=== PATIENT | female | born 1970 | race Caucasian/White ===

== ENCOUNTER → 2017-03-14 | Outpatient (CLI) | payer BC ==
--- NOTE | 2017-03-14 16:00 | REPMRS ---
Patient History The patient states she had a clinical breast exam in February 2017.Family history of breast cancer in maternal aunt at age 50 or over. Digital Mammo Screening Bilat: March 14, 2017 - Exam #: [id number] Bilateral CC and MLO view(s) were taken. Technologist: Vivian Andre, Technologist Prior study comparison: April 30, 2014, bilateral digital mammo screening bilat performed at [facility]. April 26, 2013, digital mammo diagnostic bilateral performed at [facility]. FINDINGS: There are scattered fibroglandular densities. There is a fairly symmetric fibroglandular pattern in both breasts. There has been no interval development of masses, areas of architectural distortion or clusters of microcalcifications typical of malignancy. ASSESSMENT: BI-RADS/ACR category 2 mammogram. Benign finding(s). Recommendation Routine screening mammogram of both breasts in 1 year (for women over age 40). This mammogram was interpreted with the aid of an FDA-approved computer-aided dectection system. Electronically Signed By: Chan Honeycutt MD 03/14/17 1600
== END ==
LOC: M RAD 14:47
PROVIDERS: ATTEND Advanced Practice Midwife
DX: Z12.31 Encounter for screening mammogram for malignant neoplasm of breast (principal); Z80.3 Family history of malignant neoplasm of breast; R92.8 Other abnormal and inconclusive findings on diagnostic imaging of breast

== ENCOUNTER → 2017-03-28 | Outpatient (REF) | payer BC | LOC: M LAB REF 17:16 | PROVIDERS: ATTEND Advanced Practice Midwife | DX: Z12.4 Encounter for screening for malignant neoplasm of cervix (principal); N92.4 Excessive bleeding in the premenopausal period | CPT/HCPCS: 88304; G0123 ==

== ENCOUNTER → 2017-04-13 | Outpatient (CLI) | payer BC ==
[~2017-04-13] MED LIST: LORT5TAB PO; MIRA3350 PO; OMEP40CA2 PO; OXYB5TAB10 PO
--- NOTE | 2017-04-13 13:52 | REP ---
Clinical: Abnormal uterine bleeding . Technique: Transabdominal pelvic ultrasound followed by transvaginal examination for better evaluation of the endometrium and adnexa with color Doppler evaluation of the ovaries. Findings: Bladder is unremarkable and measures 10.1 x 6.1 x 5.9 cm . Normal retroverted uterus measures 7.4 x 4.3 x 5.0 cm . The endometrial complex measures 5.6 mm thickness. No discrete uterine or endometrial abnormalities are appreciated. Bilateral ovaries are normal in appearance and vascularity without evidence for torsion. Right ovary measures 3.7 x 2.3 x 2.5 cm ; R I = 0.52 . Left ovary measures 3.0 x 2.0 x 2.0 cm ; R I = 0.50 . No pelvic fluid or adnexal mass lesion . Impression: 1. normal pelvic ultrasound Signed by Misael De Los Santos MD 04/13/2017 01:43 P
== END ==
LOC: M RAD 12:41
PROVIDERS: ATTEND Obstetrics & Gynecology
DX: N92.4 Excessive bleeding in the premenopausal period (principal)

== ENCOUNTER 2017-05-06 08:25 | Emergency (ER) | payer BC, OTHER ==
[~2017-05-06] VITALS: Ht 162.6 cm; Wt 72.7 kg
[2017-05-06 08:30] VITALS: BP 120/70
[2017-05-06] MEDS ORDERED: MIRA3350 PO (08:34)
[2017-05-06] MEDS ORDERED: OMEP40CA2 PO (08:34)
[2017-05-06] MEDS ORDERED: OXYB5TAB10 PO (08:34)
--- NOTE | 2017-05-06 09:32 | REP ---
LEFT FOOT: Four views of the left foot performed. There appears to be a nondisplaced fracture of the distal aspect of the second proximal phalanx. No other acute fracture or dislocation is seen. Metallic clip is seen in the soft tissues near the medial malleolus at the ankle. IMPRESSION: Nondisplaced fracture distal aspect of the second proximal phalanx. Signed by Chan Honeycutt MD 05/06/2017 03:18 P
== END 2017-05-06 09:42 | disposition home or self-care (01) ==
LOC: M ED 08:25
DX: S92.515A Nondisplaced fracture of proximal phalanx of left lesser toe(s), initial encounter for closed fracture (principal); W23.1XXA Caught, crushed, jammed, or pinched between stationary objects, initial encounter; Y92.019 Unspecified place in single-family (private) house as the place of occurrence of the external cause; Y93.89 Activity, other specified; Y99.8 Other external cause status; F17.200 Nicotine dependence, unspecified, uncomplicated; Z79.899 Other long term (current) drug therapy

== ENCOUNTER 2017-06-02 11:41 | Day surgery (SDC) | payer OTHER ==
[~2017-06-02] VITALS: Ht 165.1 cm; Wt 73.0 kg
[2017-06-02] VITALS (7 sets, daily range): BP systolic 102–121; BP diastolic 57–71
[~2017-06-02 11:41] MED LIST changes: +LIDOCAINE 2% INJ 100 MG/5 ML SDV (FOR ANES.) As Ordered ONE; -LORT5TAB PO; +MIDAZOLAM INJ 2 MG/2 ML VIAL (J2250) As Ordered ONE; +PROPOFOL 200 MG/20 ML VIAL As Ordered ONE; +ROCURONIUM BROMIDE 50 MG/5 ML VIAL/SYRINGE As Ordered ONE; +fentaNYL 250 MCG/5 ML INJECTION (J3010) As Ordered ONE
[2017-06-02] MEDS ORDERED: LR 1,000 ML IV ONE (12:00)
[2017-06-02] MEDS ORDERED: METHYLENE BLUE 0.5% (5MG/ML) 10 ML AMP (PROVAYBLUE)(Q9968 PER 1MG) As Ordered ONE (12:37)
[2017-06-02] MEDS ORDERED: LIDOCAINE W/EPINEPHRINE 1% 20ML VIAL As Ordered ONE (12:37)
[2017-06-02] MEDS ORDERED: BUPIVACAINE HCL 0.25% 30 ML VIAL As Ordered ONE (12:37)
[2017-06-02] MEDS ORDERED: HYDROmorphone HCL 2 MG/ML 1ML VIAL (J1170) As Ordered ONE (13:10)
[2017-06-02] MEDS ORDERED: ROCURONIUM BROMIDE 50 MG/5 ML VIAL/SYRINGE As Ordered ONE (13:13)
[2017-06-02] MEDS ORDERED: NEOSTIGMINE 1MG/ML 5 ML SYRINGE (J2710) As Ordered ONE (13:14)
[2017-06-02] MEDS ORDERED: KETOROLAC 60 MG/2 ML VIAL (J1885) As Ordered ONE (13:14)
[2017-06-02] MEDS ORDERED: GLYCOPYRROLATE INJ 0.2 MG/ML 2 ML VIAL As Ordered ONE (13:14)
[2017-06-02] MEDS ORDERED: ONDANSETRON 4MG/2ML VIAL (J2405) As Ordered ONE (13:14)
[2017-06-02] MEDS ORDERED: PROMETHAZINE INJ 25 MG/ML VIAL (J2550) IV PRN (15:30)
[2017-06-02] MEDS ORDERED: fentaNYL 100 MCG/2 ML INJECTION (J3010) IV PRN (15:30)
[2017-06-02] MEDS ORDERED: ONDANSETRON 4MG/2ML VIAL (J2405) IV PRN (15:30)
[2017-06-02] MEDS ORDERED: LR 1,000 ML IV SCH ×2 (15:30)
[2017-06-02] MEDS ORDERED: NORCO, ANEXSIA 5/325MG TABLET (HYDROcodone/ACETAMINOPHEN) PO PRN ×3 (15:30)
[2017-06-02] MEDS ORDERED: HYDROmorphone HCL 1 MG/ML SYRINGE (J1170) IV PRN (15:30)
[2017-06-02] MEDS ORDERED: MAALOX 30 ML SUSP *UDC PO PRN (20:45)
[2017-06-02] MEDS ORDERED: zolPIDEM TARTRATE 10MG TAB PO PRN (21:00)
[2017-06-02] MEDS: KETOROLAC 30 MG/ML VIAL (J1885) IV SCH (21:14)
[2017-06-03] VITALS: BP 107/53
[2017-06-03] MEDS: KETOROLAC 30 MG/ML VIAL (J1885) IV SCH ×2 (03:42→09:07)
[2017-06-03 04:06] VITALS: BP 111/68
--- NOTE | 2017-06-03 06:57 | RO ---
DATE OF PROCEDURE: 06/02/2017 PREOPERATIVE DIAGNOSES: 1. Abnormal uterine bleeding. 2. Genuine stress urinary incontinence. POSTOPERATIVE DIAGNOSES: 1. Abnormal uterine bleeding. 2. Genuine stress urinary incontinence. PROCEDURES PERFORMED: 1. Robotic assisted laparoscopic hysterectomy. 2. Bilateral salpingectomy. 3. Tension free vaginal tape, obturator approach. 4. Cystoscopy. SURGEON: Rae Ramos MD ASSISTANTS: 1. Terrell Castle MD 2. GENNY Mcnair ANESTHESIA: General endotracheal anesthesia. INTRAVENOUS FLUIDS: 1400 mL of Lactated Ringer's solution. SPECIMENS: Cervix, uterus and bilateral fallopian tubes. URINE OUTPUT: 350 mL. ESTIMATED BLOOD LOSS: 50 mL. PREOPERATIVE ANTIBIOTICS: 2 grams of Ancef. OPERATIVE FINDINGS: Patient with normal appearing uterus, bilateral adnexa. Cystoscopy findings showed good urethral efflux bilaterally. No evidence of trauma of foreign bodies. DESCRIPTION OF OPERATION: After informed consent was obtained and written consent was reviewed, the patient was brought to the operating room where general endotracheal anesthesia was obtained. She was then placed in lithotomy position , was prepped and draped in a normal sterile fashion. A time out in the operating room was then performed identifying the patient, procedure to be performed, as well as drug allergies. A speculum was then placed revealing the cervix. The anterior and posterior aspect of the cervix was stitched with #0 Vicryl. The uterus was then sequentially dilated using Hanks dilators. A large VCare uterine manipulator was then advanced through the cervical os to the level of the fundus for a means to manipulate the uterus. The intrauterine balloon was then insufflated with 10 mL of air. The cervical cap was then placed down into the vagina. The instruments were removed from the patient's vagina. A Cuevas catheter was then placed and set to gravity. Gloves were changed and attention was turned to the patient's abdomen where a Veress needle was placed through the umbilicus. A pneumoperitoneum was then obtained with CO2 gas. The infraumbilical area was then infused with 0.25% Marcaine. An incision was made in this area. A 12 mm trocar and sleeve was advanced through this incision. The laparoscope was replaced revealing intra-abdominal placement. Two lateral port, left and to the right of the umbilicus, were placed. Each of these were infused with 0.25% Marcaine. 8 mm trocars and sleeves were advanced through these incisions under direct visualization. A fourth trocar was then placed on the left side of the patient' s abdomen. This area was infused with 0.25% Marcaine and incision was made in this area. An 8 mm trocar and sleeve was advanced through this incision under direct visualization. Next, the da Héctor was then advanced to the patient's table and was docked utilizing camera arm. Utilizing the da Héctor with bipolar cautery, bilateral salpingectomy was then performed. Mesosalpinx was then cauterized and ligated with good hemostasis bilaterally. Both fallopian tubes transected from the uterus and removed through the ports. Next, the utero-ovarian ligaments were then cauterized and ligated with good hemostasis noted bilaterally. The round ligaments on both sides were then cauterized and ligated with good hemostasis noted. The anterior lip of the broad ligaments were then dissected along the bladder creating a bladder flap. The remainder of the broad ligaments and cardinal ligaments were then cauterized and ligated with good hemostasis noted. The uterine arteries were then skeletonized bilaterally and were cauterized and ligated with good hemostasis noted. Inferior and posterior colpotomies were made and the uterus was removed vaginally. Surgical sites were inspected and noted to be hemostatic. The vaginal cuff was then closed laparoscopically using a #2-0 V-Loc system in a running fashion. Surgical sites were inspected and noted to be hemostatic. The abdomen was then irrigated and suctioned. Yefri was then applied over the surgical north. Next, the da Héctor was then undocked and attention was turned to the patient's abdomen where all four port site were closed with #4-0 Monocryl and dressed with DERMABOND. We then proceeded to the TVTO. The Cuevas catheter was removed. The area below the urethral meatus was the injected with 1% lidocaine with epinephrine. An incision was then made approximately 2 cm below the urethral meatus to the vaginal mucosa. This area was further dissected bilaterally. A wing guide was then placed and the TVTO device was inserted through the open end of the vaginal mucosa and was rotated externally and then exited through the skin in the groin area, which was previously marked in the line of the clitoris. This was repeated on the patient's left side. A Sydni clamp was then placed between the urethra and the vaginal tape. The tape was then adjusted to appropriate tension. The protective sleeve was removed. Excessive mesh was then cut and the vaginal mucosa was closed with #2-0 Vicryl. A cystoscopy was then performed with the above noted findings. Bilateral jets were visualized. No foreign bodies were seen in urethra or the bladder. Instruments were then removed. The patient was then taken out of lithotomy position and was awakened from general anesthesia and taken to recovery in stable condition. Counts were correct. MTDD
[2017-06-03 07:11] LABS: MEAN CORPUSCULAR HEMOGLOBIN 27.4 pg (27.0-33.0); MEAN CORPUSCULAR VOLUME 85.7 fl (80.0-96.0); RED CELL DISTRIBUTION WIDTH 15.3 % (11.5-14.5); WHITE BLOOD COUNT 18.1 K/mm3 (4.0-10.0)
[2017-06-03 08:00] VITALS: BP 105/62
[2017-06-03] MEDS ORDERED: LORT5TAB PO (11:07)
== END 2017-06-03 11:30 | disposition home or self-care (01) ==
LOC: M SDC 11:41 → M PED 15:56 → M SDC 06-03 11:30
PROVIDERS: ATTEND Obstetrics & Gynecology
DX: N93.9 Abnormal uterine and vaginal bleeding, unspecified (principal); N39.3 Stress incontinence (female) (male); R39.15 Urgency of urination; E16.2 Hypoglycemia, unspecified; K58.9 Irritable bowel syndrome, unspecified; K21.9 Gastro-esophageal reflux disease without esophagitis; M12.9 Arthropathy, unspecified; M54.2 Cervicalgia; K90.0 Celiac disease; Z88.2 Allergy status to sulfonamides; Z88.5 Allergy status to narcotic agent; Z88.8 Allergy status to other drugs, medicaments and biological substances; Z91.048 Other nonmedicinal substance allergy status; Z79.899 Other long term (current) drug therapy; Z72.0 Tobacco use; Z98.51 Tubal ligation status
CPT/HCPCS: 36415; 57288; 58571; 85027; 86850; 86900; 86901; 88307; 96374; A6024; C1771; J0690; J1170; J1885; J2250; J2405; J2710; J3010

== ENCOUNTER 2017-09-28 13:28 | Emergency (ER) | payer OTHER ==
[~2017-09-28] VITALS: Ht 167.6 cm; Wt 71.4 kg
[~2017-09-28 13:28] MED LIST changes: -LIDOCAINE 2% INJ 100 MG/5 ML SDV (FOR ANES.) As Ordered ONE; +LORT5TAB PO; -MIDAZOLAM INJ 2 MG/2 ML VIAL (J2250) As Ordered ONE; -PROPOFOL 200 MG/20 ML VIAL As Ordered ONE; -ROCURONIUM BROMIDE 50 MG/5 ML VIAL/SYRINGE As Ordered ONE; -fentaNYL 250 MCG/5 ML INJECTION (J3010) As Ordered ONE
[2017-09-28] MEDS ORDERED: IBUPROFEN 600 MG TAB PO ONE (14:45)
[2017-09-28 15:17] VITALS: BP 105/67
[2017-09-28] MEDS ORDERED: IBUP-1022 PO (15:25)
--- NOTE | 2017-09-28 16:29 | REP ---
Left tib-fib series: Four views: History: Point tenderness of the distal tibia. Findings: Four views of the left tibia and fibula demonstrate scattered surgical clips in the calf soft tissues distally. Bones joints and soft tissues are otherwise unremarkable. No fracture or subluxation is seen. Impression: No fracture or other acute bony abnormality seen. Soft tissue clips. Signed by Rashawn Tam MD 09/29/2017 08:15 A
--- NOTE | 2017-09-28 16:30 | REP ---
Left ankle series: Four views: History: History of ankle surgery. Point tenderness distal tibia. Findings: Ankle mortise is intact. No fracture or subluxation is seen. Distal calf surgical clips are noted. Impression: No acute bony abnormality. Signed by Rashawn Tam MD 09/29/2017 08:15 A
== END 2017-09-28 15:43 | disposition home or self-care (01) ==
LOC: M ED 13:28
DX: S80.12XA Contusion of left lower leg, initial encounter (principal); W01.198A Fall on same level from slipping, tripping and stumbling with subsequent striking against other object, initial encounter; Y92.59 Other trade areas as the place of occurrence of the external cause; Y93.E9 Activity, other interior property and clothing maintenance; Y99.0 Civilian activity done for income or pay; K90.0 Celiac disease; K21.9 Gastro-esophageal reflux disease without esophagitis; K58.9 Irritable bowel syndrome, unspecified; D64.9 Anemia, unspecified; F17.210 Nicotine dependence, cigarettes, uncomplicated; Z79.899 Other long term (current) drug therapy; Z88.5 Allergy status to narcotic agent; Z88.1 Allergy status to other antibiotic agents; Z88.2 Allergy status to sulfonamides; L23.1 Allergic contact dermatitis due to adhesives

== ENCOUNTER → 2017-10-25 | Outpatient (CLI) | payer OTHER | LOC: M RAD 09:52 | DX: M25.551 Pain in right hip (principal) ==

== ENCOUNTER → 2017-12-09 | Outpatient (CLI) | payer OTHER ==
[2017-12-09 07:08] LABS: BASO # 0.1 10^3/uL (0.0-0.2); BASO % 0.7 % (0.0-1.0); EOS # 0.2 10^3/uL (0.0-0.50); EOS % 1.8 % (0.0-3.0); HEMATOCRIT 38.3 % (36.0-47.0); HEMOGLOBIN 12.4 g/dl (12.0-16.0); IMMATURE GRANULOCYTE % 0.3 % (0-3.0); LYMPH # 4.5 10^3/uL (1.5-4.5); LYMPH % 39.8 % (24.0-44.0); MEAN CORPUSCULAR HGB CONC 32.4 g/dl (32.0-36.5); MEAN CORPUSCULAR VOLUME 80.3 fl (80.0-96.0); MONO # 0.7 10^3/uL (0.0-0.8); MONO % 6.2 % (0.0-5.0); NEUTROPHILS # 5.8 10^3/uL (1.8-7.7); NEUTROPHILS % 51.2 % (36.0-66.0); PLATELET COUNT, AUTOMATED 328 10^3/uL (150-450); RED BLOOD COUNT 4.77 10^6/uL (4.00-5.40); RED CELL DISTRIBUTION WIDTH 18.6 % (11.5-14.5); WHITE BLOOD COUNT 11.3 10^3/uL (4.0-10.0)
[2017-12-09 07:43] LABS: ALBUMIN 3.5 GM/DL (3.2-5.2); ALBUMIN/GLOBULIN RATIO 1.06 (1.00-1.93); ALKALINE PHOSPHATASE 71 U/L (45-117); ALT/SGPT 21 U/L (12-78); ANION GAP 3 MEQ/L (8-16); AST/SGOT 12 U/L (7-37); BILIRUBIN,TOTAL 0.3 MG/DL (0.2-1.0); BLOOD UREA NITROGEN 8 MG/DL (7-18); CALCIUM LEVEL 8.5 MG/DL (8.5-10.1); CARBON DIOXIDE LEVEL 28 MEQ/L (21-32); CHLORIDE LEVEL 111 MEQ/L (98-107); CHOLESTEROL LEVEL 149 MG/DL (<200); CHOLESTEROL RISK RATIO 2.759 (<5); CREATININE FOR GFR 0.58 MG/DL (0.55-1.30); GLOMERULAR FILTRATION RATE > 60.0 (>58); GLUCOSE, FASTING 98 MG/DL (70-100); HDL CHOLESTEROL 54 MG/DL (>40); LDL CHOLESTEROL 85.6 MG/DL (<100); NON-HDL-C 95 MG/DL; POTASSIUM SERUM 4.5 MEQ/L (3.5-5.1); SODIUM LEVEL 142 MEQ/L (136-145); TOTAL PROTEIN 6.8 GM/DL (6.4-8.2); TRIGLYCERIDES LEVEL 47 MG/DL (<150)
== END ==
LOC: M LAB 06:46
DX: J44.9 Chronic obstructive pulmonary disease, unspecified (principal); E66.3 Overweight; E16.1 Other hypoglycemia

== ENCOUNTER → 2018-01-11 | Outpatient (CLI) | payer OTHER ==
[2018-01-13 00:07] LABS: TISSUE TRANSGLUTAMINASE IgA >100 U/mL (0-3)
== END ==
LOC: M LAB 11:20
DX: K90.0 Celiac disease (principal)

== ENCOUNTER → 2018-01-13 | Outpatient (CLI) | payer OTHER | LOC: M LAB 10:14 | DX: K90.0 Celiac disease (principal) | CPT/HCPCS: 87507 ==

== ENCOUNTER 2018-01-14 17:40 | Emergency (ER) | payer OTHER ==
[2018-01-14] MEDS: NS 500 ML IV (19:00)
[2018-01-14 19:11] LABS: BASO # 0.1 10^3/uL (0.0-0.2); BASO % 0.8 % (0.0-1.0); EOS # 0.3 10^3/uL (0.0-0.50); EOS % 2.1 % (0.0-3.0); HEMATOCRIT 35.9 % (36.0-47.0); HEMOGLOBIN 11.6 g/dl (12.0-15.5); IMMATURE GRANULOCYTE % 0.4 % (0-3.0); LYMPH # 2.9 10^3/uL (1.5-4.5); LYMPH % 20.3 % (24.0-44.0); MEAN CORPUSCULAR HEMOGLOBIN 26.3 pg (27.0-33.0); MEAN CORPUSCULAR HGB CONC 32.3 g/dl (32.0-36.5); MEAN CORPUSCULAR VOLUME 81.4 fl (80.0-96.0); MONO # 0.8 10^3/uL (0.0-0.8); MONO % 5.5 % (0.0-5.0); NEUTROPHILS # 10.1 10^3/uL (1.8-7.7); NEUTROPHILS % 70.9 % (36.0-66.0); PLATELET COUNT, AUTOMATED 383 10^3/uL (150-450); RED BLOOD COUNT 4.41 10^6/uL (4.00-5.40); RED CELL DISTRIBUTION WIDTH 18.7 % (11.5-14.5); WHITE BLOOD COUNT 14.3 10^3/uL (4.0-10.0)
[2018-01-14 19:30] LABS: APPEARANCE, URINE HAZY (CLEAR); BACTERIA, URINE AUTO 2+ (NEGATIVE); BILIRUBIN, URINE AUTO NEGATIVE (NEGATIVE); BLOOD, URINE BLOOD NEGATIVE (NEGATIVE); COLOR, URINE YELLOW (YELLOW); GLUCOSE, URINE (UA) AUTO NEGATIVE (NEGATIVE); KETONE, URINE AUTO NEGATIVE (NEGATIVE); LEUKOCYTE ESTERASE, URINE AUTO NEGATIVE (NEGATIVE); MUCUS, URINE SMALL (NEGATIVE); NITRITE, URINE AUTO NEGATIVE (NEGATIVE); PROTEIN, URINE AUTO NEGATIVE (NEGATIVE); RBC, URINE AUTO 1 /HPF (0-3); SPECIFIC GRAVITY URINE AUTO 1.023 (1.002-1.035); SQUAMOUS EPITHELIAL CELL UR AU 1 /HPF (0-6); UROBILINOGEN, URINE AUTO 0.2 mg/dL (0.0-2.0); WBC, URINE AUTO 2 /HPF (0-3)
[2018-01-14] MEDS: GASTROGRAFIN SOLUTION 30ML PO ×2 (19:37→19:45)
[2018-01-14 19:42] LABS: CONTROL LINE UCG INT CTR LINE PRESENT; URINE PREG TEST NEGATIVE (NEGATIVE)
[2018-01-14 19:44] LABS: ALBUMIN 3.3 GM/DL (3.2-5.2); ALBUMIN/GLOBULIN RATIO 0.92 (1.00-1.93); ALKALINE PHOSPHATASE 75 U/L (45-117); ALT/SGPT 25 U/L (12-78); AMYLASE 43 U/L (25-115); ANION GAP 6 MEQ/L (8-16); AST/SGOT 19 U/L (7-37); BILIRUBIN,DIRECT < 0.1 MG/DL (0.0-0.2); BILIRUBIN,TOTAL 0.2 MG/DL (0.2-1.0); BLOOD UREA NITROGEN 16 MG/DL (7-18); C REACTIVE PROTEIN QUANTITATIV < 0.30 MG/DL (0.00-0.30); CALCIUM LEVEL 8.1 MG/DL (8.5-10.1); CARBON DIOXIDE LEVEL 23 MEQ/L (21-32); CHLORIDE LEVEL 111 MEQ/L (98-107); CK-MB VALUE MASS 1.9 NG/ML (<3.6); CPK CREATINE PHOSPHOKINASE 115 U/L (26-192); CREATININE FOR GFR 0.56 MG/DL (0.55-1.30); GLOMERULAR FILTRATION RATE > 60.0 (>58); GLUCOSE, FASTING 88 MG/DL (70-100); LIPASE 108 U/L (73-393); MB/CK RELATIVE INDEX 1.65 (< OR =4); POTASSIUM SERUM 4.5 MEQ/L (3.5-5.1); SODIUM LEVEL 140 MEQ/L (136-145); TOTAL PROTEIN 6.9 GM/DL (6.4-8.2); TROPONIN I < 0.02 NG/ML (< 0.10)
[2018-01-14] MEDS ORDERED: ISOVUE-370 76% 100ML VIAL (Q9967) As Ordered (20:15)
[2018-01-14] MEDS: KETOROLAC 30 MG/ML VIAL (J1885) IV (21:43)
== END 2018-01-14 21:48 | disposition home or self-care (01) ==
LOC: M ED 17:40
DX: R10.10 Upper abdominal pain, unspecified (principal); E27.9 Disorder of adrenal gland, unspecified; K22.70 Barrett's esophagus without dysplasia; K58.9 Irritable bowel syndrome, unspecified; Z87.19 Personal history of other diseases of the digestive system; Z79.899 Other long term (current) drug therapy; Z88.1 Allergy status to other antibiotic agents; Z88.2 Allergy status to sulfonamides; Z88.5 Allergy status to narcotic agent; Z88.8 Allergy status to other drugs, medicaments and biological substances; Z91.048 Other nonmedicinal substance allergy status; F17.210 Nicotine dependence, cigarettes, uncomplicated
CPT/HCPCS: Q9963

== ENCOUNTER → 2018-03-15 | Outpatient (CLI) | payer OTHER | LOC: M WHC 07:10 | DX: Z12.31 Encounter for screening mammogram for malignant neoplasm of breast (principal) | CPT/HCPCS: 77067 ==

== ENCOUNTER → 2018-04-24 | Outpatient (REF) | payer OTHER ==
[2018-04-24 14:19] LABS: ALBUMIN 3.7 GM/DL (3.2-5.2); ALBUMIN/GLOBULIN RATIO 1.09 (1.00-1.93); ALKALINE PHOSPHATASE 79 U/L (45-117); ALT/SGPT 18 U/L (12-78); AST/SGOT 15 U/L (7-37); BILIRUBIN,DIRECT 0.1 MG/DL (0.0-0.2); BILIRUBIN,TOTAL 0.4 MG/DL (0.2-1.0); TOTAL PROTEIN 7.1 GM/DL (6.4-8.2)
[2018-04-25 11:35] LABS: HEPATITIS B SURFACE ANTIGEN NEGATIVE (NEGATIVE)
[2018-04-25 11:49] LABS: HEPATITIS C VIRUS ABY INDEX 0.1 INDEX (<0.8)
[2018-04-25 11:50] LABS: HIV 1&2 SCREEN CENTAUR NEGATIVE (NEGATIVE)
== END ==
LOC: M SFHCPLAZ 08:38
DX: Z11.9 Encounter for screening for infectious and parasitic diseases, unspecified (principal); W46.0XXA Contact with hypodermic needle, initial encounter

== ENCOUNTER → 2018-07-30 | Outpatient (REF) | payer OTHER ==
[2018-07-30 13:26] LABS: HEPATITIS B SURFACE ANTIBODY NEGATIVE (POSITIVE); HEPATITIS B SURFACE ANTIGEN NEGATIVE (NEGATIVE); HIV 1&2 SCREEN CENTAUR NEGATIVE (NEGATIVE)
[2018-07-30 13:26] LABS: HEPATITIS C VIRUS ABY INDEX < 0.0 INDEX (<0.8)
== END ==
LOC: M SFHCPLAZ 08:45
DX: S61.209A Unspecified open wound of unspecified finger without damage to nail, initial encounter (principal); W46.0XXA Contact with hypodermic needle, initial encounter; Y92.009 Unspecified place in unspecified non-institutional (private) residence as the place of occurrence of the external cause

== ENCOUNTER 2018-11-05 19:44 | Inpatient (IN) | payer OTHER ==
[~2018-11-05] VITALS: Ht 162.6 cm; Wt 72.3 kg
[~2018-11-05 19:44] MED LIST changes: +IBUP-1022 PO; +RALT40TA PO; +TRUVTAB PO
[2018-11-05] MEDS ORDERED: ONDANSETRON 4MG/2ML VIAL (J2405) IV ONE (20:00)
[2018-11-05] MEDS ORDERED: PANTOPRAZOLE 40MG INJ (PROTONIX) (C9113) IV ONE (20:00)
[2018-11-05] MEDS ORDERED: NS 1,000 ML IV ONE (20:00)
[2018-11-05] MEDS ORDERED: HALOPERIDOL 5 MG/ML VIAL (J1630) IV ONE (20:00)
[2018-11-05] MEDS ORDERED: diphenhydrAMINE INJ 50MG/ML VIAL (J1200) IV ONE (20:00)
[2018-11-05 20:19] LABS: HEMATOCRIT 39.1 % (36.0-47.0); HEMOGLOBIN 12.4 g/dl (12.0-15.5); MEAN CORPUSCULAR HEMOGLOBIN 27.7 pg (27.0-33.0); MEAN CORPUSCULAR HGB CONC 31.7 g/dl (32.0-36.5); MEAN CORPUSCULAR VOLUME 87.5 fl (80.0-96.0); PLATELET COUNT, AUTOMATED 303 10^3/uL (150-450); RED BLOOD COUNT 4.47 10^6/uL (4.00-5.40)
[2018-11-05 20:47] LABS: WHITE BLOOD COUNT 24.1 10^3/uL (4.0-10.0)
[2018-11-05 20:53] LABS: ALBUMIN 3.6 GM/DL (3.2-5.2); ALT/SGPT 21 U/L (12-78); BILIRUBIN,DIRECT 0.1 MG/DL (0.0-0.2); BILIRUBIN,TOTAL 0.3 MG/DL (0.2-1.0); BLOOD UREA NITROGEN 13 MG/DL (7-18); CALCIUM LEVEL 8.5 MG/DL (8.5-10.1); CARBON DIOXIDE LEVEL 15 MEQ/L (21-32); CHLORIDE LEVEL 107 MEQ/L (98-107); CREATININE FOR GFR 0.86 MG/DL (0.55-1.30); GLOMERULAR FILTRATION RATE > 60.0 (>58); GLUCOSE, FASTING 181 MG/DL (70-100); LIPASE 93 U/L (73-393); SODIUM LEVEL 135 MEQ/L (136-145); TOTAL PROTEIN 7.3 GM/DL (6.4-8.2)
[2018-11-05 21:31] LABS: BASOPHILS 1 % (0-4); EOSINOPHILS 3 % (0-5); LYMPHOCYTES 18 % (16-52); MONOCYTES 8 % (0-8); NEUTROPHILS 70 % (35-75); PLATELET ESTIMATE NORMAL (NORMAL)
[2018-11-05 21:32] LABS: ANISOCYTOSIS 1+
[2018-11-05 21:33] LABS: BURR CELLS 1+
[2018-11-05] MEDS ORDERED: fentaNYL 100 MCG/2 ML INJECTION (J3010) IV ONE (22:00)
[2018-11-05] MEDS ORDERED: ONDANSETRON 4MG/2ML VIAL (J2405) IV PRN (22:00)
[2018-11-05] MEDS ORDERED: PROMETHAZINE INJ 25 MG/ML VIAL (J2550) IV PRN (22:00)
[2018-11-05] MEDS ORDERED: METOCLOPRAMIDE INJ 10MG/2ML VIAL (J2765) IV PRN (22:00)
[2018-11-05] MEDS ORDERED: KETOROLAC 30 MG/ML VIAL (J1885) IV PRN (22:00)
[2018-11-05] MEDS ORDERED: TRUVTAB PO (22:33)
[2018-11-05] MEDS ORDERED: RALT40TA PO (22:33)
[2018-11-05] MEDS ORDERED: OXYB5TAB PO (22:38)
[2018-11-05] MEDS: cefTRIAXone SOD 1 GM in D5W MINI-BAG PLUS 50 ML IV SCH (23:00)
[2018-11-05] MEDS: NS 1,000 ML IV SCH ×2 (23:00→23:48)
[2018-11-05] MEDS ORDERED: CETACAINE SPRAY 5GM TOP ONE (23:00)
[2018-11-05 23:55] VITALS: BP 91/50
--- NOTE | 2018-11-06 00:55 | REP ---
Clinical: Nasogastric tube placement. Comparison: 06/21/2013. Findings: Nasogastric tube in satisfactory position below left hemidiaphragm. Evaluation is somewhat limited by portable technique along with underpenetration and poor inspiratory effort which accentuates the pulmonary vasculature and interstitium. No focal consolidation, effusion, or pneumothorax. Skeletal structures intact. Impression: Nasogastric tube in satisfactory position. No focal consolidation. Electronically Signed by Misael De Los Santos MD 11/06/2018 12:47 A
[2018-11-06 02:00] VITALS: BP 89/52
[2018-11-06 06:00] VITALS: BP 126/74
[2018-11-06 06:19] LABS: HEMATOCRIT 32.4 % (36.0-47.0); HEMOGLOBIN 10.7 g/dl (12.0-15.5); MEAN CORPUSCULAR HEMOGLOBIN 27.9 pg (27.0-33.0); MEAN CORPUSCULAR VOLUME 84.6 fl (80.0-96.0); PLATELET COUNT, AUTOMATED 294 10^3/uL (150-450); RED BLOOD COUNT 3.83 10^6/uL (4.00-5.40); WHITE BLOOD COUNT 11.8 10^3/uL (4.0-10.0)
[2018-11-06 06:37] LABS: BLOOD UREA NITROGEN 7 MG/DL (7-18); CALCIUM LEVEL 7.3 MG/DL (8.5-10.1); CARBON DIOXIDE LEVEL 22 MEQ/L (21-32); CHLORIDE LEVEL 112 MEQ/L (98-107); CREATININE FOR GFR 0.43 MG/DL (0.55-1.30); GLOMERULAR FILTRATION RATE > 60.0 (>58); GLUCOSE, FASTING 87 MG/DL (70-100); POTASSIUM SERUM 3.3 MEQ/L (3.5-5.1); SODIUM LEVEL 142 MEQ/L (136-145)
[2018-11-06] MEDS: PANTOPRAZOLE 40MG INJ (PROTONIX) (C9113) IV SCH (09:20)
[2018-11-06 10:00] VITALS: BP 114/72
--- NOTE | 2018-11-06 13:34 | REP ---
ABDOMEN SERIES: Three views. HISTORY: Small bowel obstruction. COMPARISON X-RAY: November 05, 2018 chest x-ray. FINDINGS: Upright chest radiograph demonstrates an NG tube in the stomach. There is no evidence of infiltrate or free subdiaphragmatic air. Supine and erect views of the abdomen show air and stool in a nondistended colon. There are clips in the upper abdomen. CT study from the previous evening showed multiple moderately dilated predominately fluid-filled loops of small bowel. These are either improved or very poorly seen on plain radiographs. No significant air fluid level is noted. Flank stripes are intact. No mass organomegaly is seen. IMPRESSION: Clips in the upper abdomen. NG tube in place. The dilated small bowel loop seen on the CT are not well seen radiographically. Consider followup CT scanning. No significant air fluid level is seen. No evidence of free air. Electronically Signed by Rashawn Tam MD 11/06/2018 05:33 P
--- NOTE | 2018-11-06 13:53 | REP ---
REPEAT DICTATION CT ABDOMEN AND PELVIS WITHOUT IV OR ORAL CONTRAST: HISTORY: Epigastric pain. Preliminary report is provided at time of exam by virtual radiology. Comparison CT study October 04, 2018. CT FINDINGS: Preliminary cath lab tech view shows small bowel air-fluid levels in the anterior abdomen on the lateral view. Cholecystectomy clips are noted. There are sutures and clips at the gastroesophageal junction as well. There is a low-density left adrenal adenoma measuring 3.5 cm in diameter. This is unchanged from the comparison CT study. Mean Hounsfield unit density is minus 1.6 Hounsfield units. No hydronephrosis or intrarenal calculus is observed. No pancreatic abnormality is seen. The spleen is surgically absent. There are dilated small bowel loops throughout the central abdomen. Air and stool is seen in the colon. The colon is not felt to be dilated although there is a moderate amount of low density colonic content. No mural thickening is seen. No mass or other obstructive lesion is identified. No evidence of free air or abnormal fluid collection. No abdominal wall defect. IMPRESSION: Small bowel obstruction pattern. No obstructive lesion seen. There is a moderate amount of low density stool content in the colon. Post cholecystectomy. 3.5 cm left adrenal adenoma. Uterus is surgically absent and there are sutures adjacent to the gastroesophageal junction. The patient is status post appendectomy. The spleen is surgically absent as well. Electronically Signed by Rashawn Tam MD 11/06/2018 05:35 P
[2018-11-06 14:00] VITALS: BP 106/62
--- NOTE | 2018-11-06 14:51 | IPNPDOC ---
Date Seen The patient was seen on 11/06/18. Progress Note SUBJECTIVE: Patient was seen for a mechanical small bowel obstruction. She currently states that her pain has mostly resolved. Her only current complaint is of irritation from the NG tube. She states that she has had a small bowel movement today and continues to pass gas. Patient's NG tube was clamped this morning and the patient was advanced on a clear liquid diet. Patient continued to tolerate clear liquids diet without abdominal pain and continued to pass gas. OBJECTIVE PHYSICAL EXAMINATION: VITAL SIGNS: Please see below. GENERAL: Patient is awake, alert and oriented 3. She appears in no acute distress. She is lying comfortably in bed HEENT: Atraumatic, normocephalic. Eyes nonicteric. Trachea is midline. Nasogastric tube is in place CARDIOVASCULAR:. Normal S1, S2, regular rhythm clicks, rubs or murmurs. RESPIRATORY:. Clear to auscultation bilaterally. Good respiratory effort. No wheezes, rhonchi or rales. ABDOMINAL:. Soft, nondistended, positive bowel sounds throughout, nontender to palpation all 4 quadrants EXTREMITIES:. No edema LABORATORY DATA, IMAGING STUDIES, MICROBIOLOGY: Please see below. IMAGING: Abdominal Series FINDINGS: Upright chest radiograph demonstrates an NG tube in the stomach. There is no evidence of infiltrate or free subdiaphragmatic air. Supine and erect views of the abdomen show air and stool in a nondistended colon. There are clips in the upper abdomen. CT study from the previous evening showed multiple moderately dilated predominately fluid-filled loops of small bowel. These are either improved or very poorly seen on plain radiographs. No significant air fluid level is noted. Flank stripes are intact. No mass organomegaly is seen. IMPRESSION: Clips in the upper abdomen. NG tube in place. The dilated small bowel loop seen on the CT are not well seen radiographically. Consider followup CT scanning. No significant air fluid level is seen. No evidence of free air. Clinical: X-RAY Nasogastric tube placement. Comparison: 06/21/2013. Findings: Nasogastric tube in satisfactory position below left hemidiaphragm. Evaluation is somewhat limited by portable technique along with underpenetration and poor inspiratory effort which accentuates the pulmonary vasculature and interstitium. No focal consolidation, effusion, or pneumothorax. Skeletal structures intact. Impression: Nasogastric tube in satisfactory position. No focal consolidation. CT ABDOMEN AND PELVIS WITHOUT IV OR ORAL CONTRAST: HISTORY: Epigastric pain. Preliminary report is provided at time of exam by virtual radiology. Comparison CT study October 04, 2018. CT FINDINGS: Preliminary sales support advisor view shows small bowel air-fluid levels in the anterior abdomen on the lateral view. Cholecystectomy clips are noted. There are sutures and clips at the gastroesophageal junction as well. There is a low-density left adrenal adenoma measuring 3.5 cm in diameter. This is unchanged from the comparison CT study. Mean Hounsfield unit density is minus 1.6 Hounsfield units. No hydronephrosis or intrarenal calculus is observed. No pancreatic abnormality is seen. The spleen is surgically absent. There are dilated small bowel loops throughout the central abdomen. Air and stool is seen in the colon. The colon is not felt to be dilated although there is a moderate amount of low density colonic content. No mural thickening is seen. No mass or other obstructive lesion is identified. No evidence of free air or abnormal fluid collection. No abdominal wall defect. IMPRESSION: Small bowel obstruction pattern. No obstructive lesion seen. There is a moderate amount of low density stool content in the colon. Post cholecystectomy. 3.5 cm left adrenal adenoma. Uterus is surgically absent and there are sutures adjacent to the gastroesophageal junction. The patient is status post appendectomy. The spleen is surgically absent as well. ASSESSMENT: 1. Mechanical small bowel obstruction 2. Gluten intolerance PROBLEMS: 1. Mechanical Small Bowel Obstruction -D/C Nasogastric tube; patient continues to tolerate PO without development of abdominal pain. She continues to pass gas. -Will advance diet as tolerated tomorrow AM; will continue clear liquids diet until tomorrow morning. Tomorrow AM she will be advanced as tolerate with a gluten restricted diet due to history of gluten intolerance -D/C IV fluids when patient is tolerating PO intake 2. Gluten Intolerance -Gluten Restricted diet advance as tolerated started tomorrow AM VS, I&O, 24H, Fishbone Vital Signs/I&O Vital Signs Date Time Temp Pulse Resp B/P (MAP) Pulse Ox O2 Delivery O2 Flow Rate FiO2 11/06/18 06:00 98.2 86 18 126/74 (91) 97 Room Air I&O- Last 24 Hours up to 6 AM 11/06/18 06:00 Intake Total 0 ml Output Total 450 ml Balance -450 ml Laboratory Data 24H LABS Laboratory Tests 2 11/05/18 20:09: White Blood Count 24.1H, Red Blood Count 4.47, Hemoglobin 12.4, Hematocrit 39.1, Mean Corpuscular Volume 87.5, Mean Corpuscular Hemoglobin 27.7, Mean Corpuscular Hemoglobin Concent 31.7L, Red Cell Distribution Width 17.7H, Platelet Count 303, Lymphocytes # (Auto) , Nucleated Red Blood Cells % (auto) 0.0, Neutrophils 70, Lymphocytes (Manual) 18, Monocytes (Manual) 8, Eosinophils (Manual) 3, Basophils (Manual) 1, Platelet Estimate NORMAL, Hypochromasia , Anisocytosis 1+, Lilian Cells 1+, Anion Gap 13, Glomerular Filtration Rate > 60.0, Calcium Level 8.5, Aspartate Amino Transf (AST/SGOT) 21, Alanine Aminotransferase (ALT/SGPT) 21, Alkaline Phosphatase 71, Total Bilirubin 0.3, Direct Bilirubin 0.1, Total Protein 7.3, Albumin 3.6, Albumin/Globulin Ratio 0.97L, Lipase 93 11/06/18 05:53: Nucleated Red Blood Cells % (auto) 0.0, Anion Gap 8, Glomerular Filtration Rate > 60.0, Calcium Level 7.3L, Blood Urea Nitrogen 7, Creatinine 0.43L, Sodium Level 142#, Potassium Level 3.3L, Chloride Level 112H, Carbon Dioxide Level 22 CBC/BMP Laboratory Tests 11/05/18 20:09 Red Blood Count 4.47, Mean Corpuscular Volume 87.5, Mean Corpuscular Hemoglobin 27.7, Mean Corpuscular Hemoglobin Concent 31.7 L, Red Cell Distribution Width 17.7 H, Lymphocytes # (Auto) 11/06/18 05:53 Red Blood Count 3.83 L, Mean Corpuscular Volume 84.6, Mean Corpuscular Hemoglobin 27.9, Mean Corpuscular Hemoglobin Concent 33.0, Red Cell Distribution Width 17.2 H, Calcium Level 7.3 L GME ATTESTATION GME ATTESTATION My faculty preceptor for this patient encounter was physically present during the encounter and was fully available. All aspects of the patient interview, examination, medical decision making process, and medical care plan development were reviewed and approved by the faculty preceptor. The faculty preceptor is aware and concurs with the plan as stated in the body of this note and will attest to such by his/her cosignature. ROYAL BENITEZ DO Nov 06, 2018 14:51
[2018-11-06] MEDS: cefTRIAXone SOD 1 GM in D5W MINI-BAG PLUS 50 ML IV SCH (21:19)
[2018-11-06 22:00] VITALS: BP 97/60
[2018-11-07 02:00] VITALS: BP 104/56
[2018-11-07 06:00] VITALS: BP 122/56
[2018-11-07 06:42] LABS: HEMOGLOBIN 11.1 g/dl (12.0-15.5); MEAN CORPUSCULAR HEMOGLOBIN 27.2 pg (27.0-33.0); MEAN CORPUSCULAR HGB CONC 31.7 g/dl (32.0-36.5); MEAN CORPUSCULAR VOLUME 85.8 fl (80.0-96.0); PLATELET COUNT, AUTOMATED 309 10^3/uL (150-450); RED BLOOD COUNT 4.08 10^6/uL (4.00-5.40); WHITE BLOOD COUNT 6.9 10^3/uL (4.0-10.0)
[2018-11-07 06:51] LABS: BLOOD UREA NITROGEN 5 MG/DL (7-18); CALCIUM LEVEL 8.2 MG/DL (8.5-10.1); CARBON DIOXIDE LEVEL 25 MEQ/L (21-32); CHLORIDE LEVEL 111 MEQ/L (98-107); CREATININE FOR GFR 0.64 MG/DL (0.55-1.30); GLOMERULAR FILTRATION RATE > 60.0 (>58); GLUCOSE, FASTING 98 MG/DL (70-100); POTASSIUM SERUM 3.7 MEQ/L (3.5-5.1); SODIUM LEVEL 143 MEQ/L (136-145)
[2018-11-07] MEDS: PANTOPRAZOLE 40MG INJ (PROTONIX) (C9113) IV SCH (09:18)
[2018-11-07 10:00] VITALS: BP 119/71
--- NOTE | 2018-11-09 17:19 | DSES ---
DATE OF ADMISSION: 11/05/2018 DATE OF DISCHARGE: 11/07/2018 PRINCIPAL DIAGNOSIS: Small-bowel obstruction secondary to adhesions. ASSOCIATED DIAGNOSIS: History of: Abdominal pain. Small bowel obstructions. Toe fractures. Exposure to body fluids, seeing Dr. Jean concerning this. Celiac disease. Irritable bowel syndrome (IBS). Castle's esophagus with Ivana fundoplication. 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 History of appendectomy and cholecystectomy. MEDICATIONS: Include: - Truvada - omeprazole - oxybutynin - MiraLAX - Isentress HISTORY OF PRESENT ILLNESS The patient is a 48-year-old female who presents to the emergency room with abdominal pain in the epigastric area that was acute in onset and on the day of admission she developed some nausea with vomiting. She states the pain is severe in the epigastric area, persistent. HOSPITAL COURSE SUMMARY: The patient was admitted with a diagnosis of a small bowel obstruction, had an NG tube placed and within 12 hours of her admission the patient started having bowel movements, had less abdominal distension. Overall improved substantially within the first few hours of admission but given her Ivana fundoplication and the concerns that she had such difficulty with the NG tube insertion and discomfort with this, the tube was clamped and overnight she had persistence or progression of her bowel sounds. She had more bowel movements and then was started on a clear liquid diet, advanced to a regular diet was discharged home. She was discharged home on her regular medications which include the following: - Truvada - omeprazole - oxybutynin - MiraLax - Isentress. She is to followup with her primary care provider in 1-2 weeks, sooner if there are any questions or concerns.
== END 2018-11-07 10:30 | disposition home or self-care (01) | DRG 247 ==
LOC: M ED 19:44 → EDBD 19:44 → M ED INP 21:55 → M MS5PR 23:55
PROVIDERS: ADMIT Surgery; ATTEND Surgery
DX: K56.50 Intestinal adhesions [bands], unspecified as to partial versus complete obstruction (principal); K90.0 Celiac disease; K22.70 Barrett's esophagus without dysplasia; K58.9 Irritable bowel syndrome, unspecified; Z90.49 Acquired absence of other specified parts of digestive tract; Z79.899 Other long term (current) drug therapy; Z87.81 Personal history of (healed) traumatic fracture

== ENCOUNTER → 2018-12-14 | Outpatient (CLI) | payer OTHER ==
[~2018-12-14] MED LIST changes: +OXYB5TAB PO
--- NOTE | 2018-12-14 12:01 | REP ---
Digital diagnostic unilateral right breast with CAD, 3-D tomography, and focused right breast sonography: History: Right breast lump on clinician breast exam at 11 o'clock. The patient has a history of prior benign stereotactic core biopsy of the right breast. Pathology report from this needle biopsy of the right breast done on January 21, 2011 was fibroadenoma. Findings: A skin marker is affixed to the skin at the site of the palpable lump. Routine views of the right breast are augmented by magnified focal spot compression CC, MLO and true MLO views. 3-D tomography was acquired. The marker clip from the previous biopsy is seen adjacent to the 2.4 cm macrolobulated nodule in the upper outer quadrant. This is seen to directly underlie the skin marker corresponding to the palpable lump. This represents the previously noted biopsy-proven fibroadenoma. It is somewhat larger than it was in 2014 but has not grown in the interval since the February 2018 study when it also measured 2.4 cm in greatest diameter. Scattered fibroglandular elements are noted. No other mammographic change is appreciated. Sonographic findings: Scanning is performed in the right breast at 9 o'clock at the site of the palpable mass. A macrolobulated hypoechoic solid lesion is seen 2.0 x 2.1 x 1.4 cm in sonographic dimension. There is well defined back wall. The lesion is not a simple cyst. It is sonographically consistent with fibroadenoma. Impression: BIRADS category 2 benign right breast imaging findings. Gradually enlarging benign fibroadenoma previously biopsied. No other suspicious finding. BIRADS 2: BI-RADS/ACR category 2 mammogram. Benign Findings. Annual screening bilateral mammography can continue. This mammogram was interpreted with the aid of an FDA-approved computer-aided detection system. The patient states she had a clinical breast exam in November 2018. The patient letter being requested is m#[id number] . Electronically Signed by Rashawn Tam MD 12/14/2018 02:41 P
== END ==
LOC: M RAD 09:16
PROVIDERS: ATTEND Obstetrics & Gynecology
DX: D24.1 Benign neoplasm of right breast (principal)
CPT/HCPCS: 76642; 77065; G0279

== ENCOUNTER → 2018-12-28 | Outpatient (CLI) | payer OTHER | LOC: M SMT 09:39 | PROVIDERS: ATTEND Advanced Practice Midwife | DX: Z13.79 Encounter for other screening for genetic and chromosomal anomalies (principal) ==

== ENCOUNTER → 2019-04-03 | Outpatient (CLI) | payer OTHER ==
--- NOTE | 2019-04-03 10:10 | REPMRS ---
Patient History The patient states she had a clinical breast exam in 2018. Family history of breast cancer at age 50 or over in maternal aunt. Benign stereotactic core biopsy of the right breast. Digital Mammo Screening Bilat: April 03, 2019 - Exam #: [id number] Bilateral CC and MLO view(s) were taken. Technologist: Flora Easley, Technologist Prior study comparison: December 14, 2018, right breast digital mammo diagnostic unilateral performed at [facility]. March 15, 2018, digital woman screen mammo, performed at [facility]. March 14, 2017, bilateral digital mammo screening bilat performed at [facility]. FINDINGS: There are scattered fibroglandular densities. The previously noted right nerve upper outer quadrant retroareolar nodule is again seen, essentially unchanged from prior study, 23 mm in greatest diameter. This was previously biopsied showing fibroadenoma. There is a needle biopsy marker clip along its posterior edge. There has been no change in the appearance of the mammogram from the prior studies. There is a mild amount of scattered fibroglandular density which is fairly symmetric. There is no interval development of dominant mass, architectural distortion, or clustered microcalcification suggestive of malignancy. 3-D tomosynthesis shows no additional findings. Assessment: BI-RADS/ACR category 2 mammogram. Benign Findings. Recommendation Routine screening mammogram of both breasts in 1 year (for women over age 40). This patient's Lifetime Breast Cancer RIsk is estimated at 11.8 %. This mammogram was interpreted with the aid of an FDA-approved computer-aided dectection system. Electronically Signed By: Hector Tam MD 04/03/19 0267
== END ==
LOC: M RAD 08:42
PROVIDERS: ATTEND Obstetrics & Gynecology
DX: Z12.31 Encounter for screening mammogram for malignant neoplasm of breast (principal); Z80.3 Family history of malignant neoplasm of breast; R92.8 Other abnormal and inconclusive findings on diagnostic imaging of breast

== ENCOUNTER → 2019-07-03 | Outpatient (CLI) | payer OTHER ==
[~2019-07-03] MED LIST changes: -OXYB5TAB PO; +OXYB5TAB2 PO
[2019-07-03 15:40] LABS: RUBELLA IgG QUALITATIVE IMMUNE (IMMUNE)
[2019-07-05 09:06] LABS: MUMPS VIRUS IgG ANTIBODY 42.8 AU/mL (Immune >10.9)
== END ==
LOC: M LAB 13:59
PROVIDERS: ATTEND Internal Medicine
DX: Z00.00 Encounter for general adult medical examination without abnormal findings (principal)

== ENCOUNTER → 2019-07-22 | Outpatient (CLI) | payer OTHER | LOC: M LAB 14:05 | PROVIDERS: ATTEND Internal Medicine Gastroenterology | DX: K22.70 Barrett's esophagus without dysplasia (principal) ==

== ENCOUNTER → 2019-08-13 | Outpatient (CLI) | payer OTHER ==
[~2019-08-13] MED LIST changes: +E-Z-PAQUE 96% w/w SUSP 176GM BTL As Ordered ONE; -OMEP40CA2 PO; +OMEP40CA97 PO
--- NOTE | 2019-08-14 11:15 | REP ---
Small bowel follow-through The procedure was performed under the direct supervision of Dr. Honeycutt. The images were reviewed with Dr. Honeycutt. The library circulation department chief film shows no organomegaly or pathological masses. The intestinal gas pattern is nonspecific. Liquid barium was administered and the barium column was followed through the small bowel to the level of the terminal ileum. Small bowel transit time is approximately 90 minutes . During fluoroscopy gentle palpation shows all loops are freely movable and pliable. There are no fixed or angulated loops. The small bowel mucosal pattern is normal in course and caliber. There is no transition to suggest a partial small bowel obstruction. Spot filming of the terminal ileum shows it to be unremarkable. Impression: Small bowel follow-through examination within normal limits. 1.5 minutes of fluoro time was utilized for this procedure. Electronically Signed by NEHEMIAS Joseph 08/13/2019 05:32 P Electronically Signed by Chan Honeycutt MD 08/14/2019 11:05 A
== END ==
LOC: M RAD 08-07 07:58
PROVIDERS: ATTEND Internal Medicine Gastroenterology
DX: K90.0 Celiac disease (principal)

== ENCOUNTER 2019-09-15 16:48 | Emergency (ER) | payer OTHER ==
[~2019-09-15] VITALS: Ht 167.6 cm; Wt 75.0 kg
[~2019-09-15 16:48] MED LIST changes: -E-Z-PAQUE 96% w/w SUSP 176GM BTL As Ordered ONE
[2019-09-15 16:49] VITALS: BP 122/70
[2019-09-15] MEDS ORDERED: LACT10SO3 (16:56)
[2019-09-15] MEDS ORDERED: ACETAMINOPHEN TAB 650MG DOSE (2X325MG) PO ONE (17:30)
--- NOTE | 2019-09-15 17:47 | REP ---
Clinical: Right shoulder pain. Technique: Internal rotation, external rotation, and Y view of the right shoulder. Comparison: 01/29/2015. Findings: Partial resection of the distal clavicle is again noted and the acromioclavicular joint remains stable. The glenohumeral joint is stable. Ovoid sclerotic lesion in the humeral head unchanged and consistent with bone island. Findings: No change from prior examination. Electronically Signed by Misael De Los Santos MD 09/15/2019 05:38 P
[2019-09-18] MEDS ORDERED: NAPR-885 PO (09:03)
== END 2019-09-15 18:00 | disposition home or self-care (01) ==
LOC: M ED 16:48
DX: S43.401A Unspecified sprain of right shoulder joint, initial encounter (principal); S46.011A Strain of muscle(s) and tendon(s) of the rotator cuff of right shoulder, initial encounter; X50.0XXA Overexertion from strenuous movement or load, initial encounter; Y92.099 Unspecified place in other non-institutional residence as the place of occurrence of the external cause; Y93.89 Activity, other specified; Y99.9 Unspecified external cause status; K22.70 Barrett's esophagus without dysplasia; K90.0 Celiac disease; K31.84 Gastroparesis; M54.9 Dorsalgia, unspecified; K21.9 Gastro-esophageal reflux disease without esophagitis; K58.9 Irritable bowel syndrome, unspecified; F17.200 Nicotine dependence, unspecified, uncomplicated; Z79.899 Other long term (current) drug therapy; Z88.2 Allergy status to sulfonamides; Z88.5 Allergy status to narcotic agent; Z88.8 Allergy status to other drugs, medicaments and biological substances; Z91.89 Other specified personal risk factors, not elsewhere classified; Z91.040 Latex allergy status

== ENCOUNTER 2019-09-30 11:05 | Day surgery (SDC) | payer OTHER ==
[~2019-09-30] VITALS: Ht 167.6 cm; Wt 73.8 kg
[~2019-09-30 11:05] MED LIST changes: +LACT10SO3; +LIDOCAINE 2% INJ 100 MG/5 ML SDV (FOR ANES.) As Ordered ONE; +NAPR-885 PO; +NS 1,000 ML IV ONE; -OXYB5TAB2 PO; +OXYB5TAB3 PO; +PROPOFOL 200 MG/20 ML VIAL As Ordered ONE
[2019-09-30] MEDS ORDERED: fentaNYL 100 MCG/2 ML INJECTION (J3010) As Ordered ONE (11:34)
[2019-09-30 11:56] VITALS: BP 92/62
--- NOTE | 2019-09-30 12:02 | ROOR ---
Patient Name: Karen Hernandez Procedure Date: 09/30/2019 11:39 AM Date of : 1970 Age: 49 Room: [facility] Gender: Female Note Status: Finalized Procedure: Upper GI endoscopy Indications: Follow-up of Castle's esophagus, Follow-up of celiac disease Providers: Reji ARRIOLA MD Referring MD: BISHOP SOLANO MD Requesting Provider: Medicines: Monitored Anesthesia Care Complications: No immediate complications. Procedure: Pre-Anesthesia Assessment: - The heart rate, respiratory rate, oxygen saturations, blood pressure, adequacy of pulmonary ventilation, and response to care were monitored throughout the procedure. The Endoscope was introduced through the mouth, and advanced to the second part of duodenum. The upper GI endoscopy was accomplished without difficulty. The patient tolerated the procedure well. Findings: There were esophageal mucosal changes suspicious for short-segment Castle's esophagus present in the lower third of the esophagus. The maximum longitudinal extent of these mucosal changes was 3 cm in length. Mucosa was biopsied with a cold forceps for histology randomly in the lower third of the esophagus and from 29 to 32 cm from the incisors. A total of 3 specimen bottles were sent to pathology. Evidence of a fundoplication was found in the cardia. The wrap appeared intact. The entire examined stomach was normal. Diffuse moderately scalloped mucosa was found in the entire examined duodenum. Biopsies for histology were taken with a cold forceps for evaluation of celiac disease. Impression: - Esophageal mucosal changes suspicious for short-segment (3 cm, smooth) Castle's esophagus. Biopsied. - Normal stomach with a fundoplication was found. The wrap appears intact. - Small/moderate food material was found in stomach. This is consistent with gastroparesis/delayed emptying. - Scalloped mucosa was found in the duodenum, diagnostic of celiac disease. Biopsied. Recommendation: - Gluten free diet for the rest of the patient's life. - Observe patient's clinical course. - Repeat upper endoscopy for surveillance based on pathology results. - (likely 3 yrs, however call my office in 2 weeks for exact follow up interval) Reji Arriola MD Reji ARRIOLA MD 09/30/2019 12:01:53 PM Electronically signed by Reji ARRIOLA MD Number of Addenda: 0 Note Initiated On: 09/30/2019 11:39 AM Estimated Blood Loss: Estimated blood loss: none.
== END 2019-09-30 12:33 | disposition home or self-care (01) ==
LOC: M OPP 11:05
PROVIDERS: ATTEND Internal Medicine Gastroenterology
DX: K22.70 Barrett's esophagus without dysplasia (principal); Z98.890 Other specified postprocedural states; K90.0 Celiac disease; K21.9 Gastro-esophageal reflux disease without esophagitis; Z79.899 Other long term (current) drug therapy; Z88.2 Allergy status to sulfonamides; Z88.5 Allergy status to narcotic agent; Z88.8 Allergy status to other drugs, medicaments and biological substances; Z91.040 Latex allergy status; Z91.048 Other nonmedicinal substance allergy status
CPT/HCPCS: 43239; 88305; J3010

== ENCOUNTER 2019-12-17 18:51 | Emergency (ER) | payer OTHER ==
[~2019-12-17] VITALS: Ht 165.1 cm; Wt 76.4 kg
[~2019-12-17 18:51] MED LIST changes: -LIDOCAINE 2% INJ 100 MG/5 ML SDV (FOR ANES.) As Ordered ONE; -NS 1,000 ML IV ONE; +OXYB-54 PO; -OXYB5TAB3 PO; -PROPOFOL 200 MG/20 ML VIAL As Ordered ONE
[2019-12-17 19:06] VITALS: BP 106/55
[2019-12-17 20:55] LABS: BASO # 0.1 10^3/uL (0.0-0.2); BASO % 0.5 % (0.0-1.0); EOS # 0.3 10^3/uL (0.0-0.5); HEMOGLOBIN 11.8 g/dl (12.0-15.5); MEAN CORPUSCULAR HEMOGLOBIN 28.9 pg (27.0-33.0); MEAN CORPUSCULAR HGB CONC 32.8 g/dl (32.0-36.5); MONO % 6.6 % (0.0-5.0); NEUTROPHILS # 12.1 10^3/uL (1.5-8.5); NEUTROPHILS % 77.3 % (36.0-66.0); PLATELET COUNT, AUTOMATED 311 10^3/uL (150-450); RED BLOOD COUNT 4.09 10^6/uL (4.00-5.40); WHITE BLOOD COUNT 15.7 10^3/uL (4.0-10.0)
[2019-12-17 20:56] LABS: APPEARANCE, URINE HAZY (CLEAR); BACTERIA, URINE AUTO 2+ (NEGATIVE); BILIRUBIN, URINE AUTO NEGATIVE (NEGATIVE); BLOOD, URINE BLOOD NEGATIVE (NEGATIVE); COLOR, URINE YELLOW (YELLOW); GLUCOSE, URINE (UA) AUTO NEGATIVE (NEGATIVE); KETONE, URINE AUTO TRACE mg/dL (NEGATIVE); LEUKOCYTE ESTERASE, URINE AUTO TRACE (NEGATIVE); MUCUS, URINE SMALL (NEGATIVE); NITRITE, URINE AUTO POSITIVE (NEGATIVE); PROTEIN, URINE AUTO NEGATIVE (NEGATIVE); RBC, URINE AUTO 2 /HPF (0-3); SPECIFIC GRAVITY URINE AUTO 1.025 (1.002-1.035); SQUAMOUS EPITHELIAL CELL UR AU 4 /HPF (0-6); UROBILINOGEN, URINE AUTO 0.2 mg/dL (0.0-2.0); WBC, URINE AUTO 15 /HPF (0-3)
[2019-12-17] MEDS ORDERED: fentaNYL 100 MCG/2 ML INJECTION (J3010) IV ONE (21:00)
[2019-12-17] MEDS ORDERED: NS 1,000 ML IV SCH (21:06)
[2019-12-17] MEDS ORDERED: ONDANSETRON 4MG/2ML VIAL (J2405) IV ONE (21:15)
[2019-12-17] MEDS: GASTROGRAFIN SOLUTION 30ML PO SCH ×2 (21:18→22:24)
[2019-12-17 21:21] LABS: HCG, SERUM QUALITATIVE NEGATIVE (NEGATIVE)
[2019-12-17 21:25] LABS: ALBUMIN 3.4 GM/DL (3.2-5.2); ALT/SGPT 48 U/L (12-78); BILIRUBIN,DIRECT 0.1 MG/DL (0.0-0.2); BILIRUBIN,TOTAL 0.2 MG/DL (0.2-1.0); BLOOD UREA NITROGEN 12 MG/DL (7-18); CALCIUM LEVEL 8.3 MG/DL (8.5-10.1); CARBON DIOXIDE LEVEL 24 MEQ/L (21-32); CHLORIDE LEVEL 108 MEQ/L (98-107); CREATININE FOR GFR 0.66 MG/DL (0.55-1.30); GLOMERULAR FILTRATION RATE > 60.0 (>58); GLUCOSE, FASTING 113 MG/DL (70-100); LIPASE 83 U/L (73-393); POTASSIUM SERUM 4.1 MEQ/L (3.5-5.1); SODIUM LEVEL 137 MEQ/L (136-145); TOTAL PROTEIN 6.5 GM/DL (6.4-8.2)
[2019-12-17] MEDS ORDERED: ISOVUE-370 76% 100ML VIAL (Q9967) As Ordered ONE (22:57)
--- NOTE | 2019-12-17 23:48 | REPVR ---
PROCEDURE INFORMATION: Exam: CT Abdomen And Pelvis With Contrast Exam date and time: 12/17/2019 8:55 PM Age: 49 years old Clinical indication: Abdominal pain; Generalized; Additional info: Gen abd pain TECHNIQUE: Imaging protocol: Computed tomography of the abdomen and pelvis with intravenous contrast. Radiation optimization: All CT scans at this facility use at least one of these dose optimization techniques: automated exposure control; mA and/or kV adjustment per patient size (includes targeted exams where dose is matched to clinical indication); or iterative reconstruction. Contrast material: ISO; Contrast volume: 100 ml; Contrast route: AC; Other contrast: Oral, ggraphin, 600; COMPARISON: CT ABD/PEL W/IV ORAL CONTRAS 01/14/2018 8:24 PM FINDINGS: Lungs: No suspicious mass or airspace process in the visualized lung bases. Liver: Liver appears normal with no focal abnormality. Gallbladder and bile ducts: Gallbladder is surgically absent. Pancreas: Pancreas appears normal. No focal mass or peripancreatic inflammation. Spleen: Multiple splenules are seen in the splenic bed. Adrenals: Stable left adrenal gland mass measuring 3.3 cm. Normal size right adrenal gland. Kidneys and ureters: Kidneys appear normal, with no stone, solid mass or hydronephrosis. Stomach and bowel: Gastric diversion procedure surgical changes are present. No evidence of small bowel obstruction. No evidence of acute diverticulitis. Appendix: Appendix is not seen. No RLQ inflammation to suggest appendicitis. Intraperitoneal space: No pneumoperitoneum. Vasculature: No aortic aneurysm. Lymph nodes: No enlarged lymph nodes. Bladder: Urinary bladder appears normal. Reproductive: Uterus is surgically absent. Bones/joints: Bony structures show no acute fracture or destructive process. IMPRESSION: 1. No acute or concerning focal abdominal or pelvic process to explain acute abdominal pain. 2. Stable left adrenal gland mass most likely an adenoma Electronically signed by: Valentín Santos On 12/17/2019 23:47:53 PM
== END 2019-12-18 00:24 | disposition home or self-care (01) ==
LOC: M ED 18:51
DX: R10.9 Unspecified abdominal pain (principal); R06.02 Shortness of breath; K21.9 Gastro-esophageal reflux disease without esophagitis; K22.70 Barrett's esophagus without dysplasia; K31.84 Gastroparesis; F17.200 Nicotine dependence, unspecified, uncomplicated; Z79.899 Other long term (current) drug therapy; Z88.2 Allergy status to sulfonamides; Z88.8 Allergy status to other drugs, medicaments and biological substances; Z88.5 Allergy status to narcotic agent; Z91.89 Other specified personal risk factors, not elsewhere classified; Z91.040 Latex allergy status
CPT/HCPCS: 74177; 80047; 80048; 80076; 81001; 83690; 84703; 85025; 87088; 87186; 96361; 96374; 96375; 99284; J2405; J3010; Q9963; Q9967

== ENCOUNTER → 2020-06-15 | Outpatient (CLI) | payer OTHER ==
[2020-06-15 16:02] LABS: FREE T4 1.07 NG/DL (0.76-1.46); THYROID STIMULATING HORMONE 1.13 uIU/ML (0.358-3.740)
== END ==
LOC: M LAB 14:54
PROVIDERS: ATTEND Internal Medicine Gastroenterology
DX: K58.1 Irritable bowel syndrome with constipation (principal)

== ENCOUNTER 2020-09-01 08:40 | Emergency (ER) | payer OTHER ==
[~2020-09-01] VITALS: Ht 165.1 cm; Wt 72.3 kg
--- NOTE | 2020-09-01 09:09 | REP ---
INDICATION: CHEST PAIN COMPARISON: 11/05/2018 TECHNIQUE: Portable AP view of the chest FINDINGS: The mediastinum and cardiac silhouette are stable and within normal limits for portable technique. The lung north are clear without acute consolidation, effusion, or pneumothorax. Skeletal structures are intact. IMPRESSION: No acute cardiopulmonary process appreciated. <Electronically signed by Misael De Los Santos > 09/01/20 0905
[2020-09-01 09:12] LABS: BASO # 0.1 10^3/uL (0.0-0.2); BASO % 0.3 % (0.0-1.0); EOS # 0.2 10^3/uL (0.0-0.5); EOS % 1.3 % (0.0-3.0); HEMATOCRIT 40.5 % (36.0-47.0); HEMOGLOBIN 12.9 g/dl (12.0-15.5); LYMPH # 2.4 10^3/uL (1.5-5.0); LYMPH % 16.1 % (24.0-44.0); MEAN CORPUSCULAR HEMOGLOBIN 27.4 pg (27.0-33.0); MEAN CORPUSCULAR HGB CONC 31.9 g/dl (32.0-36.5); MEAN CORPUSCULAR VOLUME 86.2 fl (80.0-96.0); MONO # 1.2 10^3/uL (0.0-0.8); MONO % 8.1 % (0.0-5.0); NEUTROPHILS # 11.1 10^3/uL (1.5-8.5); NEUTROPHILS % 73.5 % (36.0-66.0); PLATELET COUNT, AUTOMATED 301 10^3/uL (150-450); WHITE BLOOD COUNT 15.1 10^3/uL (4.0-10.0)
[2020-09-01 09:22] LABS: INR 1.03; PROTHROMBIN TIME 13.7 SECONDS (12.5-14.3)
[2020-09-01 09:23] LABS: PARTIAL THROMBOPLASTIN TIME 27.5 SECONDS (24.2-38.5)
[2020-09-01] MEDS ORDERED: dexameTHASONE 20MG/5ML VIAL (J1100 PER 1MG) IV ONE (09:30)
[2020-09-01 09:37] LABS: ALBUMIN 3.4 GM/DL (3.2-5.2); ALT/SGPT 49 U/L (12-78); BILIRUBIN,DIRECT < 0.1 MG/DL (0.0-0.2); BILIRUBIN,TOTAL 0.4 MG/DL (0.2-1.0); BLOOD UREA NITROGEN 12 MG/DL (7-18); CALCIUM LEVEL 9.1 MG/DL (8.5-10.1); CARBON DIOXIDE LEVEL 26 MEQ/L (21-32); CHLORIDE LEVEL 104 MEQ/L (98-107); CK-MB VALUE MASS < 1.0 NG/ML (<3.6); CPK CREATINE PHOSPHOKINASE 106 U/L (26-192); CREATININE FOR GFR 0.71 MG/DL (0.55-1.30); FREE T4 1.26 NG/DL (0.76-1.46); GLOMERULAR FILTRATION RATE > 60.0 (>58); GLUCOSE, FASTING 105 MG/DL (70-100); LIPASE 66 U/L (73-393); MB/CK RELATIVE INDEX 0.94 (< OR =4); POTASSIUM SERUM 4.1 MEQ/L (3.5-5.1); SODIUM LEVEL 135 MEQ/L (136-145); TOTAL PROTEIN 7.2 GM/DL (6.4-8.2); TROPONIN I < 0.02 NG/ML (< 0.10)
[2020-09-01 10:22] LABS: D-DIMER QUANT 440.67 ng/ml (<500)
[2020-09-01] MEDS ORDERED: ISOVUE-370 76% 100ML VIAL As Ordered ONE (11:30)
--- NOTE | 2020-09-01 12:35 | REP ---
INDICATION: chest pain. COMPARISON: None. TECHNIQUE: CT angiogram chest performed following the intravenous administration of 100 cc of Isovue 370. Sagittal and coronal reconstruction images are performed. FINDINGS: Lungs: Clear, no infiltrate or nodule. Mediastinum: No adenopathy. Pulmonary arteries: No evidence of pulmonary embolism. Janine: No adenopathy. Axilla: No adenopathy. Pleura: No effusion. Heart: Not enlarged. Thoracic aorta: No aneurysm or dissection. Upper abdominal structures: There is a stable left adrenal nodule compared to CT of 12/17/2019. There has been prior gastric surgery. Visualized osseous structures: Unremarkable. IMPRESSION: No CT evidence of pulmonary embolism.No infiltrate seen. <Electronically signed by Chan Honeycutt > 09/01/20 [id number]
[2020-09-01 14:45] VITALS: BP 93/58
[2020-09-01 14:48] LABS: CK-MB VALUE MASS < 1.0 NG/ML (<3.6); CPK CREATINE PHOSPHOKINASE 86 U/L (26-192); MB/CK RELATIVE INDEX 1.16 (< OR =4); TROPONIN I < 0.02 NG/ML (< 0.10)
[2020-09-01] MEDS ORDERED: PRED10TA2 PO (14:56)
--- NOTE | 2020-09-01 21:01 | ECGEPIP ---
[facility] - ED Test Date: 2020-09-01 Pat Name: HARISH EVERETT Department: Room: - Gender: Female Epic Beacon Analyst: tenisha : 1970 Requested By: REJI Joshi Order Number: [id number] Reading MD: Reji Miller Measurements Intervals [place] Rate: 77 P: 39 AL: 134 QRS: 31 QRSD: 97 T: 41 QT: 353 QTc: 400 Interpretive Statements SINUS RHYTHM Comparison tracing not on file Electronically Signed on 09-01-2020 21:01:17 EST by Reji Miller
--- NOTE | 2020-09-01 21:16 | ECGEPIP ---
[facility] - ED Test Date: 2020-09-01 Pat Name: HARISH EVERETT Department: Room: - Gender: Female Scallop Shucker: DG : 1970 Requested By: REJI Joshi Order Number: [id number] Reading MD: Reji Miller Measurements Intervals [place] Rate: 51 P: 49 MA: 129 QRS: 38 QRSD: 94 T: 42 QT: 432 QTc: 401 Interpretive Statements SINUS BRADYCARDIA rate decreased from tracing done 911 on same date Electronically Signed on 09-01-2020 21:16:39 EST by Reji Miller
== END 2020-09-01 15:02 | disposition home or self-care (01) ==
LOC: M ED 08:40
DX: R07.89 Other chest pain (principal); R94.31 Abnormal electrocardiogram [ECG] [EKG]; K90.0 Celiac disease; F17.200 Nicotine dependence, unspecified, uncomplicated; Z79.899 Other long term (current) drug therapy; Z88.2 Allergy status to sulfonamides; Z91.048 Other nonmedicinal substance allergy status; Z91.040 Latex allergy status; Z88.5 Allergy status to narcotic agent; Z87.19 Personal history of other diseases of the digestive system; Z90.49 Acquired absence of other specified parts of digestive tract; Z98.890 Other specified postprocedural states
CPT/HCPCS: 71045; 71275; 80048; 80076; 82550; 82553; 83690; 84439; 84443; 84484; 85025; 85379; 85610; 85730; 93005; 93041; 94760; 96374; 99285; J1100; Q9967

== ENCOUNTER 2020-12-09 11:12 | Emergency (ER) | payer OTHER ==
[~2020-12-09] VITALS: Ht 165.1 cm; Wt 72.2 kg
[~2020-12-09 11:12] MED LIST changes: -LACT10SO3; +LACT10SO3 PO; +PRED10TA2 PO
--- OUTSIDE RECORDS SUMMARY | 2020-12-09 11:20 | CCD | Continuity of Care Document ---
Author Author Karen QUACH M.D. Organization Unknown Address [address] [place] [id number] Phone [phone] Problems Active Problems Provider Date Celiac disease Abdi Quach M.D. Onset: 7 Chronic obstructive lung disease Abdi Quach M.D. Ons et: 05/24/2017 Overweight Abdi Quach M.D. Onset: 8 Gastroparesis syndrome Abdi Quach M.D. Onset: 2017 Castle's esophagus Abdi Quach M.D. Onset: 8 Irritable bowel syndrome Abdi Quach M.D. Onset: 09/15 Vitamin D deficiency Lavell Amin, [facility] Onset: 0 Social History Type Date Description Comments Sex Unknown Tobacco Use Start: Unknown Current Cigarette Smoker 1 Pack Daily for 23 years ETOH Use Occasionally consumes alcohol Tobacco Use Start: Unknown Patient is a current smoker, smo kes every day Allergies, Adverse Reactions, Alerts Active Allergies Reaction Severity Comments Date Morphine 06/28/2013 Percocet 06/28/2013 Albuterol 06/28/2013 Bactrim 06/13/2014 Medications Active Medications SIG Qnty Indications Ordering Provide r Date Ergocalciferol 1.25mg (56233 Ut) C apsules 1 by mouth a week x 8 weeks 8caps Marcus Pruitt DLisa Andrews, FAAFP 11/02/2020 Naproxen 500mg Tablets 1 tab by mouth twice a day as needed pain 60tabs Abdi Quach M. D. 03/27/2019 Polyethylene Glycol 3350 3350NF Po wder Mix 1 Capful (17g) In 4 To 8 Ounces Of Liquid twice a day 510units Abdi Quach M.D. 07/09/2018 Oxybutynin Chloride ER 5mg Tablets ER 24HR Take One Tablet By Mouth Every Day 90tabs Abdi Rubi M.D. Omeprazole 40mg Capsules DR 1 by mouth bid Reji Arriola M.D. Lactulose 10GM/15ML Solution twice a day as needed Unknown History Medications Zithromax Z-Matias 250mg Tablets 2 tab by mouth today and then 1 tab by mouth daily for 4 days 1pAbdi Doll M.D. 09/09/2020 - 11/02/2020 Ergocalciferol 1.25mg (53299 Ut) C apsules 1 by mouth a week x 8 weeks 8caps [facility] 08/28/2020 - 11/02/2020 Baclofen 10mg Tablets take 1 tablet by mouth every at bedtime 14tabs Marcus Pruitt D.O., [facility] 08/26/2020 - 09/09/2020 Solu-Medrol 125mg Solution Rec intramuscular stat 1units Marcus Pruitt D.O., FAAFP 08/26/2020 - 11/02/2020 Prednisone 10mg Tablets 2 po tid x 3 days, then 1 po tid x 3 days, then 1 po bid x 3 days, then 1 po qd x 3 days, then 1/2 po qd 42tabs Marcus Pruitt D.O., [facility] 08/2020 - 09/09/2020 Medications Administered in Office Medication SIG Qnty Indications Ordering Provider Date Injection (SC)/(Im) Injection Lavell Amin RPA 08/26/2020 Immunizations CPT Code Status Date Vaccine Lot # [id number] Given 09/30/2019 Influenza Virus Vaccine, Quadrivalent, Slit Virus, Im Use 3Y & Up [id number] Vital Signs Date Vital Result Comment 11/02/2020 2:46pm BP Systolic 116 mmHg BP Diastolic 72 mmHg Body Temperature 96.9 F Heart Rate 50 /min Respiratory Rate 18 /min Height 64.75 inches 5'4.75" Weight 165.00 lb [place] Body Weight 120 lb BMI (Body Mass Index) 27.7 kg/m2 O2 % BldC Oximetry 94 % 09/09/2020 2:26pm BP Systolic 110 mmHg BP Diastolic 80 mmHg Body Temperature 97.9 F Heart Rate 70 /min Respiratory Rate 14 /min Height 64.75 inches 5'4.75" Weight 165.00 lb [place] Body Weight 120 lb BMI (Body Mass Index) 27.7 kg/m2 O2 % BldC Oximetry 95 % Results Test Acquired Date Facility Test Result H/L Range Note Cardiac Marker Panel 09/01/2020 [facility] ( [facility]) [phone] CPK Creatine Phosphokinase 86 U/L Normal 26-19 2 CK-MB Value Mass < 1.0 NG/ML Normal <3.6 MB/CK Relative Index 1.16 Normal < Or =4 1 Troponin I < 0.02 NG/ML Normal < 0.10 2 CBC With Differential/Platelet 08/26/2020 [facility] N E WBC 8.9 x10E3/uL 3.4-10.8 RBC 4.54 x10E6/uL 3.77-5.28 Hemoglobin 12.4 g/dL 11.1-15.9 Hematocrit 39.2 % 34.0-46.6 MCV 86 fL 79-97 MCH 27.3 pg 26.6-33.0 MCHC 31.6 g/dL 31.5-35.7 RDW 15.1 % 11.7-15.4 Platelets 321 x10E3/uL 150-450 Neutrophils 49 % Not Estab. Lymphs 39 % Not Estab. Monocytes 8 % Not Estab. Eos 3 % Not Estab. Basos 1 % Not Estab. Immature Cells TNP Neutrophils (Absolute) 4.4 x10E3/uL 1.4-7.0 Lymphs (Absolute) 3.4 x10E3/uL High 0.7-3.1 Monocytes(Absolute) 0.7 x10E3/uL 0.1-0.9 Eos (Absolute) 0.3 x10E3/uL 0.0-0.4 Baso (Absolute) 0.1 x10E3/uL 0.0-0.2 Immature Granulocytes 0 % Not Estab. Immature Grans (Abs) 0.0 x10E3/uL 0.0-0.1 NRBC TNP Hematology Comments: TNP Metabolic Panel (14), Comprehensive 08/26/2020 [facility] [place] Glucose 90 mg/dL 65-99 BUN 9 mg/dL 6-24 Creatinine 0.53 mg/dL Low 0.57-1.00 eGFR If NonAfricn Am 113 mL/min/1.73 >59 eGFR If Africn Am 130 mL/min/1.73 >59 BUN/Creatinine Ratio 17 9-23 Sodium 138 mmol/L 134-144 Potassium 4.4 mmol/L 3.5-5.2 Chloride 104 mmol/L 96-106 Carbon Dioxide, Total 20 mmol/L 20-29 Calcium 9.2 mg/dL 8.7-10.2 Protein, Total 6.6 g/dL 6.0-8.5 Albumin 4.0 g/dL 3.8-4.8 Globulin, Total 2.6 g/dL 1.5-4.5 A/G Ratio 1.5 1.2-2.2 Bilirubin, Total 0.3 mg/dL 0.0-1.2 Alkaline Phosphatase 70 IU/L 39-117 Ast (Sgot) 60 IU/L High 0-40 Alt (SGPT) 26 IU/L 0-32 Laboratory test finding 08/26/2020 [facility] [place] Vitamin D, 25-Hydroxy 16.4 ng/mL Low 30.0-100.0 3 Sedimentation Rate-Westergren 21 mm/hr 0-32 Magnesium 2.0 mg/dL 1.6-2.3 FT4&TSH Panel 06/15/2020 [facility] (I nterface) [phone] Thyroid Stimulating Hormone 1.130 uIU/ML Normal 0. 358-3.740 Free T4 1.07 ng/dL Normal 0.76-1.46 Laboratory test finding 06/15/2020 [facility] l (Interface) [phone] Tissue Transglutaminase IgA 6 U/mL High 0-3 4 1 DIAGNOSIS CRITERIA MMB ng/ml Relative Index (RI) NON-AMI < or = 5 N/A FIGUEREDO ZONE > 5 < or = 4 AMI > 5 > 4 2 Troponin I Reference Interva l for Handseeing Information LOCI: 99th Percentile= 0.00-0.045 ng/ml Risk Stratification: <= 0.10 ng/ml Decreased Risk for Adverse Clinical Events. 0.10-1.50 ng/ml Increased Risk for Adv erse Clinical Events. Evaluation of additional criterion and/or repeat testing in 2-6 hours is suggested to rule out myocardial damage. >= 1.50 ng/ml Indicative of Myocardial Injury. 3 Vitamin D deficiency has bee n defined by the [place] of [employer] and an Endocrine Society practice guideline as a level of serum 25-OH vitamin D less than 20 ng/mL (1,2). The Endocrine Society went on to further define vitamin D insufficiency as a level between 21 and 29 ng/mL (2). 1. IOM ([place] of [employer]). 2010. Di etary reference intakes for calcium and D. [place]: The National Academies Press. 2. Nate MF, Lotus CASSIDY, Felix ambriz DAMON, et al. Evaluation, treatment, and prevention of vitamin D deficiency: an Endocrine Society clinical practice guideline. JCEM. 2010; 96(7):1911-30. 4 Negative 0 - 3 Weak Positive 4 - 10 Positive >10 . Tissue Transglutaminase (tTG) has been identified as the endomysial antigen. Studies have demonstr- ated that endomysial IgA antibodies have over 99% specificity for gluten sensitive enteropathy. Performed at: RN - [facility] [address] [id number] Bath Mix Operator: Corinne Valentino MD, Phone: [phone] Procedures Date Code Description Status 08/26/2020 20599 Injection (SC)/(Im) Completed 03/15/2018 [id number] Mammogram Completed Medical Devices Description No Information Available Encounters Type Date Location Provider Dx Diagnosis Office Visit 11/02/2020 2:45p [facility] Abdi Quach M. D. J44.9 Chronic obstructive pulmonary disease, unspecified K31.84 Gastroparesis K90.0 Celiac disease Office Visit 09/09/2020 2:30p [facility] Abdi Quach M. D. R07.89 Other chest pain Office Visit 08/26/2020 8:45a [facility] Lavell Amin, RICHIE Villalba M79.10 Myalgia, unspecified site M79.605 Pain in left leg M79.604 Pain in right leg E83.51 Hypocalcemia K90.0 Celiac disease K31.84 Gastroparesis K58.8 Other irritable bowel syndro me Assessments Date Code Description Provider 11/02/2020 J44.9 Chronic obstructive pulmonary di sease, unspecified Abdi Quach M.D. 11/02/2020 K31.84 Gastroparesis Abdi Quach M.D. 11/02/2020 K90.0 Celiac disease Abdi Quach M.D. 09/09/2020 R07.89 Other chest pain Abdi Quach M.D. 08/26/2020 M79.10 Myalgia, unspecified site Alayna Johns, PA 08/26/2020 M79.10 Myalgia, unspecified site Lavell Amin, RPA 08/26/2020 M79.605 Pain in left leg Sa rom Edwards, [place] 08/26/2020 M79.605 Pain in left leg Lavell Amin, RPA 08/26/2020 M79.604 Pain in right leg Sanket Edwards, PA 08/26/2020 M79.604 Pain in right leg Natasha Amin, RPA 08/26/2020 E83.51 Hypocalcemia Kosta Edwards, PA 08/26/2020 E83.51 Hypocalcemia Lavell Amin, RPA 08/26/2020 K90.0 Celiac disease Lavell Amin, RPA 08/26/2020 K31.84 Gastroparesis Lavell Amin, RPA 08/26/2020 K58.8 Other irritable bowel syndrome H Lavell quinteros, [facility] Plan of Treatment Future Appointment(s):* 02/08/2021 8:45 am - Abdi Quach M.D. at [facility] Functional Status Description No Information Available Mental Status Description No Information Available Referrals Description No Information Available
--- OUTSIDE RECORDS SUMMARY | 2020-12-09 11:20 | CCD | Continuity of Care Document ---
Author Author Karen QUACH M.D. Organization Unknown Address [address] [address] Phone [phone] Problems Active Problems Provider Date Celiac disease Abdi Quach M.D. Onset: 7 Chronic obstructive lung disease Abdi Quach M.D. Ons et: 05/24/2017 Overweight Abdi Quach M.D. Onset: 8 Gastroparesis syndrome Abdi Quach M.D. Onset: 2017 Castle's esophagus Abdi Quach M.D. Onset: 8 Irritable bowel syndrome Abdi Quach M.D. Onset: 09/15 Vitamin D deficiency Lavell Amin [facility] Onset: 0 Social History Type Date Description [...] Indications Ordering Provide r Date Ergocalciferol 1.25mg (28882 Ut) C apsules 1 by mouth a week x 8 weeks 8caps Lisa Vann, FAAFP 11/02/2020 Zithromax Z-Matias 250mg Tablets 2 tab by mouth today and then 1 tab by mouth daily for 4 days 1pack Abdi Quach M.D. 09/09/2020 Solu-Medrol 125mg Solution Rec intramuscular stat 1units Marcus Pruitt D.O., FAAFP 08/26/2020 Naproxen 500mg Tablets 1 tab by mouth twice a day as needed pain 60tabs Abdi Quach M. D. 03/27/2019 Polyethylene Glycol 3350 3350NF Po wder Mix 1 Capful In 4 To 8 Ounces Of Liquid twice a day 510units Abdi Quach M.D. 07/09/2018 Oxybutynin Chloride ER 5mg Tablets ER 24HR Take One Tablet By Mouth Every Day 90tabs Abdi Rubi M.D. Omeprazole 40mg Capsules DR 1 by mouth bid Reji Arriola M.D. Lactulose 10GM/15ML Solution twice a day as needed Unknown History Medications Ergocalciferol 1.25mg (32450 Ut) C apsules 1 by mouth a week x 8 weeks 8caps [facility] Vann, [facility] 08/28/2020 - 11/02/2020 Baclofen 10mg Tablets take 1 tablet by mouth every at bedtime 14tabs Marcus Pruitt D.O., [facility] 08/26/2020 - 09/09/2020 Prednisone 10mg Tablets 2 po tid x 3 days, then 1 po tid x 3 days, then 1 po bid x 3 days, then 1 po qd x 3 days, then 1/2 po qd 42tabs Marcus Pruitt D.O., [facility] 08/2020 - 09/09/2020 Medications Administered in Office Medication SIG Qnty Indications Ordering Provider Date Injection (SC)/(Im) Injection Lavell Amin RPA 08/26/2020 Immunizations CPT Code Status Date Vaccine Lot # [id number] Given 09/30/2019 Influenza Virus Vaccine, Quadrivalent, Slit Virus, Im Use 3Y & Up [id number] Vital Signs Date Vital Result Comment 11/02/2020 2:46pm BP Systolic 116 mmHg BP Diastolic 72 mmHg Body Temperature 96.9 F Heart Rate 50 /min Respiratory Rate 18 /min Height 64.75 inches 5'4.75" Weight 165.00 lb [place] Body Weight 120 lb BMI (Body Mass Index) 27.7 kg/m2 O2 % BldC Oximetry 94 % 09/09/2020 2:26pm BP Systolic 110 mmHg BP Diastolic 80 mmHg Body Temperature 97.9 F Heart Rate 70 /min Respiratory Rate 14 /min Height 64.75 inches 5'4.75" Weight 165.00 lb [place] Body Weight 120 lb BMI (Body Mass Index) 27.7 kg/m2 O2 % BldC Oximetry 95 % Results Test Acquired Date Facility Test Result H/L Range Note Cardiac Marker Panel 09/01/2020 [facility] ( [facility]) [phone] CPK Creatine Phosphokinase 86 U/L Normal 26-19 [...] Magnesium 2.0 mg/dL 1.6-2.3 FT4&TSH Panel 06/15/2020 [facility] (I nterface) [phone] Thyroid Stimulating Hormone 1.130 uIU/ML Normal 0. 358-3.740 Free T4 1.07 ng/dL Normal 0.76-1.46 Laboratory test finding 06/15/2020 [facility] l (Interface) [phone] Tissue Transglutaminase IgA 6 U/mL High 0-3 4 1 DIAGNOSIS CRITERIA MMB ng/ml Relative Index (RI) NON-AMI < or = 5 N/A FIGUEREDO ZONE > 5 < or = 4 AMI > 5 > 4 2 Troponin I Reference Interva l for [place] LOCI: 99th Percentile= 0.00-0.045 ng/ml Risk Stratification: <= 0.10 ng/ml Decreased Risk for Adverse Clinical Events. 0.10-1.50 ng/ml Increased Risk for Adv erse Clinical Events. Evaluation of additional criterion and/or repeat testing in 2-6 hours is suggested to rule out myocardial damage. >= 1.50 ng/ml Indicative of Myocardial Injury. 3 Vitamin D deficiency has bee n defined by the [place] [employer] and an Endocrine Society practice guideline as a level of serum 25-OH vitamin D less than 20 ng/mL (1,2). The Endocrine Society went on to further define vitamin D insufficiency as a level between 21 and 29 ng/mL (2). 1. IOM ([place] [employer]). 2010. Di etary reference intakes [...] sensitive enteropathy. Performed at: RN - [facility] [address] [id number] Inventory Worker: Corinne Valentino MD, Phone: [phone] Procedures Date Code Description Status 08/26/2020 11599 Injection (SC)/(Im) Completed 03/15/2018 [id number] Mammogram Completed Medical Devices Description No Information Available Encounters Type Date Location Provider Dx Diagnosis Office Visit 11/02/2020 2:45p [place] [facility] Abdi Quach M. D. J44.9 Chronic obstructive pulmonary disease, unspecified K31.84 Gastroparesis K90.0 Celiac disease Office Visit 09/09/2020 2:30p [place] [facility] Abdi Quach M. D. R07.89 Other chest pain Office Visit 08/26/2020 8:45a [place] [facility] Lavell Amin, RP A M79.10 Myalgia, unspecified site M79.605 Pain in [...] RPA 08/26/2020 M79.604 Pain in right leg Jerry, Sanket Russell, PA 08/26/2020 M79.604 Pain in right leg Natasha Amin, RPA 08/26/2020 E83.51 Hypocalcemia Kosta Edwards, PA 08/26/2020 E83.51 Hypocalcemia Lavell Amin, RPA 08/26/2020 K90.0 Celiac disease Lavell Amin, RPA 08/26/2020 K31.84 Gastroparesis Lavell Amin, RPA 08/26/2020 K58.8 Other irritable bowel syndrome H Lavell quinteros, [facility] Plan of Treatment No Information Available Functional Status Description No Information Available Mental Status Description No Information Available Referrals Description No Information Available
--- OUTSIDE RECORDS SUMMARY | 2020-12-09 11:20 | CCD | Continuity of Care Document ---
Author Author Karen ALEMAN MD Organization Unknown Address [address] [place] [address], [facility] [place] [address] Phone [phone] Care Team Providers Care Classroom Aide Name Role Phone Reji Miller MD AUTM [phone] Abdi Quach MD [facility] [phone] Reji Arriola MD [facility] [phone] Problems Active Problems Provider Date Chest pain Reji Aleman MD Onset: 09/29/2020 Tobacco user Reji Aleman MD Onset: 09/29/2020 Counseling about tobacco use Reji Aleman MD Onset: Benign neoplasm of adrenal gland Reji Aleman MD Onset: 09/29/2020 Overweight Reji Aleman MD Onset: 09/29/2020 Dietary management surveillance Reji Aleman MD Onset: 09/29/2020 Social History Type Date Description Comments Sex Unknown ETOH Use Rarely consumes alcohol Tobacco Use Start: Unknown Patient is a current smoker, smo kes every day started at age 18, at most 1 ppd Smoking Status Reviewed: 09/29/20 Patient is a current smoker, smokes every day started at age 18, at most 1 ppd Exercise Type/Frequency Fully active: Ab le to carry on all performance without restriction Exercise Limitations Negative For None Allergies, Adverse Reactions, Alerts Active Allergies Reaction Severity Comments Date Sulfa 09/29/2020 Morphine 09/29/2020 Oxycodone 09/29/2020 Albuterol 09/29/2020 Latex 09/29/2020 Tape 09/29/2020 Medications Active Medications SIG Qnty Indications Ordering Provide r Date Omeprazole 40mg Capsules DR One by mouth bid Reji Arriola MD 09/28/2020 Prednisone 10mg Tablets Once daily Lavell Amin PA 09/28/2020 Dicyclomine HCL 10mg Capsules as Needed Reji Arriola MD 09/28/2020 Naproxen 500mg Tablets as Nee ded Abdi Quach MD 09/28/2020 Oxybutynin Chloride ER 5mg Tablets ER 24HR Once daily Abdi Quach MD 2019 Lactulose 10GM/15ML Solution as directed as needed Reji Arriola MD 09/28/2020 Vitamin D (Ergocalciferol) 1.25mg (16597 Ut) Capsules 1 by mouth every weekly Unknown 09/15 Polyethylene Glycol 1000 Powder mix 17 g in 4-8 oz fluid twice daily Unknown 09/15 Magnesium 400mg Tablets 1 by mouth every day Unknown 09/28/2020 Immunizations Description No Information Available Vital Signs Date Vital Result Comment 09/29/2020 1:21pm Weight 161.00 lb Home Weight 157lb home weight Height 66 inches 5'6" BMI (Body Mass Index) 26.0 kg/m2 Heart Rate 65 /min BP Systolic Sitting 103 mmHg Omron, adult cuff/Ra BP Diastolic Sitting 62 mmHg Omron, adult cuff/R a Results Test Acquired Date Facility Test Result H/L Range Note CMP 09/01/2020 [facility] - not interfaced (315)- - Albumin Serum/Plasma 3.4 Alt - SGPT 49 Calcium Ser/Plasma Mass/Vol 9.1 Carbon Dioxide Ser/Plasm 26 Chloride Serum/Plasma 104 Alkaline Phosphatase 89 Potassium 4.1 Protein Total 7.2 Sodium 135 Ast - Sgot 14 BUN - Urea Nitrogen 12 Glucose 105 70-105 Creatinine For GFR 0.71 CPK & CPK MB 09/01/2020 [facility] - not interfaced (315)- - CPK 106 CPK-MB <1.0 Laboratory test finding 09/01/2020 [facility] - not interf aced (315)- - Troponin <0.02 Thyroid Stimulating Hormone 1.310 Free T4 1.26 Lipase 66 CBC without Differential 09/01/2020 [facility] - not inter faced (315)- - White Blood Count 15.1 High 4.0-10.0 Red Blood Count 4.70 4.00-5.40 Platelets 301 150-450 Hemoglobin 12.9 Hematocrit 40.5 Procedures Date Code Description Status 09/29/2020 97366 ECG 12-Lead Completed Medical Devices Description No Information Available Encounters Type Date Location Provider Dx Diagnosis Office Visit 09/29/2020 1:30p [facility] Reji Aleman MD R07.9 Chest pain, unspecified 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 E66.3 Overweight F17.210 Nicotine dependence, cigaret lm, uncomplicated Z71.3 Dietary counseling and surve illance Z71.6 Tobacco abuse counseling Assessments Date Code Description Provider 09/29/2020 R07.9 Chest pain, unspecified Reji Aleman MD 09/29/2020 D35.02 Benign neoplasm of left adrenal gland Reji Aleman MD 09/29/2020 E66.3 Overweight Reji Aleman MD 09/29/2020 F17.210 Nicotine dependence, cigarettes, uncomplicated Reji Aleman MD 09/29/2020 Z71.3 Dietary counseling and surveilla nce Reji Aleman MD 09/29/2020 Z71.6 Tobacco abuse counseling Reji Aleman MD Plan of Treatment Future Appointment(s):* 10/20/2020 9:20 am - Stress Nuclear/Reg Treadmill at Main Office 09/29/2020 - Reji Aleman MD* R07.9 Chest pain, unspecified* New Orders:* Treadmill, Scheduled: 10/20/20 * D35.02 Benign neoplasm of left adrenal gland* New Labs:* Aldosterone/Renin Activity Rat, Ordered: 09/29/20 * BMP7 W/Egfr, Ordered: 09/29/20 * Metanephrine, Frac Plasma, Ordered: 09/29/20 * E66.3 Overweight * F17.210 Nicotine dependence, cigarettes, uncomplicated * Z71.3 Dietary counseling and surveillance * Z71.6 Tobacco abuse counseling * All * Follow up:* Further follow-up, if any, depending upon results of cardiac testing. Functional Status Functional Condition Comment Date Status Independent with all ADL's Activ e Mental Status Description No Information Available Referrals Description No Information Available
--- OUTSIDE RECORDS SUMMARY | 2020-12-09 11:21 | CCD | Continuity of Care Document ---
Author Author Karen QUACH M.D. Organization Unknown Address [address] [place] [address] Phone [phone] Problems Active Problems Provider Date Celiac disease Abdi Quach M.D. Onset: 7 Chronic obstructive lung disease Abdi Quach M.D. Ons et: 05/24/2017 Overweight Abdi Quach M.D. Onset: 8 Gastroparesis syndrome Abdi Quach M.D. Onset: 2017 Castle's esophagus Abdi Quach M.D. Onset: 8 Irritable bowel syndrome Abdi Quach M.D. Onset: 09/15 Vitamin D deficiency Lavell Amin, [facility] Onset: 0 Social History Type Date [...] SIG Qnty Indications Ordering Provide r Date Zithromax Z-Matias 250mg Tablets 2 tab by mouth today and then 1 tab by mouth daily for 4 days 1pAbdi Doll M.D. 09/09/2020 Ergocalciferol 1.25mg (16442 Ut) C apsules 1 by mouth a week x 8 weeks 8caps Lisa Vann, FAAFP 08/28/2020 Solu-Medrol 125mg Solution Rec intramuscular stat 1units Marcus Pruitt D.O., FAAFP 08/26/2020 Naproxen 500mg Tablets 1 tab by mouth twice a day as needed pain 60tabs Abdi Quach M. D. 03/27/2019 Polyethylene Glycol 3350 3350NF Po wder Mix 1 Capful In 4 To 8 Ounces Of Liquid twice a day 510units Abdi Quach M.D. 07/09/2018 Oxybutynin Chloride ER 5mg Tablets ER 24HR 1 by mouth every day 90tabs Abdi Quach M .D. Omeprazole 40mg Capsules DR 1 by mouth bid Reji Arriola M.D. Lactulose 10GM/15ML Solution twice a day as needed Unknown History Medications Baclofen 10mg Tablets take 1 tablet by mouth every at bedtime 14tabs Marcus Pruitt D.O., FA [facility] 08/26/2020 - 09/09/2020 Prednisone 10mg Tablets 2 po tid x 3 days, then 1 po tid x 3 days, then 1 po bid x 3 days, then 1 po qd x 3 days, then 1/2 po qd 42tabs Marcus Pruitt D.O., FAAFP 08/2020 - 09/09/2020 Medications Administered in Office Medication SIG Qnty Indications Ordering Provider Date Injection (SC)/(Im) Injection Lavell Amin RPA 08/26/2020 Immunizations CPT Code Status Date Vaccine Lot # [id number] Given 09/30/2019 Influenza Virus Vaccine, Quadrivalent, Slit Virus, Im Use 3Y & Up [id number] Vital Signs Date Vital Result Comment 09/09/2020 2:26pm BP Systolic 110 mmHg BP Diastolic 80 mmHg Body Temperature 97.9 F Heart Rate 70 /min Respiratory Rate 14 /min Height 64.75 inches 5'4.75" Weight 165.00 lb [place] Body Weight 120 lb BMI (Body Mass Index) 27.7 kg/m2 O2 % BldC Oximetry 95 % 08/26/2020 8:40am BP Systolic 112 mmHg BP Diastolic 74 mmHg Body Temperature 98.7 F Heart Rate 76 /min Respiratory Rate 16 /min Height 64.75 inches 5'4.75" Weight 168.00 lb [place] Body Weight 120 lb BMI (Body Mass Index) 28.2 kg/m2 O2 % BldC Oximetry 97 % Results Test Acquired Date Facility Test Result H/L Range Note Cardiac Marker Panel 09/01/2020 [facility] ( [id number]) [phone] CPK Creatine Phosphokinase 86 U/L Normal 26-19 [...] 06/15/2020 [facility] (I nterface) [phone] Thyroid Stimulating Hormone 1.130 uIU/ML Normal 0. 358-3.740 Free T4 1.07 ng/dL Normal 0.76-1.46 Laboratory test finding 06/15/2020 [facility] l (Interface) [phone] Tissue Transglutaminase IgA 6 U/mL High 0-3 4 CBC With Differential/Platelet 04/01/2020 [facility] N E WBC 11.0 x10E3/uL High 3.4-10.8 RBC 4.66 x10E6/uL 3.77-5.28 Hemoglobin 13.0 g/dL 11.1-15.9 Hematocrit 40.4 % 34.0-46.6 MCV 87 fL 79-97 MCH 27.9 pg 26.6-33.0 MCHC 32.2 g/dL 31.5-35.7 RDW 14.5 % 11.7-15.4 Platelets 395 x10E3/uL 150-450 Neutrophils 56 % Not Estab. Lymphs 35 % Not Estab. Monocytes 6 % Not Estab. Eos 2 % Not Estab. Basos 1 % Not Estab. Immature Cells TNP Neutrophils (Absolute) 6.0 x10E3/uL 1.4-7.0 Lymphs (Absolute) 3.9 x10E3/uL High 0.7-3.1 Monocytes(Absolute) 0.7 x10E3/uL 0.1-0.9 Eos (Absolute) 0.3 x10E3/uL 0.0-0.4 Baso (Absolute) 0.1 x10E3/uL 0.0-0.2 Immature Granulocytes 0 % Not Estab. Immature Grans (Abs) 0.0 x10E3/uL 0.0-0.1 NRBC TNP Hematology Comments: TNP 1 DIAGNOSIS CRITERIA MMB ng/ml Relative Index (RI) NON-AMI < or = 5 N/A FIGUEREDO ZONE > 5 < or = 4 AMI > 5 > 4 2 Troponin I Reference Interva l for [employer] [place] LOCI: 99th Percentile= 0.00-0.045 ng/ml Risk Stratification: <= 0.10 ng/ml Decreased Risk for Adverse Clinical Events. 0.10-1.50 ng/ml Increased Risk for Adv erse Clinical Events. Evaluation of additional criterion and/or repeat testing in 2-6 hours is suggested to rule out myocardial damage. >= 1.50 ng/ml Indicative of Myocardial Injury. 3 Vitamin D deficiency has bee n defined by the [place] [employer] and an Endocrine Society practice guideline as a level of serum 25-OH vitamin D less than 20 ng/mL (1,2). The Endocrine Society went on to further define vitamin D insufficiency as a level between 21 and 29 ng/mL (2). 1. IOM ([place] [employer]). 2010. Di etary reference intakes for calcium and D. [place]: The National Academies Press. 2. Nate MF, [place], Felix ambriz DAMON, et al. Evaluation, treatment, and prevention of vitamin D deficiency: an Endocrine Society clinical practice guideline. JCEM. 2010; 96(7):1911-30. 4 Negative 0 - 3 Weak Positive 4 - 10 Positive >10 . Tissue Transglutaminase (tTG) has been identified as the endomysial antigen. Studies have demonstr- ated that endomysial IgA antibodies have over 99% specificity for gluten sensitive enteropathy. Performed at: - [facility] [id number] Flight Technician: Corinne Valentino MD, Phone: [phone] Procedures Date Code Description Status 08/26/2020 09579 Injection (SC)/(Im) Completed 03/15/2018 [id number] Mammogram Completed Medical Devices Description No Information Available Encounters Type Date Location Provider Dx Diagnosis Office Visit 09/09/2020 2:30p [place] [facility] Abdi Quach M. D. R07.89 Other chest pain Office Visit 08/26/2020 8:45a [place] [facility] Lavell Amin, RP A M79.10 Myalgia, unspecified site M79.605 Pain in left leg M79.604 Pain in right leg E83.51 Hypocalcemia K90.0 Celiac disease K31.84 Gastroparesis K58.8 Other irritable bowel syndro me Office Visit 04/01/2020 8:45a [place] [facility] Abdi Quach M. D. K90.0 Celiac disease J44.9 Chronic obstructive pulmonar y disease, unspecified Assessments Date Code Description Provider 09/09/2020 R07.89 Other chest pain Abdi Quach [...] Other irritable bowel syndrome H Lavell quinteros, RPA 04/01/2020 K90.0 Celiac disease Abdi Quach M.D. 04/01/2020 J44.9 Chronic obstructive pulmonary di sease, unspecified Abdi Quach M.D. Plan of Treatment Future Appointment(s):* 10/19/2020 10:40 am - Abdi Quach M.D. at [facility] Functional Status Description No Information Available Mental Status Description No Information Available Referrals Description No Information Available
--- OUTSIDE RECORDS SUMMARY | 2020-12-09 11:22 | CCD ---
Author Author [facility] Organization [facility] Address Unknown Phone Unavailable Care Team Providers Care Flat Drier Name Role Phone Tara RHODES MD Unavailable Unavailable ANTECOLTara MD Unavailable Unavailable ANTECOLTara MD Unavailable Unavailable ANTECOLTara MD Unavailable Unavailable ANTECOLTara MD Unavailable Unavailable ANTECOLTara MD Unavailable Unavailable ANTECOLTara MD Unavailable Unavailable ANTECOLTara MD Unavailable Unavailable ANTECOLTaar MD Unavailable Unavailable ANTECOLTara MD Unavailable Unavailable ANTECOLTara MD Unavailable Unavailable ANTECOLTara MD Unavailable Unavailable ANTECOLTara MD Unavailable Unavailable ANTECOLTara MD Unavailable Unavailable ANTECOLTara MD Unavailable Unavailable ANTECOLTara MD Unavailable Unavailable ANTECOLTara MD Unavailable Unavailable ANTECOLTara MD Unavailable Unavailable ANTECOLTara MD Unavailable Unavailable ANTECOLTara MD Unavailable Unavailable ANTECOLTara MD Unavailable Unavailable ANTECOL, Tara LASSITER MD Unavailable Unavailable ANTECOL, Tara LASSITER MD Unavailable Unavailable ANTECOL, Tara LASSITER MD Unavailable Unavailable ANTECOL, Tara LASSITER MD Unavailable Unavailable ANTECOL, Tara LASSITER MD Unavailable Unavailable ANTECOL, Tara LASSITER MD Unavailable Unavailable ANTECOL, Tara LASSITER MD Unavailable Unavailable ANTECOL, Tara LASSITER MD Unavailable Unavailable ANTECOL, Tara LASSITER MD Unavailable Unavailable ANTECOL, Tara LASSITER MD Unavailable Unavailable ANTECOL, Tara LASSITER MD Unavailable Unavailable ANTECOL, Tara LASSITER MD Unavailable Unavailable ANTECOL, Tara LASSITER MD Unavailable Unavailable ANTECOL, Tara LASSITER MD Unavailable Unavailable ANTECOL, Tara LASSITER MD Unavailable Unavailable ANTECOL, Tara LASSITER MD Unavailable Unavailable ANTECOL, Tara LASSITER MD Unavailable Unavailable ANTECOL, Tara LASSITER MD Unavailable Unavailable ANTECOL, Tara LASSITER MD Unavailable Unavailable ANTECOL, Tara LASSITER MD Unavailable Unavailable ANTECOL, Tara LASSITER MD Unavailable Unavailable ANTECOL, Tara LASSITER MD Unavailable Unavailable ANTECOL, Tara LASSITER MD Unavailable Unavailable ANTECOL, Tara LASSITER MD Unavailable Unavailable ANTECOL, Tara LASSITER MD Unavailable Unavailable ANTECOL, Tara LASSITER MD Unavailable Unavailable ANTECOL, Tara LASSITER MD Unavailable Unavailable ANTECOL, Tara LASSITER MD Unavailable Unavailable ANTECOL, Tara LASSITER MD Unavailable Unavailable ANTECOL, Tara LASSITER MD Unavailable Unavailable ANTECOL, Tara LASSITER MD Unavailable Unavailable ANTECOL, Tara LASSITER MD Unavailable Unavailable ANTECOL, Tara LASSITER MD Unavailable Unavailable ANTECOL, Tara LASSITER MD Unavailable Unavailable ANTECOL, Tara LASSITER MD Unavailable Unavailable Tara SOLANO MD Unavailable Unavailable Tara SOLANO MD Unavailable Unavailable Tara SOLANO MD Unavailable Unavailable Tara SOLANO MD Unavailable Unavailable Tara SOLANO MD Unavailable Unavailable Tara SOLANO MD Unavailable Unavailable Tara SOLANO MD Unavailable Unavailable Tara SOLANO MD Unavailable Unavailable Tara SOLANO MD Unavailable Unavailable Tara SOLANO MD Unavailable Unavailable Tara SOLANO MD Unavailable Unavailable Tara SOLANO MD Unavailable Unavailable Tara SOLANO MD Unavailable Unavailable Tara SOLANO MD Unavailable Unavailable Tara SOLANO MD Unavailable Unavailable Tara SOLANO MD Unavailable Unavailable Tara SOLANO MD Unavailable Unavailable Tara SOLANO MD Unavailable Unavailable Taar SOLANO MD Unavailable Unavailable Tara SOLANO MD Unavailable Unavailable Tara SOLANO MD Unavailable Unavailable Tara SOLANO MD Unavailable Unavailable Tara SOLANO MD Unavailable Unavailable Tara SOLANO MD Unavailable Unavailable Tara SOLANO MD Unavailable Unavailable Tara SOLANO MD Unavailable Unavailable Tara SOLANO MD Unavailable Unavailable Tara SOLANO MD Unavailable Unavailable Tara SOLANO MD Unavailable Unavailable Tara SOLANO MD Unavailable Unavailable Tara SOLANO MD Unavailable Unavailable Tara SOLANO MD Unavailable Unavailable Tara SOLANO MD Unavailable Unavailable Tara SOLANO MD Unavailable Unavailable RUSS H BISHOP OBRIEN Unavailable Unavailable Tara SOLANO MD Unavailable Unavailable Tara SOLANO MD Unavailable Unavailable Tara SOLANO MD Unavailable Unavailable Tara SOLANO MD Unavailable Unavailable RUSS H BISHOP OBRIEN Unavailable Unavailable RUSS H BISHOP OBRIEN Unavailable Unavailable RUSS H BISHOP OBRIEN Unavailable Unavailable RUSS H BISHOP OBRIEN Unavailable Unavailable RUSS H BISHOP OBRIEN Unavailable Unavailable RUSS H BISHOP OBRIEN Unavailable Unavailable RUSS H BISHOP OBRIEN Unavailable Unavailable RUSS H BISHOP OBRIEN Unavailable Unavailable RUSSTara MD Unavailable Unavailable RUSS H BISHOP OBRIEN Unavailable Unavailable RUSS H BISHOP MD Unavailable Unavailable RUSS H BISHOP OBRIEN Unavailable Unavailable RUSS, H BISHOP MD Unavailable Unavailable RUSS, H BISHOP OBRIEN Unavailable Unavailable Tara SOLANO MD Unavailable Unavailable Tara SOLANO MD Unavailable Unavailable Tara SOLANO MD Unavailable Unavailable Tara SOLANO MD Unavailable Unavailable RUSS H BISHOP OBRIEN Unavailable Unavailable Tara SOLANO MD Unavailable Unavailable Tara SOLANO MD Unavailable Unavailable RUSS H BISHOP OBRIEN Unavailable Unavailable Tara SOLANO MD Unavailable Unavailable Tara SOLANO MD Unavailable Unavailable Tara SOLANO MD Unavailable Unavailable Tara SOLANO MD Unavailable Unavailable Tara SOLANO MD Unavailable Unavailable Tara SOLANO MD Unavailable Unavailable Tara SOLANO MD Unavailable Unavailable Tara SOLANO MD Unavailable Unavailable Tara SOLANO MD Unavailable Unavailable Tara SOLANO MD Unavailable Unavailable Tara SOLANO MD Unavailable Unavailable Tara SOLANO MD Unavailable Unavailable Tara SOLANO MD Unavailable Unavailable Tara SOLANO MD Unavailable Unavailable Tara SOLANO MD Unavailable Unavailable Eloisa, D Manish PA Unavailable Unavailable Eloisa, D Manish PA Unavailable Unavailable Eloisa, D Manish PA Unavailable Unavailable Eloisa, D Manish PA Unavailable Unavailable Eloisa, D Manish PA Unavailable Unavailable Eloisa, D Manish PA Unavailable Unavailable Eloisa, D Manish PA Unavailable Unavailable Eloisa, D Manish PA Unavailable Unavailable Eloisa, D Manish PA Unavailable Unavailable Eloisa, D Manish PA Unavailable Unavailable Eloisa, D Manish PA Unavailable Unavailable Eloisa, D Manish PA Unavailable Unavailable Eloisa, D Manish PA Unavailable Unavailable Eloisa, D Manish PA Unavailable Unavailable Eloisa, D Manish PA Unavailable Unavailable Eloisa, D Manish PA Unavailable Unavailable Eloisa, D Manish PA Unavailable Unavailable Eloisa, D Manish PA Unavailable Unavailable Eloisa, D Manish PA Unavailable Unavailable Eloisa, D Manish PA Unavailable Unavailable Eloisa, D Manish PA Unavailable Unavailable Eloisa, D Manish PA Unavailable Unavailable Eloisa, D Manish PA Unavailable Unavailable Eloisa, D Manish PA Unavailable Unavailable Eloisa, D Manish PA Unavailable Unavailable Eloisa, D Manish PA Unavailable Unavailable Eloisa, D Manish PA Unavailable Unavailable Eloisa, D Manish PA Unavailable Unavailable Eloisa, D Manish PA Unavailable Unavailable Leoisa, D Manish PA Unavailable Unavailable Eloisa, D Manish PA Unavailable Unavailable Eloisa, D Manish PA Unavailable Unavailable Eloisa, D Manish PA Unavailable Unavailable Eloisa, D Manish PA Unavailable Unavailable Eloisa, D Manish PA Unavailable Unavailable Eloisa, D Manish PA Unavailable Unavailable Eloisa, D Manish PA Unavailable Unavailable Eloisa, D Manish PA Unavailable Unavailable Eloisa, D Manish PA Unavailable Unavailable Eloisa, D Manish PA Unavailable Unavailable Eloisa, D Manish PA Unavailable Unavailable Eloisa, D Manish PA Unavailable Unavailable Eloisa, D Manish PA Unavailable Unavailable Eloisa, D Manish PA Unavailable Unavailable Eloisa, D Manish PA Unavailable Unavailable Eloisa, D Amnish PA Unavailable Unavailable Eloisa, D Manish PA Unavailable Unavailable Eloisa, D Manish PA Unavailable Unavailable Eloisa, D Manish PA Unavailable Unavailable Eloisa, D Manish PA Unavailable Unavailable Eloisa, D Manish PA Unavailable Unavailable Eloisa, D Manish PA Unavailable Unavailable Eloisa, D Manish PA Unavailable Unavailable Eloisa, D Manish PA Unavailable Unavailable Eloisa, D Manish PA Unavailable Unavailable Eloisa, D Manish PA Unavailable Unavailable Eloisa, D Manish PA Unavailable Unavailable Eloisa, D Manish PA Unavailable Unavailable Eloisa, D Manish PA Unavailable Unavailable Eloisa, D Manish PA Unavailable Unavailable Eloisa, D Manish PA Unavailable Unavailable Eloisa, D Manish PA Unavailable Unavailable Eloisa, D Manish PA Unavailable Unavailable Yvonne DIAZ PULMONOLOGIST INTENSIVIST Unavailable Unavailable Yvonne DIAZ PULMONOLOGIST INTENSIVIST Unavailable Unavailable Yvonne DIAZ PULMONOLOGIST INTENSIVIST Unavailable Unavailable Yvonne DIAZ PULMONOLOGIST INTENSIVIST Unavailable Unavailable Yvonne DIAZ PULMONOLOGIST INTENSIVIST Unavailable Unavailable Yvonne DIAZ PULMONOLOGIST INTENSIVIST Unavailable Unavailable Yvonne DIAZ PULMONOLOGIST INTENSIVIST Unavailable Unavailable Yvonne DIAZ PULMONOLOGIST INTENSIVIST Unavailable Unavailable Yvonne DIAZ PULMONOLOGIST INTENSIVIST Unavailable Unavailable Yvonne DIAZ PULMONOLOGIST INTENSIVIST Unavailable Unavailable Yvonne DIAZ PULMONOLOGIST INTENSIVIST Unavailable Unavailable DIAZ, M JACKELYN PULMONOLOGIST INTENSIVIST Unavailable Unavailable DIAZ, M JACKELYN PULMONOLOGIST INTENSIVIST Unavailable Unavailable DIAZ, M JACKELYN PULMONOLOGIST INTENSIVIST Unavailable Unavailable DIAZ, M JACKELYN PULMONOLOGIST INTENSIVIST Unavailable Unavailable DIAZ, M JACKELYN PULMONOLOGIST INTENSIVIST Unavailable Unavailable DIAZ, M JACKELYN PULMONOLOGIST INTENSIVIST Unavailable Unavailable DIAZ, M JACKELYN PULMONOLOGIST INTENSIVIST Unavailable Unavailable DIAZ, M JACKELYN PULMONOLOGIST INTENSIVIST Unavailable Unavailable DIAZ, M JACKELYN PULMONOLOGIST INTENSIVIST Unavailable Unavailable DIAZ, M JACKELYN PULMONOLOGIST INTENSIVIST Unavailable Unavailable DIAZ, M JACKELYN PULMONOLOGIST INTENSIVIST Unavailable Unavailable DIAZ, M JACKELYN PULMONOLOGIST INTENSIVIST Unavailable Unavailable DIAZ, M JACKELYN PULMONOLOGIST INTENSIVIST Unavailable Unavailable DIAZ, M JACKELYN PULMONOLOGIST INTENSIVIST Unavailable Unavailable DIAZ, M JACKELYN PULMONOLOGIST INTENSIVIST Unavailable Unavailable DIAZ, M JACKELYN PULMONOLOGIST INTENSIVIST Unavailable Unavailable DIAZ, M JACKELYN PULMONOLOGIST INTENSIVIST Unavailable Unavailable DIAZ, M JACKELYN PULMONOLOGIST INTENSIVIST Unavailable Unavailable DIAZ, M JACKELYN PULMONOLOGIST INTENSIVIST Unavailable Unavailable DIAZ, M JACKELYN PULMONOLOGIST INTENSIVIST Unavailable Unavailable DIAZ, M JACKELYN PULMONOLOGIST INTENSIVIST Unavailable Unavailable DIAZ, M JACKELYN PULMONOLOGIST INTENSIVIST Unavailable Unavailable DIAZ, M JACKELYN PULMONOLOGIST INTENSIVIST Unavailable Unavailable DIAZ, M JACKELYN PULMONOLOGIST INTENSIVIST Unavailable Unavailable DIAZ, M JACKELYN PULMONOLOGIST INTENSIVIST Unavailable Unavailable DIAZ, M JACKELYN PULMONOLOGIST INTENSIVIST Unavailable Unavailable DIAZ, M JACKELYN PULMONOLOGIST INTENSIVIST Unavailable Unavailable DIAZ, M JACKELYN PULMONOLOGIST INTENSIVIST Unavailable Unavailable DIAZ, M JACKELYN PULMONOLOGIST INTENSIVIST Unavailable Unavailable DIAZ, M JACKELYN PULMONOLOGIST INTENSIVIST Unavailable Unavailable DIAZ, M JACKELYN PULMONOLOGIST INTENSIVIST Unavailable Unavailable DIAZ, M JACKELYN PULMONOLOGIST INTENSIVIST Unavailable Unavailable DIAZ, M JACKELYN PULMONOLOGIST INTENSIVIST Unavailable Unavailable DIAZ, M JACKELYN PULMONOLOGIST INTENSIVIST Unavailable Unavailable DIAZ, M JACKELYN PULMONOLOGIST INTENSIVIST Unavailable Unavailable DIAZ, M JACKELYN PULMONOLOGIST INTENSIVIST Unavailable Unavailable DIAZ, M JACKELYN PULMONOLOGIST INTENSIVIST Unavailable Unavailable DIAZ, M JACKELYN PULMONOLOGIST INTENSIVIST Unavailable Unavailable DIAZ, M JACKELYN PULMONOLOGIST INTENSIVIST Unavailable Unavailable DIAZ, M JACKELYN PULMONOLOGIST INTENSIVIST Unavailable Unavailable DIAZ, M JACKELYN PULMONOLOGIST INTENSIVIST Unavailable Unavailable DIAZ, M JACKELYN PULMONOLOGIST INTENSIVIST Unavailable Unavailable DIAZ, M JACKELYN PULMONOLOGIST INTENSIVIST Unavailable Unavailable DIAZ, M JACKELYN PULMONOLOGIST INTENSIVIST Unavailable Unavailable DIAZ, M JACKELYN PULMONOLOGIST INTENSIVIST Unavailable Unavailable DIAZ, M JACKELYN PULMONOLOGIST INTENSIVIST Unavailable Unavailable DIAZ, M JACKELYN PULMONOLOGIST INTENSIVIST Unavailable Unavailable Tara SOLANO MD Unavailable Unavailable Tara SOLANO MD Unavailable Unavailable Traa SOLANO MD Unavailable Unavailable Tara SOLANO MD Unavailable Unavailable Tara SOLANO MD Unavailable Unavailable Tara SOLANO MD Unavailable Unavailable Tara SOLANO MD Unavailable Unavailable Tara SOLANO MD Unavailable Unavailable Tara SOLANO MD Unavailable Unavailable Tara SOLANO MD Unavailable Unavailable Tara SOLANO MD Unavailable Unavailable Tara SOLANO MD Unavailable Unavailable Tara SOLANO MD Unavailable Unavailable Tara SOLANO MD Unavailable Unavailable Tara SOLANO MD Unavailable Unavailable Tara SOLANO MD Unavailable Unavailable Tara SOLANO MD Unavailable Unavailable RUSS H BISHOP OBRIEN Unavailable Unavailable Tara SOLANO MD Unavailable Unavailable Tara SOLANO MD Unavailable Unavailable Tara SOLANO MD Unavailable Unavailable Tara SOLANO MD Unavailable Unavailable Tara SOLANO MD Unavailable Unavailable Tara SOLANO MD Unavailable Unavailable Tara SOLANO MD Unavailable Unavailable Tara SOLANO MD Unavailable Unavailable Tara SOLANO MD Unavailable Unavailable Tara SOLANO MD Unavailable Unavailable Tara SOLANO MD Unavailable Unavailable Tara SOLANO MD Unavailable Unavailable Tara SOLANO MD Unavailable Unavailable Tara SOLANO MD Unavailable Unavailable Tara SOLANO MD Unavailable Unavailable Tara SOLANO MD Unavailable Unavailable Tara SOLANO MD Unavailable Unavailable Tara SOLANO MD Unavailable Unavailable Tara SOLANO MD Unavailable Unavailable Tara SOLANO MD Unavailable Unavailable Tara SOLANO MD Unavailable Unavailable Tara SOLANO MD Unavailable Unavailable Tara SOLANO MD Unavailable Unavailable Tara SOLANO MD Unavailable Unavailable Tara SOLANO MD Unavailable Unavailable Tara SOLANO MD Unavailable Unavailable Tara SOLANO MD Unavailable Unavailable Tara SOLANO MD Unavailable Unavailable Tara SOLANO MD Unavailable Unavailable Tara SOLANO MD Unavailable Unavailable Taar SOLANO MD Unavailable Unavailable Tara SOLANO MD Unavailable Unavailable Tara SOLANO MD Unavailable Unavailable Tara SOLANO MD Unavailable Unavailable Tara SOLANO MD Unavailable Unavailable Tara SOLANO MD Unavailable Unavailable Tara SOLANO MD Unavailable Unavailable Tara SOLANO MD Unavailable Unavailable Tara SOLANO MD Unavailable Unavailable Tara SOLANO MD Unavailable Unavailable Tara SOLANO MD Unavailable Unavailable Tara SOLANO MD Unavailable Unavailable Tara SOLANO MD Unavailable Unavailable Tara SOLANO MD Unavailable Unavailable Tara SOLANO MD Unavailable Unavailable Tara SOLANO MD Unavailable Unavailable Tara SOLANO MD Unavailable Unavailable Tara SOLANO MD Unavailable Unavailable Tara SOLANO MD Unavailable Unavailable Tara SOLANO MD Unavailable Unavailable Tara SOLANO MD Unavailable Unavailable Tara SOLANO MD Unavailable Unavailable Tara SOLANO MD Unavailable Unavailable Tara SOLANO MD Unavailable Unavailable Tara SOLANO MD Unavailable Unavailable Tara SOLANO MD Unavailable Unavailable Tara SOLANO MD Unavailable Unavailable Tara SOLANO MD Unavailable Unavailable MAIKOL ENAMORADO MD Unavailable Unavailable REINDL, MAIKOL OBRIEN Unavailable Unavailable REINDL, MAIKOL OBRIEN Unavailable Unavailable REINDL, MAIKOL OBRIEN Unavailable Unavailable REINDL, MAIKOL OBRIEN Unavailable Unavailable REINDL, MAIKOL OBRIEN Unavailable Unavailable REINDL, MAIKOL OBRIEN Unavailable Unavailable REINDL, MAIKOL OBRIEN Unavailable Unavailable REINDL, MAIKOL OBRIEN Unavailable Unavailable REINDL, MAIKOL OBRIEN Unavailable Unavailable REINDL, MAIKOL OBRIEN Unavailable Unavailable REINDL, MAIKOL OBRIEN Unavailable Unavailable REINDL, MAIKOL OBRIEN Unavailable Unavailable REINDL, MAIKOL OBRIEN Unavailable Unavailable REINDL, MAIKOL OBRIEN Unavailable Unavailable REINDL, MAIKOL OBRIEN Unavailable Unavailable REINDL, MAIKOL OBRIEN Unavailable Unavailable REINDL, MAIKOL OBRIEN Unavailable Unavailable REINDL, MAIKOL OBRIEN Unavailable Unavailable REINDL, MAIKOL OBRIEN Unavailable Unavailable REINDL, MAIKOL OBRIEN Unavailable Unavailable REINDL, MAIKOL OBRIEN Unavailable Unavailable REINDL, MAIKOL OBRIEN Unavailable Unavailable REINDL, MAIKOL OBRIEN Unavailable Unavailable REINDL, MAIKOL OBRIEN Unavailable Unavailable REINDL, MAIKOL OBRIEN Unavailable Unavailable REINDL, MAIKOL OBRIEN Unavailable Unavailable REINDL, MAIKOL OBRIEN Unavailable Unavailable REINDL, MAIKOL OBRIEN Unavailable Unavailable REINDL, MAIKOL OBRIEN Unavailable Unavailable REINDL, MAIKOL OBRIEN Unavailable Unavailable REINDL, AMIKOL OBRIEN Unavailable Unavailable REINDL, MAIKOL OBRIEN Unavailable Unavailable REINDL, MAIKOL OBRIEN Unavailable Unavailable REINDL, MAIKOL OBRIEN Unavailable Unavailable REINDL, MAIKOL OBRIEN Unavailable Unavailable REINDL, MAIKOL OBRIEN Unavailable Unavailable REINDL, MAIKOL OBRIEN Unavailable Unavailable REINDL, MAIKOL OBRIEN Unavailable Unavailable REINDL, MAIKOL OBRIEN Unavailable Unavailable REINDL, MAIKOL OBRIEN Unavailable Unavailable REINDL, MAIKOL OBRIEN Unavailable Unavailable REINDL, MAIKOL OBRIEN Unavailable Unavailable REINDL, MAIKOL OBRIEN Unavailable Unavailable LETTIERE, A MANISH PA Unavailable Unavailable LETTIERE, A MANISH PA Unavailable Unavailable LETTIERE, A MANISH PA Unavailable Unavailable LETTIERE, A MANISH PA Unavailable Unavailable LETTIERE, A MANISH PA Unavailable Unavailable LETTIERE, A MANISH PA Unavailable Unavailable LETTIERE, A MANISH PA Unavailable Unavailable LETTIERE, A MANISH PA Unavailable Unavailable LETTIERE, A MANISH PA Unavailable Unavailable LETTIERE, A MANISH PA Unavailable Unavailable LETTIERE, A MANISH PA Unavailable Unavailable LETTIERE, A MANISH PA Unavailable Unavailable LETTIERE, A MANISH PA Unavailable Unavailable LETTIERE, A MANISH PA Unavailable Unavailable LETTIERE, A MANISH PA Unavailable Unavailable LETTIERE, A MANISH PA Unavailable Unavailable LETTIERE, A MANISH PA Unavailable Unavailable LETTIERE, A MANISH PA Unavailable Unavailable LETTIERE, A MANISH PA Unavailable Unavailable LETTIERE, A MANISH PA Unavailable Unavailable LETTIERE, A MANISH PA Unavailable Unavailable LETTIERE, A MANISH PA Unavailable Unavailable LETTIERE, A MANISH PA Unavailable Unavailable LETTIERE, A MANISH PA Unavailable Unavailable LETTIERE, A MANISH PA Unavailable Unavailable LETTIERE, A MANISH PA Unavailable Unavailable LETTIERE, A MANISH PA Unavailable Unavailable LETTIERE, A MANISH PA Unavailable Unavailable LETTIERE, A MANISH PA Unavailable Unavailable Re-disclosure Warning The records that you are about to access may contain information from federally-assisted alcohol or drug abuse programs. If such information is present, then the following federally mandated warning applies: This information has been disclosed to you from records protected by federal confidentiality rules (42 CFR part 2). The federal rules prohibit you from making any further disclosure of this information unless further disclosure is expressly permitted by the written consent of the person to whom it pertains or as otherwise permitted by 42 CFR part 2. A general authorization for the release of medical or other information is NOT sufficient for this purpose. The Federal rules restrict any use of the information to criminally investigate or prosecute any alcohol or drug abuse patient.The records that you are about to access may contain highly sensitive health information, the redisclosure of which is protected by Article 27-F of the [facility] Public Health law. If you continue you may have access to information: Regarding HIV / AIDS; Provided by facilities licensed or operated by the [facility] Office of Mental Health; or Provided by the [facility] Office for People With Developmental Disabilities. If such information is present, then the following [facility] mandated warning applies: This information has been disclosed to you from confidential records which are protected by state law. State law prohibits you from making any further disclosure of this information without the specific written consent of the person to whom it pertains, or as otherwise permitted by law. Any unauthorized further disclosure in violation of state law may result in a fine or chcf sentence or both. A general authorization for the release of medical or other information is NOT sufficient authorization for further disc losure. Family History Family Member Name Family Member Gender Family Member Status Date o f Status Description Data Source(s) Unknown Unknown Problem [facility] ([facility], ) Unknown Unknown Problem [facility] ([facility] Lujan [facility], ) Encounters Encounter Providers Location Date Indications Data Source(s ) Outpatient Attender: BISHOP SOLANO MD [facility] 01:45:00 PM EST [facility] Outpatient Attender: MAIKOL RHODES MD Main Office 09/29/2020 12:30:00 PM EST [facility] ([facility]) Outpatient Attender: BISHOP SOLANO MD [facility] 01:30:00 PM EST [facility] ([facility] Outpatient Attender: Manish CALHOUN [facility] 08/2020 07:45:00 AM EST [facility] ([facility] Outpatient Attender: MAIKOL [facility] 06/24/2020 09:00:00 AM EDT [facility] ([facility] Outpatient Attender: BISHOP SOLANO MD [facility] 08:45:00 AM EDT [facility] ([facility] Outpatient Attender: MAIKOL [facility] 03/18/2020 09:00:00 AM EDT [facility] ([facility] Outpatient Attender: MAIKOL [facility] 01/15/2020 10:00:00 AM EDT [facility] ([facility] Outpatient Attender: BISHOP SOLANO MD [facility] 11:30:00 AM EDT [facility] ([facility] Outpatient Attender: BISHOP SOLANO MD [facility] 09:30:00 AM EDT [facility] ([facility] Outpatient Attender: JACKELYN DIAZ NP [facility] 12/22 10:00:00 AM EDT [facility] ([facility] Outpatient Referrer: BISHOP SOLANO MD 12/19/2019 03:31:00 PM EST [facility] Outpatient Attender: MANISH villatoro 11/24/2019 10:00:00 AM EST [facility] ([facility] Medications Medication Brand Name Start Date Product Form Dose Route Admi nistrative Instructions Pharmacy Instructions Status Indications Reaction Description Data Source(s) 300 mg 11/17/2020 12:00:00 AM EST capsule 20 TAKE ONE CAPSULE BY MOUTH EVERY 12 HOURS FOR 10 DAYS TAKE ONE CAPSULE BY MOUTH EVERY 12 HOURS FOR 10 DAYS S OLD: 11/17/2020 [facility] 1,250 mcg (50,000 unit) 11/03/2020 12:00:00 AM EST capsule 4 TAKE ONE CAPSULE BY MOUTH ONCE A WEEK FOR 8 WEEKS TAKE ONE CAPSULE BY MOUTH ONCE A WEEK FOR 8 WEEKS SOLD: 11/03/2020 [facility] 1,250 mcg (50,000 unit) 11/03/2020 12:00:00 AM EST capsule 4 TAKE ONE CAPSULE BY MOUTH ONCE A WEEK FOR 8 WEEKS TAKE ONE CAPSULE BY MOUTH ONCE A WEEK FOR 8 WEEKS SOLD: 12/03/2020 [facility] Ergocalciferol 38146 UNT Oral Capsule Ergocalciferol 11/02/2020 12:00:00 AM EST ORAL active [facility] ( [facility] Ergocalciferol 16485 UNT Oral Capsule Vitamin D (Ergocalcife rol) 09/28/2020 12:00:00 AM EST ORAL active M [facility] ([facility]) Polyethylene Glycol 1000 09/28/2020 12:00:00 AM EST active [facility] ([facility]) Magnesium 09/28/2020 12:00:00 AM EST ORAL active [facility] ([facility]) Omeprazole 40 MG Delayed Release Oral Capsule Omeprazole 09/28/2020 12:00:00 AM EST ORAL active [facility] ([facility]) Prednisone 10 MG Oral Tablet Prednisone 09/28/2020 12:00:00 AM EST active [facility] ([facility]) Dicyclomine Hydrochloride 10 MG Oral Capsule Dicyclomine HCL 09/28/2020 12:00:00 AM EST active [facility] ([facility]) Naproxen 500 MG Oral Tablet Naproxen 09/28/2020 12:00:00 AM EST active [facility] ([facility]) 24 HR Oxybutynin chloride 5 MG Extended Release Oral T ablet Oxybutynin Chloride ER 09/28/2020 12:00:00 AM EST active [facility] ([facility]) Lactulose 667 MG/ML Oral Solution Lactulose 09/28/2020 12:00:00 AM EST active [facility] ([facility]) 40 mg 09/28/2020 12:00:00 AM EST capsule,delayed release (DR/EC) 60 TAKE ONE CAPSULE BY MOUTH TWICE A DAY TAKE ONE CAPSULE BY MOUTH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 Document(s) Thyroid Stimulating Hormone 1.130 uIU/ML 0.358-3.740 Norm al (applies to non- numeric results) [facility] Free T4 1.07 ng/dL 0.76-1.46 Normal (applies to non-numeric resul ts) [facility] ([facility]) ID Date Data Source [id number] 06/15/2020 03:03:00 PM EDT [facility] Name Value Range Interpretation Code Description Data Criss rce(s) Supporting Document(s) Tissue transglutaminase IgA Ab [Units/volume] in Serum 6 U/mL 0-3 Above high normal [facility] ([facility]) Negative 0 - 3 Weak Positive 4 - 10 Positive >10 . Tissue Transglutaminase (tTG) has been identified as the endomysial antigen. Studies have demonstr- ated that endomysial IgA antibodies have over 99% specificity for gluten sensitive enteropathy. Performed at: RN - [facility] [address] [id number] Cloak Room Attendant: Corinne Valentino MD, Phone: [phone] ID Date Data Source [id number] 04/01/2020 09:05:00 AM EDT [facility] ([facility] Name Value Range Interpretation Code Description Data Criss rce(s) Supporting Document(s) Erythrocytes [#/volume] in Blood by Automated count 4.66 x10E6/uL 3.7 7-5.28 [facility] ([facility] Leukocytes [#/volume] in Blood by Automated count 11.0 x10E3/uL 3.4-10.8 Above high normal [facility] ([facility] ) Erythrocyte mean corpuscular volume [Entitic volume] by Auto mated count 87 fL 79-97 [facility] ([facility] Hemoglobin [Mass/volume] in Blood 13.0 g/dL 11.1-15.9 [facility] ([facility] Hematocrit [Volume Fraction] of Blood by Automated count 40.4 % 3 4.0-46.6 [facility] ([facility] Erythrocyte mean corpuscular hemoglobin [Entitic mass] by Automated count 27.9 pg 26.6-33.0 [facility] ([facility] Platelets [#/volume] in Blood by Automated count 395 x10E3/uL 150-450 [facility] ([facility] Erythrocyte mean corpuscular hemoglobin concentration [Mass/volume] by Automated count 32.2 g/dL 31.5-35.7 [facility] ([facility] Erythrocyte distribution width [Ratio] by Automated count 14.5 % 11.7-15.4 [facility] ([facility] Lymphs 35 % [facility] Monocytes/100 leukocytes in Blood by Automated count 6 % [facility] ([facility] Neutrophils 56 % [facility] ([facility] Neutrophils [#/volume] in Blood by Automated count 6.0 x10E3/uL 1.4-7 .0 [facility] ([facility] Eosinophils/100 leukocytes in Blood by Automated count 2 % [facility] ([facility] Immature cells [#/volume] in Blood Laboratory test result [facility] ([facility] Basophils/100 leukocytes in Blood by Automated count 1 % [facility] ([facility] Eosinophils [#/volume] in Blood by Automated count 0.3 x10E3/uL 0.0-0 .4 [facility] ([facility] Lymphocytes [#/volume] in Blood 3.9 x10E3/uL 0.7-3.1 Above high no rmal [facility] ([facility] Monocytes [#/volume] in Blood 0.7 x10E3/uL 0.1-0.9 [facility] ([facility] Immature granulocytes [#/volume] in Blood by Automated count 0.0 x10E3/uL 0.0-0.1 [facility] ([facility] Immature granulocytes/100 leukocytes in Blood by Automated count 0 % [facility] ([facility] Basophils [#/volume] in Blood by Automated count 0.1 x10E3/uL 0.0-0.2 [facility] ([facility] Morphology [Interpretation] in Blood Narrative Laboratory test result [facility] ([facility] Nucleated erythrocytes/100 leukocytes [Ratio] in Blood by Automated count Laboratory test result [facility] ([facility] ID Date Data Source [id number] 12/27/2019 10:58:00 AM EDT [facility] ([facility] Name Value Range Interpretation Code Description Data Criss rce(s) Supporting Document(s) Color Urine Laboratory test result M EDENT ([facility] Appearance of Urine Laboratory test result [facility] ([facility] Specific Parmelee 1.015 1.00-1.03 [facility] ([facility] PH Urine 6.5 5.0-8.0 [facility] Glucose Urine Laboratory test result [facility] ([facility] Bilirubin.total [Presence] in Urine by Test strip Laboratory test res ult [facility] ([facility] Ketones Laboratory test result [facility] ([facility] Blood Urine Laboratory test result M EDENT ([facility] Urobilinogen 0.2 EU/dl 0.2-1.0 [facility] ([facility] Protein Urine Laboratory test result [facility] ([facility] Nitrite Laboratory test result [facility] ([facility] Leukocytes Laboratory test result ME DENT ([facility] ID Date Data Source [id number] 12/27/2019 10:58:00 AM EDT [facility] ([facility] Name Value Range Interpretation Code Description Data Criss rce(s) Supporting Document(s) Glucose [Mass/volume] in Serum or Plasma 81 mg/dL 65-99 [facility] ([facility] BUN 7 mg/dL 6-24 [facility] Creatinine [Mass/volume] in Serum or Plasma 0.68 mg/dL 0.57-1.00 [facility] ([facility] Sodium [Moles/volume] in Serum or Plasma 137 mmol/L 134-144 [facility] ([facility] eGFR If NonAfricn Am 105 mL/min/1.73 [facility] ([facility] eGFR If Africn Am 120 mL/min/1.73 ME DENT ([facility] Urea nitrogen/Creatinine [Mass Ratio] in Serum or Plasma 10 9 -23 [facility] ([facility] Chloride [Moles/volume] in Serum or Plasma 102 mmol/L 96-106 [facility] ([facility] Potassium [Moles/volume] in Serum or Plasma 4.8 mmol/L 3.5-5.2 [facility] ([facility] Carbon dioxide, total [Moles/volume] in Serum or Plasma 22 mmol/L 20 -29 [facility] ([facility] Albumin [Mass/volume] in Serum or Plasma 3.9 g/dL 3.8-4.8 [facility] ([facility] Calcium [Mass/volume] in Serum or Plasma 9.0 mg/dL 8.7-10.2 [facility] ([facility] Protein [Mass/volume] in Serum or Plasma 6.9 g/dL 6.0-8.5 [facility] ([facility] Globulin [Mass/volume] in Serum by calculation 3.0 g/dL 1.5-4.5 [facility] ([facility] Albumin/Globulin [Mass Ratio] in Serum or Plasma 1.3 1.2-2.2 [facility] ([facility] Bilirubin.total [Mass/volume] in Serum or Plasma 0.3 mg/dL 0.0-1.2 [facility] ([facility] Alkaline phosphatase [Enzymatic activity/volume] in Serum or Plasma 75 IU/L 39-117 [facility] Aspartate aminotransferase [Enzymatic activity/volume] in Serum or Plasma 18 IU/L 0-40 [facility] ([facility] Alanine aminotransferase [Enzymatic activity/volume] in Seru m or Plasma 16 IU/L 0-32 [facility] ID Date Data Source [id number] 12/27/2019 10:58:00 AM EDT [facility] ([facility] Name Value Range Interpretation Code Description Data Criss rce(s) Supporting Document(s) Leukocytes [#/volume] in Blood by Automated count 9.8 x10E3/uL 3.4-10 .8 [facility] ([facility] Hemoglobin [Mass/volume] in Blood 12.7 g/dL 11.1-15.9 [facility] ([facility] Erythrocytes [#/volume] in Blood by Automated count 4.65 x10E6/uL 3.7 7-5.28 [facility] ([facility] Erythrocyte mean corpuscular hemoglobin concentration [Mass/volume] by Automated count 32.1 g/dL 31.5-35.7 [facility] ([facility] Erythrocyte mean corpuscular hemoglobin [Entitic mass] by Automated count 27.3 pg 26.6-33.0 [facility] ([facility] Erythrocyte mean corpuscular volume [Entitic volume] by Auto mated count 85 fL 79-97 [facility] Hematocrit [Volume Fraction] of Blood by Automated count 39.6 % 3 4.0-46.6 [facility] ([facility] Neutrophils 59 % [facility] Erythrocyte distribution width [Ratio] by Automated count 15.3 % 11.7-15.4 [facility] ([facility] Platelets [#/volume] in Blood by Automated count 407 x10E3/uL 150-450 [facility] ([facility] Basophils/100 leukocytes in Blood by Automated count 1 % [facility] ([facility] Monocytes/100 leukocytes in Blood by Automated count 7 % [facility] ([facility] Eosinophils/100 leukocytes in Blood by Automated count 2 % [facility] ([facility] Lymphs 31 % [facility] Immature cells [#/volume] in Blood Laboratory test result [facility] ([facility] Neutrophils [#/volume] in Blood by Automated count 5.8 x10E3/uL 1.4-7 .0 [facility] ([facility] Monocytes [#/volume] in Blood 0.6 x10E3/uL 0.1-0.9 [facility] ([facility] Lymphocytes [#/volume] in Blood 3.0 x10E3/uL 0.7-3.1 [facility] ([facility] Eosinophils [#/volume] in Blood by Automated count 0.2 x10E3/uL 0.0-0 .4 [facility] ([facility] Basophils [#/volume] in Blood by Automated count 0.1 x10E3/uL 0.0-0.2 [facility] ([facility] Immature granulocytes/100 leukocytes in Blood by Automated count 0 % [facility] ([facility] Morphology [Interpretation] in Blood Narrative Laboratory test result [facility] ([facility] Nucleated erythrocytes/100 leukocytes [Ratio] in Blood by Automated count Laboratory test result [facility] ([facility] Immature granulocytes [#/volume] in Blood by Automated count 0.0 x10E3/uL 0.0-0.1 [facility] ID Date Data Source [id number] 12/27/2019 10:58:00 AM EDT [facility] ([facility] Name Value Range Interpretation Code Description Data Criss rce(s) Supporting Document(s) Amylase [Enzymatic activity/volume] in Serum or Plasma 52 U/L 31- 110 [facility] ([facility] Lipoprotein lipase [Enzymatic activity/volume] in Serum or Plasm a 16 U/L 14-72 [facility] ([facility] ) ID Date Data Source [id number] 12/23/2019 10:25:00 AM EDT [facility] ([facility] Name Value Range Interpretation Code Description Data Criss rce(s) Supporting Document(s) Erythrocyte sedimentation rate by Westergren method 40 mm/hr 0-32 Above high normal [facility] ([facility] ) ID Date Data Source [id number] 12/23/2019 10:25:00 AM EDT [facility] ([facility] Name Value Range Interpretation Code Description Data Criss rce(s) Supporting Document(s) eGFR If NonAfricn Am 107 mL/min/1.73 [facility] ([facility] Glucose [Mass/volume] in Serum or Plasma 80 mg/dL 65-99 [facility] ([facility] BUN 8 mg/dL 6-24 [facility] ([facility] Creatinine [Mass/volume] in Serum or Plasma 0.63 mg/dL 0.57-1.00 [facility] ([facility] Sodium [Moles/volume] in Serum or Plasma 137 mmol/L 134-144 [facility] ([facility] Potassium [Moles/volume] in Serum or Plasma 4.7 mmol/L 3.5-5.2 [facility] ([facility] Urea nitrogen/Creatinine [Mass Ratio] in Serum or Plasma 13 9 -23 [facility] ([facility] eGFR If Africn Am 124 mL/min/1.73 ME D[facility] ([facility] Chloride [Moles/volume] in Serum or Plasma 102 mmol/L 96-106 [facility] ([facility] Protein [Mass/volume] in Serum or Plasma 6.9 g/dL 6.0-8.5 [facility] ([facility] Calcium [Mass/volume] in Serum or Plasma 9.0 mg/dL 8.7-10.2 [facility] ([facility] Carbon dioxide, total [Moles/volume] in Serum or Plasma 22 mmol/L 20 -29 [facility] ([facility] Globulin [Mass/volume] in Serum by calculation 2.8 g/dL 1.5-4.5 [facility] ([facility] Albumin [Mass/volume] in Serum or Plasma 4.1 g/dL 3.8-4.8 [facility] ([facility] Albumin/Globulin [Mass Ratio] in Serum or Plasma 1.5 1.2-2.2 [facility] ([facility] Alanine aminotransferase [Enzymatic activity/volume] in Seru m or Plasma 17 IU/L 0-32 [facility] ([facility] Bilirubin.total [Mass/volume] in Serum or Plasma 0.3 mg/dL 0.0-1.2 [facility] ([facility] Alkaline phosphatase [Enzymatic activity/volume] in Serum or Plasma 70 IU/L 39-117 [facility] ([facility] Aspartate aminotransferase [Enzymatic activity/volume] in Serum or Plasma 16 IU/L 0-40 [facility] ([facility] ID Date Data Source [id number] 12/23/2019 10:25:00 AM EDT [facility] ([facility] Name Value Range Interpretation Code Description Data Criss rce(s) Supporting Document(s) Erythrocytes [#/volume] in Blood by Automated count 4.47 x10E6/uL 3.7 7-5.28 [facility] ([facility] Hematocrit [Volume Fraction] of Blood by Automated count 38.9 % 3 4.0-46.6 [facility] ([facility] Leukocytes [#/volume] in Blood by Automated count 9.1 x10E3/uL 3.4-10 .8 [facility] ([facility] Hemoglobin [Mass/volume] in Blood 12.7 g/dL 11.1-15.9 [facility] ([facility] Erythrocyte mean corpuscular volume [Entitic volume] by Auto mated count 87 fL 79-97 [facility] Erythrocyte distribution width [Ratio] by Automated count 15.7 % 11.7-15.4 Above high normal [facility] ([facility] ) Erythrocyte mean corpuscular hemoglobin concentration [Mass/volume] by Automated count 32.6 g/dL 31.5-35.7 [facility] ([facility] Erythrocyte mean corpuscular hemoglobin [Entitic mass] by Automated count 28.4 pg 26.6-33.0 [facility] Neutrophils 50 % [facility] ([facility] Platelets [#/volume] in Blood by Automated count 392 x10E3/uL 150-450 [facility] ([facility] Lymphs 40 % [facility] Immature cells [#/volume] in Blood Laboratory test result [facility] ([facility] Monocytes/100 leukocytes in Blood by Automated count 6 % [facility] ([facility] Basophils/100 leukocytes in Blood by Automated count 1 % [facility] ([facility] Eosinophils/100 leukocytes in Blood by Automated count 3 % [facility] ([facility] Monocytes [#/volume] in Blood 0.5 x10E3/uL 0.1-0.9 [facility] ([facility] Lymphocytes [#/volume] in Blood 3.6 x10E3/uL 0.7-3.1 Above high no rmal [facility] ([facility] Neutrophils [#/volume] in Blood by Automated count 4.6 x10E3/uL 1.4-7 .0 [facility] ([facility] Eosinophils [#/volume] in Blood by Automated count 0.3 x10E3/uL 0.0-0 .4 [facility] ([facility] Immature granulocytes/100 leukocytes in Blood by Automated count 0 % [facility] ([facility] Immature granulocytes [#/volume] in Blood by Automated count 0.0 x10E3/uL 0.0-0.1 [facility] ([facility] Basophils [#/volume] in Blood by Automated count 0.1 x10E3/uL 0.0-0.2 [facility] ([facility] Nucleated erythrocytes/100 leukocytes [Ratio] in Blood by Automated count Laboratory test result [facility] Morphology [Interpretation] in Blood Narrative Laboratory test result [facility] ([facility] ID Date Data Source [id number] 12/17/2019 08:37:00 PM EST [facility] ([facility] Name Value Range Interpretation Code Description Data Criss rce(s) Supporting Document(s) Choriogonadotropin.beta subunit ( test) [Pres ence] in Serum or Plasma Laboratory test result Normal (applies to non-numeric results) [facility] ([facility] Lipoprotein lipase [Enzymatic activity/volume] in Serum or Plasm a 83 U/L 73-393 Normal (applies to non-numeric results) [facility] ([facility] ID Date Data Source [id number] 12/17/2019 08:37:00 PM EST [facility] ([facility] Name Value Range Interpretation Code Description Data Criss rce(s) Supporting Document(s) Glucose, Fasting 113 mg/dL 70-100 Above high normal M EDENT ([facility] Blood Urea Nitrogen 12 mg/dL 7-18 Normal (applies to non-nume tiara results) [facility] ([facility] Sodium Level 137 meq/L 136-145 Normal (applies to non-numeric res ults) [facility] ([facility] Glomerular Filtration Rate Laboratory test result Normal (applies to non- numeric results) [facility] ([facility] ) <content>Units are mL/min/1.73 m2</content>
<content></content>
<content>Chronic Kidney Disease Staging per NKF:</content>
<content></content>
<content>Stage I & II GFR >=60 Normal to Mildly Decreased</content>
<content>Stage III GFR 30-59 Moderately Decreased</content>
<content>Stage IV GFR 15-29 Severely Decreased</content>
<content>Stage V GFR <15 Very Little GFR Left</content>
<content>ESRD GFR <15 on [employer]</content>
<content></content> Creatinine For GFR 0.66 mg/dL 0.55-1.30 Normal (applies to non -numeric results) [facility] ([facility] Chloride Level 108 meq/L 98-107 Above high normal [facility] ([facility] Potassium Serum 4.1 meq/L 3.5-5.1 Normal (applies to non-numeric results) [facility] ([facility] Carbon Dioxide Level 24 meq/L 21-32 Normal (applies to non-num paul results) [facility] ([facility] Anion Gap 5 meq/L 8-16 Below low normal [facility] ( [facility] Calcium Level 8.3 mg/dL 8.5-10.1 Below low normal [facility] T ([facility], [facility] ID Date Data Source [id number] 12/17/2019 08:37:00 PM EST MEDENT ([facility] Name Value Range Interpretation Code Description Data Criss rce(s) Supporting Document(s) Ast/Sgot 54 U/L 7-37 Above high normal MED[facility] ([facility] Alkaline Phosphatase 81 U/L 45-117 Normal (applies to non-num paul results) [facility] ([facility] Bilirubin,Total 0.2 mg/dL 0.2-1.0 Normal (applies to non-numeric results) [facility] ([facility] Alt/SGPT 48 U/L 12-78 Normal (applies to non-numeric resul ts) [facility] ([facility] Albumin 3.4 GM/DL 3.2-5.2 Normal (applies to non-numeric resul ts) [facility] ([facility] Total Protein 6.5 GM/DL 6.4-8.2 Normal (applies to non-numeric re sults) [facility] ([facility] Bilirubin,Direct 0.1 mg/dL 0.0-0.2 Normal (applies to non-numeric results) [facility] ([facility] Albumin/Globulin Ratio 1.10 1.00-1.93 Normal (applies to non-numeric results) [facility] ([facility] ID Date Data Source [id number] 12/17/2019 08:37:00 PM EST MEDENT ([facility] Name Value Range Interpretation Code Description Data Criss rce(s) Supporting Document(s) Color, Urine Laboratory test result Normal (applies to non -numeric results) [facility] ([facility] Appearance, Urine Laboratory test result Normal (applies to non-numeric results) [facility] ([facility] ) Glucose, Urine (Ua) Auto Laboratory test result Normal (applies to non-numeric results) [facility] ([facility] Protein, Urine Auto Laboratory test result Alice l (applies to non-numeric results) [facility] ([facility] Specific [place] Urine Auto 1.025 1.002-1.035 Norm al (applies to non-numeric results) [facility] ([facility] PH,Urine 5.0 units 5.0-9.0 Normal (applies to non-numeric resul ts) [facility] ([facility] Ketone, Urine Auto Laboratory test result Above high alice l [facility] ([facility] Bilirubin, Urine Auto Laboratory test result Nor mal (applies to non-numeric results) [facility] ([facility] Urobilinogen, Urine Auto 0.2 mg/dL 0.0-2.0 Normal (applies to non-numeric results) [facility] ([facility] ) Leukocyte Esterase, Urine Auto Laboratory test result Abov e high normal [facility] ([facility] Nitrite, Urine Auto Laboratory test result Alice l (applies to non-numeric results) [facility] ([facility] Blood, Urine Blood Laboratory test result Normal (applies to non-numeric results) [facility] ([facility] ) RBC, Urine Auto 2 /HPF 0-3 Normal (applies to non-numeric results) [facility] ([facility] Bacteria, Urine Auto Laboratory test result Above high nor mal [facility] ([facility] WBC, Urine Auto 15 /HPF 0-3 Above high normal ME DENT ([facility] Hyaline Cast, Urine Auto 0 /LPF 0-1 Normal (applies to non -numeric results) [facility] ([facility] Squamous Epithelial Cell Ur AU 4 /HPF 0-6 N ormal (applies to non-numeric results) [facility] ([facility] ) Mucus, Urine Laboratory test result Normal (applies to non -numeric results) [facility] ([facility] ID Date Data Source [id number] 12/17/2019 08:37:00 PM EST MED[facility] ([facility] Name Value Range Interpretation Code Description Data Criss rce(s) Supporting Document(s) Hemoglobin 11.8 g/dL 12.0-15.5 Below low normal [facility] ( [facility] Red Blood Count 4.09 10 4.00-5.40 Normal (applies to non-numeric results) [facility] ([facility] White Blood Count 15.7 10 4.0-10.0 Above high normal [facility] ([facility] Mean Corpuscular Volume 88.0 fl 80.0-96.0 Normal ( applies to non-numeric results) [facility] ([facility] Mean Corpuscular Hemoglobin 28.9 pg 27.0-33.0 Norm al (applies to non-numeric results) [facility] ([facility] Hematocrit 36.0 % 36.0-47.0 Normal (applies to non-numeric resul ts) [facility] ([facility] Platelet Count, Automated 311 10 150-450 Normal (applies to non-numeric results) [facility] ([facility] ) Red Cell Distribution Width 16.0 % 11.5-14.5 Above high normal [facility] ([facility] Mean Corpuscular HGB Conc 32.8 g/dL 32.0-36.5 Normal (applies to non-numeric results) [facility] ([facility] ) Lymph % 13.0 % 24.0-44.0 Below low normal [facility] ( [facility] [place] % 6.6 % 0.0-5.0 Above high normal [facility] ([facility] Neutrophils % 77.3 % 36.0-66.0 Above high normal MEDE NT ([facility] Immature Granulocyte % 0.6 % 0-3.0 Normal (applies to non-n umeric results) [facility] ([facility] Baso % 0.5 % 0.0-1.0 Normal (applies to non-numeric resul ts) [facility] ([facility] Eos % 2.0 % 0.0-3.0 Normal (applies to non-numeric resul ts) [facility] ([facility] Lymph # 2.0 10 1.5-5.0 Normal (applies to non-numeric resul ts) [facility] ([facility] Neutrophils # 12.1 10 1.5-8.5 Above high normal MEDE NT ([facility] Nucleated Red Blood Cell % 0.0 % 0-0 Normal (applies to n on-numeric results) [facility] ([facility] [place] # 1.0 10 0.0-0.8 Above high normal [facility] ([facility] Eos # 0.3 10 0.0-0.5 Normal (applies to non-numeric resul ts) [facility] ([facility] Baso # 0.1 10 0.0-0.2 Normal (applies to non-numeric resul ts) [facility] ([facility]) ID Date Data Source [id number] 12/17/2019 08:36:00 PM EST MED[facility] ([facility] Name Value Range Interpretation Code Description Data Criss rce(s) Supporting Document(s) Urine Culture Laboratory test result Normal (applies t o non-numeric results) [facility] ([facility] <content>FULL REPORT IN LAB NOTES (e[facility] a nd [facility]).</content>
<content></content>
<content>ORGANISM 1: ESCHERICHIA COLI</content>
<content></content>
<content>COLONY COUNT > 100,000</content>
<content></content>
<content></content>
<content>O RGANISM 1: ESCHERICHIA COLI</content>
<content></content>
<content> ESCHERICHIA COLI: REACTION</content>
<content>TRIMETHOPRIM/SULFAMETHOXAZOLE IV 160mg TMP & 800mg SMXq6h <=20 S</content>
<content> TRIMETHOPRIM/SULFAMETHOXAZOLE PO Bactrim DS Bid <=20 S</content>
<content>AMPICILLIN IV 500mg q6h 8 S</content>
<content>AMPICILLIN PO 500mg q6h fasting 8 S</content>
<content>GENTAMICIN IV 80mg q8h <=1 S</content>
<content>NITROFURANTOIN PO 100mg BID <=16 S</content>
<content>CEFAZOLIN IV 1gm q8h <=4 S</content>
<content> LEVOFLOXACIN IV 500mg qd <=0.12 S</content>
<content>LEVOFLOXACIN PO 250mg qd <=0.12 S</content>
<content>LEVOFLOXACIN PO 500mg qd <=0.12 S</content>
<content>TOBRAMYCIN IV 80mg q8h <=1 S</content>
<content>CEFTRIAXONE IV 1gm q24h <=1 S</content>
<content>CEFTAZIDIME IV 1gm q8h <=1 S</content>
<content> AMPICILLIN/SULBACTAM IV 1.5g q6h <=2 S</content>
<content>PIPERACILLIN/TAZOBACTAM IV 2.25 gm q6h <=4 S</content>
<content>AZTREONAM IV 1gm q8h <=1 S</content>
<content>ERTAPENEM IV 1gm qd <=0.5 S</content>
<content>MEROPENEM IV 1 gm q8h <=0.25 S</content>
<content>MEROPENEM IV 500 mg q8h <=0.25 S</content>
<content> TIGECYCLINE IV 50mg q12h <=0.5 S</content>
<content>CEFEPIME IV 1 gm q12h <=1 S</content>
<content>CEFEPIME IV 2 gm q12h <=1 S</content>
<content>EXTD BRD SPCTRM BETA LACTAMASE IV NEGATIVE FOR ESBL</content>
<content></content> ID Date Data Source [id number] 12/17/2019 08:33:00 PM EST MED[facility] ([facility] Name Value Range Interpretation Code Description Data Criss rce(s) Supporting Document(s) Laboratory test finding (navigational concept) 37.0 % 3 8.0-51.0 Below low normal [facility] ([facility] ) Laboratory test finding (navigational concept) 114 mg/dL 7 0-105 Above high normal [facility] ([facility] ) Laboratory test finding (navigational concept) 4.0 meq/L 3 .5-5.1 Normal (applies to non-numeric results) [facility] ([facility] Laboratory test finding (navigational concept) 137 meq/L 1 36-145 Normal (applies to non-numeric results) [facility] ([facility] Laboratory test finding (navigational concept) 4.5 mg/dL 4 .5-5.3 Normal (applies to non-numeric results) [facility] ([facility] Laboratory test finding (navigational concept) 105 meq/L 9 8-109 Normal (applies to non-numeric results) [facility] ([facility] Laboratory test finding (navigational concept) 11 mg/dL 8 -26 Normal (applies to non-numeric results) [facility] ([facility]) Laboratory test finding (navigational concept) 23.0 MM/L 2 3.0-27.0 Normal (applies to non-numeric results) [facility] ([facility] Laboratory test finding (navigational concept) 0.6 mg/dL 0 .6-1.3 Normal (applies to non-numeric results) [facility] ([facility] Procedure Vital Signs ID Date Data Source [id number] Name Value Range Interpretation Code Description Data Source(s) Oxygen saturation in Arterial blood by Pulse oximetry 94 % 94 % SHAMIR ([facility] Body mass index (BMI) [Ratio] 27.7 kg/m2 27.7 k g/m2 SHAMIR ([facility] [place] body weight 120 [lb_av] 120 [lb_av] JEANMARIEEN T ([facility] Body weight 165.00 [lb_av] 165.00 [lb_av] JEANMARIEEN T ([facility] Body height 64.75 [in_i] 64.75 [in_i] MEDFABIÁN ([facility] 5'4.75" Respiratory rate 18 /min 18 /min MEDFABIÁN ( [facility] Heart rate 50 /min 50 /min [facility] Body temperature 96.9 [degF] 96.9 [degF] SHAMIR ([facility] Diastolic blood pressure 72 mm[Hg] 72 mm[Hg] [facility] ([facility] Systolic blood pressure 116 mm[Hg] 116 mm[Hg] M EDENT ([facility] Diastolic blood pressure--sitting 62 mm[Hg] 62 mm[Hg] MED[facility] ([facility]) [place], adult cuff/Ra Systolic blood pressure--sitting 103 mm[Hg] 103 mm[Hg] MEDENT ([facility]) [place], adult cuff/Ra Heart rate 65 /min 65 /min [facility] ([facility]) Body mass index (BMI) [Ratio] 26.0 kg/m2 26.0 k g/m2 MED[facility] ([facility]) Body height 66 [in_i] 66 [in_i] [facility] ([facility]) 5'6" Body weight 161.00 [lb_av] 161.00 [lb_av] MEDEN T ([facility]) Oxygen saturation in Arterial blood by Pulse oximetry 95 % 95 % [facility] ([facility] Body mass index (BMI) [Ratio] 27.7 kg/m2 27.7 k g/m2 [facility] ([facility] [place] body weight 120 [lb_av] 120 [lb_av] MEDEN T ([facility] Body weight 165.00 [lb_av] 165.00 [lb_av] MEDEN T ([facility] Body height 64.75 [in_i] 64.75 [in_i] MED[facility] ([facility] 5'4.75" Respiratory rate 14 /min 14 /min MED[facility] ( [facility] Heart rate 70 /min 70 /min [facility] ([facility] Body temperature 97.9 [degF] 97.9 [degF] MED[facility] ([facility] Diastolic blood pressure 80 mm[Hg] 80 mm[Hg] MED[facility] ([facility] Systolic blood pressure 110 mm[Hg] 110 mm[Hg] M EDENT ([facility] Oxygen saturation in Arterial blood by Pulse oximetry 97 % 97 % [facility] ([facility] Body mass index (BMI) [Ratio] 28.2 kg/m2 28.2 k g/m2 MED[facility] ([facility] [place] body weight 120 [lb_av] 120 [lb_av] MEDEN T ([facility] Body weight 168.00 [lb_av] 168.00 [lb_av] MEDEN T ([facility] Body height 64.75 [in_i] 64.75 [in_i] MEDENT ([facility] 5'4.75" Respiratory rate 16 /min 16 /min MEDENT ( [facility] Heart rate 76 /min 76 /min MED[facility] ([facility] Body temperature 98.7 [degF] 98.7 [degF] MED[facility] ([facility] Diastolic blood pressure 74 mm[Hg] 74 mm[Hg] MED[facility] ([facility] Systolic blood pressure 112 mm[Hg] 112 mm[Hg] M EDENT ([facility] Body mass index (BMI) [Ratio] 28.1 kg/m2 28.1 k g/m2 MED[facility] ([facility]) Body weight 169.00 [lb_av] 169.00 [lb_av] MEDEN T ([facility]) Body height 65 [in_i] 65 [in_i] MEDENT ([facility]) 5'5" Diastolic blood pressure 70 mm[Hg] 70 mm[Hg] MEDENT ([facility]) Systolic blood pressure 112 mm[Hg] 112 mm[Hg] M EDENT ([facility]) Body weight 76.658 kg 76.658 [facility] Body mass index (BMI) [Ratio] 27.8 kg/m2 27.8 k g/m2 MED[facility] ([facility] [place] body weight 120 [lb_av] 120 [lb_av] MEDEN T ([facility] Body weight 166.00 [lb_av] 166.00 [lb_av] MEDEN T ([facility] Body height 64.75 [in_i] 64.75 [in_i] MEDENT ([facility] 5'4.75" Respiratory rate 18 /min 18 /min MEDENT ( [facility] Heart rate 54 /min 54 /min MED[facility] ([facility] Body temperature 98.5 [degF] 98.5 [degF] MEDENT ([facility] Diastolic blood pressure 80 mm[Hg] 80 mm[Hg] MEDENT ([facility] Systolic blood pressure 118 mm[Hg] 118 mm[Hg] [facility] ([facility] Body weight 77.112 kg 77.112 kg [facility] ([facility]) Body mass index (BMI) [Ratio] 28.3 kg/m2 28.3 k g/m2 [facility] ([facility]) Body weight 170.00 [lb_av] 170.00 [lb_av] MEDEN T ([facility]) Body height 65 [in_i] 65 [in_i] [facility] 5'5" Diastolic blood pressure 79 mm[Hg] 79 mm[Hg] [facility] ([facility]) Systolic blood pressure 122 mm[Hg] 122 mm[Hg] [facility] ([facility]) Body weight 75.298 kg 75.298 kg [facility] ([facility]) Body mass index (BMI) [Ratio] 27.6 kg/m2 27.6 k g/m2 [facility] ([facility]) Body weight 166.00 [lb_av] 166.00 [lb_av] MEDEN T ([facility]) Body height 65 [in_i] 65 [in_i] [facility] ([facility]) 5'5" Diastolic blood pressure 63 mm[Hg] 63 mm[Hg] [facility] ([facility]) Systolic blood pressure 103 mm[Hg] 103 mm[Hg] [facility] ([facility]) Oxygen saturation in Arterial blood by Pulse oximetry 97 % 97 % MEDENT ([facility] Body mass index (BMI) [Ratio] 27.7 kg/m2 27.7 k g/m2 MED[facility] ([facility] Body weight 165.12 [lb_av] 165.12 [lb_av] MEDEN T ([facility] Body height 64.75 [in_i] 64.75 [in_i] MEDENT ([facility] 5'4.75" Respiratory rate 14 /min 14 /min MEDENT ( [facility] Heart rate 64 /min 64 /min MED[facility] ([facility] Body temperature 97.6 [degF] 97.6 [degF] MED[facility] ([facility] Diastolic blood pressure 66 mm[Hg] 66 mm[Hg] MED[facility] ([facility] Systolic blood pressure 102 mm[Hg] 102 mm[Hg] M EDENT ([facility] Oxygen saturation in Arterial blood by Pulse oximetry 97 % 97 % MED[facility] ([facility] Body mass index (BMI) [Ratio] 27.4 kg/m2 27.4 k g/m2 MED[facility] ([facility] Body weight 163.25 [lb_av] 163.25 [lb_av] MEDEN T ([facility] Body height 64.75 [in_i] 64.75 [in_i] MEDENT ([facility] 5'4.75" Respiratory rate 18 /min 18 /min MED[facility] ( [facility] Heart rate 68 /min 68 /min MED[facility] ([facility] Body temperature 98.2 [degF] 98.2 [degF] MED[facility] ([facility] Diastolic blood pressure 58 mm[Hg] 58 mm[Hg] MED[facility] ([facility] Systolic blood pressure 112 mm[Hg] 112 mm[Hg] M EDENT ([facility] Oxygen saturation in Arterial blood by Pulse oximetry 96 % 96 % MED[facility] ([facility] Body mass index (BMI) [Ratio] 27.7 kg/m2 27.7 k g/m2 [facility] ([facility] Body weight 165.00 [lb_av] 165.00 [lb_av] MEDEN T ([facility] Body height 64.75 [in_i] 64.75 [in_i] MEDENT ([facility] 5'4.75" Respiratory rate 16 /min 16 /min MEDENT ( [facility] Heart rate 66 /min 66 /min MED[facility] ([facility] Body temperature 99.5 [degF] 99.5 [degF] MED[facility] ([facility] Diastolic blood pressure 68 mm[Hg] 68 mm[Hg] MED[facility] ([facility] Systolic blood pressure 102 mm[Hg] 102 mm[Hg] [facility] Body mass index (BMI) [Ratio] 27.1 kg/m2 27.1 k g/m2 MEDENT ([facility], [facility]) Body height 65 [in_i] 65 [in_i] MEDENT ([facility], [facility]) 5'5" Body weight 163.00 [lb_av] 163.00 [lb_av] MEDEN T ([facility], [facility]) Body temperature 99.1 [degF] 99.1 [degF] MED[facility] ([facility], [facility]) Oxygen saturation in Arterial blood by Pulse oximetry 98 % 98 % MED[facility] ([facility], [facility]) Respiratory rate 21 /min 21 /min MEDENT ( [facility], [facility]) Heart rate 81 /min 81 /min MEDENT ([facility], [facility]) Diastolic blood pressure 67 mm[Hg] 67 mm[Hg] MEDENT ([facility], [facility]) Systolic blood pressure 103 mm[Hg] 103 mm[Hg] [facility], [facility])
[2020-12-09] MEDS ORDERED: VITA50005 PO (11:25)
--- NOTE | 2020-12-09 11:47 | REP ---
INDICATION: CHEST PAIN. COMPARISON: 09/01/2020. TECHNIQUE: SINGLE PORTABLE AP VIEW OF THE CHEST WAS PERFORMED. FINDINGS: THERE IS NO ACUTE INFILTRATE OR PULMONARY EDEMA. LUNGS ARE CLEAR. HEART IS NOT SIGNIFICANTLY ENLARGED. MEDIASTINAL SILHOUETTE IS UNREMARKABLE. THE VISUALIZED OSSEOUS STRUCTURES ARE INTACT. IMPRESSION: NO ACUTE PULMONARY DISEASE. <Electronically signed by Chan Honeycutt > 12/09/20 1140
[2020-12-09 12:02] LABS: BASO # 0.1 10^3/uL (0.0-0.2); BASO % 1.6 % (0.0-1.0); EOS # 0.2 10^3/uL (0.0-0.5); EOS % 2.6 % (0.0-3.0); HEMATOCRIT 37.6 % (36.0-47.0); HEMOGLOBIN 12.2 g/dl (12.0-15.5); LYMPH # 3.3 10^3/uL (1.5-5.0); MEAN CORPUSCULAR HEMOGLOBIN 27.9 pg (27.0-33.0); MEAN CORPUSCULAR HGB CONC 32.4 g/dl (32.0-36.5); MEAN CORPUSCULAR VOLUME 85.8 fl (80.0-96.0); MONO # 0.7 10^3/uL (0.0-0.8); MONO % 9.9 % (2.0-8.0); NEUTROPHILS # 2.7 10^3/uL (1.5-8.5); NEUTROPHILS % 38.6 % (36.0-66.0); PLATELET COUNT, AUTOMATED 312 10^3/uL (150-450); RED BLOOD COUNT 4.38 10^6/uL (4.00-5.40); WHITE BLOOD COUNT 7.1 10^3/uL (4.0-10.0)
--- OUTSIDE RECORDS SUMMARY | 2020-12-09 12:12 | CCD ---
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 0 % [facility] ([facility] Basophils [#/volume] in Blood by Automated count 0.1 x10E3/uL 0.0-0.2 [facility] ([facility] Morphology [Interpretation] in Blood Narrative Laboratory test result [facility] ([facility] Nucleated erythrocytes/100 leukocytes [Ratio] in Blood by Automated count Laboratory test result [facility] ([facility] ID Date Data Source [id number] 12/27/2019 10:58:00 AM EDT MED[facility] ([facility] Name Value Range Interpretation Code Description Data Criss rce(s) Supporting Document(s) Color Urine Laboratory test result M EDENT ([facility] Appearance of Urine Laboratory test result [facility] ([facility] Specific [place] 1.015 1.00-1.03 [facility] ([facility] PH Urine 6.5 5.0-8.0 [facility] Glucose Urine Laboratory test result [facility] ([facility] Bilirubin.total [Presence] in Urine by Test strip Laboratory test res ult [facility] ([facility] Ketones Laboratory test result [facility] ([facility] Blood Urine Laboratory test result M EDENT ([facility] Urobilinogen 0.2 EU/dl 0.2-1.0 [facility] ([facility] Protein Urine Laboratory test result [facility] ([facility] Nitrite Laboratory test result [facility] ([facility] Leukocytes Laboratory test result ME DENT ([facility] ID Date Data Source [id number] 12/27/2019 10:58:00 AM EDT MED[facility] ([facility] Name Value Range Interpretation Code Description Data Criss rce(s) Supporting Document(s) Glucose [Mass/volume] in Serum or Plasma 81 mg/dL 65-99 [facility] ([facility] BUN 7 mg/dL 6-24 [facility] Creatinine [Mass/volume] in Serum or Plasma 0.68 mg/dL 0.57-1.00 [facility] ([facility] Sodium [Moles/volume] in Serum or Plasma 137 mmol/L 134-144 [facility] ([facility] eGFR If NonAfricn Am 105 mL/min/1.73 [facility] ([facility] eGFR If Africn Am 120 mL/min/1.73 ME DENT ([facility] Urea nitrogen/Creatinine [Mass [...] Serum or Plasma 18 IU/L 0-40 [facility] ([facility] Alanine aminotransferase [Enzymatic activity/volume] in Seru m or Plasma 16 IU/L 0-32 [facility] ([facility] ID Date Data Source [id number] 12/27/2019 10:58:00 AM EDT MED[facility] ([facility] Name Value Range Interpretation [...] by Automated count 32.1 g/dL 31.5-35.7 [facility] ([facility] Erythrocyte mean corpuscular hemoglobin [Entitic mass] by Automated count 27.3 pg 26.6-33.0 [facility] ([facility] Erythrocyte mean [...] by Automated count 0.0 x10E3/uL 0.0-0.1 [facility] ID Date Data Source [id number] 12/27/2019 10:58:00 AM EDT MED[facility] ([facility] Name Value Range Interpretation Code Description Data Criss rce(s) Supporting Document(s) Amylase [Enzymatic activity/volume] in Serum or Plasma 52 U/L 31- 110 [facility] ([facility] Lipoprotein lipase [Enzymatic activity/volume] in Serum or Plasm a 16 U/L 14-72 [facility] ([facility] ) ID Date Data Source [id number] 12/23/2019 10:25:00 AM EDT MED[facility] ([facility] Name Value Range Interpretation Code Description Data Criss rce(s) Supporting Document(s) Erythrocyte sedimentation rate by Westergren method 40 mm/hr 0-32 Above high normal [facility] ([facility] ) ID Date Data Source [id number] 12/23/2019 10:25:00 AM EDT [facility] ([facility] Name Value Range Interpretation Code Description Data Criss rce(s) Supporting Document(s) eGFR If NonAfricn Am 107 mL/min/1.73 [facility] ([facility] Glucose [Mass/volume] in Serum or Plasma 80 mg/dL 65-99 [facility] ([facility] BUN 8 mg/dL 6-24 [facility] ([facility] Creatinine [Mass/volume] in Serum or Plasma 0.63 mg/dL 0.57-1.00 [facility] ([facility] Sodium [Moles/volume] in Serum or Plasma 137 mmol/L 134-144 [facility] ([facility] Potassium [Moles/volume] in Serum or Plasma 4.7 mmol/L 3.5-5.2 [facility] ([facility] Urea nitrogen/Creatinine [Mass Ratio] in Serum or Plasma 13 9 -23 [facility] ([facility] eGFR If Africn Am 124 mL/min/1.73 ME DENT ([facility] Chloride [Moles/volume] in Serum or Plasma 102 mmol/L 96-106 [facility] ([facility] Protein [Mass/volume] in Serum or Plasma 6.9 g/dL 6.0-8.5 [facility] ([facility] Calcium [Mass/volume] in Serum or Plasma 9.0 mg/dL 8.7-10.2 [facility] ([facility] Carbon dioxide, total [Moles/volume] in Serum or Plasma 22 mmol/L 20 -29 [facility] ([facility] Globulin [Mass/volume] in Serum by calculation 2.8 g/dL 1.5-4.5 [facility] ([facility] Albumin [Mass/volume] in Serum or Plasma 4.1 g/dL 3.8-4.8 [facility] ([facility] Albumin/Globulin [Mass Ratio] in Serum or Plasma 1.5 1.2-2.2 [facility] ([facility] Alanine aminotransferase [Enzymatic activity/volume] in Seru m or Plasma 17 IU/L 0-32 [facility] ([facility] Bilirubin.total [Mass/volume] in Serum or Plasma 0.3 mg/dL 0.0-1.2 [facility] ([facility] Alkaline phosphatase [Enzymatic activity/volume] in Serum or Plasma 70 IU/L 39-117 [facility] ([facility] Aspartate aminotransferase [Enzymatic activity/volume] in Serum or Plasma 16 IU/L 0-40 [facility] ([facility] ID Date Data Source [id number] 12/23/2019 10:25:00 AM EDT MED[facility] ([facility] Name Value Range Interpretation Code Description Data Criss rce(s) Supporting Document(s) Erythrocytes [#/volume] in Blood by Automated count 4.47 x10E6/uL 3.7 7-5.28 [facility] ([facility] Hematocrit [Volume Fraction] [...] by Automated count 32.6 g/dL 31.5-35.7 [facility] ([facility] Erythrocyte mean corpuscular hemoglobin [Entitic mass] by Automated count 28.4 pg 26.6-33.0 [facility] ([facility] Neutrophils 50 % [facility] ([facility] Platelets [#/volume] in Blood by Automated count 392 x10E3/uL 150-450 [facility] ([facility] Lymphs 40 % [facility] ([facility] Immature cells [#/volume] in [...] Automated count 4.6 x10E3/uL 1.4-7 .0 [facility] ([facility] Eosinophils [#/volume] in Blood by Automated count 0.3 x10E3/uL 0.0-0 .4 [facility] ([facility] Immature granulocytes/100 leukocytes in Blood by Automated count 0 % [facility] ([facility] Immature granulocytes [#/volume] in Blood by Automated count 0.0 x10E3/uL 0.0-0.1 [facility] ([facility] Basophils [#/volume] in Blood by Automated count 0.1 x10E3/uL 0.0-0.2 [facility] ([facility] Nucleated erythrocytes/100 leukocytes [Ratio] in Blood by Automated count Laboratory test result [facility] ([facility] Morphology [Interpretation] in Blood Narrative Laboratory test result [facility] ([facility] ID Date Data Source [id number] 12/17/2019 08:37:00 PM EST [facility] ([facility] Name Value Range Interpretation Code Description Data Criss rce(s) Supporting Document(s) Choriogonadotropin.beta subunit ( test) [Pres ence] in Serum or Plasma Laboratory test result Normal (applies to non-numeric results) [facility] ([facility] Lipoprotein lipase [Enzymatic activity/volume] in Serum or Plasm a 83 U/L 73-393 Normal (applies to non-numeric results) [facility] ([facility] ID Date Data Source [id number] 12/17/2019 08:37:00 PM EST [facility] ([facility] Name Value Range Interpretation Code Description Data Criss rce(s) Supporting Document(s) Glucose, Fasting 113 mg/dL 70-100 Above high normal M EDENT ([facility] Blood Urea Nitrogen 12 mg/dL 7-18 Normal (applies to non-nume tiara results) [facility] ([facility] Sodium Level 137 meq/L 136-145 Normal (applies to non-numeric res ults) [facility] ([facility] Glomerular Filtration Rate Laboratory test result Normal (applies to non- numeric results) [facility] ([facility] ) <content>Units are mL/min/1.73 m2</content>
<content></content>
<content>Chronic Kidney Disease Staging per NKF:</content>
<content></content>
<content>Stage I & II GFR >=60 Normal to Mildly Decreased</content>
<content>Stage III GFR 30-59 Moderately Decreased</content>
<content>Stage IV GFR 15-29 Severely Decreased</content>
<content>Stage V GFR <15 Very Little GFR Left</content>
<content>ESRD GFR <15 on DIRECTOR OF REIMBURSEMENT</content>
<content></content> Creatinine For GFR 0.66 mg/dL 0.55-1.30 Normal (applies to non -numeric results) [facility] ([facility] Chloride Level 108 meq/L 98-107 Above high normal MED ENT ([facility] Potassium Serum 4.1 meq/L 3.5-5.1 Normal (applies to non-numeric results) [facility] ([facility] Carbon Dioxide Level 24 meq/L 21-32 Normal (applies to non-num paul results) [facility] ([facility] Anion Gap 5 meq/L 8-16 Below low normal [facility] ( [facility] Calcium Level 8.3 mg/dL 8.5-10.1 Below low normal MEDEN T ([facility] ID Date Data Source [id number] 12/17/2019 08:37:00 PM EST MED[facility] ([facility] Name Value Range Interpretation Code Description Data Criss rce(s) Supporting Document(s) Ast/Sgot 54 U/L 7-37 Above high normal [facility] ([facility] Alkaline Phosphatase 81 U/L 45-117 Normal (applies to non-num paul results) [facility] ([facility] Bilirubin,Total 0.2 mg/dL [...] 0.0-0.2 Normal (applies to non-numeric results) [facility] ([facility] Albumin/Globulin Ratio 1.10 1.00-1.93 Normal (applies to non-numeric results) [facility] ([facility] ID Date Data Source [id number] 12/17/2019 08:37:00 PM EST [facility] ([facility] Name Value Range Interpretation Code Description Data Criss rce(s) Supporting Document(s) Color, Urine Laboratory test result Normal (applies to non -numeric results) [facility] ([facility] Appearance, Urine Laboratory test result Normal (applies to non-numeric results) [facility] ([facility] ) Glucose, Urine (Ua) Auto Laboratory test result Normal (applies to non-numeric results) [facility] ([facility] ) Protein, Urine Auto Laboratory test result [place] l (applies to non-numeric results) [facility] ([facility] ) Specific [place] Urine Auto 1.025 1.002-1.035 Norm al (applies [...] test result Abov e high normal [facility] ([facility] Nitrite, Urine Auto Laboratory test result Alice l (applies to non-numeric results) [facility] ([facility] ) Blood, Urine Blood Laboratory test result Normal (applies to non-numeric results) [facility] ([facility] ) RBC, Urine Auto 2 /HPF 0-3 Normal (applies to non-numeric results) [facility] ([facility] Bacteria, Urine Auto Laboratory test result Above high nor mal [facility] ([facility] WBC, Urine Auto 15 /HPF 0-3 Above high normal ME DENT ([facility] Hyaline Cast, Urine Auto 0 /LPF 0-1 Normal (applies to non -numeric results) [facility] ([facility] Squamous Epithelial Cell Ur AU 4 /HPF 0-6 N ormal (applies to non-numeric results) [facility] ([facility] ) Mucus, Urine Laboratory test result Normal (applies to non -numeric results) [facility] ([facility] ID Date Data Source [id number] 12/17/2019 08:37:00 PM EST [facility] ([facility] Name Value Range Interpretation Code Description Data Criss rce(s) Supporting Document(s) Hemoglobin 11.8 g/dL 12.0-15.5 Below low normal [facility] ( [facility] Red Blood Count 4.09 10 4.00-5.40 Normal (applies to non-numeric results) [facility] ([facility] White Blood Count [...] Normal (applies to non-numeric resul ts) [facility] ([facility] Platelet Count, Automated 311 10 150-450 Normal (applies to non-numeric results) [facility] ([facility] ) Red Cell Distribution Width 16.0 % 11.5-14.5 Above high normal [facility] ([facility] Mean Corpuscular HGB Conc 32.8 g/dL 32.0-36.5 Normal (applies to non-numeric results) [facility] ([facility] ) Lymph % 13.0 % 24.0-44.0 Below low normal [facility] ( [facility] [place] % 6.6 % 0.0-5.0 Above high normal [facility] ([facility] Neutrophils % 77.3 % 36.0-66.0 Above high normal MEDE NT ([facility] Immature Granulocyte % 0.6 % 0-3.0 Normal (applies to non-n umeric results) [facility] ([facility] Baso % 0.5 % 0.0-1.0 Normal (applies to non-numeric resul ts) [facility] ([facility] Eos % 2.0 % 0.0-3.0 Normal (applies to non-numeric resul ts) [facility] ([facility] Lymph # 2.0 10 1.5-5.0 Normal (applies to non-numeric resul ts) [facility] ([facility] Neutrophils # 12.1 10 1.5-8.5 Above high normal MEDE NT ([facility] Nucleated Red Blood Cell % 0.0 % 0-0 Normal (applies to n on-numeric results) [facility] ([facility] [place] # 1.0 10 0.0-0.8 Above high normal [facility] ([facility] Eos # 0.3 10 0.0-0.5 Normal (applies to non-numeric resul ts) [facility] ([facility] Baso # 0.1 10 0.0-0.2 Normal (applies to non-numeric resul ts) [facility] ([facility] ID Date Data Source [id number] 12/17/2019 08:36:00 PM EST MED[facility] ([facility] Name Value Range Interpretation Code Description Data Criss rce(s) Supporting Document(s) Urine Culture Laboratory test result Normal (applies t o non-numeric results) [facility] ([facility] <content>FULL REPORT IN [...] FOR ESBL</content>
<content></content> ID Date Data Source [id number] 12/17/2019 08:33:00 PM EST MED[facility] ([facility] Name Value Range Interpretation Code Description Data Criss rce(s) Supporting Document(s) Laboratory test finding (navigational concept) 37.0 % 3 8.0-51.0 Below low normal [facility] ([facility] ) Laboratory test finding (navigational concept) 114 mg/dL 7 0-105 Above high normal [facility] ([facility] ) Laboratory test finding (navigational concept) 4.0 meq/L 3 .5-5.1 Normal (applies to non-numeric results) [facility] ([facility] Laboratory test finding (navigational concept) 137 meq/L 1 36-145 Normal (applies to non-numeric results) [facility] ([facility] Laboratory test finding (navigational concept) 4.5 mg/dL 4 .5-5.3 Normal (applies to non-numeric results) [facility] ([facility] Laboratory test finding (navigational concept) 105 meq/L 9 8-109 Normal (applies to non-numeric results) [facility] ([facility] Laboratory test finding (navigational concept) 11 mg/dL 8 -26 Normal (applies to non-numeric results) [facility] ([facility]) Laboratory test finding (navigational concept) 23.0 MM/L 2 3.0-27.0 Normal (applies to non-numeric results) [facility] ([facility] Laboratory test finding (navigational concept) 0.6 mg/dL 0 .6-1.3 Normal (applies to non-numeric results) [facility] ([facility] Procedure Vital Signs ID Date Data Source [id number] Name Value Range Interpretation Code Description Data Source(s) Oxygen saturation in Arterial blood by Pulse oximetry 94 % 94 % SHAMIR ([facility] Body mass index (BMI) [Ratio] 27.7 kg/m2 27.7 k g/m2 SHAMIR ([facility] [place] body weight 120 [lb_av] 120 [lb_av] JEANMARIEEN T ([facility] Body weight 165.00 [lb_av] 165.00 [lb_av] JEANMARIEEN T ([facility] Body height 64.75 [in_i] 64.75 [in_i] MEDFABIÁN ([facility] 5'4.75" Respiratory rate 18 /min 18 /min MEDFABIÁN ( [facility] Heart rate 50 /min 50 /min [facility] Body temperature 96.9 [degF] 96.9 [degF] SHAMIR ([facility] Diastolic blood pressure 72 mm[Hg] 72 mm[Hg] [facility] ([facility] Systolic blood pressure 116 mm[Hg] 116 mm[Hg] M EDENT ([facility] Diastolic blood pressure--sitting 62 mm[Hg] 62 mm[Hg] [facility] ([facility] [place], adult cuff/Ra Systolic blood pressure--sitting 103 mm[Hg] 103 mm[Hg] [facility] ([facility]) [place], adult cuff/Ra Heart rate 65 /min 65 /min [facility] ([facility] Body mass index (BMI) [Ratio] 26.0 kg/m2 26.0 k g/m2 [facility] ([facility]) Body height 66 [in_i] 66 [in_i] [facility] ([facility] 5'6" Body weight 161.00 [lb_av] 161.00 [lb_av] MEDEN T ([facility]) Oxygen saturation in Arterial blood by Pulse oximetry 95 % 95 % [facility] ([facility] Body mass index (BMI) [Ratio] 27.7 kg/m2 27.7 k g/m2 MED[facility] ([facility] [place] body weight 120 [lb_av] 120 [lb_av] MEDEN T ([facility] Body weight 165.00 [lb_av] 165.00 [lb_av] MEDEN T ([facility] Body height 64.75 [in_i] 64.75 [in_i] MEDENT ([facility] 5'4.75" Respiratory rate 14 [...] [Ratio] 28.2 kg/m2 28.2 k g/m2 MEDENT ([facility] [place] body weight 120 [lb_av] 120 [lb_av] MEDEN T ([facility] Body weight 168.00 [lb_av] 168.00 [lb_av] MEDEN T ([facility] Body height 64.75 [in_i] 64.75 [in_i] MEDENT ([facility] 5'4.75" Respiratory rate 16 /min 16 /min MEDENT ( [facility] Heart rate 76 /min 76 /min MED[facility] ([facility] Body temperature 98.7 [degF] 98.7 [degF] MED[facility] ([facility] Diastolic blood pressure 74 mm[Hg] 74 mm[Hg] MED[facility] ([facility] Systolic blood pressure 112 mm[Hg] 112 mm[Hg] M EDENT ([facility] Body mass index (BMI) [Ratio] 28.1 kg/m2 28.1 k g/m2 MEDENT ([facility]) Body weight 169.00 [lb_av] 169.00 [lb_av] MEDEN T ([facility]) Body height 65 [in_i] 65 [in_i] MEDENT ([facility]) 5'5" Diastolic blood pressure 70 mm[Hg] 70 mm[Hg] MEDENT ([facility]) Systolic blood pressure 112 mm[Hg] 112 mm[Hg] M EDENT ([facility]) Body weight 76.658 kg 76.658 kg [facility] Body mass index (BMI) [Ratio] 27.8 kg/m2 27.8 k g/m2 MEDENT ([facility] [place] body weight 120 [lb_av] 120 [lb_av] MEDEN T ([facility] Body weight 166.00 [lb_av] 166.00 [lb_av] MEDEN T ([facility] Body height 64.75 [in_i] 64.75 [in_i] MEDENT ([facility] 5'4.75" Respiratory rate 18 /min 18 /min MEDENT ( [facility] Heart rate 54 /min 54 /min MEDENT ([facility] Body temperature 98.5 [degF] 98.5 [degF] MEDENT ([facility] Diastolic blood pressure 80 mm[Hg] 80 mm[Hg] [facility] ([facility] Systolic blood pressure 118 mm[Hg] 118 mm[Hg] [facility] ([facility] Body weight 77.112 kg 77.[address] [facility] ([facility]) Body mass index (BMI) [Ratio] 28.3 kg/m2 28.3 k g/m2 [facility] ([facility]) Body weight 170.00 [lb_av] 170.00 [lb_av] MEDEN T ([facility]) Body height 65 [in_i] 65 [in_i] [facility] 5'5" Diastolic blood pressure 79 mm[Hg] 79 mm[Hg] [facility] ([facility]) Systolic blood pressure 122 mm[Hg] 122 mm[Hg] [facility] ([facility]) Body weight 75.298 kg 75.[address] [facility] ([facility]) Body mass index (BMI) [Ratio] 27.6 kg/m2 27.6 k g/m2 [facility] ([facility]) Body weight 166.00 [lb_av] 166.00 [lb_av] MEDEN T ([facility]) Body height 65 [in_i] 65 [in_i] [facility] ([facility]) 5'5" Diastolic blood pressure 63 mm[Hg] 63 mm[Hg] [facility] ([facility]) Systolic blood pressure 103 mm[Hg] 103 mm[Hg] [facility] ([facility]) Oxygen saturation in Arterial blood by Pulse oximetry 97 % 97 % MEDENT ([facility] Body mass index (BMI) [Ratio] 27.7 kg/m2 27.7 k g/m2 MED[facility] ([facility] Body weight 165.12 [lb_av] 165.12 [lb_av] MEDEN T ([facility] Body height 64.75 [in_i] 64.75 [in_i] [facility] ([facility] 5'4.75" Respiratory rate 14 /min 14 /min MED[facility] ( [facility] Heart rate 64 /min 64 /min MED[facility] ([facility] Body temperature 97.6 [degF] 97.6 [degF] [facility] ([facility] Diastolic blood pressure 66 mm[Hg] 66 mm[Hg] MED[facility] ([facility] Systolic blood pressure 102 mm[Hg] 102 mm[Hg] M EDENT ([facility] Oxygen saturation in Arterial blood by Pulse oximetry 97 % 97 % MED[facility] ([facility] Body mass index (BMI) [Ratio] 27.4 kg/m2 27.4 k g/m2 MED[facility] ([facility] Body weight 163.25 [lb_av] 163.25 [lb_av] MEDEN T ([facility] Body height 64.75 [in_i] 64.75 [in_i] MED[facility] ([facility] 5'4.75" Respiratory rate 18 /min 18 /min MED[facility] ( [facility] Heart rate 68 /min 68 /min MED[facility] ([facility] Body temperature 98.2 [degF] 98.2 [degF] MED[facility] ([facility] Diastolic blood pressure 58 mm[Hg] 58 mm[Hg] MED[facility] ([facility] Systolic blood pressure 112 mm[Hg] 112 mm[Hg] M EDENT ([facility] Oxygen saturation in Arterial blood by Pulse oximetry 96 % 96 % MED[facility] ([facility] Body mass index (BMI) [Ratio] 27.7 kg/m2 27.7 k g/m2 MED[facility] ([facility] Body weight 165.00 [lb_av] 165.00 [lb_av] MEDEN T ([facility] Body height 64.75 [in_i] 64.75 [in_i] MED[facility] ([facility] 5'4.75" Respiratory rate 16 /min 16 /min MEDENT ( [facility] Heart rate 66 /min 66 /min [facility] ([facility] Body temperature 99.5 [degF] 99.5 [degF] [facility] ([facility] Diastolic blood pressure 68 mm[Hg] 68 mm[Hg] [facility] ([facility] Systolic blood pressure 102 mm[Hg] 102 mm[Hg] [facility] Body mass index (BMI) [Ratio] 27.1 kg/m2 27.1 k g/m2 MEDENT ([facility], [facility]) Body height 65 [in_i] 65 [in_i] MEDENT ([facility], [facility]) 5'5" Body weight 163.00 [lb_av] 163.00 [lb_av] MEDEN T ([facility], [facility]) Body temperature 99.1 [degF] 99.1 [degF] MEDENT ([facility], [facility]) Oxygen saturation in Arterial blood by Pulse oximetry 98 % 98 % MEDENT ([facility], [facility]) Respiratory rate 21 /min 21 /min MEDENT ( [facility], [facility]) Heart rate 81 /min 81 /min MEDENT ([facility], [facility]) Diastolic blood pressure 67 mm[Hg] 67 mm[Hg] MEDENT ([facility], [facility]) Systolic blood pressure 103 mm[Hg] 103 mm[Hg] [facility] ([facility], [facility])
[2020-12-09 12:28] LABS: BLOOD UREA NITROGEN 10 MG/DL (7-18); CALCIUM LEVEL 8.9 MG/DL (8.5-10.1); CARBON DIOXIDE LEVEL 24 MEQ/L (21-32); CHLORIDE LEVEL 106 MEQ/L (98-107); CK-MB VALUE MASS < 1.0 NG/ML (<3.6); CPK CREATINE PHOSPHOKINASE 84 U/L (26-192); CREATININE FOR GFR 0.64 MG/DL (0.55-1.30); GLOMERULAR FILTRATION RATE > 60.0 (>58); GLUCOSE, FASTING 90 MG/DL (70-100); MB/CK RELATIVE INDEX 1.19 (< OR =4); POTASSIUM SERUM 3.9 MEQ/L (3.5-5.1); SODIUM LEVEL 138 MEQ/L (136-145); TROPONIN I < 0.02 NG/ML (< 0.10)
[2020-12-09] MEDS ORDERED: IPRATROPIUM HFA INHALER 12.9 GRAMS (ATROVENT HFA) INH ONE (12:55)
[2020-12-09 13:40] LABS: ABG BASE EXCESS -1.6 (-2.0-2.0); ABG HCO3 21.8 MEQ/L (22.0-26.0); ABG O2 SATURATION 96.6 % (95.0-99.0); ABG PARTIAL PRESSURE CO2 32.4 mmHg (35.0-45.0); ABG PARTIAL PRESSURE O2 81.2 mmHg (75.0-100.0); ABG STANDARD HCO3 23.1 MEQ/L (22.0-26.0); ABG TOTAL CO2 22.8 MEQ/L (22.0-29.0); ABG pH (ARTERIAL) 7.445 UNITS (7.350-7.450)
[2020-12-09 15:14] VITALS: BP 114/62
--- NOTE | 2020-12-10 09:28 | ECGEPIP ---
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
[2020-12-14] MEDS ORDERED: ASPI81TAEC PO (10:54)
== END 2020-12-09 15:51 | disposition home or self-care (01) ==
LOC: M ED 11:12
DX: U07.1 COVID-19 (principal); R06.02 Shortness of breath; F17.200 Nicotine dependence, unspecified, uncomplicated; Z91.040 Latex allergy status; Z88.6 Allergy status to analgesic agent; Z88.8 Allergy status to other drugs, medicaments and biological substances

== ENCOUNTER 2020-12-09 16:33 | Outpatient (CLI) | payer OTHER ==
[~2020-12-09] VITALS: Ht 165.1 cm; Wt 72.2 kg
[2020-12-09] VITALS (9 sets, daily range): BP systolic 80–120; BP diastolic 49–71
--- NOTE | 2020-12-09 16:01 | IPNPDOC ---
Subjective Date Seen The patient was seen on 12/09/20. Subjective Chief Complaint/HPI Mrs. 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 She tells me that people at work have been testing positive for COVID. 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 She called the COVID Hotline, and they recommended she make an appointment for to be tested. This morning, she was not feeling well. She had dyspnea and chest tightness as well as a cough. At 11 AM she went to the ED to be tested and she tested positive. She called her roommate who went to urgent care and the roommate also tested positive. She tells me that there are 3 additional people she has to reach out to as well. We discussed the risk and benefits of monoclonal antibodies. She is agreeable and sign consent for monoclonal antibiotics. She will be receiving bamlanivimab today. Past medical history: 1. Celiac disease 2. IBS 3. Castle's esophagus status post Ivana Fundoplication x2 4. Immunosuppression status post splenectomy Past surgical history: 1. Ivana Fundoplication x2 2. Splenectomy Family history: Father: Diabetes mellitus, hypertension, hyperlipidemia Mother: Diabetes mellitus, hypertension, hyperlipidemia Social history: Current smoker Denies alcohol Denies recreational drug use Constitutional: Reports: Malaise Eyes: Denies: Redness ENT: Denies: Dysphagia Skin: Denies: Rash Pulmonary: Reports: Dyspnea, Cough Cardiovascular: Reports: Chest Pain (chest tightness) Gastrointestinal: Denies: Abdominal Pain Genitourinary: Denies: Dysuria Hematologic: Denies: Bruising Psych: Reports: Anxiety Objective Physical Examination General Exam: Positive: Cooperative, No Acute Distress Eye Exam: Positive: EOMI; Negative: Sclera icteric ENT Exam: Positive: Atraumatic Neck Exam: Positive: Supple Chest Exam: Positive: Diminished Heart Exam: Positive: Rate Normal, Regular Rhythm Abdomen Exam: Positive: Normal bowel sounds, Soft; Negative: Tenderness Extremity Exam: Negative: Edema Neuro Exam: Positive: Normal Speech, Cranial Nerves 3-12 NL Psych Exam: Positive: Anxiety Assessment /Plan Assessment Mrs. 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 She is at high risk of pr ogression of disease due to her immunosuppression. She would benefit from monoclonal antibodies. She will be receiving bamlanivimab today and be monitored for symptoms Plan/VTE VTE Prophylaxis Ordered?: No (outpatient therapy, will be discharged home) Plan 1. COVID 19 positive Not hypoxic High risk for progression of disease due to immunosuppression Sign consent for monoclonal antibodies (bamlanivimab) We'll be monitored for side effects after receiving monoclonal antibodies BRIDGETT LONG DO Dec 09, 2020 16:01
[~2020-12-09 16:33] MED LIST changes: +EPINEPHrine INJ 1 MG/ML 1ML AMP IM PRN; +LEVALBUTEROL 1.25 MG/0.5 ML CONCENTRATE NEB INH PRN; +NS 1,000 ML IV SCH; +VITA50005 PO; +diphenhydrAMINE 50MG/ML VIAL (J1200) IV PRN; +methylPREDNISolone 125MG 2ML VIAL IV PRN
[2020-12-09] MEDS ORDERED: BAMLANIVIMAB 700 MG in NS 250 ML IV ONE (17:00)
--- NOTE | 2020-12-09 17:30 | IPNPDOC ---
Text Note Date of Service The patient was seen on 12/09/20. NOTE Max cart note: - I responded to Max cart that was called this evening - Patient was starting to receive monoclonal antibody therapy infusion and had received approximately 30 mL and reported that she was feeling unwell - Patient became unresponsive, hypotensive and a Max cart was called - Upon my arrival, patient was already on a nonrebreather mask - Patient was noted to be initially unresponsive, however, patient was able to follow commands and answer instructions appropriately upon my arrival - Vitals signs in the room showed 100% saturation on non-rebreather; she was transitioned back to [place] oxygen at 2 Liters and saturations maintained at 100% - Hypotension was noted initially of 80s/50s; BP has improved to 120s/80s - Patient denied any respiratory distress; there was no wheezing or stridor appreciated - I have given instructions to provide Normal saline bolus, Benadryl IV, and Solu-Medrol IV - Patient was complaining of chest pain - Discussed with attending provider who will order EKG and cardiac markers to be trended - Will be transitioned to ICU for observation for allergic reaction and cardiac workup - Care has been transitioned over to attending provider VS,Ronan, I+O VS, Ronan, I+O Vital Signs Date Time Temp Pulse Resp B/P (MAP) Pulse Ox O2 Delivery O2 Flow Rate FiO2 12/09/20 16:53 98.0 18 88/50 (63) 12/09/20 16:05 18 98 Room Air YANNICK DUNCAN MD Dec 09, 2020 17:30
== END 2020-12-09 17:20 | disposition still patient (30) ==
LOC: M OPCLI4 16:33 → M MS4PR 16:34 → M OPCLI4 17:20
PROVIDERS: ATTEND Internal Medicine
DX: U07.1 COVID-19 (principal); T88.6XXA Anaphylactic reaction due to adverse effect of correct drug or medicament properly administered, initial encounter; Z88.2 Allergy status to sulfonamides; Z88.6 Allergy status to analgesic agent; Z88.8 Allergy status to other drugs, medicaments and biological substances; Z91.048 Other nonmedicinal substance allergy status
CPT/HCPCS: 96375; J1200; J2930; M0239

== ENCOUNTER 2020-12-09 17:25 | Observation (INO) | payer OTHER ==
[~2020-12-09] VITALS: Ht 165.1 cm; Wt 77.0 kg
[~2020-12-09 17:25] MED LIST changes: -EPINEPHrine INJ 1 MG/ML 1ML AMP IM PRN; -LEVALBUTEROL 1.25 MG/0.5 ML CONCENTRATE NEB INH PRN; -NS 1,000 ML IV SCH; -diphenhydrAMINE 50MG/ML VIAL (J1200) IV PRN; -methylPREDNISolone 125MG 2ML VIAL IV PRN
--- OUTSIDE RECORDS SUMMARY | 2020-12-09 17:52 | CCD ---
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 ([facility] Leukocytes [#/volume] in Blood by Automated count 11.0 x10E3/uL 3.4-10.8 Above high normal MED[facility] ([facility] ) Erythrocyte mean corpuscular volume [Entitic volume] by Auto mated count 87 fL 79-97 MED[facility] ([facility] Hemoglobin [Mass/volume] in Blood 13.0 g/dL 11.1-15.9 [facility] ([facility] Hematocrit [Volume Fraction] of Blood by Automated count 40.4 % 3 4.0-46.6 [facility] ([facility] Erythrocyte mean corpuscular hemoglobin [Entitic mass] by Automated count 27.9 pg 26.6-33.0 [facility] ([facility] Rick garza[facility] Platelets [#/volume] in Blood by Automated count 395 x10E3/uL 150-450 [facility] ([facility] Erythrocyte mean corpuscular hemoglobin concentration [Mass/volume] by Automated count 32.2 g/dL 31.5-35.7 [facility] ([facility]ian[facility] Erythrocyte distribution width [Ratio] by Automated count 14.5 % 11.7-15.4 [facility] ([facility] Lymphs 35 % [facility] Monocytes/100 leukocytes in Blood by Automated count 6 % [facility] ([facility] Neutrophils 56 % MED[facility] ([facility] Neutrophils [#/volume] in Blood [...] by Automated count 0.0 x10E3/uL 0.0-0.1 [facility] ([facility] Immature granulocytes/100 leukocytes in Blood by Automated count 0 % MED[facility] ([facility] Basophils [#/volume] in Blood by Automated count 0.1 x10E3/uL 0.0-0.2 [facility] ([facility] Morphology [Interpretation] in Blood Narrative Laboratory test result MEDENT ([facility] Nucleated erythrocytes/100 leukocytes [Ratio] in Blood by Automated count Laboratory test result MEDENT ([facility] ID Date Data Source [id number] 12/27/2019 10:58:00 AM EDT MEDENT ([facility] Name Value Range Interpretation Code Description Data Criss rce(s) Supporting Document(s) Color Urine Laboratory test result M EDENT ([facility] Appearance of Urine Laboratory test result [facility] ([facility] Specific Downs 1.015 1.00-1.03 [facility] ([facility] PH Urine 6.5 5.0-8.0 [facility] ([facility] Glucose Urine Laboratory test result [facility] ([facility] Bilirubin.total [Presence] in Urine by Test strip Laboratory test res ult [facility] ([facility] Ketones Laboratory test result MED[facility] ([facility] Blood Urine Laboratory test result M EDENT ([facility] Urobilinogen 0.2 EU/dl 0.2-1.0 MED[facility] ([facility] Protein Urine Laboratory test result MED[facility] ([facility] Nitrite Laboratory test result MED[facility] ([facility] Leukocytes Laboratory test result ME DENT ([facility] ID Date Data Source [id number] 12/27/2019 10:58:00 AM EDT MEDENT ([facility] Name Value Range Interpretation Code Description Data Criss rce(s) Supporting Document(s) Glucose [Mass/volume] in Serum or Plasma 81 mg/dL 65-99 MED[facility] ([facility] BUN 7 mg/dL 6-24 [facility] ([facility] Creatinine [Mass/volume] in Serum or Plasma 0.68 mg/dL 0.57-1.00 [facility] ([facility] Sodium [Moles/volume] in Serum or Plasma 137 mmol/L 134-144 [facility] ([facility] eGFR If NonAfricn Am 105 mL/min/1.73 [facility] ([facility] eGFR If Africn Am 120 mL/min/1.73 ME DENT ([facility] Urea nitrogen/Creatinine [Mass Ratio] [...] Serum or Plasma 18 IU/L 0-40 MED[facility] ([facility] Alanine aminotransferase [Enzymatic activity/volume] in Seru m or Plasma 16 IU/L 0-32 [facility] ([facility] ID Date Data Source [id number] 12/27/2019 10:58:00 AM EDT MEDENT ([facility] Name Value [...] by Automated count 32.1 g/dL 31.5-35.7 MED[facility] ([facility]ej[facility] Erythrocyte mean corpuscular hemoglobin [Entitic mass] by Automated count 27.3 pg 26.6-33.0 MED[facility] ([facility] Rick [facility]za[facility] Erythrocyte mean corpuscular [...] by Automated count 0.0 x10E3/uL 0.0-0.1 [facility] ID Date Data Source [id number] 12/27/2019 10:58:00 AM EDT MEDENT ([facility] Name Value Range Interpretation Code Description Data Criss rce(s) Supporting Document(s) Amylase [Enzymatic activity/volume] in Serum or Plasma 52 U/L 31- 110 MEDENT ([facility] Lipoprotein lipase [Enzymatic activity/volume] in Serum or Plasm a 16 U/L 14-72 MED[facility] ([facility] ) ID Date Data Source [id number] 12/23/2019 10:25:00 AM EDT MEDENT ([facility] Name Value Range Interpretation Code Description Data Criss rce(s) Supporting Document(s) Erythrocyte sedimentation rate by Westergren method 40 mm/hr 0-32 Above high normal MEDENT ([facility] ) ID Date Data Source [id number] 12/23/2019 10:25:00 AM EDT MEDENT ([facility] Name Value Range Interpretation Code Description Data Criss rce(s) Supporting Document(s) eGFR If NonAfricn Am 107 mL/min/1.73 MED[facility] ([facility] Glucose [Mass/volume] in Serum or Plasma 80 mg/dL 65-99 MED[facility] ([facility] BUN 8 mg/dL 6-24 MED[facility] ([facility] Creatinine [Mass/volume] in Serum or Plasma 0.63 mg/dL 0.57-1.00 MED[facility] ([facility] Sodium [Moles/volume] in Serum or Plasma 137 mmol/L 134-144 MED[facility] ([facility] Potassium [Moles/volume] in Serum or Plasma 4.7 mmol/L 3.5-5.2 MED[facility] ([facility] Urea nitrogen/Creatinine [Mass Ratio] in Serum or Plasma 13 9 -23 MED[facility] ([facility] eGFR If Africn Am 124 mL/min/1.73 ME DENT ([facility] Chloride [Moles/volume] in Serum or Plasma 102 mmol/L 96-106 [facility] ([facility] Protein [Mass/volume] in Serum or Plasma 6.9 g/dL 6.0-8.5 [facility] ([facility] Calcium [Mass/volume] in Serum or Plasma 9.0 mg/dL 8.7-10.2 [facility] ([facility] Carbon dioxide, total [Moles/volume] in Serum or Plasma 22 mmol/L 20 -29 MED[facility] ([facility] Globulin [Mass/volume] in Serum by calculation 2.8 g/dL 1.5-4.5 [facility] ([facility] Albumin [Mass/volume] in Serum or Plasma 4.1 g/dL 3.8-4.8 MED[facility] ([facility] Albumin/Globulin [Mass Ratio] in Serum or Plasma 1.5 1.2-2.2 [facility] ([facility] Alanine aminotransferase [Enzymatic activity/volume] in Seru m or Plasma 17 IU/L 0-32 [facility] ([facility] Bilirubin.total [Mass/volume] in Serum or Plasma 0.3 mg/dL 0.0-1.2 [facility] ([facility] Alkaline phosphatase [Enzymatic activity/volume] in Serum or Plasma 70 IU/L 39-117 [facility] ([facility] Aspartate aminotransferase [Enzymatic activity/volume] in Serum or Plasma 16 IU/L 0-40 [facility] ([facility] ID Date Data Source [id number] 12/23/2019 10:25:00 AM EDT MEDENT ([facility] Name Value Range Interpretation Code Description Data Criss rce(s) Supporting Document(s) Erythrocytes [#/volume] in Blood by Automated count 4.47 x10E6/uL 3.7 7-5.28 MED[facility] ([facility] Hematocrit [Volume Fraction] of [...] by Automated count 32.6 g/dL 31.5-35.7 [facility] ([facility] Erythrocyte mean corpuscular hemoglobin [Entitic mass] by Automated count 28.4 pg 26.6-33.0 [facility] ([facility] Neutrophils 50 % [facility] ([facility] Platelets [#/volume] in Blood by Automated count 392 x10E3/uL 150-450 [facility] ([facility] Lymphs 40 % [facility] ([facility] Immature cells [#/volume] [...] Automated count 4.6 x10E3/uL 1.4-7 .0 MED[facility] ([facility] Eosinophils [#/volume] in Blood by Automated count 0.3 x10E3/uL 0.0-0 .4 [facility] ([facility] Immature granulocytes/100 leukocytes in Blood by Automated count 0 % MED[facility] ([facility] [place] [place] Immature granulocytes [#/volume] in Blood by Automated count 0.0 x10E3/uL 0.0-0.1 MED[facility] ([facility] [place] erna[facility] Basophils [#/volume] in Blood by Automated count 0.1 x10E3/uL 0.0-0.2 [facility] ([facility] [place] [place] Nucleated erythrocytes/100 leukocytes [Ratio] in Blood by Automated count Laboratory test result MED[facility] ([facility] Morphology [Interpretation] in Blood Narrative Laboratory test result MEDENT ([facility] [place] [place] ID Date Data Source [id number] 12/17/2019 08:37:00 PM EST MEDENT ([facility] Name Value Range Interpretation Code Description Data Criss rce(s) Supporting Document(s) Choriogonadotropin.beta subunit ( test) [Pres ence] in Serum or Plasma Laboratory test result Normal (applies to non-numeric results) MEDENT ([facility] Lipoprotein lipase [Enzymatic activity/volume] in Serum or Plasm a 83 U/L 73-393 Normal (applies to non-numeric results) [facility] ([facility] ID Date Data Source [id number] 12/17/2019 08:37:00 PM EST MEDENT ([facility] Name Value Range Interpretation Code Description Data Criss rce(s) Supporting Document(s) Glucose, Fasting 113 mg/dL 70-100 Above high normal M EDENT ([facility] Blood Urea Nitrogen 12 mg/dL 7-18 Normal (applies to non-nume tiara results) MED[facility] ([facility] Sodium Level 137 meq/L 136-145 Normal (applies to non-numeric res ults) MED[facility] ([facility] Glomerular Filtration Rate Laboratory test result Normal (applies to non- numeric results) MED[facility] ([facility] ) <content>Units are mL/min/1.73 m2</content>
<content></content>
<content>Chronic Kidney Disease Staging per NKF:</content>
<content></content>
<content>Stage I & II GFR >=60 Normal to Mildly Decreased</content>
<content>Stage III GFR 30-59 Moderately Decreased</content>
<content>Stage IV GFR 15-29 Severely Decreased</content>
<content>Stage V GFR <15 Very Little GFR Left</content>
<content>ESRD GFR <15 on FORMING DEPARTMENT SUPERVISOR</content>
<content></content> Creatinine For GFR 0.66 mg/dL 0.55-1.30 Normal (applies to non -numeric results) MED[facility] ([facility] Chloride Level 108 meq/L 98-107 Above high normal MED ENT ([facility] Potassium Serum 4.1 meq/L 3.5-5.1 Normal (applies to non-numeric results) MED[facility] ([facility] Carbon Dioxide Level 24 meq/L 21-32 Normal (applies to non-num paul results) MED[facility] ([facility] Anion Gap 5 meq/L 8-16 Below low normal MED[facility] ( [facility] Calcium Level 8.3 mg/dL 8.5-10.1 Below low normal MEDEN T ([facility] ID Date Data Source [id number] 12/17/2019 08:37:00 PM EST MEDENT ([facility] Name Value Range Interpretation Code Description Data Criss rce(s) Supporting Document(s) Ast/Sgot 54 U/L 7-37 Above high normal MED[facility] ([facility] Alkaline Phosphatase 81 U/L 45-117 Normal (applies to non-num paul results) MED[facility] ([facility] Bilirubin,Total 0.2 mg/dL 0.2-1.0 [...] 0.0-0.2 Normal (applies to non-numeric results) MED[facility] ([facility] Albumin/Globulin Ratio 1.10 1.00-1.93 Normal (applies to non-numeric results) MED[facility] ([facility] ID Date Data Source [id number] 12/17/2019 08:37:00 PM EST MEDENT ([facility] Name Value Range Interpretation Code Description Data Criss rce(s) Supporting Document(s) Color, Urine Laboratory test result Normal (applies to non -numeric results) [facility] ([facility] Appearance, Urine Laboratory test result Normal (applies to non-numeric results) MED[facility] ([facility] ) Glucose, Urine (Ua) Auto Laboratory test result Normal (applies to non-numeric results) MED[facility] ([facility] ) Protein, Urine Auto Laboratory test result Alice l (applies to non-numeric results) [facility] ([facility] ) Specific Downs Urine Auto 1.025 1.002-1.035 Norm al (applies [...] test result Abov e high normal MEDENT ([facility] Nitrite, Urine Auto Laboratory test result Alice l (applies to non-numeric results) [facility] ([facility] Blood, Urine Blood Laboratory test result Normal (applies to non-numeric results) MED[facility] ([facility] ) RBC, Urine Auto 2 /HPF 0-3 Normal (applies to non-numeric results) MED[facility] ([facility] Bacteria, Urine Auto Laboratory test result Above high nor mal MED[facility] ([facility] WBC, Urine Auto 15 /HPF 0-3 Above high normal ME DENT ([facility] Hyaline Cast, Urine Auto 0 /LPF 0-1 Normal (applies to non -numeric results) MED[facility] ([facility] Squamous Epithelial Cell Ur AU 4 /HPF 0-6 N ormal (applies to non-numeric results) MED[facility] ([facility] ) Mucus, Urine Laboratory test result Normal (applies to non -numeric results) MED[facility] ([facility] ID Date Data Source [id number] 12/17/2019 08:37:00 PM EST MEDENT ([facility] Name Value Range Interpretation Code Description Data Criss rce(s) Supporting Document(s) Hemoglobin 11.8 g/dL 12.0-15.5 Below low normal [facility] ( [facility] Red Blood Count 4.09 10 4.00-5.40 Normal (applies to non-numeric results) MED[facility] ([facility] White Blood Count 15.7 [...] Normal (applies to non-numeric resul ts) MED[facility] ([facility] Platelet Count, Automated 311 10 150-450 Normal (applies to non-numeric results) MED[facility] ([facility] ) Red Cell Distribution Width 16.0 % 11.5-14.5 Above high normal MED[facility] ([facility] Mean Corpuscular HGB Conc 32.8 g/dL 32.0-36.5 Normal (applies to non-numeric results) MED[facility] ([facility] ) Lymph % 13.0 % 24.0-44.0 Below low normal MED[facility] ( [facility] Bledsoe % 6.6 % 0.0-5.0 Above high normal MED[facility] ([facility] Neutrophils % 77.3 % 36.0-66.0 Above high normal MEDE NT ([facility] Immature Granulocyte % 0.6 % 0-3.0 Normal (applies to non-n umeric results) MED[facility] ([facility] Baso % 0.5 % 0.0-1.0 Normal (applies to non-numeric resul ts) [facility] ([facility] Eos % 2.0 % 0.0-3.0 Normal (applies to non-numeric resul ts) MED[facility] ([facility] Lymph # 2.0 10 1.5-5.0 Normal (applies to non-numeric resul ts) [facility] ([facility] Neutrophils # 12.1 10 1.5-8.5 Above high normal MEDE NT ([facility] Nucleated Red Blood Cell % 0.0 % 0-0 Normal (applies to n on-numeric results) [facility] ([facility] Bledsoe # 1.0 10 0.0-0.8 Above high normal MED[facility] ([facility] Eos # 0.3 10 0.0-0.5 Normal (applies to non-numeric resul ts) [facility] ([facility] Baso # 0.1 10 0.0-0.2 Normal (applies to non-numeric resul ts) MED[facility] ([facility] P[facility]) ID Date Data Source [id number] 12/17/2019 08:36:00 PM EST MEDENT ([facility] Name Value Range Interpretation Code Description Data Criss rce(s) Supporting Document(s) Urine Culture Laboratory test result Normal (applies t o non-numeric results) MED[facility] ([facility] <content>FULL REPORT IN LAB [...] FOR ESBL</content>
<content></content> ID Date Data Source [id number] 12/17/2019 08:33:00 PM EST MEDENT ([facility] Name Value Range Interpretation Code Description Data Criss rce(s) Supporting Document(s) Laboratory test finding (navigational concept) 37.0 % 3 8.0-51.0 Below low normal MED[facility] ([facility] ) Laboratory test finding (navigational concept) 114 mg/dL 7 0-105 Above high normal MED[facility] ([facility] ) Laboratory test finding (navigational concept) 4.0 meq/L 3 .5-5.1 Normal (applies to non-numeric results) MED[facility] ([facility] Laboratory test finding (navigational concept) 137 meq/L 1 36-145 Normal (applies to non-numeric results) [facility] ([facility] [facility] Laboratory test finding (navigational concept) 4.5 mg/dL 4 .5-5.3 Normal (applies to non-numeric results) MEDENT ([facility] Laboratory test finding (navigational concept) 105 meq/L 9 8-109 Normal (applies to non-numeric results) MEDENT ([facility] Laboratory test finding (navigational concept) 11 mg/dL 8 -26 Normal (applies to non-numeric results) MEDENT ([facility]) Laboratory test finding (navigational concept) 23.0 MM/L 2 3.0-27.0 Normal (applies to non-numeric results) MEDENT ([facility] Laboratory test finding (navigational concept) 0.6 mg/dL 0 .6-1.3 Normal (applies to non-numeric results) MEDENT ([facility] Procedure Vital Signs ID Date Data Source UNK Name Value Range Interpretation Code Description Data Source(s) Oxygen saturation in Arterial blood by Pulse oximetry 94 % 94 % SHAMIR ([facility] Body mass index (BMI) [Ratio] 27.7 kg/m2 27.7 k g/m2 SHAMIR ([facility] [place] body weight 120 [lb_av] 120 [lb_av] JEANMARIEEN T ([facility] Body weight 165.00 [lb_av] 165.00 [lb_av] JEANMARIEEN T ([facility] Body height 64.75 [in_i] 64.75 [in_i] MEDFABIÁN ([facility] 5'4.75" Respiratory rate 18 /min 18 /min MEDFABIÁN ( [facility] Heart rate 50 /min 50 /min [facility] Body temperature 96.9 [degF] 96.9 [degF] SHAMIR ([facility] Diastolic blood pressure 72 mm[Hg] 72 mm[Hg] MEDENT ([facility] Systolic blood pressure 116 mm[Hg] 116 mm[Hg] M EDENT ([facility] Diastolic blood pressure--sitting 62 mm[Hg] 62 mm[Hg] MEDENT ([facility] [place], adult cuff/Ra Systolic blood pressure--sitting 103 mm[Hg] 103 mm[Hg] MEDENT ([facility]) [place], adult cuff/Ra Heart rate 65 /min 65 /min MED[facility] ([facility]) Body mass index (BMI) [Ratio] 26.0 kg/m2 26.0 k g/m2 MEDENT ([facility]) Body height 66 [in_i] 66 [in_i] MEDENT ([facility]) 5'6" Body weight 161.00 [lb_av] 161.00 [lb_av] MEDEN T ([facility]) Oxygen saturation in Arterial blood by Pulse oximetry 95 % 95 % MEDENT ([facility] Body mass index (BMI) [Ratio] 27.7 kg/m2 27.7 k g/m2 MEDENT ([facility] [place] body weight 120 [lb_av] 120 [lb_av] MEDEN T ([facility] Body weight 165.00 [lb_av] 165.00 [lb_av] MEDEN T ([facility] Body height 64.75 [in_i] 64.75 [in_i] MEDENT ([facility] 5'4.75" Respiratory rate [...] [Ratio] 28.2 kg/m2 28.2 k g/m2 MEDENT ([facility] [place] body weight 120 [lb_av] 120 [lb_av] MEDEN T ([facility] Body weight 168.00 [lb_av] 168.00 [lb_av] MEDEN T ([facility] Body height 64.75 [in_i] 64.75 [in_i] MEDENT ([facility] 5'4.75" Respiratory rate 16 /min 16 /min MEDENT ( [facility] Heart rate 76 /min 76 /min MEDENT ([facility] Body temperature 98.7 [degF] 98.7 [degF] MEDENT ([facility] Diastolic blood pressure 74 mm[Hg] 74 mm[Hg] MEDENT ([facility] Systolic blood pressure 112 mm[Hg] 112 mm[Hg] M EDENT ([facility] Body mass index (BMI) [Ratio] 28.1 kg/m2 28.1 k g/m2 MEDENT ([facility]) Body weight 169.00 [lb_av] 169.00 [lb_av] MEDEN T ([facility]) Body height 65 [in_i] 65 [in_i] MEDENT ([facility]) 5'5" Diastolic blood pressure 70 mm[Hg] 70 mm[Hg] MEDENT ([facility]) Systolic blood pressure 112 mm[Hg] 112 mm[Hg] M EDENT ([facility]) Body weight 76.658 kg 76.658 kg [facility] Body mass index (BMI) [Ratio] 27.8 kg/m2 27.8 k g/m2 MEDENT ([facility] [place] body weight 120 [lb_av] 120 [lb_av] MEDEN T ([facility] Body weight 166.00 [lb_av] 166.00 [lb_av] MEDEN T ([facility] Body height 64.75 [in_i] 64.75 [in_i] MEDENT ([facility] 5'4.75" Respiratory rate 18 /min 18 /min MEDENT ( [facility] [place] [place] Heart rate 54 /min 54 /min MEDENT ([facility] [place] [place] Body temperature 98.5 [degF] 98.5 [degF] MEDENT ([facility] [place] [place] Diastolic blood pressure 80 mm[Hg] 80 mm[Hg] MEDENT ([facility] Systolic blood pressure 118 mm[Hg] 118 mm[Hg] [facility] ([facility] [place] [place] Body weight 77.112 kg 77.112 kg [facility] ([facility]) Body mass index (BMI) [Ratio] 28.3 kg/m2 28.3 k g/m2 [facility] ([facility]) Body weight 170.00 [lb_av] 170.00 [lb_av] MEDEN T ([facility]) Body height 65 [in_i] 65 [in_i] [facility] 5'5" Diastolic blood pressure 79 mm[Hg] 79 mm[Hg] [facility] ([facility]) Systolic blood pressure 122 mm[Hg] 122 mm[Hg] [facility] ([facility]) Body weight 75.298 kg 75.298 kg [facility] ([facility]) Body mass index (BMI) [Ratio] 27.6 kg/m2 27.6 k g/m2 [facility] ([facility]) Body weight 166.00 [lb_av] 166.00 [lb_av] MEDEN T ([facility]) Body height 65 [in_i] 65 [in_i] [facility] ([facility]) 5'5" Diastolic blood pressure 63 mm[Hg] 63 mm[Hg] [facility] ([facility]) Systolic blood pressure 103 mm[Hg] 103 mm[Hg] [facility] ([facility]) Oxygen saturation in Arterial blood by Pulse oximetry 97 % 97 % MEDENT ([facility] Body mass index (BMI) [Ratio] 27.7 kg/m2 27.7 k g/m2 MEDENT ([facility] Body weight 165.12 [lb_av] 165.12 [lb_av] MEDEN T ([facility] Body height 64.75 [in_i] 64.75 [in_i] MEDENT ([facility] 5'4.75" Respiratory rate 14 /min 14 /min MEDENT ( [facility] Heart rate 64 /min 64 /min MEDENT ([facility] Body temperature 97.6 [degF] 97.6 [degF] MEDENT ([facility] Diastolic blood pressure 66 mm[Hg] 66 mm[Hg] MEDENT ([facility] Systolic blood pressure 102 mm[Hg] 102 mm[Hg] M EDENT ([facility] Oxygen saturation in Arterial blood by Pulse oximetry 97 % 97 % MEDENT ([facility] Body mass index (BMI) [Ratio] 27.4 kg/m2 27.4 k g/m2 MED[facility] ([facility] Body weight 163.25 [lb_av] 163.25 [lb_av] MEDEN T ([facility] Body height 64.75 [in_i] 64.75 [in_i] MEDENT ([facility] 5'4.75" Respiratory rate 18 /min 18 /min MEDENT ( [facility] Heart rate 68 /min 68 /min MED[facility] ([facility] Body temperature 98.2 [degF] 98.2 [degF] MEDENT ([facility] Diastolic blood pressure 58 mm[Hg] 58 mm[Hg] MEDENT ([facility] Systolic blood pressure 112 mm[Hg] 112 mm[Hg] M EDENT ([facility] Oxygen saturation in Arterial blood by Pulse oximetry 96 % 96 % MEDENT ([facility] Body mass index (BMI) [Ratio] 27.7 kg/m2 27.7 k g/m2 MED[facility] ([facility] Body weight 165.00 [lb_av] 165.00 [lb_av] MEDEN T ([facility] Body height 64.75 [in_i] 64.75 [in_i] MEDENT ([facility] 5'4.75" Respiratory rate 16 /min 16 /min MEDENT ( [facility] Heart rate 66 /min 66 /min MEDENT ([facility] Body temperature 99.5 [degF] 99.5 [degF] MEDENT ([facility] Diastolic blood pressure 68 mm[Hg] 68 mm[Hg] [facility] ([facility] Systolic blood pressure 102 mm[Hg] 102 mm[Hg] [facility] Body mass index (BMI) [Ratio] 27.1 kg/m2 27.1 k g/m2 MEDENT ([facility]) Body height 65 [in_i] 65 [in_i] MEDENT ([facility] 5'5" Body weight 163.00 [lb_av] 163.00 [lb_av] MEDEN T ([facility]) Body temperature 99.1 [degF] 99.1 [degF] MEDENT ([facility]) Oxygen saturation in Arterial blood by Pulse oximetry 98 % 98 % MEDENT ([facility]) Respiratory rate 21 /min 21 /min MEDENT ( [facility]) Heart rate 81 /min 81 /min MEDENT ([facility]) Diastolic blood pressure 67 mm[Hg] 67 mm[Hg] MEDENT ([facility]) Systolic blood pressure 103 mm[Hg] 103 mm[Hg] [facility])
[2020-12-09 19:06] LABS: BASO # 0.1 10^3/uL (0.0-0.2); BASO % 2.2 % (0.0-1.0); EOS # 0.3 10^3/uL (0.0-0.5); EOS % 4.6 % (0.0-3.0); HEMOGLOBIN 11.1 g/dl (12.0-15.5); LYMPH # 2.4 10^3/uL (1.5-5.0); MEAN CORPUSCULAR HEMOGLOBIN 28.2 pg (27.0-33.0); MEAN CORPUSCULAR HGB CONC 32.6 g/dl (32.0-36.5); MEAN CORPUSCULAR VOLUME 86.5 fl (80.0-96.0); MONO # 0.5 10^3/uL (0.0-0.8); MONO % 8.8 % (2.0-8.0); NEUTROPHILS # 2.7 10^3/uL (1.5-8.5); NEUTROPHILS % 45.2 % (36.0-66.0); PLATELET COUNT, AUTOMATED 272 10^3/uL (150-450); RED BLOOD COUNT 3.93 10^6/uL (4.00-5.40)
[2020-12-09] MEDS ORDERED: ACETAMINOPHEN TAB 650MG DOSE (2X325MG) PO PRN (19:15)
[2020-12-09 19:22] LABS: INR 1.18; PROTHROMBIN TIME 15.3 SECONDS (12.5-14.3)
[2020-12-09 19:23] LABS: PARTIAL THROMBOPLASTIN TIME 31.4 SECONDS (24.2-38.5)
[2020-12-09 19:25] LABS: D-DIMER QUANT 330.21 ng/ml (<500)
--- NOTE | 2020-12-09 19:27 | HPEPDOC ---
General Date of Admission Dec 09, 2020 at 17:25 Date of Service: Dec 09, 2020 Chief Complaint The patient is a 50-year-old female admitted with a reason for visit of Covid 19/Anaphylactic Reaction. History of Present Illness Mrs. 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 She tells me that people at work have been testing positive for COVID. 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 She called the COVID Hotline, and they recommended she make an appointment for to be tested. This morning, she was not feeling well. She had dyspnea and chest tightness as well as a cough. At 11 AM she went to the ED to be tested and she tested positive. She called her roommate who went to urgent care and the roommate also tested positive. She tells me that there are 3 additional people she has to reach out to as well. We discussed the risk and benefits of m onoclonal antibodies. She is agreeable and sign consent for monoclonal antibiotics. She will be receiving bamlanivimab today. During her transfusion, she developed a reaction. Patient felt unwell and became hypotensive and unresponsive. A MAX CART was called. Patient's blood pressure was initially in the 80s / 50s. Patient was given a normal saline bolus, IV Benadryl, and IV Solu Medrol. Patient started to feel better. She said she started to develop a change sensation substernally. She also reported that her breathing felt heavy. She is put on 2 L nasal cannula and was maintained saturations 100%. She was then moved down to the ICU. She said that this change sensation in her chest had improved. Her breathing was better but still felt heavy. Patient will be monitored overnight in the ICU. Home Medications Scheduled Ergocalciferol (Vitamin D2) (Vitamin D2) 50,000 Units Cap, 50,000 UNITS PO QWEEK, (Reported) SATURDAYS Omeprazole (Omeprazole) 40 Mg Cap, 40 MG PO BID, (Reported) Oxybutynin Chloride (Oxybutynin Chloride ER) 5 Mg Tab, 5 MG PO DAILY, (Reported) Polyethylene Glycol 3350 (Miralax) 1 Pow Pow, 17 GM PO BID, (Reported) Scheduled PRN Lactulose (Lactulose) 10 Gm/15 Ml Solution, 30 ML PO DAILY PRN for CONSTIPATION, (Reported) Naproxen (Naproxen) 500 Mg Tablet, 500 MG PO BIDP PRN for PAIN, (Reported) Allergies Coded Allergies: albuterol (Verified Allergy, Severe, 12/09/20) anaphylaxis bamlanivimab (Verified Allergy, Severe, BECAME UNRESPONSIVE DURING INITIAL INFUSION, 12/09/20) morphine (Verified Allergy, Severe, 12/09/20) anaphylaxis Sulfa (Sulfonamide Antibiotics) (Verified Allergy, Intermediate, 12/09/20) hives TAPE (Verified Allergy, Intermediate, red/itchy, 09/18/19) latex (Verified Allergy, Intermediate, redness, 09/18/19) oxycodone (Verified Allergy, Intermediate, hives, 09/18/19) Past Medical History Medical History 1. Celiac disease 2. IBS 3. Castle's esophagus status post Ivana Fundoplication x2 4. Immunosuppression status post splenectomy Surgical History 1. Ivana Fundoplication x2 2. Splenectomy Family History Father: Diabetes mellitus, hypertension, hyperlipidemia Mother: Diabetes mellitus, hypertension, hyperlipidemia Social History * Smoker: current smoker Alcohol: Denies Drugs: denies A-FIB/CHADSVASC A-FIB History Current/History of A-Fib/PAF?: No Review of Systems Constitutional: Reports: Malaise Eyes: Denies: Redness ENT: Denies: Dysphagia Skin: Denies: Rash Pulmonary: Reports: Dyspnea (chest heaviness) Cardiovascular: Reports: Chest Pain (substernal chest heaviness) Gastrointestinal: Denies: Nausea Genitourinary: Denies: Dysuria Hematologic: Denies: Bruising Psych: Reports: Anxiety Physical Examination General Exam: Positive: Cooperative, Mild Distress Eye Exam: Positive: EOMI; Negative: Sclera icteric ENT Exam: Positive: Atraumatic Neck Exam: Positive: Supple Chest Exam: Positive: Diminished Heart Exam: Positive: Bradycardic, Regular Rhythm Abdomen Exam: Positive: Normal bowel sounds, Soft; Negative: Tenderness Extremity Exam: Negative: Edema Neuro Exam: Positive: Normal Speech, Cranial Nerves 3-12 NL Psych Exam: Positive: Anxiety Laboratory Data Labs 24H Laboratory Tests 2 12/09/20 18:33: Immature Granulocyte % (Auto) 0.2, Neutrophils (%) (Auto) 45.2, Lymphocytes (%) (Auto) 39.0, Monocytes (%) (Auto) 8.8H, Eosinophils (%) (Auto) 4.6H, Basophils (%) (Auto) 2.2H, Neutrophils # (Auto) 2.7, Lymphocytes # (Auto) 2.4, Monocytes # (Auto) 0.5, Eosinophils # (Auto) 0.3, Basophils # (Auto) 0.1, Nucleated Red Blood Cells % (auto) 0.0 CBC/BMP Laboratory Tests 12/09/20 18:33 Assessment/Plan Mrs. 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 She was receiving bamlanivimab today but developed a adverse reaction. She became hypotensive and unresponsive. When she came to, she felt a strange sensation in her chest and her breathing felt heavy. She was given Benadryl, Solu-Medrol, and IV fluids. She is feeling better and is being monitored in the ICU. We will repeat her lab work and obtain troponins and EKG Plan / VTE VTE Prophylaxis Ordered?: Yes Plan Plan 1. Anaphylactic reaction to monoclonal antibody Patient became hypotensive and unresponsive Responded to Benadryl, slightly measured, and IV fluids Repeat lab work demonstrates an elevation of eosinophils from 2.6% to 4.6% Continue monitoring overnight and supportive care 2. Atypical chest pain Reports a strain sensation substernally, would not call it pain Has associated heavy breathing We'll obtain EKG and cardiac markers tonight 3. Sinus bradycardia Unsure if this is baseline While in the ED her heart rate initially started in the 70s but taper down into the high 50s Monitor on telemetry 4. COVID 19 positive Chest x-ray in ED did not suggest pneumonia Patient is not hypoxic Patient had allergy reaction to monoclonal antibodies Supportive care 5. GERD Continue omeprazole 6. Overactive bladder Continue oxybutynin 7. DVT prophylaxis Enoxaparin BRIDGETT LONG DO Dec 09, 2020 19:27
[2020-12-09 19:31] LABS: CK-MB VALUE MASS < 1.0 NG/ML (<3.6); CPK CREATINE PHOSPHOKINASE 64 U/L (26-192); MB/CK RELATIVE INDEX 1.56 (< OR =4); TROPONIN I < 0.02 NG/ML (< 0.10)
[2020-12-09 19:35] LABS: ALBUMIN 3.1 GM/DL (3.2-5.2); ALT/SGPT 18 U/L (12-78); BILIRUBIN,DIRECT < 0.1 MG/DL (0.0-0.2); BILIRUBIN,TOTAL 0.1 MG/DL (0.2-1.0); BLOOD UREA NITROGEN 11 MG/DL (7-18); CARBON DIOXIDE LEVEL 23 MEQ/L (21-32); CHLORIDE LEVEL 114 MEQ/L (98-107); CK-MB VALUE MASS < 1.0 NG/ML (<3.6); CPK CREATINE PHOSPHOKINASE 63 U/L (26-192); CREATININE FOR GFR 0.54 MG/DL (0.55-1.30); FERRITIN 6 NG/ML (8-252); GLOMERULAR FILTRATION RATE > 60.0 (>58); GLUCOSE, FASTING 92 MG/DL (70-100); LDH LACTATE DEHYDROGENASE 123 U/L (84-246); MB/CK RELATIVE INDEX 1.59 (< OR =4); NT-PRO BNP 119 PG/ML (<125); POTASSIUM SERUM 3.8 MEQ/L (3.5-5.1); SODIUM LEVEL 143 MEQ/L (136-145); TOTAL PROTEIN 5.8 GM/DL (6.4-8.2); TROPONIN I < 0.02 NG/ML (< 0.10)
[2020-12-09 20:00] VITALS: BP 101/55; O2SAT 97
[2020-12-09] MEDS: MIRALAX *UNIT DOSE* 17GM PACKET PO SCH (21:04)
[2020-12-09] MEDS: OMEPRAZOLE 20 MG CAP PO SCH (21:04)
[2020-12-10] VITALS: BP 103/55; O2SAT 99
[2020-12-10 02:00] VITALS: BP 94/55
[2020-12-10 04:27] VITALS: BP 83/44
[2020-12-10] MEDS ORDERED: NS 500 ML IV ONE (04:35)
[2020-12-10 05:35] VITALS: BP 95/57
[2020-12-10 07:44] LABS: BASO % 0.4 % (0.0-1.0); EOS % 0.1 % (0.0-3.0); HEMATOCRIT 35.7 % (36.0-47.0); HEMOGLOBIN 11.8 g/dl (12.0-15.5); LYMPH # 2.6 10^3/uL (1.5-5.0); LYMPH % 26.3 % (24.0-44.0); MEAN CORPUSCULAR HEMOGLOBIN 28.4 pg (27.0-33.0); MEAN CORPUSCULAR HGB CONC 33.1 g/dl (32.0-36.5); MEAN CORPUSCULAR VOLUME 85.8 fl (80.0-96.0); MONO # 0.7 10^3/uL (0.0-0.8); MONO % 6.9 % (2.0-8.0); NEUTROPHILS # 6.6 10^3/uL (1.5-8.5); NEUTROPHILS % 65.9 % (36.0-66.0); PLATELET COUNT, AUTOMATED 295 10^3/uL (150-450); RED BLOOD COUNT 4.16 10^6/uL (4.00-5.40); WHITE BLOOD COUNT 9.9 10^3/uL (4.0-10.0)
[2020-12-10 08:00] VITALS: BP 95/51
[2020-12-10 08:21] LABS: ALBUMIN 3.3 GM/DL (3.2-5.2); ALT/SGPT 20 U/L (12-78); BILIRUBIN,TOTAL 0.1 MG/DL (0.2-1.0); BLOOD UREA NITROGEN 11 MG/DL (7-18); CALCIUM LEVEL 8.7 MG/DL (8.5-10.1); CARBON DIOXIDE LEVEL 22 MEQ/L (21-32); CHLORIDE LEVEL 112 MEQ/L (98-107); CREATININE FOR GFR 0.47 MG/DL (0.55-1.30); GLOMERULAR FILTRATION RATE > 60.0 (>58); GLUCOSE, FASTING 122 MG/DL (70-100); MAGNESIUM LEVEL 1.9 MG/DL (1.8-2.4); POTASSIUM SERUM 4.1 MEQ/L (3.5-5.1); SODIUM LEVEL 140 MEQ/L (136-145); TOTAL PROTEIN 6.3 GM/DL (6.4-8.2)
[2020-12-10] MEDS ORDERED: ENOXAPARIN 40MG/0.4ML SYRINGE (J1650 PER 10MG) SC SCH (09:00)
[2020-12-10] MEDS ORDERED: oxyBUTYnin *DITROPAN XL* 5 MG TABCR PO SCH (09:00)
[2020-12-10] MEDS: MIRALAX *UNIT DOSE* 17GM PACKET PO SCH (09:04)
[2020-12-10] MEDS: OMEPRAZOLE 20 MG CAP PO SCH (09:04)
--- NOTE | 2020-12-10 11:40 | DS.PDOC ---
Discharge Summary General Date of Admission Dec 09, 2020 at 17:25 Date of Discharge 12/10/2020 Discharge Summary PROCEDURES PERFORMED DURING STAY: [None]. ADMITTING DIAGNOSES / DISCHARGE DIAGNOSES: Allergic reaction - possibly 2/2 monoclonal antibody Atypical chest pain Sinus bradycardia COVID 19 positive Overactive bladder GERD DVT prophylaxis COMPLICATIONS/CHIEF COMPLAINT: Allergic reaction / Syncope HISTORY OF PRESENT ILLNESS: Mrs. 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 She had reported that people at work have been testing positive for COVID. 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 Her property supervisor tested positive for COVID. She called the COVID Hotline, and they recommended she make an appointment for to be tested. On 12/09, she was not feeling well and had dyspnea and chest tightness as well as a cough. At 11 AM she went to the ED to be tested and she tested positive. She called her roommate who went to urgent care and the roommate also tested positive. She tells me that there are 3 additional people she has to reach out to as well. Patient was evaluated by hospital service and started on monoclonal antibody therapy. During her transfusion, she developed a reaction. Patient felt unwell and became hypotensive and unresponsive. A MAX CART was called. Patient's blood pressure was initially in the 80s / 50s. Patient was given a normal saline bolus, IV Benadryl, and IV Solu Medrol. Patient started to feel better. She said she started to develop a change sensation substernally. She also reported that her breathing felt heavy. She is put on 2 L nasal cannula and was maintained saturations 100%. Patient was kept inpatient under observation status given her suspected allergic reaction. HOSPITAL COURSE: Allergic reaction - possibly 2/2 monoclonal antibody - Patient had reported hypotension and became unresponsive after 30 mL of monoclonal antibody infusion was started - Currently patient is asymptomatic - No respiratory difficulty, saturating well on room air, and normotensive - s/p Benadryl, Solumedrol and IV fluids Atypical chest pain - Currently patient denies any chest pain - EKG reviewed - Troponin trend 3 is negative - Will have outpatient follow-up with primary care provider within the next 7 days Sinus bradycardia - Review of medical record indicates the patient's heart rate has remained in the 50s and 60s in the past - Patient is currently asymptomatic COVID 19 positive - Reports a mild cough without any significant shortness of breath - Saturating well on room air - Imaging without any evidence of pneumonia - Will continue with supportive care - Will provide incentive spirometer and a cappella on discharge Overactive bladder - c/w Oxybutynin GERD - c/w Omeprazole DVT prophylaxis - c/w Enoxaparin DISCHARGE MEDICATIONS: Please see below. ALLERGIES: Please see below. PHYSICAL EXAMINATION ON DISCHARGE: Vitals (See below) General: Sitting up in bed, appears to be comfortable, is awake, alert and oriented to person, place and time HEENT: NC, AT CVS: +S1S2 Lungs: Fair air entry b/l, no appreciable wheezing, rhonchi or rales Abdomen: Soft, ND, NT Extremities: - Edema, - Calf tenderness LABORATORY DATA: Please see below. IMAGING: CXR 12/09: NO ACUTE PULMONARY DISEASE. ACTIVITY: [As tolerated]. DISCHARGE PLAN: Follow-up with primary care provider within the next 7 days Remain compliant with treatment plan and medications Return to the ER if you experience any problems DISPOSITION: Home with services DISCHARGE CONDITION: [Stable]. TIME SPENT ON DISCHARGE: 20 minutes Vital Signs/I&Os Vital Signs Date Time Temp Pulse Resp B/P (MAP) Pulse Ox O2 Delivery O2 Flow Rate FiO2 12/10/20 08:00 96.9 61 20 95/51 (66) 97 Room Air I&O- Last 24 Hours up to 6 AM 12/10/20 06:00 Intake Total 820 ml Output Total 1900 ml Balance -1080 ml Laboratory Data Labs 24H Laboratory Tests 2 12/09/20 18:33: Immature Granulocyte % (Auto) 0.2, Neutrophils (%) (Auto) 45.2, Lymphocytes (%) (Auto) 39.0, Monocytes (%) (Auto) 8.8H, Eosinophils (%) (Auto) 4.6H, Basophils (%) (Auto) 2.2H, Neutrophils # (Auto) 2.7, Lymphocytes # (Auto) 2.4, Monocytes # (Auto) 0.5, Eosinophils # (Auto) 0.3, Basophils # (Auto) 0.1, Nucleated Red Blood Cells % (auto) 0.0, Prothrombin Time 15.3H, Prothromb Time International Ratio 1.18, Activated Partial Thromboplast Time 31.4, Fibrinogen 276, D-Dimer, Quantitative 330.21, Anion Gap 6L, Glomerular Filtration Rate > 60.0, Calcium Level 8.0L, Magnesium Level 2.0, Ferritin 6L, Total Bilirubin 0.1L, Direct Bilirubin < 0.1, Aspartate Amino Transf (AST/SGOT) 9, Alanine Aminotransferase (ALT/SGPT) 18, Alkaline Phosphatase 63, Lactate Dehydrogenase 123, Total Creatine Kinase 64, Creatine Kinase MB < 1.0, Creatine Kinase MB Relative Index 1.56, Troponin I < 0.02, C-Reactive Protein, Quantitative 0.30, CE-Fgu-H-Type Natriuretic Peptide 119, Total Protein 5.8L, Albumin 3.1L, Albumin/Globulin Ratio 1.1L, Procalcitonin <0.05 12/10/20 07:22: Immature Granulocyte % (Auto) 0.4, Neutrophils (%) (Auto) 65.9, Lymphocytes (%) (Auto) 26.3, Monocytes (%) (Auto) 6.9, Eosinophils (%) (Auto) 0.1, Basophils (%) (Auto) 0.4, Neutrophils # (Auto) 6.6, Lymphocytes # (Auto) 2.6, Monocytes # (Auto) 0.7, Eosinophils # (Auto) 0.0, Basophils # (Auto) 0.0, Nucleated Red Blood Cells % (auto) 0.0, Anion Gap 6L, Glomerular Filtration Rate > 60.0, Calcium Level 8.7, Magnesium Level 1.9, Total Bilirubin 0.1L, Aspartate Amino Transf (AST/SGOT) 10, Alanine Aminotransferase (ALT/SGPT) 20, Alkaline Phosphatase 67, Total Protein 6.3L, Albumin 3.3, Albumin/Globulin Ratio 1.1L 12/10/20 07:23: Troponin I < 0.02 CBC/BMP Laboratory Tests 12/09/20 18:33 12/10/20 07:22 Discharge Medications Scheduled Ergocalciferol (Vitamin D2) (Vitamin D2) 50,000 Units Cap, 50,000 UNITS PO QWEEK, (Reported) SATURDAYS Omeprazole (Omeprazole) 40 Mg Cap, 40 MG PO BID, (Reported) Oxybutynin Chloride (Oxybutynin Chloride ER) 5 Mg Tab, 5 MG PO DAILY, (Reported) Polyethylene Glycol 3350 (Miralax) 1 Pow Pow, 17 GM PO BID, (Reported) Scheduled PRN Lactulose (Lactulose) 10 Gm/15 Ml Solution, 30 ML PO DAILY PRN for CONSTIPATION, (Reported) Naproxen (Naproxen) 500 Mg Tablet, 500 MG PO BIDP PRN for PAIN, (Reported) Allergies Coded Allergies: albuterol (Verified Allergy, Severe, 12/09/20) anaphylaxis bamlanivimab (Verified Allergy, Severe, BECAME UNRESPONSIVE DURING INITIAL INFUSION, 12/09/20) morphine (Verified Allergy, Severe, 12/09/20) anaphylaxis Sulfa (Sulfonamide Antibiotics) (Verified Allergy, Intermediate, 12/09/20) hives TAPE (Verified Allergy, Intermediate, red/itchy, 09/18/19) latex (Verified Allergy, Intermediate, redness, 09/18/19) oxycodone (Verified Allergy, Intermediate, hives, 09/18/19) YANNICK DUNCAN MD Dec 10, 2020 11:39
--- NOTE | 2020-12-11 00:47 | ECGEPIP ---
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
== END 2020-12-10 13:21 | disposition home health service (06) ==
LOC: M ICU 17:25 → M 4MAIN 12-10 01:51
PROVIDERS: ADMIT Internal Medicine; ATTEND Internal Medicine
DX: T78.40XA Allergy, unspecified, initial encounter (principal); U07.1 COVID-19; N32.81 Overactive bladder; K21.9 Gastro-esophageal reflux disease without esophagitis; Z79.899 Other long term (current) drug therapy; Z88.5 Allergy status to narcotic agent; Z88.2 Allergy status to sulfonamides; Z88.8 Allergy status to other drugs, medicaments and biological substances; Z91.040 Latex allergy status
CPT/HCPCS: 36415; 80048; 80053; 80076; 82550; 82553; 82728; 83615; 83735; 83880; 84145; 84484; 85025; 85379; 85384; 85610; 85730; 86140; 93005; 96360; 96372; 97161; J1650

== ENCOUNTER 2020-12-13 17:43 | Observation (INO) | payer OTHER ==
[~2020-12-13] VITALS: Ht 165.1 cm; Wt 69.5 kg
[2020-12-13] MEDS ORDERED: ACET500T15 PO (18:14)
[2020-12-13] MEDS ORDERED: ISOVUE-370 76% 100ML VIAL As Ordered ONE (18:23)
[2020-12-13 18:47] LABS: BASO # 0.1 10^3/uL (0.0-0.2); BASO % 1.1 % (0.0-1.0); EOS # 0.2 10^3/uL (0.0-0.5); EOS % 2.8 % (0.0-3.0); HEMATOCRIT 41.8 % (36.0-47.0); HEMOGLOBIN 13.4 g/dl (12.0-15.5); LYMPH # 4.3 10^3/uL (1.5-5.0); LYMPH % 56.9 % (24.0-44.0); MEAN CORPUSCULAR HGB CONC 32.1 g/dl (32.0-36.5); MEAN CORPUSCULAR VOLUME 84.3 fl (80.0-96.0); MONO # 0.5 10^3/uL (0.0-0.8); MONO % 6.6 % (2.0-8.0); NEUTROPHILS # 2.4 10^3/uL (1.5-8.5); NEUTROPHILS % 32.5 % (36.0-66.0); PLATELET COUNT, AUTOMATED 346 10^3/uL (150-450); RED BLOOD COUNT 4.96 10^6/uL (4.00-5.40); WHITE BLOOD COUNT 7.5 10^3/uL (4.0-10.0)
--- NOTE | 2020-12-13 18:54 | REP ---
INDICATION: Coronavirus workup. COMPARISON: 12/09/2020. TECHNIQUE: SINGLE PORTABLE AP VIEW OF THE CHEST WAS PERFORMED. FINDINGS: THERE IS NO ACUTE INFILTRATE OR PULMONARY EDEMA. LUNGS ARE CLEAR. HEART IS NOT SIGNIFICANTLY ENLARGED. MEDIASTINAL SILHOUETTE IS UNREMARKABLE. THE VISUALIZED OSSEOUS STRUCTURES ARE INTACT. IMPRESSION: NO ACUTE PULMONARY DISEASE. <Electronically signed by Chan Honeycutt > 12/13/20 [id number]
[2020-12-13 19:03] LABS: INR 1.06
[2020-12-13 19:05] LABS: PARTIAL THROMBOPLASTIN TIME 29.9 SECONDS (24.2-38.5)
[2020-12-13 19:07] LABS: D-DIMER QUANT 507.35 ng/ml (<500)
[2020-12-13 19:25] LABS: C REACTIVE PROTEIN QUANTITATIV < 0.30 MG/DL (0.00-0.30); CK-MB VALUE MASS < 1.0 NG/ML (<3.6); CPK CREATINE PHOSPHOKINASE 77 U/L (26-192); FERRITIN 8 NG/ML (8-252); MAGNESIUM LEVEL 1.9 MG/DL (1.8-2.4); TROPONIN I < 0.02 NG/ML (< 0.10)
[2020-12-13 19:26] LABS: LDH LACTATE DEHYDROGENASE 265 U/L (84-246)
[2020-12-13] MEDS ORDERED: NS 500 ML IV ONE (20:15)
[2020-12-13] MEDS ORDERED: fentaNYL 100 MCG/2 ML INJECTION (J3010) IV ONE (20:15)
--- NOTE | 2020-12-13 20:20 | REPVR ---
PROCEDURE INFORMATION: Exam: CT Angiography Chest With Contrast Exam date and time: 12/13/2020 7:40 PM Age: 50 years old Clinical indication: Shortness of breath; Additional info: R/O pe TECHNIQUE: Imaging protocol: Computed tomographic angiography of the chest with contrast. 3D rendering (Not supervised by radiologist): MIP and/or 3D reconstructed images were created by the technologist. Radiation optimization: All CT scans at this facility use at least one of these dose optimization techniques: automated exposure control; mA and/or kV adjustment per patient size (includes targeted exams where dose is matched to clinical indication); or iterative reconstruction. Contrast material: ISOVUE 370; Contrast volume: 75 ml; Contrast route: INTRAVENOUS (IV); COMPARISON: 1. CT ANGIO CHEST 09/01/2020 11:[address] ABD/PEL W/IV ORAL CONTRAST 01/14/2018 8:24:23 PM FINDINGS: Pulmonary arteries: No pulmonary embolism. Aorta: The thoracic aorta is intact and patent. There is no thoracic aortic aneurysm, pseudoaneurysm, penetrating atherosclerotic ulcer, intramural hematoma, or dissection. Great vessels off aortic arch: The brachiocephalic artery, imaged proximal portions of the common carotid arteries, imaged proximal portions of the vertebral arteries, and subclavian arteries are intact. No stenosis or occlusion of these vessels is noted. Thyroid: There is a 6 mm nodule in the midpole of the left lobe of the thyroid gland, which is not evident in the CTA chest on 09/01/2020 (image 30 of the coronal series 403). Trachea: Normal. Bronchial tree: Normal. Lungs: There are centrilobular emphysematous changes, predominantly in the upper lobes. There is mild dependent atelectasis in both lower lobes. The lungs are otherwise clear. No ground-glass opacities, lung consolidations, or masses are noted. Pleural spaces: Normal. No pneumothorax or pleural effusion. Heart: No cardiomegaly or pericardial effusion. The ratio of the diameter of the right ventricle to the diameter of the left ventricle measures less than 1, which is within normal limits and there is no CT evidence for a right ventricular strain. Mediastinal space: Suture material is noted at the gastroesophageal junction. No mediastinal fluid collection or pneumomediastinum is noted. Lymph nodes: No enlarged lymph nodes. Spleen: There are splenules in the left upper quadrant of the abdomen. Adrenal glands: There is a 3 cm left adrenal nodule that measures 9 Hounsfield units and is compatible with a benign adrenal adenoma that is stable compared to the prior CTA chest on 09/01/[address] abdomen and pelvis on 01/14/2018 and for which further imaging follow-up is not recommended. The right adrenal gland is normal. Bones/joints: There is no fracture or dislocation. No suspicious osteolytic or osteoblastic lesion. There are degenerative changes involving the thoracic spine. Soft tissues: Unremarkable. No soft tissue fluid collection. IMPRESSION: 1. No acute findings in the chest. No pulmonary embolism. 2. No CT findings present to indicate pneumonia. (Note: CT may be negative in the early stages of COVID-19.) (Reference: Sher) 3. 6 mm nodule in the left lobe of the thyroid gland. See management guidelines below. COMMENTS: 1. Consistent with the [employer]'s Incidental Findings Committee white paper (J Am Demario Radiol 2015): In patients aged 35 years and older with an incidental thyroid nodule equal to or greater than 1.[address], MRI or extrathyroidal US, further evaluation with dedicated thyroid US is recommended for patients with normal life expectancy and without comorbidities. For smaller nodules without suspicious features, no further evaluation or follow up is recommended. 2. Consistent with the [employer]'s Incidental Findings Committee white paper (J Am Demario Radiol 2017): Any incidental adrenal lesion less than or equal to 1 cm is likely benign. No follow-up imaging is recommended for these lesions per consensus recommendations based on imaging criteria. Further lab evaluation could be pursued if warranted based on clinical findings. REFERENCES: hSer Coles, et al., Radiological Society of [place] Expert Consensus Statement on Reporting Chest CT Findings Related to COVID-19. Endorsed by the Society of Thoracic Radiology, the [employer], and RSNA. Published January 08, 2020. Electronically signed by: Marcus Mejia On 12/13/2020 20:20:56 PM
[2020-12-13] MEDS ORDERED: methylPREDNISolone 125MG 2ML VIAL IV STA (21:28)
[2020-12-13] MEDS ORDERED: MAALOX 30 ML SUSP *UDC PO PRN (21:30)
[2020-12-13] MEDS ORDERED: ACETAMINOPHEN TAB 650MG DOSE (2X325MG) PO PRN (21:30)
[2020-12-13] MEDS ORDERED: MOM 30ML SUSPENSION UDC PO PRN (21:30)
[2020-12-13] MEDS ORDERED: NS 1,000 ML IV ONE (22:45)
--- NOTE | 2020-12-13 22:50 | HPEPDOC ---
[facility] Medical History & Physical Date of Admission Dec 13, 2020 Date of Service: Dec 13, 2020 Other Provider Abdi Quach MD Attending Physician: JD HI MD History and Physical TIME OF SERVICE: 1015pm CHIEF COMPLAINT: chest pain HISTORY OF PRESENT ILLNESS: This 50 yr old F was diagnosed w COVID 19 on Dec 09 and was partially treated with bamlanivimab infusion which was discontinued early because of she developed anaphylaxis & loss of consciousness; she was admitted to the ICU overnight; during that admission she also c/o atypical chest pain but the trops were wnl and dyspnea and was started on 2L via NC which she was sent home with. Today she returned w c/o 8/10 in severity mid-anterior chest pain and dyspnea; she continues to smoke. REVIEW OF SYSTEMS: 12-point review of systems negative except as listed in HPI PAST MEDICAL/ SURGICAL HISTORY: Celiac disease complicated by peripheral neuropathy IBS-D? 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 HOME MEDICATIONS: Please see below. PHYSICAL EXAMINATION: Vital Signs Date Time Temp Pulse Resp B/P (MAP) Pulse Ox O2 Delivery O2 Flow Rate FiO2 12/13/20 17:45 97.3 75 18 116/71 (86) 97 Room Air 12/13/20 19:14 2.0 GENERAL APPEARANCE: well nourished & developed / NAD HEENT: NC in place CARDIOVASCULAR: bradycardic / NMRG/ no LE edema LUNGS: able to speak full sentences w/o taking a break / not using accessory muscles / lungs are CTAB MUSCULOSKELETAL: JACKSON x 4 NEUROLOGICAL: CN 2-12 intact / speech not dysarthric PSYCHIATRIC: A&Ox 3/ able to understand and follow all commands LABORATORY DATA: 12/13/20 18:35 12/13/20 18:14: POC Glucose (Misc Panel) 86, POC Sodium (Misc Panel) 138, POC Potassium (Misc Panel) 3.9, POC Chloride (Misc Panel) 104, POC Total CO2 (Misc Panel) 21.0L, POC Blood Urea Nitrogen (Misc Panel 6L, POC Ionized Calcium (Misc Panel) 4.9, POC Creatinine (Misc Panel) 0.4L, POC Hematocrit (Misc Panel) 43.0 12/13/20 18:35: Immature Granulocyte % (Auto) 0.1, Neutrophils (%) (Auto) 32.5L, Lymphocytes (%) (Auto) 56.9H, Monocytes (%) (Auto) 6.6, Eosinophils (%) (Auto) 2.8, Basophils (%) (Auto) 1.1H, Neutrophils # (Auto) 2.4, Lymphocytes # (Auto) 4.3, Monocytes # (Auto) 0.5, Eosinophils # (Auto) 0.2, Basophils # (Auto) 0.1, Nucleated Red Blood Cells % (auto) 0.0, Prothrombin Time 14.0, Prothromb Time International Ratio 1.06, Activated Partial Thromboplast Time 29.9, Fibrinogen 356, D-Dimer, Quantitative 507.35H, Magnesium Level 1.9, Ferritin 8, Lactate Dehydrogenase 265H, Total Creatine Kinase 77, Creatine Kinase MB < 1.0, Creatine Kinase MB Relative Index 1.30, Troponin I < 0.02, C-Reactive Protein, Quantitative < 0.30 12/13/20 18:36: Lactic Acid Level 0.9 IMAGING: CTA chest IMPRESSION: 1. No acute findings in the chest. No pulmonary embolism. 2. No CT findings present to indicate pneumonia. (Note: CT may be negative in the early stages of COVID-19.) (Reference: Sher) 3. 6 mm nodule in the left lobe of the thyroid gland. See management guidelines below. MICROBIOLOGY: COVID 19 + Dec 09 ASSESSMENT: is a 50 yr old smoker w a hx of Celiac dz w peripheral neuropathy, IBS- C, Barrets, Immunosuppression post splenectomy & COVID 19 diagnosis 4 days ago who returned w c/o chest pain and persistent dyspnea. PLAN: 1 Chest pain and dyspnea likely due to acute COPD 2/2 COVID & smoking Thought she doesnt have a formal diagnosis of COPD, CT of the chest confirmed the presence of centrilobar emphysematous changes in the upper lobes Plan: admit to medical floor / supplemental O2 / continuous pulse oximetry / aspiration precautions / she cant have DuoNeb or Albuterol bc she is allergic to them / Solumedrol now then switch to Prednisone + PPI 2 COVID 19 Plan: continuous pulse ox / supplemental O2 up to 3L with target O2 sats between 92-95% / contact & air borne precautions / she is on steroids for presumed acute COPD as well / will not give Remdisivir bc she has multiple allergies and I would like to avoid precipitiating another acute event this admission 3 Chronic bradycardia Noted on previous admission Plan: telemetry 4 Low BP Based on chart review her baseline SBP appears to be in the low 100s to 90s 5 small thyroid nodule No additional imaging indicated 6 IBS-C? Lactulose 7 Tobacco abuse Smoking cessation education / she declined a nicotine patch DVT px w Lovoenox and ASA Dispo: home after at least 2 midnights stay Home Medications Scheduled Ergocalciferol (Vitamin D2) (Vitamin D2) 50,000 Units Cap, 50,000 UNITS PO QWEEK SATURDAYS Omeprazole (Omeprazole) 40 Mg Cap, 40 MG PO BID Oxybutynin Chloride (Oxybutynin Chloride ER) 5 Mg Tab, 5 MG PO DAILY Polyethylene Glycol 3350 (Miralax) 1 Pow Pow, 17 GM PO BID Scheduled PRN Acetaminophen (Acetaminophen) 500 Mg Tablet, 1,000 MG PO Q6H PRN for PAIN OR DYSPNEA Lactulose (Lactulose) 10 Gm/15 Ml Solution, 30 ML PO DAILY PRN for CONSTIPATION Naproxen (Naproxen) 500 Mg Tablet, 500 MG PO BIDP PRN for PAIN Allergies Coded Allergies: albuterol (Verified Allergy, Severe, 12/09/20) anaphylaxis bamlanivimab (Verified Allergy, Severe, BECAME UNRESPONSIVE DURING INITIAL INFUSION, 12/09/20) morphine (Verified Allergy, Severe, 12/09/20) anaphylaxis Sulfa (Sulfonamide Antibiotics) (Verified Allergy, Intermediate, 12/09/20) hives TAPE (Verified Allergy, Intermediate, red/itchy, 09/18/19) latex (Verified Allergy, Intermediate, redness, 09/18/19) oxycodone (Verified Allergy, Intermediate, hives, 09/18/19) A-FIB/CHADSVASC A-FIB History Current/History of A-Fib/PAF?: No Current PO Anticoag Therapy: JD Lock MD Dec 13, 2020 22:50
[2020-12-13 23:00] VITALS: BP 102/54
[2020-12-13] MEDS: OMEPRAZOLE 20 MG CAP PO SCH (23:54)
[2020-12-13] MEDS: MIRALAX *UNIT DOSE* 17GM PACKET PO SCH (23:54)
[2020-12-14 04:00] VITALS: BP 89/50
[2020-12-14] MEDS ORDERED: NS 1,000 ML IV ONE (05:40)
[2020-12-14 07:14] LABS: BASO % 0.2 % (0.0-1.0); HEMATOCRIT 37.5 % (36.0-47.0); HEMOGLOBIN 11.9 g/dl (12.0-15.5); LYMPH # 1.4 10^3/uL (1.5-5.0); LYMPH % 24.7 % (24.0-44.0); MEAN CORPUSCULAR HEMOGLOBIN 27.4 pg (27.0-33.0); MEAN CORPUSCULAR HGB CONC 31.7 g/dl (32.0-36.5); MEAN CORPUSCULAR VOLUME 86.4 fl (80.0-96.0); MONO # 0.1 10^3/uL (0.0-0.8); MONO % 1.6 % (2.0-8.0); NEUTROPHILS # 4.2 10^3/uL (1.5-8.5); PLATELET COUNT, AUTOMATED 296 10^3/uL (150-450); RED BLOOD COUNT 4.34 10^6/uL (4.00-5.40); WHITE BLOOD COUNT 5.7 10^3/uL (4.0-10.0)
[2020-12-14 07:29] LABS: FIBRINOGEN 286 MG/DL (221-452)
[2020-12-14 07:37] LABS: BLOOD UREA NITROGEN 8 MG/DL (7-18); CALCIUM LEVEL 8.5 MG/DL (8.5-10.1); CARBON DIOXIDE LEVEL 22 MEQ/L (21-32); CHLORIDE LEVEL 109 MEQ/L (98-107); GLOMERULAR FILTRATION RATE > 60.0 (>58); GLUCOSE, FASTING 168 MG/DL (70-100); MAGNESIUM LEVEL 1.8 MG/DL (1.8-2.4); POTASSIUM SERUM 4.3 MEQ/L (3.5-5.1); SODIUM LEVEL 138 MEQ/L (136-145)
[2020-12-14 07:43] VITALS: BP 99/59
[2020-12-14 07:47] LABS: D-DIMER QUANT < 270 ng/ml (<500)
--- NOTE | 2020-12-14 07:48 | ECGEPIP ---
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
[2020-12-14 07:56] LABS: CK-MB VALUE MASS < 1.0 NG/ML (<3.6); CPK CREATINE PHOSPHOKINASE 38 U/L (26-192); FERRITIN 9 NG/ML (8-252); MB/CK RELATIVE INDEX 2.63 (< OR =4); TROPONIN I < 0.02 NG/ML (< 0.10)
[2020-12-14] MEDS ORDERED: KETOROLAC TROMETHAMINE 10 MG TAB PO PRN (08:25)
[2020-12-14] MEDS: LACTULOSE 20 GM/30 ML SYRUP UD PO SCH ×2 (09:00→09:10)
[2020-12-14] MEDS ORDERED: ASPIRIN 81MG ENTERIC TABLET PO SCH (09:00)
[2020-12-14] MEDS ORDERED: INFLUENZA QUADRIVALENT PF VACCINE 0.5ML SYRINGE IM ONE (09:00)
[2020-12-14] MEDS ORDERED: ENOXAPARIN 40MG/0.4ML SYRINGE (J1650 PER 10MG) SC SCH (09:00)
[2020-12-14] MEDS ORDERED: oxyBUTYnin *DITROPAN XL* 5 MG TABCR PO SCH (09:00)
[2020-12-14] MEDS ORDERED: PANTOPRAZOLE 40MG TAB (PROTONIX) PO SCH (09:00)
[2020-12-14] MEDS ORDERED: predniSONE 20 MG TAB PO SCH (09:00)
[2020-12-14] MEDS: MIRALAX *UNIT DOSE* 17GM PACKET PO SCH (09:11)
[2020-12-14] MEDS: OMEPRAZOLE 20 MG CAP PO SCH (09:12)
[2020-12-14] MEDS ORDERED: ASPI-569 PO (10:54)
[2020-12-14] MEDS ORDERED: PRED10TA2 PO (10:54)
[2020-12-14 12:00] VITALS: BP 101/62
--- NOTE | 2020-12-14 13:18 | DS.PDOC ---
Discharge Summary General Date of Admission Dec 13, 2020 at 21:28 Date of Discharge 12/14/2020 Discharge Summary PROCEDURES PERFORMED DURING STAY: [None]. ADMITTING DIAGNOSES / DISCHARGE DIAGNOSES: s/p Chest pain - unlikely 2/2 cardiac etiology, possibly 2/2 pulmonary etiology, possibly 2/2 musculoskeletal etiology COVID-19 Chronic asymptomatic bradycardia Chronic hypotension Small thyroid nodule IBS-C? Tobacco abuse DVT prophylaxis COMPLICATIONS/CHIEF COMPLAINT: Shortness of breath HISTORY OF PRESENT ILLNESS: Patient is a 50-year-old female with a diagnosis of COVID-19 on 12/09. Was started on Modicon oral antibody infusion but developed an allergic reaction was kept on observation and was subsequently discharged to the next day. Patient presented to the ER on 12/13, because of chest pain. Patient was admitted to hospital service for further evaluation and treatment. HOSPITAL COURSE: s/p Chest pain - unlikely 2/2 cardiac etiology, possibly 2/2 pulmonary etiology, possibly 2/2 musculoskeletal etiology - Currently patient reports right lateral chest discomfort that has improved - She reports the pain is worse with movement - Imaging below - c/w inhaled therapy as ordered - c/w Prednisone; will continue with taper on discharge COVID-19 - Patient is currently on room air this morning while working with physical therapy - COVID19 positive on 12/09 - Inflammatory markers are not elevated - Imaging below - c/w Prednisone - c/w incentive spirometry / acapella / Mucinex Chronic asymptomatic bradycardia - Patient was bradycardic while sleeping Chronic hypotension - Baseline SBP appears to be in the low 100s to 90s - Patient has cleared PT - Will have outpatient follow up with Dr. Pruitt (Endocrinology) Small thyroid nodule - No additional imaging indicated IBS-C? - c/w Lactulose PRN Tobacco abuse - Advise smoking cessation education DVT prophylaxis - c/w Lovenox DISCHARGE MEDICATIONS: Please see below. ALLERGIES: Please see below. PHYSICAL EXAMINATION ON DISCHARGE: Vitals (See below) General: Lying in bed, appears comfortable, AAOx3 HEENT: NC, AT CVS: +S1S2 Lungs: Fair air entry b/l, no visual wheezing, rhonchi or rales Abdomen: Soft, ND, NT Extremities: - Edema, - Calf tenderness LABORATORY DATA: Please see below. IMAGING: CXR 12/13: NO ACUTE PULMONARY DISEASE. CT angio chest 12/13: 1. No acute findings in the chest. No pulmonary embolism. 2. No CT findings present to indicate pneumonia. (Note: CT may be negative in the early stages of COVID-19.) (Reference: Sher) 3. 6 mm nodule in the left lobe of the thyroid gland. See management guidelines below. ACTIVITY: [As tolerated]. DISCHARGE PLAN: Follow-up with primary care provider within the next 7 days Follow up with endocrinology within the next 7 days Remain compliant with treatment plan and medications Return to the ER if you experience any problems DISPOSITION: Home with services DISCHARGE CONDITION: [Stable]. TIME SPENT ON DISCHARGE: 35 minutes Vital Signs/I&Os Vital Signs Date Time Temp Pulse Resp B/P (MAP) Pulse Ox O2 Delivery O2 Flow Rate FiO2 12/14/20 07:43 97.9 71 18 99/59 (72) 90 Nasal Cannula 3.0 I&O- Last 24 Hours up to 6 AM 12/14/20 06:00 Intake Total 500 ml Output Total 0 ml Balance 500 ml Laboratory Data Labs 24H Laboratory Tests 2 12/13/20 18:14: POC Glucose (Misc Panel) 86, POC Sodium (Misc Panel) 138, POC Potassium (Misc Panel) 3.9, POC Chloride (Misc Panel) 104, POC Total CO2 (Misc Panel) 21.0L, POC Blood Urea Nitrogen (Misc Panel 6L, POC Ionized Calcium (Misc Panel) 4.9, POC Creatinine (Misc Panel) 0.4L, POC Hematocrit (Misc Panel) 43.0 12/13/20 18:35: Immature Granulocyte % (Auto) 0.1, Neutrophils (%) (Auto) 32.5L, Lymphocytes (%) (Auto) 56.9H, Monocytes (%) (Auto) 6.6, Eosinophils (%) (Auto) 2.8, Basophils (%) (Auto) 1.1H, Neutrophils # (Auto) 2.4, Lymphocytes # (Auto) 4.3, Monocytes # (Auto) 0.5, Eosinophils # (Auto) 0.2, Basophils # (Auto) 0.1, Nucleated Red Blood Cells % (auto) 0.0, Prothrombin Time 14.0, Prothromb Time International Ratio 1.06, Activated Partial Thromboplast Time 29.9, Fibrinogen 356, D-Dimer, Quantitative 507.35H, Magnesium Level 1.9, Ferritin 8, Lactate Dehydrogenase 265 H, Total Creatine Kinase 77, Creatine Kinase MB < 1.0, Creatine Kinase MB Relative Index 1.30, Troponin I < 0.02, C-Reactive Protein, Quantitative < 0.30 12/13/20 18:36: Lactic Acid Level 0.9 12/14/20 03:46: Troponin I < 0.02 12/14/20 06:47: Immature Granulocyte % (Auto) 0.5, Neutrophils (%) (Auto) 73.0H, Lymphocytes (%) (Auto) 24.7, Monocytes (%) (Auto) 1.6L, Eosinophils (%) (Auto) 0.0, Basophils (%) (Auto) 0.2, Neutrophils # (Auto) 4.2, Lymphocytes # (Auto) 1.4L, Monocytes # (Auto) 0.1, Eosinophils # (Auto) 0.0, Basophils # (Auto) 0.0, Nucleated Red Blood Cells % (auto) 0.0, Fibrinogen 286, D-Dimer, Quantitative < 270, Anion Gap 7L, Glomerular Filtration Rate > 60.0, Calcium Level 8.5, Magnesium Level 1.8, Ferritin 9, Total Creatine Kinase 38, Creatine Kinase MB < 1.0, Creatine Kinase MB Relative Index 2.63, Troponin I < 0.02, C-Reactive Protein, Quantitative 0.30, Cortisol AM Sample 5.6 CBC/BMP Laboratory Tests 12/13/20 18:35 12/14/20 06:47 Microbiology Microbiology 12/13/20 Blood Culture, Received Pending 12/13/20 Blood Culture, Received Pending Discharge Medications Scheduled Aspirin (Aspirin EC) 81 Mg Tablet.dr, 81 MG PO DAILY Ergocalciferol (Vitamin D2) (Vitamin D2) 50,000 Units Cap, 50,000 UNITS PO QWEEK, (Reported) SATURDAYS Omeprazole (Omeprazole) 40 Mg Cap, 40 MG PO BID, (Reported) Oxybutynin Chloride (Oxybutynin Chloride ER) 5 Mg Tab, 5 MG PO DAILY, (Reported) Polyethylene Glycol 3350 (Miralax) 1 Pow Pow, 17 GM PO BID, (Reported) Prednisone (Prednisone) 10 Mg Tablet, 10 MG PO TAPER Take 4 tabs daily x 3 days, then 3 tabs daily x 3 days, then 2 tabs daily x 3 days, then 1 tab daily x 3 days and stop Scheduled PRN Acetaminophen (Acetaminophen) 500 Mg Tablet, 1,000 MG PO Q6H PRN for PAIN OR DYSPNEA, (Reported) Lactulose (Lactulose) 10 Gm/15 Ml Solution, 30 ML PO DAILY PRN for CONSTIPATION, (Reported) Naproxen (Naproxen) 500 Mg Tablet, 500 MG PO BIDP PRN for PAIN, (Reported) Allergies Coded Allergies: albuterol (Verified Allergy, Severe, 12/09/20) anaphylaxis bamlanivimab (Verified Allergy, Severe, BECAME UNRESPONSIVE DURING INITIAL INFUSION, 12/09/20) morphine (Verified Allergy, Severe, 12/09/20) anaphylaxis Sulfa (Sulfonamide Antibiotics) (Verified Allergy, Intermediate, 12/09/20) hives TAPE (Verified Allergy, Intermediate, red/itchy, 09/18/19) latex (Verified Allergy, Intermediate, redness, 09/18/19) oxycodone (Verified Allergy, Intermediate, hives, 09/18/19) YANNICK DUNCAN MD Dec 14, 2020 13:18
--- NOTE | 2020-12-14 19:21 | ECGEPIP ---
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
== END 2020-12-14 12:35 | disposition home health service (06) ==
LOC: M ED 17:43 → INTOOBSV 21:28 → M ED INP 21:28 → ENRESERV 22:00 → M 4MAIN 23:02
PROVIDERS: ADMIT Internal Medicine; ATTEND Internal Medicine
DX: R07.89 Other chest pain (principal); U07.1 COVID-19; J44.9 Chronic obstructive pulmonary disease, unspecified; F17.200 Nicotine dependence, unspecified, uncomplicated; K58.1 Irritable bowel syndrome with constipation; K90.0 Celiac disease; G62.9 Polyneuropathy, unspecified; K22.70 Barrett's esophagus without dysplasia; R00.1 Bradycardia, unspecified; I95.89 Other hypotension; K21.9 Gastro-esophageal reflux disease without esophagitis; Z79.899 Other long term (current) drug therapy; Z88.2 Allergy status to sulfonamides; Z88.5 Allergy status to narcotic agent; Z88.8 Allergy status to other drugs, medicaments and biological substances; Z91.040 Latex allergy status; Z91.048 Other nonmedicinal substance allergy status
CPT/HCPCS: 36415; 71045; 71275; 80047; 80048; 82533; 82550; 82553; 82728; 83520; 83605; 83615; 83735; 84145; 84484; 85025; 85379; 85384; 85610; 85730; 86140; 87040; 90471; 90686; 93005; 96361; 96372; 96374; 96375; 97116; 97161; 99284; J1650; J2930; J3010; Q9967

== ENCOUNTER → 2020-12-29 | Outpatient (REF) | payer OTHER ==
[~2020-12-29] MED LIST changes: +ACET500T15 PO; +ASPI-569 PO
[2020-12-29 17:11] LABS: BASO # 0.1 10^3/uL (0.0-0.2); BASO % 0.9 % (0.0-1.0); EOS # 0.3 10^3/uL (0.0-0.5); EOS % 2.1 % (0.0-3.0); HEMATOCRIT 37.8 % (36.0-47.0); HEMOGLOBIN 12.1 g/dl (12.0-15.5); LYMPH % 33.5 % (24.0-44.0); MEAN CORPUSCULAR HEMOGLOBIN 27.7 pg (27.0-33.0); MEAN CORPUSCULAR VOLUME 86.5 fl (80.0-96.0); MONO % 8.6 % (2.0-8.0); NEUTROPHILS # 6.6 10^3/uL (1.5-8.5); NEUTROPHILS % 54.6 % (36.0-66.0); PLATELET COUNT, AUTOMATED 327 10^3/uL (150-450); RED BLOOD COUNT 4.37 10^6/uL (4.00-5.40); WHITE BLOOD COUNT 12.1 10^3/uL (4.0-10.0)
[2020-12-29 17:41] LABS: ALBUMIN 3.5 GM/DL (3.2-5.2); ALT/SGPT 29 U/L (12-78); BILIRUBIN,TOTAL 0.2 MG/DL (0.2-1.0); BLOOD UREA NITROGEN 6 MG/DL (7-18); CALCIUM LEVEL 8.8 MG/DL (8.5-10.1); CARBON DIOXIDE LEVEL 28 MEQ/L (21-32); CHLORIDE LEVEL 107 MEQ/L (98-107); CREATININE FOR GFR 0.59 MG/DL (0.55-1.30); FREE T4 0.94 NG/DL (0.76-1.46); GLOMERULAR FILTRATION RATE > 60.0 (>58); GLUCOSE, FASTING 80 MG/DL (70-100); POTASSIUM SERUM 4.1 MEQ/L (3.5-5.1); SODIUM LEVEL 141 MEQ/L (136-145); TOTAL PROTEIN 6.7 GM/DL (6.4-8.2); TROPONIN I < 0.02 NG/ML (< 0.10)
== END ==
LOC: M SFHCPLAZ 14:32
PROVIDERS: ATTEND Physician Assistant
DX: R06.02 Shortness of breath (principal); R05 Cough; R09.81 Nasal congestion; B94.8 Sequelae of other specified infectious and parasitic diseases; R53.83 Other fatigue

== ENCOUNTER → 2020-12-29 | Outpatient (CLI) | payer OTHER ==
--- NOTE | 2020-12-29 16:25 | REPPI ---
INDICATION: R06.02 SHORTNESS OF BREATH COMPARISON: 12/13/2020 TECHNIQUE: PA and lateral. FINDINGS: The mediastinum and cardiac silhouette are normal. The lung north demonstrate chronic appearing changes without consolidation, effusion, or pneumothorax. The skeletal structures are intact and normal. IMPRESSION: No acute cardiopulmonary process. <Electronically signed by Misael De Los Santos > 12/29/20 [id number]
== END ==
LOC: M PLAIMG 14:34
PROVIDERS: ATTEND Physician Assistant
DX: R06.02 Shortness of breath (principal)

== ENCOUNTER → 2020-12-30 | Outpatient (CLI) | payer OTHER ==
[~2020-12-30] MED LIST changes: +ISOVUE-370 76% 100ML VIAL As Ordered ONE
--- NOTE | 2020-12-30 15:17 | REP ---
INDICATION: SOB. COMPARISON: 12/13/2020. TECHNIQUE: CT of the chest with IV contrast, CT pulmonary artery angiography. FINDINGS: There are no emboli in the pulmonary trunk or central pulmonary arteries. There are no emboli in the pulmonary artery lobar or segment branches. There are no infiltrates or pleural effusions. There are no pulmonary masses or nodules. There is no mediastinal, hilar are or axillary lymphadenopathy. Thoracic aorta is unremarkable. Cardiac size is normal. There is surgical clips at the gastroesophageal junction. I note that the patient has history of Jose fundoplication. IMPRESSION: No pulmonary emboli are identified. Otherwise, negative CT study of the chest. Jose fundoplication at the gastroesophageal junction. <Electronically signed by Chan Funez > 12/30/20 [id number]
== END ==
LOC: M RAD 14:35
PROVIDERS: ATTEND Physician Assistant
DX: R06.02 Shortness of breath (principal)
CPT/HCPCS: 71275; Q9967

== ENCOUNTER 2021-04-12 15:42 | Emergency (ER) | payer OTHER ==
[~2021-04-12] VITALS: Ht 167.6 cm; Wt 71.6 kg
[~2021-04-12 15:42] MED LIST changes: +EMTR1TAB16 PO; +ERGO500029 PO; -ISOVUE-370 76% 100ML VIAL As Ordered ONE; +OMEP40CA4 PO; -OMEP40CA97 PO; -TRUVTAB PO; -VITA50005 PO
[2021-04-12] MEDS ORDERED: ONDA-83 PO (16:07)
[2021-04-12 18:33] LABS: BASO # 0.1 10^3/uL (0.0-0.2); BASO % 1.1 % (0.0-1.0); EOS # 0.3 10^3/uL (0.0-0.5); EOS % 2.3 % (0.0-3.0); HEMATOCRIT 36.6 % (36.0-47.0); HEMOGLOBIN 11.6 g/dl (12.0-15.5); LYMPH # 2.6 10^3/uL (1.5-5.0); LYMPH % 19.8 % (24.0-44.0); MEAN CORPUSCULAR HEMOGLOBIN 26.7 pg (27.0-33.0); MEAN CORPUSCULAR HGB CONC 31.7 g/dl (32.0-36.5); MEAN CORPUSCULAR VOLUME 84.1 fl (80.0-96.0); MONO # 0.8 10^3/uL (0.0-0.8); MONO % 6.3 % (2.0-8.0); NEUTROPHILS # 9.1 10^3/uL (1.5-8.5); NEUTROPHILS % 70.1 % (36.0-66.0); PLATELET COUNT, AUTOMATED 312 10^3/uL (150-450); RED BLOOD COUNT 4.35 10^6/uL (4.00-5.40); WHITE BLOOD COUNT 12.9 10^3/uL (4.0-10.0)
[2021-04-12 19:03] LABS: ALBUMIN 3.2 GM/DL (3.2-5.2); ALT/SGPT 32 U/L (12-78); BILIRUBIN,DIRECT < 0.1 MG/DL (0.0-0.2); BILIRUBIN,TOTAL 0.1 MG/DL (0.2-1.0); BLOOD UREA NITROGEN 11 MG/DL (7-18); CALCIUM LEVEL 8.5 MG/DL (8.5-10.1); CARBON DIOXIDE LEVEL 23 MEQ/L (21-32); CHLORIDE LEVEL 112 MEQ/L (98-107); CREATININE FOR GFR 0.58 MG/DL (0.55-1.30); GLOMERULAR FILTRATION RATE > 60.0 (>58); GLUCOSE, FASTING 86 MG/DL (70-100); LIPASE 77 U/L (73-393); POTASSIUM SERUM 4.6 MEQ/L (3.5-5.1); SODIUM LEVEL 142 MEQ/L (136-145); TOTAL PROTEIN 6.6 GM/DL (6.4-8.2)
[2021-04-12 19:04] LABS: HCG, SERUM QUALITATIVE NEGATIVE (NEGATIVE)
[2021-04-12] MEDS ORDERED: ISOVUE-370 76% 100ML VIAL As Ordered ONE (19:20)
--- NOTE | 2021-04-12 21:28 | REPVR ---
PROCEDURE INFORMATION: Exam: CT Abdomen And Pelvis With Contrast Exam date and time: 04/12/2021 7:45 PM Age: 50 years old Clinical indication: Abdominal pain; Localized; Left lower quadrant (llq); Additional info: Acute abdominal pain llq TECHNIQUE: Imaging protocol: Computed tomography of the abdomen and pelvis with contrast. Radiation optimization: All CT scans at this facility use at least one of these dose optimization techniques: automated exposure control; mA and/or kV adjustment per patient size (includes targeted exams where dose is matched to clinical indication); or iterative reconstruction. Contrast material: ISOVUE 370; Contrast volume: 100 ml; Contrast route: INTRAVENOUS (IV); COMPARISON: CT ABD/PEL W/IV ORAL CONTRAS 12/17/2019 11:02 PM FINDINGS: Lungs: There is a 1.6 cm lobulated nodule in the midportion of the right breast and this may represent a malignant nodule. Further evaluation with mammography would be important. Clear appearing lung bases. Heart: There is mild cardiomegaly with no pericardial effusion. A Liver: Normal appearing liver. Gallbladder and bile ducts: Normal common bile duct. There are surgical clips at the gallbladder fossa and the patient is status post cholecystectomy. Pancreas: Normal pancreas. Spleen: Multiple splenic nodules. Adrenal glands: There is a 3.5 cm round nodule of the left adrenal gland and unchanged since 12/17/2019. Kidneys and ureters: There is enhancement of both kidneys. There is no evidence of hydronephrosis. Stomach and bowel: Patient has had gastric surgery with surgical clips upper stomach. The cecum is in the right pelvis and there is no evidence of inflammation along the margins of the cecum. There is moderate dilatation of loops of small bowel with air-fluid levels. If there are continued symptoms that might be of value to give the patient oral contrast and to scan after a delay of 2-1/2 hours. There is no evidence of free fluid in the abdomen. Appendix: No evidence of appendicitis. Intraperitoneal space: There is no evidence of pneumoperitoneum. Vasculature: There is opacification of the aorta which appears intact. There is opacification of the SMV the and SMA. Lymph nodes: There is no evidence of lymphadenopathy. There is no evidence of lymphadenopathy. Urinary bladder: The there is a small amount of urine in the urinary bladder. Reproductive: Patient is status post hysterectomy. Bones/joints: Unremarkable. No acute fracture. IMPRESSION: 1. 1.6 cm lobulated round nodule right breast. This could represent a malignant nodule and recommend mammographies and possibly MRI. 2. Moderate distension of the small bowel with secretions and air fluid levels possibly the result of ileus. If there are continued symptoms suggest giving the patient oral contrast and doing a 2-1/2 hour delayed study. Electronically signed by: Roderick Rodriguez On 04/12/2021 21:27:39 PM
[2021-04-12] MEDS ORDERED: TRAM50TA2 PO (22:35)
[2021-04-12 23:43] VITALS: BP 98/65
== END 2021-04-12 23:53 | disposition home or self-care (01) ==
LOC: M ED 15:42
DX: R10.9 Unspecified abdominal pain (principal); R92.8 Other abnormal and inconclusive findings on diagnostic imaging of breast; J44.9 Chronic obstructive pulmonary disease, unspecified; K90.0 Celiac disease; K58.2 Mixed irritable bowel syndrome; Z87.19 Personal history of other diseases of the digestive system; Z79.899 Other long term (current) drug therapy; Z88.2 Allergy status to sulfonamides; Z91.89 Other specified personal risk factors, not elsewhere classified; Z88.8 Allergy status to other drugs, medicaments and biological substances; Z91.040 Latex allergy status; Z88.5 Allergy status to narcotic agent
CPT/HCPCS: 74177; 80048; 80076; 83690; 84703; 85025; 99283; Q9967

== ENCOUNTER 2021-04-14 18:07 | Observation (INO) | payer OTHER ==
[~2021-04-14] VITALS: Ht 165.1 cm; Wt 73.1 kg
[~2021-04-14 18:07] MED LIST changes: -DICY10CA13; -DICY1CAP8 PO; -KETO10TAB; -KETO10TAB PO; -MIRA1POW3 PO
[2021-04-14] MEDS ORDERED: DICY10CA13 (18:29)
[2021-04-14] MEDS ORDERED: KETO10TAB (18:29)
[2021-04-14 21:32] LABS: BASO # 0.1 10^3/uL (0.0-0.2); EOS # 0.4 10^3/uL (0.0-0.5); EOS % 3.6 % (0.0-3.0); HEMATOCRIT 35.4 % (36.0-47.0); HEMOGLOBIN 11.4 g/dl (12.0-15.5); LYMPH # 4.2 10^3/uL (1.5-5.0); LYMPH % 38.7 % (24.0-44.0); MEAN CORPUSCULAR HEMOGLOBIN 26.6 pg (27.0-33.0); MEAN CORPUSCULAR HGB CONC 32.2 g/dl (32.0-36.5); MEAN CORPUSCULAR VOLUME 82.7 fl (80.0-96.0); MONO # 0.7 10^3/uL (0.0-0.8); MONO % 6.7 % (2.0-8.0); NEUTROPHILS # 5.3 10^3/uL (1.5-8.5); NEUTROPHILS % 49.7 % (36.0-66.0); PLATELET COUNT, AUTOMATED 304 10^3/uL (150-450); RED BLOOD COUNT 4.28 10^6/uL (4.00-5.40); WHITE BLOOD COUNT 10.7 10^3/uL (4.0-10.0)
[2021-04-14 22:06] LABS: ALBUMIN 3.2 GM/DL (3.2-5.2); ALT/SGPT 29 U/L (12-78); BILIRUBIN,DIRECT < 0.1 MG/DL (0.0-0.2); BILIRUBIN,TOTAL 0.1 MG/DL (0.2-1.0); BLOOD UREA NITROGEN 11 MG/DL (7-18); CALCIUM LEVEL 8.3 MG/DL (8.5-10.1); CARBON DIOXIDE LEVEL 24 MEQ/L (21-32); CHLORIDE LEVEL 110 MEQ/L (98-107); GLOMERULAR FILTRATION RATE > 60.0 (>58); GLUCOSE, FASTING 94 MG/DL (70-100); LIPASE 61 U/L (73-393); POTASSIUM SERUM 4.3 MEQ/L (3.5-5.1); SODIUM LEVEL 139 MEQ/L (136-145); TOTAL PROTEIN 6.3 GM/DL (6.4-8.2)
[2021-04-14] MEDS ORDERED: ISOVUE-370 76% 100ML VIAL As Ordered ONE (22:14)
[2021-04-14] MEDS: GASTROGRAFIN SOLUTION 30ML PO SCH ×2 (22:30→23:00)
--- NOTE | 2021-04-15 01:25 | REPVR ---
PROCEDURE INFORMATION: Exam: CT Abdomen And Pelvis With Contrast Exam date and time: 04/14/2021 10:03 PM Age: 50 years old Clinical indication: Abdominal pain; Generalized; Additional info: Abd pain, HX of sbo TECHNIQUE: Imaging protocol: Computed tomography of the abdomen and pelvis with contrast. Radiation optimization: All CT scans at this facility use at least one of these dose optimization techniques: automated exposure control; mA and/or kV adjustment per patient size (includes targeted exams where dose is matched to clinical indication); or iterative reconstruction. Contrast material: ISO; Contrast volume: 100 ml; Contrast route: INTRAVENOUS (IV); Other contrast: Oral, ggraphin, 600; COMPARISON: CT ABD/PEL W/IV CONTRAST ONLY 04/12/2021 7:37 PM FINDINGS: LUNG BASES: Mild dependent atelectasis. VASCULAR: Visualized cardiac size is at the upper end of normal. No abdominoaortic aneurysm, dissection, or retroperitoneal hematoma. There is atherosclerosis but no obvious hemodynamically significant appearing major vascular compromise. PERITONEAL : No free air or free fluid. GI: The visualized distal esophagus appears slightly thick-walled. This could be artifactual secondary to peristalsis. Clinical correlation with any symptoms. Postoperative changes are noted beneath the diaphragm at the gastroesophageal junction. This may represent a fundoplication procedure. The stomach is not sufficiently distended to evaluate wall thickening or for complete diagnostic evaluation by this exam. If there are symptoms, consider dedicated evaluation. Enteric contrast is seen within small bowel loops, however not within the colon. No significant asymmetric small-bowel distention is seen to suggest an obstruction. No focal mesenteric inflammatory stranding seen. Mild gastroenteritis would be difficult to exclude by this exam but could be correlated clinically. Small nonspecific mesenteric lymph nodes are noted. Portions of the colon and rectum are slightly distended with fecal material. This could be correlated for mild constipation. No pericolonic inflammatory stranding is seen. No evidence of acute diverticulitis. The appendix is not identified. No secondary inflammation is seen. HEPATOBILIARY, PANCREAS, SPLEEN: Hepatic length is 17.6 cm. The gallbladder has been removed. No biliary dilation. No pancreatic inflammation. A normal appearing spleen is not identified. There are multiple splenules noted. What may represent the spleen or a dominant splenule is approximately 5 cm by 2.8 cm. Clinical correlation with surgical history. ADRENALS, KIDNEYS, BLADDER, RETROPERITONEAL: There is a 3.7 cm heterogeneous enhancing left adrenal mass. This is similar to the prior exam. The significance of this lesion is uncertain, however this appears stable to the earliest available prior CT abdomen of January 14, 2018. No hydronephrosis. The kidneys enhance symmetrically. No perinephric stranding or fluid. No perivesical stranding. No bladder wall thickening. No retroperitoneal lymphadenopathy by size criteria. PELVIC: The uterus is not identified. Gas within the vagina may be iatrogenic. There is a slightly thick-walled 2.2 cm the ovoid left ovarian lesion, likely a corpus luteal cyst. MUSCULOSKELETAL: Previously mentioned right breast lesion is not included on this study. Previous recommendations therefore are unchanged and not evaluated on this study. Please refer to prior report. IMPRESSION: No free-air, free-fluid or focal mesenteric inflammation. Nonspecific gastrointestinal findings as discussed above to be correlated clinically. Other incidental findings discussed above. Electronically signed by: Jatinder Sheriff On 04/15/2021 01:24:59 AM
[2021-04-15] MEDS ORDERED: NS 1,000 ML IV SCH (03:20)
[2021-04-15] MEDS ORDERED: ACETAMINOPHEN TAB 650MG DOSE (2X325MG) PO PRN (03:20)
[2021-04-15] MEDS ORDERED: MAGNESIUM CITRATE 300 ML BTL PO ONE (03:20)
[2021-04-15] MEDS ORDERED: BISACODYL 5 MG TAB PO ONE (03:25)
[2021-04-15] MEDS ORDERED: DICYCLOMINE 10 MG CAP PO PRN (03:30)
[2021-04-15] MEDS ORDERED: KETOROLAC TROMETHAMINE 10 MG TAB PO PRN (03:30)
[2021-04-15] MEDS ORDERED: ONDANSETRON 4 MG TAB PO PRN (03:30)
[2021-04-15] MEDS ORDERED: MIRA1POW3 PO (03:36)
[2021-04-15] MEDS ORDERED: KETO10TAB PO (03:36)
[2021-04-15] MEDS ORDERED: DICY1CAP8 PO (03:36)
[2021-04-15] MEDS ORDERED: ONDA-83 PO (03:36)
--- NOTE | 2021-04-15 03:41 | HPEPDOC ---
General Date of Admission Apr 14, 2021 at 18:08 Date of Service: Apr 15, 2021 Chief Complaint The patient is a 50-year-old female admitted with a reason for visit of ILEUS. Source: Patient Exam Limitations: No limitations History of Present Illness Patient is 50 years old female with past medical history of celiac disease, inflammatory bowel syndrome, splenectomy presented to the hospital with constipation. Patient stated that her last bowel movement was on Monday and since that time she has been having bloating and mild abdominal pain. Dr. Jyotsna diane prescribed MiraLAX and patient took it yesterday but did not develop any bowel movements. In ER patient was found to have normal blood pressure, abdomen/pelvis CT showed No free-air, free-fluid or focal mesenteric inflammation. Portions of the colon and rectum are slightly distended with fecal material. This could be correlated for mild constipation Home Medications Scheduled Ergocalciferol (Vitamin D2) (Vitamin D2) 50,000 Units Cap, 50,000 UNITS PO QWEEK, (Reported) SATURDAYS Omeprazole (Omeprazole) 40 Mg Cap, 40 MG PO BID, (Reported) Ondansetron HCl (Ondansetron HCl) 4 Mg Tablet, 1 TAB PO DAILY, (Reported) Oxybutynin Chloride (Oxybutynin Chloride ER) 5 Mg Tab, 5 MG PO DAILY, (Reported) Polyethylene Glycol 3350 (Miralax) 1 Pow Pow, 17 GM PO BID, (Reported) Scheduled PRN Acetaminophen (Acetaminophen) 500 Mg Tablet, 1,000 MG PO Q6H PRN for PAIN OR DYSPNEA, (Reported) Lactulose (Lactulose) 10 Gm/15 Ml Solution, 30 ML PO DAILY PRN for CONSTIPATION, (Reported) Naproxen (Naproxen) 500 Mg Tablet, 500 MG PO BIDP PRN for PAIN, (Reported) Miscellaneous Medications Dicyclomine HCl (Dicyclomine HCl) 10 Mg Capsule, (Reported) Ketorolac Tromethamine (Ketorolac Tromethamine) 10 Mg Tablet, (Reported) Allergies Coded Allergies: albuterol (Verified Allergy, Severe, 12/09/20) anaphylaxis bamlanivimab (Verified Allergy, Severe, BECAME UNRESPONSIVE DURING INITIAL INFUSION, 12/09/20) morphine (Verified Allergy, Severe, 12/09/20) anaphylaxis Sulfa (Sulfonamide Antibiotics) (Verified Allergy, Intermediate, 12/09/20) hives TAPE (Verified Allergy, Intermediate, red/itchy, 09/18/19) latex (Verified Allergy, Intermediate, redness, 09/18/19) oxycodone (Verified Allergy, Intermediate, hives, 09/18/19) Past Medical History Medical History Celiac disease complicated by peripheral neuropathy IBS-D? Barrets esophagus GERD s/p Jose Fundoplication x 2 Surgical History Jose Fundoplication x 2 Family History NORI FUNDOPLICATION TWICE 2005 SPLENECTOMY 2005 Social History * Smoker: current smoker Alcohol: Denies Drugs: denies A-FIB/CHADSVASC A-FIB History Current/History of A-Fib/PAF?: No Current PO Anticoag Therapy: No Review of Systems Constitutional: Denies: Chills, Fever Eyes: Denies: Pain ENT: Denies: Head Aches Skin: Denies: Rash, Lesions Pulmonary: Denies: Dyspnea Cardiovascular: Denies: Chest Pain, Palpitations Gastrointestinal: Reports: Abdominal Pain, Constipation; Denies: Nausea, Vomiting Genitourinary: Denies: Dysuria Hematologic: Denies: Bruising Endocrine: Denies: Polydipsia Musculoskeletal: Denies: Neck Pain Neurological: Denies: Weakness Psych: Reports: Mood Normal Physical Examination General Exam: Positive: Alert Eye Exam: Positive: PERRLA ENT Exam: Positive: Atraumatic Neck Exam: Positive: Supple; Negative: JVD Chest Exam: Positive: Clear to auscultation Heart Exam: Positive: Rate Normal Telemetry: Positive: No significant arrhythmia Abdomen Exam: Positive: BS Hypoactive, Soft Extremity Exam: Negative: Clubbing, Cyanosis Skin Exam: Positive: Nl turgor and temperature Neuro Exam: Positive: Normal Gait Vital Signs Vital Signs Date Time Temp Pulse Resp B/P (MAP) Pulse Ox O2 Delivery O2 Flow Rate FiO2 04/15/21 01:45 58 18 111/58 (75) 98 Room Air 04/14/21 18:08 99.1 Laboratory Data Labs 24H Laboratory Tests 2 04/14/21 21:23: Immature Granulocyte % (Auto) 0.3, Neutrophils (%) (Auto) 49.7, Lymphocytes (%) (Auto) 38.7, Monocytes (%) (Auto) 6.7, Eosinophils (%) (Auto) 3.6H, Basophils (%) (Auto) 1.0, Neutrophils # (Auto) 5.3, Lymphocytes # (Auto) 4.2, Monocytes # (Auto) 0.7, Eosinophils # (Auto) 0.4, Basophils # (Auto) 0.1, Nucleated Red Blood Cells % (auto) 0.0, Anion Gap 5L, Glomerular Filtration Rate > 60.0, Calcium Level 8.3L, Total Bilirubin 0.1L, Direct Bilirubin < 0.1, Aspartate Amino Transf (AST/SGOT) 20, Alanine Aminotransferase (ALT/SGPT) 29, Alkaline Phosphatase 60, Total Protein 6.3L, Albumin 3.2, Albumin/Globulin Ratio 1.0L, Lipase 61L CBC/BMP Laboratory Tests 04/14/21 21:23 Assessment/Plan Patient is 50 years old female with past medical history of celiac disease, inflammatory bowel syndrome, splenectomy presented to the hospital with con stipation. Patient stated that her last bowel movement was on Monday and since that time she has been having bloating and mild abdominal pain. Dr. Leung prescribed MiraLAX and patient took it yesterday but did not develop any bowel movements. In ER patient was found to have normal blood pressure, abdomen/pelvis CT showed No free-air, free-fluid or focal mesenteric inflammation. Portions of the colon and rectum are slightly distended with fecal material. This could be correlated for mild constipation Problems (1) Constipation Status: Acute Problem Text: Magnesium citrate, enema If no bowel movement after that consider NG tube placement and consult surgical team (2) Left adrenal mass Status: Chronic Problem Text: CT scan showed 3.7 cm heterogeneous enhancing left adrenal mass. This is similar to the prior exam Work-up in the outpatient settings (3) GERD (gastroesophageal reflux disease) Status: Chronic Problem Text: PPI Plan / VTE VTE Prophylaxis Ordered?: Yes JOHANA HUGO DO Apr 15, 2021 03:41
[2021-04-15 04:42] LABS: RSV AMPLIFICATION NEGATIVE (NEGATIVE)
[2021-04-15 06:00] VITALS: BP 111/67
[2021-04-15] MEDS: DOCUSATE SODIUM 100MG CAPSULE PO SCH ×2 (08:48→20:15)
[2021-04-15] MEDS: OMEPRAZOLE 20 MG CAP PO SCH ×2 (08:49→20:15)
[2021-04-15] MEDS: HEPARIN SOD (PORCINE) 5000UNITS/ML 1ML VIAL/SYRINGE SC SCH ×2 (08:49→20:16)
[2021-04-15] MEDS: oxyBUTYnin *DITROPAN XL* 5 MG TABCR PO SCH (11:23)
[2021-04-15 14:00] VITALS: BP 109/50
[2021-04-15] MEDS: MIRALAX *UNIT DOSE* 17GM PACKET PO SCH ×2 (14:24→20:13)
--- NOTE | 2021-04-15 16:33 | IPNPDOC ---
Subjective Date Seen The patient was seen on 04/15/21. Subjective Chief Complaint/HPI Mrs. Hernandez is a 50 year old female with celiac disease, inflammatory bowel syndrome, and IBS who presents with constipation since Monday. Early this morning, she was given Mag Citrate and she was able to have multiple BM. She reports having an appetite and was started on a diet. Spoke to patient's GI physician, Dr. Arriola. Will order for a upper GI with small bowel follow through for tomorrow. Objective Physical Examination General Exam: Positive: Alert, Cooperative Eye Exam: Negative: Sclera icteric ENT Exam: Positive: Atraumatic Neck Exam: Positive: Supple, JVD Chest Exam: Positive: Clear to auscultation Heart Exam: Positive: Rate Normal, Regular Rhythm Telemetry: Positive: No significant arrhythmia Abdomen Exam: Positive: Normal bowel sounds, Soft Extremity Exam: Negative: Edema Skin Exam: Positive: Nl turgor and temperature Neuro Exam: Positive: Normal Gait Psych Exam: Positive: Mental status NL, Mood NL Assessment /Plan Assessment Mrs. Hernandez is a 50 year old female with celiac disease, inflammatory bowel syndrome, and IBS who presents with constipation since Monday. Patient took mag citrate and was able to have a bowel movement. Spoke to patient's GI provider, Dr. Arriola. Will order upper GI with small bowel follow through. Plan/VTE VTE Prophylaxis Ordered?: Yes Plan 1. Constipation -Magnesium citrate helped with BM -Spoke with patient's GI physician -Will order Upper GI with small bowel follow through. Patient will need to be NPO overnight. 2. Left adrenal mass -3.7cm left adrenal mass similar to prior exam -Patient will need to have this evaluated outpatient 3. Castle's esophagus -Continue omeprazole 4. Overactive bladder -Continue oxybutynin 5. DVT ppx -Heparin subq Disposition: Pending small bowel follow through. VS, I&O, 24H, Fishbone Vital Signs/I&O Vital Signs Date Time Temp Pulse Resp B/P (MAP) Pulse Ox O2 Delivery O2 Flow Rate FiO2 04/15/21 14:00 97.5 65 17 109/50 (69) 98 Room Air I&O- Last 24 Hours up to 6 AM 04/15/21 06:00 Intake Total 0 ml Balance 0 ml Laboratory Data 24H LABS Laboratory Tests 2 04/14/21 21:23: Immature Granulocyte % (Auto) 0.3, Neutrophils (%) (Auto) 49.7, Lymphocytes (%) (Auto) 38.7, Monocytes (%) (Auto) 6.7, Eosinophils (%) (Auto) 3.6H, Basophils (%) (Auto) 1.0, Neutrophils # (Auto) 5.3, Lymphocytes # (Auto) 4.2, Monocytes # (Auto) 0.7, Eosinophils # (Auto) 0.4, Basophils # (Auto) 0.1, Nucleated Red Blood Cells % (auto) 0.0, Anion Gap 5L, Glomerular Filtration Rate > 60.0, Calcium Level 8.3L, Total Bilirubin 0.1L, Direct Bilirubin < 0.1, Aspartate Amino Transf (AST/SGOT) 20, Alanine Aminotransferase (ALT/SGPT) 29, Alkaline Phosphatase 60, Total Protein 6.3L, Albumin 3.2, Albumin/Globulin Ratio 1.0L, Lipase 61L 04/15/21 03:46: Coronavirus (COVID-19)(PCR) NEGATIVE, Influenza Type A (RT-PCR) NEGATIVE, Influenza Type B (RT-PCR) NEGATIVE, Respiratory Syncytial Virus (PCR) NEGATIVE CBC/BMP Laboratory Tests 04/14/21 21:23 BRIDGETT LONG DO Apr 15, 2021 16:33
[2021-04-15 20:30] VITALS: BP 86/51
[2021-04-15 21:00] VITALS: BP 102/60
[2021-04-16 06:00] VITALS: BP 100/58
[2021-04-16 06:12] LABS: HEMATOCRIT 35.7 % (36.0-47.0); HEMOGLOBIN 11.4 g/dl (12.0-15.5); MEAN CORPUSCULAR HEMOGLOBIN 26.8 pg (27.0-33.0); MEAN CORPUSCULAR HGB CONC 31.9 g/dl (32.0-36.5); MEAN CORPUSCULAR VOLUME 83.8 fl (80.0-96.0); PLATELET COUNT, AUTOMATED 306 10^3/uL (150-450); RED BLOOD COUNT 4.26 10^6/uL (4.00-5.40); WHITE BLOOD COUNT 8.7 10^3/uL (4.0-10.0)
[2021-04-16 06:38] LABS: ALBUMIN 3.2 GM/DL (3.2-5.2); ALT/SGPT 23 U/L (12-78); BILIRUBIN,TOTAL 0.2 MG/DL (0.2-1.0); BLOOD UREA NITROGEN 14 MG/DL (7-18); CALCIUM LEVEL 8.2 MG/DL (8.5-10.1); CARBON DIOXIDE LEVEL 26 MEQ/L (21-32); CHLORIDE LEVEL 109 MEQ/L (98-107); CREATININE FOR GFR 0.64 MG/DL (0.55-1.30); GLOMERULAR FILTRATION RATE > 60.0 (>58); GLUCOSE, FASTING 86 MG/DL (70-100); MAGNESIUM LEVEL 2.5 MG/DL (1.8-2.4); POTASSIUM SERUM 4.2 MEQ/L (3.5-5.1); SODIUM LEVEL 138 MEQ/L (136-145); TOTAL PROTEIN 6.6 GM/DL (6.4-8.2)
[2021-04-16] MEDS ORDERED: E-Z-HD 98% w/w 340GM SUSP BTL As Ordered ONE (08:15)
[2021-04-16] MEDS ORDERED: E-Z-GAS II EFFERVESCENT PACKET (SODIUM BICARB./CITRIC ACID/SIMETHICONE) As Ordered ONE (08:15)
[2021-04-16] MEDS ORDERED: E-Z-PAQUE 96% w/w SUSP 176GM BTL As Ordered ONE (08:15)
[2021-04-16] MEDS ORDERED: MAGNESIUM CITRATE 300 ML BTL PO PRN (11:00)
[2021-04-16] MEDS: HEPARIN SOD (PORCINE) 5000UNITS/ML 1ML VIAL/SYRINGE SC SCH (13:15)
[2021-04-16] MEDS: oxyBUTYnin *DITROPAN XL* 5 MG TABCR PO SCH (13:16)
[2021-04-16] MEDS: MIRALAX *UNIT DOSE* 17GM PACKET PO SCH (13:16)
[2021-04-16] MEDS: DOCUSATE SODIUM 100MG CAPSULE PO SCH (13:16)
[2021-04-16] MEDS: OMEPRAZOLE 20 MG CAP PO SCH (13:16)
--- NOTE | 2021-04-16 15:15 | REP ---
INDICATION: gastroparesis, illeus. COMPARISON: None. TECHNIQUE: The procedure was performed under the direct supervision of Dr. Tam. The images were reviewed with Dr. Tam. Liquid barium and gas producing crystals were given in the erect position as well as liquid barium in the prone oblique position in order to perform a double contrast upper GI examination. Additionally liquid barium was given at the end of the examination in order to perform a small bowel follow through. A combination od fluoroscopy, spot films and last image hold technology was utilized, 2 minutes of fluoro time was utilized for this procedure. FINDINGS: The patient safety officer film shows no organomegaly or pathological masses. The intestinal gas pattern is non-specific. There are surgical clips noted in the right upper quadrant. The oral and pharyngeal stages of deglutition are unremarkable. Esophageal transport is prompt and efficient and there is no esophagitis, stricture, mucosal ring or hiatal hernia. Gastroesophageal reflux is not demonstrated on this examination. The patient is status post Ivana fundoplication. The stomach rosa are normally outlined. The rugal folds are smooth and regular. There is no gastritis neoplasm or ulcer disease. The duodenal rosa are normally outlined . The mucosal folds are smooth and regular. There is no duodenitis pancreatitis peptic ulcer disease or neoplasm. The visualized portion of the proximal small bowel appears normal in course and caliber. The barium column was followed through the small bowel to the level of the terminal ileum. Small bowel transit time is approximately 4 hours and 20 minutes. During fluoroscopy gentle palpation shows all loops are freely movable and pliable. There are no fixed or angulated loops. There is extra small-bowel fluid in the jejunum and ileum. This gives the barium a flocculated look. The small bowel is borderline in caliber size. This is of uncertain significance. This appearance is unchanged compared to the previous exam performed on 01/25/2018. There is no transition to suggest a partial small-bowel obstruction. Spot filming of the terminal ileum shows it to be unremarkable. IMPRESSION: There is extra small-bowel fluid in the jejunum and ileum. This gives the barium a flocculated look. The small bowel is borderline in caliber size. This is of uncertain significance. This appearance is unchanged compared to the previous exam performed on 01/25/2018. There is no transition to suggest a partial small-bowel obstruction. Spot filming of the terminal ileum shows it to be unremarkable.. <Electronically signed by Gavino Haile > 04/16/21 1334 <Electronically signed by Hector Tam > 04/16/21 [id number]
[2021-04-16] MEDS ORDERED: LACTULOSE 20 GM/30 ML SYRUP UD PO PRN (16:00)
[2021-04-16] MEDS ORDERED: LINZ145C PO (16:01)
--- NOTE | 2021-04-16 18:36 | DS.PDOC ---
Discharge Summary General Date of Admission Apr 14, 2021 at 18:08 Date of Discharge April 16, 2021 Discharge Summary PROCEDURES PERFORMED DURING STAY: None ADMITTING DIAGNOSES: 1. Constipation 2. Left adrenal mass 3. Castle's esophagus 4. Overactive bladder 5. Left adrenal mass DISCHARGE DIAGNOSES: 1. Constipation 2. Left adrenal mass 3. Castle's esophagus 4. Overactive bladder 5. Left adrenal mass COMPLICATIONS/CHIEF COMPLAINT: ILEUS. HISTORY OF PRESENT ILLNESS: Copied from admitting attending's H&P " Patient is 50 years old female with past medical history of celiac disease, inflammatory bowel syndrome, splenectomy presented to the hospital with constipation. Patient stated that her last bowel movement was on Monday and since that time she has been having bloating and mild abdominal pain. Dr. Leung prescribed MiraLAX and patient took it yesterday but did not develop any bowel movements. In ER patient was found to have normal blood pressure, abdomen/pelvis CT showed No free-air, free-fluid or focal mesenteric inflammation. Portions of the colon and rectum are slightly distended with fecal material. This could be correlated for mild constipation " HOSPITAL COURSE: Patient was given magnesium citrate and enema and was able to have [address] Patient sees Dr. Arriola for her constipation. Spoke with Dr. Arriola who recommended upper GI small bowel follow through. The patient had the test the following day and it was negative for partial obstruction. Discussed results with Dr. Arriola. No further testing needed, but could try linaclotide again. Recommended follow up outpatient. I discussed this with the patient and sent linaclotide to the pharmacy. DISCHARGE MEDICATIONS: Please see below. ALLERGIES: Please see below. PHYSICAL EXAMINATION ON DISCHARGE: VITAL SIGNS: Please see below. GENERAL: Comfortable, in no apparent respiratory distress. HEENT: Head normocephalic/atraumatic, EOMI, sclera clear. NECK: Supple. RESPIRATORY: Lungs clear to auscultation bilaterally, no rales, wheeze or rhonchi. CARDIOVASCULAR: Regular rate and rhythm. ABDOMEN: Soft. Normal bowel sounds. MUSCLE SKELETAL: Muscle strength 5/5 in all extremities. NEUROLOGICAL: CN 3-12 grossly intact, no focal deficits noted. PSYCHOLOGICAL: Anxious LABORATORY DATA: Please see below. IMAGING: Radiologist interpretation CT abdomen pelvis with IV contrast only FINDINGS: LUNG BASES: Mild dependent atelectasis. VASCULAR: Visualized cardiac size is at the upper end of normal. No abdominoaortic aneurysm, dissection, or retroperitoneal hematoma. There is atherosclerosis but no obvious hemodynamically significant appearing major vascular compromise. PERITONEAL : No free air or free fluid. GI: The visualized distal esophagus appears slightly thick-walled. This could be artifactual secondary to peristalsis. Clinical correlation with any symptoms. Postoperative changes are noted beneath the diaphragm at the gastroesophageal junction. This may represent a fundoplication procedure. The stomach is not sufficiently distended to evaluate wall thickening or for complete diagnostic evaluation by this exam. If there are symptoms, consider dedicated evaluation. Enteric contrast is seen within small bowel loops, however not within the colon. No significant asymmetric small-bowel distention is seen to suggest an obstruction. No focal mesenteric inflammatory stranding seen. Mild gastroenteritis would be difficult to exclude by this exam but could be correlated clinically. Small nonspecific mesenteric lymph nodes are noted. Portions of the colon and rectum are slightly distended with fecal material. This could be correlated for mild constipation. No pericolonic inflammatory stranding is seen. No evidence of acute diverticulitis. The appendix is not identified. No secondary inflammation is seen. HEPATOBILIARY, PANCREAS, SPLEEN: Hepatic length is 17.6 cm. The gallbladder has been removed. No biliary dilation. No pancreatic inflammation. A normal appearing spleen is not identified. There are multiple splenules noted. What may represent the spleen or a dominant splenule is approximately 5 cm by 2.8 cm. Clinical correlation with surgical history. ADRENALS, KIDNEYS, BLADDER, RETROPERITONEAL: There is a 3.7 cm heterogeneous enhancing left adrenal mass. This is similar to the prior exam. The significance of this lesion is uncertain, however this appears stable to the earliest available prior CT abdomen of January 14, 2018. No hydronephrosis. The kidneys enhance symmetrically. No perinephric stranding or fluid. No perivesical stranding. No bladder wall thickening. No retroperitoneal lymphadenopathy by size criteria. PELVIC: The uterus is not identified. Gas within the vagina may be iatrogenic. There is a slightly thick-walled 2.2 cm the ovoid left ovarian lesion, likely a corpus luteal cyst. MUSCULOSKELETAL: Previously mentioned right breast lesion is not included on this study. Previous recommendations therefore are unchanged and not evaluated on this study. Please refer to prior report. IMPRESSION: No free-air, free-fluid or focal mesenteric inflammation. Nonspecific gastrointestinal findings as discussed above to be correlated clinically. Upper GI and small bowel follow-through FINDINGS: The photographic technician film shows no organomegaly or pathological masses. The intestinal gas pattern is non-specific. There are surgical clips noted in the right upper quadrant. The oral and pharyngeal stages of deglutition are unremarkable. Esophageal transport is prompt and efficient and there is no esophagitis, stricture, mucosal ring or hiatal hernia. Gastroesophageal reflux is not demonstrated on this examination. The patient is status post Ivana fundoplication. The stomach rosa are normally outlined. The rugal folds are smooth and regular. There is no gastritis neoplasm or ulcer disease. The duodenal rosa are normally outlined . The mucosal folds are smooth and regular. There is no duodenitis pancreatitis peptic ulcer disease or neoplasm. The visualized portion of the proximal small bowel appears normal in course and caliber. The barium column was followed through the small bowel to the level of the terminal ileum. Small bowel transit time is approximately 4 hours and 20 minutes. During fluoroscopy gentle palpation shows all loops are freely movable and pliable. There are no fixed or angulated loops. There is extra small-bowel fluid in the jejunum and ileum. This gives the barium a flocculated look. The small bowel is borderline in caliber size. This is of uncertain significance. This appearance is unchanged compared to the previous exam performed on 01/25/2018. There is no transition to suggest a partial small-bowel obstruction. Spot filming of the terminal ileum shows it to be unremarkable. IMPRESSION: There is extra small-bowel fluid in the jejunum and ileum. This gives the barium a flocculated look. The small bowel is borderline in caliber size. This is of uncertain significance. This appearance is unchanged compared to the previous exam performed on 01/25/2018. There is no transition to suggest a partial small-bowel obstruction. Spot filming of the terminal ileum shows it to be unremarkable.. PROGNOSIS: Good ACTIVITY: As tolerated. DIET: No gluten diet DISCHARGE PLAN: Home DISPOSITION: 01 Home, Self-Care. DISCHARGE INSTRUCTIONS: 1. Follow-up with PCP in a week 2. Follow-up with GI in a week DISCHARGE CONDITION: Stable. Total time spent on discharge planning, discharge summary, medication reconciliation: 45 minutes Vital Signs/I&Os Vital Signs Date Time Temp Pulse Resp B/P (MAP) Pulse Ox O2 Delivery O2 Flow Rate FiO2 04/16/21 06:00 100/58 (72) 04/16/21 06:00 98.1 17 99 Room Air 04/15/21 20:30 56 I&O- Last 24 Hours up to 6 AM 04/16/21 06:00 Intake Total 2000 ml Output Total 2200 ml Balance -200 ml Laboratory Data Labs 24H Laboratory Tests 2 04/16/21 05:48: Nucleated Red Blood Cells % (auto) 0.0, Anion Gap 3L, Glomerular Filtration Rate > 60.0, Calcium Level 8.2L, Magnesium Level 2.5H, Total Bilirubin 0.2#, Aspartate Amino Transf (AST/SGOT) 14, Alanine Aminotransferase (ALT/SGPT) 23, Alkaline Phosphatase 54, Total Protein 6.6, Albumin 3.2, Albumin/Globulin Ratio 0.9L CBC/BMP Laboratory Tests 04/16/21 05:48 Discharge Medications Scheduled Ergocalciferol (Vitamin D2) (Vitamin D2) 50,000 Units Cap, 50,000 UNITS PO QWEEK, (Reported) SATURDAYS Linaclotide (Linzess) 145 Mcg Capsule, 145 MCG PO DAILY Omeprazole (Omeprazole) 40 Mg Cap, 40 MG PO BID, (Reported) Oxybutynin Chloride (Oxybutynin Chloride ER) 5 Mg Tab, 5 MG PO DAILY, (Reported) Polyethylene Glycol 3350 (Miralax) 17 Gm Powd.pack, 17 GM PO BID, (Reported) Scheduled PRN Dicyclomine HCl (Dicyclomine HCl) 10 Mg Capsule, 10 MG PO Q6H PRN for CRAMPS, (Reported) Ketorolac Tromethamine (Ketorolac Tromethamine) 10 Mg Tablet, 10 MG PO Q6H PRN for PAIN LEVEL 1-5, (Reported) Lactulose (Lactulose) 10 Gm/15 Ml Solution, 30 ML PO DAILY PRN for CONSTIPATION, (Reported) Ondansetron HCl (Ondansetron HCl) 4 Mg Tablet, 4 MG PO Q6H PRN for NAUSEA, (Reported) Allergies Coded Allergies: albuterol (Verified Allergy, Severe, 12/09/20) anaphylaxis bamlanivimab (Verified Allergy, Severe, BECAME UNRESPONSIVE DURING INITIAL INFUSION, 12/09/20) morphine (Verified Allergy, Severe, 12/09/20) anaphylaxis Sulfa (Sulfonamide Antibiotics) (Verified Allergy, Intermediate, 12/09/20) hives TAPE (Verified Allergy, Intermediate, red/itchy, 09/18/19) latex (Verified Allergy, Intermediate, redness, 09/18/19) oxycodone (Verified Allergy, Intermediate, hives, 09/18/19) BRIDGETT LONG DO Apr 16, 2021 18:36
[2021-04-17] MEDS ORDERED: VITAMIN D 50,000 UNITS CAPSULE (ERGOCALCIFEROL 1.25MG) PO SCH (09:00)
== END 2021-04-16 17:20 | disposition home or self-care (01) ==
LOC: M ED 18:07 → M ED INP 18:08 → M MSPAV 04-15 05:34
PROVIDERS: ADMIT Internal Medicine; ATTEND Internal Medicine
DX: K59.00 Constipation, unspecified (principal); E27.9 Disorder of adrenal gland, unspecified; K22.70 Barrett's esophagus without dysplasia; N32.81 Overactive bladder; K58.9 Irritable bowel syndrome, unspecified; K21.9 Gastro-esophageal reflux disease without esophagitis; F17.210 Nicotine dependence, cigarettes, uncomplicated; Z79.899 Other long term (current) drug therapy; Z88.8 Allergy status to other drugs, medicaments and biological substances; Z88.5 Allergy status to narcotic agent; Z88.2 Allergy status to sulfonamides; Z91.048 Other nonmedicinal substance allergy status; Z91.040 Latex allergy status
CPT/HCPCS: 36415; 74177; 74246; 80048; 80053; 80076; 83690; 83735; 85025; 85027; 87631; 96372; 99284; J1644; Q9963; Q9967

== ENCOUNTER → 2021-04-14 | Outpatient (REF) | payer OTHER ==
[~2021-04-14] MED LIST changes: +DICY10CA13; +DICY1CAP8 PO; +KETO10TAB; +KETO10TAB PO; +MIRA1POW3 PO; +ONDA-83 PO; +TRAM50TA2 PO
== END ==
LOC: M LAB REF 14:06
PROVIDERS: ATTEND Internal Medicine Gastroenterology
DX: K58.2 Mixed irritable bowel syndrome (principal)

== ENCOUNTER → 2021-05-07 | Outpatient (CLI) | payer OTHER ==
[~2021-05-07] MED LIST changes: +DICY10CA13; +DICY1CAP8 PO; +KETO10TAB; +KETO10TAB PO; +LINZ145C PO; +MIRA1POW3 PO
== END ==
LOC: M LABSMTC 11:11
PROVIDERS: ATTEND Anesthesiology
DX: Z01.818 Encounter for other preprocedural examination (principal)

== ENCOUNTER → 2021-05-11 | Outpatient (CLI) | payer OTHER ==
--- NOTE | 2021-05-12 09:25 | REP ---
INDICATION: RT BREST MASS SEEN ON CT SCAN AT [facility]. The patient has a known previously biopsied benign nodule in the right breast upper outer quadrant retro areolar location and having a surgical clip within it. COMPARISON: Multiple TECHNIQUE: Diagnostic digital bilateral mammography was carried out in the CC and MLO projections using both 2D and 3D modalities. Additionally, diagnostic digital magnified spot compression views of the right breast were obtained in the CC and MLO projections along with diagnostic ultrasonography. FINDINGS: The breasts are unchanged in size and shape. There is no change in the known benign right breast nodule retroareolar upper outer quadrant. In the right breast at 6 o'clock there is a potential edgardo density. This is next to 2 unchanged much smaller nodules which have been present for years. No other suspicious features are seen in either breast. Diagnostic digital magnified spot compression views of the right breast at 6 o'clock over the mammographic finding shows persistence of this nodule. Diagnostic ultrasonography of the right breast at 6 o'clock shows 3 areas of interest the 1st is an anechoic area measuring 5 mm. This exhibits posterior wall enhancement and increased through transmission. The 2nd is a slightly complex mixed echo 1 cm sized nodule. Shear wave elastography was performed on this showing very low kPa values. The 3rd is adjacent to the 2nd measuring 4 mm and nearly uniformly hypoechoic. Shear wave elastography was performed on this showing very low kPa values. IMPRESSION: BIRADS/ACR category 3 probably benign mammogram and right breast ultrasound. Six-month follow-up is recommended. This mammogram was interpreted with the aid of an FDA-approved computer-aided detection system. Tyrer Cuzick score is 11.5 The patient states she had a clinical breast exam 2 years ago. The patient letter being requested is M3. RECOMMENDATION: As above <Electronically signed by Jaun Paredes > 05/12/21 [id number]
== END ==
LOC: M WHC 09:42
PROVIDERS: ATTEND Internal Medicine
DX: Z12.31 Encounter for screening mammogram for malignant neoplasm of breast (principal)

== ENCOUNTER 2021-05-12 10:22 | Day surgery (SDC) | payer OTHER ==
[~2021-05-12] VITALS: Ht 165.1 cm; Wt 71.7 kg
[~2021-05-12 10:22] MED LIST changes: +NS 1,000 ML IV ONE
[2021-05-12] MEDS ORDERED: propofoL 500 MG/50 ML VIAL As Ordered ONE (11:00)
[2021-05-12] MEDS ORDERED: fentaNYL 100 MCG/2 ML INJECTION (J3010) As Ordered ONE (11:02)
[2021-05-12] MEDS ORDERED: LIDOCAINE 2% 100MG/5ML SDV (FOR ANES.) As Ordered ONE (11:07)
[2021-05-12] MEDS ORDERED: ONDANSETRON 4MG/2ML VIAL As Ordered ONE (12:16)
[2021-05-12] MEDS ORDERED: ePHEDrine SULFATE 25 MG/5 ML(5MG/ML) SYRINGE As Ordered ONE (12:34)
--- NOTE | 2021-05-12 12:39 | ROOR ---
Patient Name: Karen Hernandez Procedure Date: 05/12/2021 12:11 PM Date of : 1970 Age: 50 Room: [facility] Gender: Female Note Status: Finalized Procedure: Upper GI endoscopy Indications: Surveillance for malignancy due to personal history of Castle's esophagus, Abdominal pain, Follow-up of celiac disease, Abdominal bloating Providers: Reji Arriola MD Referring MD: BISHOP SOLANO MD Requesting Provider: Medicines: Monitored Anesthesia Care Complications: No immediate complications. Procedure: Pre-Anesthesia Assessment: - The heart rate, respiratory rate, oxygen saturations, blood pressure, adequacy of pulmonary ventilation, and response to care were monitored throughout the procedure. The Endoscope was introduced through the mouth, and advanced to the third part of duodenum. The upper GI endoscopy was accomplished without difficulty. The patient tolerated the procedure well. Findings: There were esophageal mucosal changes consistent with short-segment Castle's esophagus present in the lower third of the esophagus. The maximum longitudinal extent of these mucosal changes was 3 cm in length. Biopsies were taken with a cold forceps for histology. Mild gastritis, Biopsies were taken with a cold forceps for histology. Evidence of a fundoplication was found in the cardia. The wrap appeared intact. Mucosal flattening was found in the first portion of the duodenum and in the second portion of the duodenum. Biopsies were taken with a cold forceps for histology. Impression: - Esophageal mucosal changes consistent with 3 cm smooth segment Castle's esophagus. Biopsied. - Minimal gastritis. Biopsied. - A fundoplication was found. The wrap appears intact. - Slightly flattened mucosa was found in the duodenum, consistent with celiac disease. Biopsied. Recommendation: - Telephone endoscopist for pathology results in 2 weeks. - Continue present medications. - Gluten free diet. - Gastroparesis diet: - Eat smaller, more frequent meals throughout the day. - Low fat diet. - Liquid/soft foods are tolerated better than solid foods. - Low fiber/well cooked vegetables are tolerated better than high fiber/fibrous foods/raw vegetables. - Avoid medications that inhibit gastric/intestinal motility such as narcotic medications. Procedure Code(s): --- Professional --- 33570, Esophagogastroduodenoscopy, flexible, transoral; with biopsy, single or multiple Diagnosis Code(s): --- Professional --- K22.70, Castle's esophagus without dysplasia Z98.890, Other specified postprocedural states K31.89, Other diseases of stomach and duodenum R10.9, Unspecified abdominal pain K90.0, Celiac disease R14.0, Abdominal distension (gaseous) CPT copyright 2019 [employer]. All rights reserved. The codes documented in this report are preliminary and upon forest botany instructor review may be revised to meet current compliance requirements. Reji Arriola MD Reji Arriola MD 05/12/2021 12:38:59 PM Electronically signed by Reji Arriola MD Number of Addenda: 0 Note Initiated On: 05/12/2021 12:11 PM Estimated Blood Loss: Estimated blood loss: none.
[2021-05-12] MEDS ORDERED: propofoL 200 MG/20 ML VIAL As Ordered ONE (12:47)
--- NOTE | 2021-05-12 13:12 | ROOR ---
Patient Name: Karen Hernandez Procedure Date: 05/12/2021 12:12 PM Date of : 1970 Age: 50 Room: [facility] Gender: Female Note Status: Finalized Procedure: Colonoscopy Indications: Generalized abdominal pain, Irritable bowel syndrome with constipation Providers: Reji Arriola MD Referring MD: BISHOP SOLANO MD Requesting Provider: Medicines: Monitored Anesthesia Care Complications: No immediate complications. Procedure: Pre-Anesthesia Assessment: - The heart rate, respiratory rate, oxygen saturations, blood pressure, adequacy of pulmonary ventilation, and response to care were monitored throughout the procedure. The Colonoscope was introduced through the anus and advanced to 10 cm into the ileum. The colonoscopy was performed without difficulty. The patient tolerated the procedure well. The quality of the bowel preparation was adequate. Findings: The perianal and digital rectal examinations were normal. Two sessile polyps were found in the rectum and sigmoid colon. The polyps were diminutive in size. These polyps were removed with a cold snare. Resection and retrieval were complete. The colon (entire examined portion) was significantly redundant. Advancing the scope required using manual pressure. Small Internal Hemorrhoids. The exam was otherwise without abnormality on direct and retroflexion views. The terminal ileum appeared normal. Biopsies for histology were taken with a cold forceps for evaluation of microscopic colitis. Impression: - Two diminutive polyps in the rectum and in the sigmoid colon, removed with a cold snare. Resected and retrieved. - Redundant colon. - Small Internal Hemorrhoids. - The examination was otherwise normal on direct and retroflexion views. - The examined portion of the ileum was normal. - Biopsies were taken with a cold forceps for evaluation of microscopic colitis. Recommendation: - Telephone endoscopist for pathology results in 2 weeks. - Continue present medications. Procedure Code(s): --- Professional --- 19580, Colonoscopy, flexible; with removal of tumor(s), polyp(s), or other lesion(s) by snare technique 21348, 59, Colonoscopy, flexible; with biopsy, single or multiple Diagnosis Code(s): --- Professional --- Q43.8, Other specified congenital malformations of intestine K58.1, Irritable bowel syndrome with constipation R10.84, Generalized abdominal pain K63.5, Polyp of colon K62.1, Rectal polyp CPT copyright 2019 [employer]. All rights reserved. The codes documented in this report are preliminary and upon inspector multifocal lens review may be revised to meet current compliance requirements. Reji Arriola MD Reji Arriola MD 05/12/2021 1:12:23 PM Electronically signed by Reji Arriola MD Number of Addenda: 0 Note Initiated On: 05/12/2021 12:12 PM Estimated Blood Loss: Estimated blood loss: none.
[2021-05-12 13:43] VITALS: BP 98/65
== END 2021-05-12 13:45 | disposition home or self-care (01) ==
LOC: M OPP 10:22
PROVIDERS: ATTEND Internal Medicine Gastroenterology
DX: K63.5 Polyp of colon (principal); Q43.8 Other specified congenital malformations of intestine; K62.1 Rectal polyp; K58.1 Irritable bowel syndrome with constipation; R10.84 Generalized abdominal pain; K22.70 Barrett's esophagus without dysplasia; K31.89 Other diseases of stomach and duodenum; R14.0 Abdominal distension (gaseous); Z79.899 Other long term (current) drug therapy; Z88.2 Allergy status to sulfonamides; Z88.5 Allergy status to narcotic agent; Z88.8 Allergy status to other drugs, medicaments and biological substances; Z91.040 Latex allergy status
CPT/HCPCS: 43239; 45380; 45385; 88305; J2405; J3010

== ENCOUNTER → 2021-08-25 | Outpatient (CLI) | payer OTHER ==
[~2021-08-25] MED LIST changes: -NS 1,000 ML IV ONE
--- NOTE | 2021-08-25 13:49 | REP ---
INDICATION: FOREIGN BODY IN SMALL INTESTINE, INITIAL ENCOUNTER. COMPARISON: No prior post ingestion pill exams. Prior exam 11/06/2018 was reviewed FINDINGS: KUB shows the intestinal gas pattern to be nonspecific. The organ silhouettes insofar as delineated are unremarkable. There is no evidence of free intraperitoneal air. There is a rectangular radiodensity in the right upper abdomen which measures 2 by 1.5 cm consistent with the known ingested pill. This is at the level of L2 superimposed over the pedicle. IMPRESSION: As above <Electronically signed by Jaun Paredes > 08/25/21 [id number]
== END ==
LOC: M RAD 13:16
PROVIDERS: ATTEND Internal Medicine Gastroenterology
DX: T18.3XXA Foreign body in small intestine, initial encounter (principal)

== ENCOUNTER → 2021-08-31 | Outpatient (CLI) | payer OTHER ==
--- NOTE | 2021-08-31 13:47 | REP ---
INDICATION: FOREIGN BODY IN SMALL INTESTINE, INITIAL ENCOUNTER COMPARISON: 08/25/2021 TECHNIQUE: Supine view of the abdomen and pelvis. FINDINGS: Bowel gas pattern is nonspecific and without obstruction or perforation. No organomegaly. No abnormal calcifications. Skeletal structures intact. Surgical clips in the right upper quadrant consistent with prior cholecystectomy. Foreign body overlies the midline upper abdomen consistent with ingested PillCam and without significant change in position as compared to prior examination. IMPRESSION: Nonspecific bowel gas pattern. Foreign body consistent with PillCam. <Electronically signed by Misael De Los Santos > 08/31/21 [id number]
== END ==
LOC: M RAD 12:49
PROVIDERS: ATTEND Internal Medicine Gastroenterology
DX: T18.3XXA Foreign body in small intestine, initial encounter (principal)

== ENCOUNTER → 2021-09-07 | Outpatient (CLI) | payer OTHER ==
[~2021-09-07] MED LIST changes: +BUDE3CAP
[2021-09-07 18:48] LABS: BASO # 0.1 10^3/uL (0.0-0.2); BASO % 1.1 % (0.0-1.0); EOS # 0.3 10^3/uL (0.0-0.5); EOS % 3.6 % (0.0-3.0); HEMATOCRIT 39.7 % (36.0-47.0); HEMOGLOBIN 12.8 g/dl (12.0-15.5); LYMPH # 4.3 10^3/uL (1.5-5.0); LYMPH % 46.9 % (24.0-44.0); MEAN CORPUSCULAR HEMOGLOBIN 26.6 pg (27.0-33.0); MEAN CORPUSCULAR HGB CONC 32.2 g/dl (32.0-36.5); MEAN CORPUSCULAR VOLUME 82.4 fl (80.0-96.0); MONO # 0.6 10^3/uL (0.0-0.8); MONO % 6.8 % (2.0-8.0); NEUTROPHILS # 3.7 10^3/uL (1.5-8.5); NEUTROPHILS % 41.4 % (36.0-66.0); PLATELET COUNT, AUTOMATED 310 10^3/uL (150-450); RED BLOOD COUNT 4.82 10^6/uL (4.00-5.40); WHITE BLOOD COUNT 9.1 10^3/uL (4.0-10.0)
[2021-09-07 19:15] LABS: ALBUMIN 3.4 GM/DL (3.2-5.2); ALT/SGPT 15 U/L (12-78); BILIRUBIN,TOTAL 0.2 MG/DL (0.2-1.0); BLOOD UREA NITROGEN 6 MG/DL (7-18); CARBON DIOXIDE LEVEL 26 MEQ/L (21-32); CHLORIDE LEVEL 109 MEQ/L (98-107); CREATININE FOR GFR 0.68 MG/DL (0.55-1.30); GLOMERULAR FILTRATION RATE > 60.0 (>58); GLUCOSE, FASTING 89 MG/DL (70-100); POTASSIUM SERUM 4.3 MEQ/L (3.5-5.1); SODIUM LEVEL 140 MEQ/L (136-145); TOTAL PROTEIN 6.8 GM/DL (6.4-8.2)
== END ==
LOC: M LAB 17:25
PROVIDERS: ATTEND Internal Medicine Gastroenterology
DX: R63.4 Abnormal weight loss (principal)

== ENCOUNTER 2021-09-08 13:42 | Emergency (ER) | payer OTHER ==
[~2021-09-08] VITALS: Ht 165.1 cm; Wt 70.4 kg
[~2021-09-08 13:42] MED LIST changes: -BUDE3CAP
--- OUTSIDE RECORDS SUMMARY | 2021-09-08 13:49 | CCD ---
Author Author [facility] Organization [facility] Address Unknown Phone Unavailable Care Team Providers Care Display Carver Name Role Phone Rae Ramos Unavailable PROBLEMS Type Condition ICD9-CM Code HIP40-EZ Code Onset Dates Condition S tatus W/U Status Risk SNOMED Code Notes Problem Gastroesophageal reflux disease with esophagitis K 21.0 Active confirmed 710864846 Problem History of splenectomy Z90.81 Active confirmed 771312579 Problem Contact with and (suspected) exposure to potentially hazardous body fluids Z77.21 Active confirmed 958316289 Problem 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 Active confirmed 755923565 Problem Urge incontinence N39.41 Active confirmed 87 504386 Problem Contact with contaminated hypodermic needle, ini tial encounter W46.1XXA Active confirmed 451119558 Problem Needlestick injury due to hypodermic needle W46.0X XA Active confirmed [id number] Problem Irritable bowel syndrome with constipation K58.1 Active confirmed 104192396 Problem Celiac disease K90.0 Active confirmed 10663 1005 ALLERGIES Allergen (clinical drug ingredient) Drug/Non Drug Allergy do cumented on EMR Reaction Allergy Type Onset Date Status morphine Morphine Sulfate(NDC Code:[address]-85) Hives Drug A llergy Active sulfamethoxazole / trimethoprim Bactrim(NDC Code:[address]-55) Hives Drug Allergy Active acetaminophen / oxycodone Percocet(NDC Code:[address]-11) Hives Drug Allergy Active albuterol Albuterol Sulfate(NDC Code:[address]-61) unknown Drug Allergy Active ENCOUNTERS from 1972 to 2021-08-09 Encounter Location Date Provider Diagnosis [facility] [address] [facility] [phone] [place] [address] Jun, [facility] Richard Urge incontinence N3 9.41 IMMUNIZATIONS Vaccine Route Administration Date Status Meningococcal 0.5mL Menveo Groups A,C,Y & W-135 IM Intramuscular February 12, 2018 Administered Pneumococcal 0.5mL Prevnar 13 IM Intramuscular February 12, 2018 A dministered Hepatitis B Adult 1.0mL Engerix-B IM Intramuscular Jul 30, 2018 Administered Hepatitis B Adult 1.0mL Engerix-B IM Intramuscular April 24, 2018 Administered Hepatitis B Adult 1.0mL Engerix-B Unknown January 22, 2018 Administered SOCIAL HISTORY Tobacco Use: Social History Observation Description Date Details (start date - stop date) Current Smoker Sex Assigned At : Social History Observation Description Sex Assigned At Unknown Education: Question Answer Notes Level of Education: Finished High School Language: Question Answer Notes Languages spoken: Occitan Amish: Question Answer Notes Amish 33 None Sexual Hx: Question Answer Notes Had sex in the last 12 months (vaginal, oral, or anal)? Yes with Men only Alcohol Screening: Question Answer Notes Did you have a drink containing alcohol in the past year? Ye s Points 1 Interpretation Negative How often did you have a drink containing alcohol in t he past year? Monthly or less (1 point) Tobacco Use: Question Answer Notes Are you a: current smoker Smoking Cessation Information Given 02/12/2018 How many cigarettes a day do you smoke? 11-20 Are you interested in quitting? Not ready to quit Counseled the patient on smoking effects, education provided 02/12/2018 REASON FOR REFERRAL No Information VITAL SIGNS Weight 164 lbs Jun, Weight-kg 74.39 kg Jun, Height 64 in Jun, BMI 28.15 kg/m2 Jun, Blood pressure systolic 100 mm Hg Jun, Blood pressure diastolic 60 mm Hg Jun, MEDICATIONS Medication SIG (Take, Route, Frequency, Duration) Notes Start Da te End Date Status Augmentin 875-125 MG 1 tablet Orally Twice a day for 10 day(s) Dec, Active Lactulose 10 GM 1 packet Orally Once a day for 30 day(s) prn Not-Taking Spiriva HandiHaler 18 MCG 1 capsule by inhaling the co ntents of the capsule using the handihaler device Inhalation Once a day for 30 days Dec, Active Oxybutynin Chloride ER 5 MG 1 tablet Orally Once a day for 30 day(s) Active Drisdol 1.25 MG (91176 UT) 1 capsule Orally for 30 day(s) Active Omeprazole 40 MG 1 capsule Orally Once a day Active Benzonatate 200 MG 1 capsule Orally TID as needed for cough for 10 days Dec, Active Oxybutynin Chloride ER 10 MG 1 tablet Orally Once a day for 90 d ays Jun, Active Aspirin 81 81 MG 1 tablet Orally Once a day for 30 day(s) Active Polyethylene Glycol - Act go PROCEDURES No Information RESULTS No Results REASON FOR VISIT discuss medication MEDICAL (GENERAL) HISTORY Type Description Date Medical History celiac disease Medical History IBS Medical History Barretts esophagus Ivana fu ndoplication twice [place]/ [place] 2004 Medical History Immunosuppression SP splenectomy Surgical History Ivana fundoplication twice 2004 Surgical History Splenectomy 2004 Hospitalization History Surgical related Hospitalization History covid 2020 Goals Section No Information Health Concerns No Information MEDICAL EQUIPMENT No Information MENTAL STATUS No Information FUNCTIONAL STATUS No Information ASSESSMENTS Encounter Date Diagnosis Assessment Notes Treatment Notes Treatm ent Clinical Notes Jun, Urge incontinence (ICD-10 - N39.41) Plan to increase medication by 10 mg. She will follow up with 8 weeks PLAN OF TREATMENT Medication Medication Name Sig Start Date Stop Date Oxybutynin Chloride ER 10 MG 1 tablet Orally Once a day for 90 days Jun, Treatment Notes Assessment Notes Clinical Notes Urge incontinence Plan to increase med ication by 10 mg. She will follow up with 8 weeks Next Appt Details 2 Months Reason: Insurance Providers Payer Name Payer Address Payer Phone Insured Name Patient Relati onship to Insured Coverage Start Date Coverage End Date [employer] [facility] [place] [address] [facility] [id number] HARISH EVERETT self
--- OUTSIDE RECORDS SUMMARY | 2021-09-08 13:49 | CCD | Continuity of Care Document ---
Author Author Karen ARRIOLA MD Organization Unknown Address [address] [place] [address] Phone [phone] Care Team Providers Care Disability Advocate Name Role Phone Abdi Quach M.D. AUTM [phone] Problems Active Problems Provider Date Breast lump Osorio Pelletier DO Onset: 3 Social History Type Date Description Comments Sex Unknown ETOH Use Occasionally consumes alcohol ETOH Use 1-2 A Month Tobacco Use Start: Unknown Patient is a current smoker, smo kes every day 1 PPD Recreational Drug Use Current Alcohol Use Occasi onally Recreational Drug Use Denies Alcohol Use Exercise Type/Frequency Occasional Mild Exercise Allergies and adverse reactions Active Allergies Criticality Reaction | Severity Comments Date Albuterol Unable to assess criticality 12/22/2010 Morphine Unable to assess criticality Unkown React ion 12/22/2010 Percocet Unable to assess criticality Hives 04/23/2013 Sulfa Unable to assess criticality 03/08/2017 Medications Active Medications SIG Qnty Indications Ordering Provide r Date Magnesium Citrate 1.745GM/30ML Marci ution drink entire 10 oz bottle as soon as possible after swallowing the Agile test pill 296ml Maikol Arriola MD 08/25/2021 Dicyclomine HCL 10mg Capsules 1 to 2 by mouth every 6 hours as needed abdominal cramping 60caps K58.1 Maikol Arriola MD 06/24/2020 Lactulose 10GM/15ML Solution take 30 milliliters by mouth prn use 1200units K58.1 Maikol Arriola MD Omeprazole 40mg Capsules DR Take One Capsule By Mouth Twice A Day (Barrets esophagus) 60caps K22.70 Maikol Arriola MD 07/22/2019 Miralax 3350NF Powder Take 17 gm twice a day 1020gm Maikol Arriola MD 08/30/2016 Naproxen 500mg Tablets 1 by mouth twice a day prn Unknown Vitamin D3 1.25mg (28825 Ut) Capsu les every week Unknown Ketorolac Tromethamine 10mg Tablets Unknown Oxybutynin Chloride ER 10mg Tablets ER 24HR 1t/d Unknown Linzess 1t/d Unknown History Medications Magnesium Citrate 1.745GM/30ML Marci ution one 10 oz bottle green or clear only, use for additional prep at 2-3 days before procedure 296ml K58.2 Maikol Arriola MD 04/13/2021 - Miralax 17GM/Scoop Powder use as directed see dr arriola colon preparation instructions 510gm K58.2 Gerald Arriola MD 04/13/2021 - 07/25/2021 Immunizations Description No Information Available Vital Signs Date Vital Result Comment 07/26/2021 3:01pm BP Systolic 108 mmHg BP Diastolic 60 mmHg Height 65 inches 5'5" Weight 162.00 lb BMI (Body Mass Index) 27.0 kg/m2 [place] Body Weight 125 lb Weight 73.483 kg BSA (Body Surface Area) 1.81 m2 04/13/2021 2:13pm BP Systolic 96 mmHg BP Diastolic 61 mmHg Height 65 inches 5'5" Weight 159.00 lb BMI (Body Mass Index) 26.5 kg/m2 [place] Body Weight 125 lb Weight 72.122 kg BSA (Body Surface Area) 1.79 m2 Results Test Acquired Date Facility Test Result H/L Range Note Laboratory test finding 05/12/2021 [facility] [address] [place] [phone] Pathology Request For Service (SEE NOTE) 1 Gastrointestinal (GI) Panel 04/14/2021 [facility] [address] [place] [address] [phone] Gastrointestinal (GI) Panel This Gastrointes <SEE NOTE > 2, 3 Laboratory test finding 04/14/2021 [facility] [address] [place] [address] [phone] Calprotectin Stool 175 ug/g High 0-120 4 Pancreatic Elastase Stool 223 Normal >200 5 1 FINAL DIAGNOSIS A-Duodenal biopsy: Duodenal mucosa with showing villous blunting, increased intraepithelial lymphocytes and crypt hyperplasia, consistent with celiac disease. B-Gastric biopsy: Gastric mucosa with mild chronic inflammation. No H.pylori is identified. C--Esophagus, below z-line, biopsy: Castle mucosa present. No evidence of premalignant dysplasia. Scant squamous mucosa noted. D-Submitted as "biopsy for Castle's": Castle mucosa present. Mild chronic inflammation. No evidence of premalignant dysplasia. Squamous mucosa without significant pathology. E-Submitted as "biopsy for Castle's": Castle mucosa present. Mild chronic inflammation. No evidence of premalignant dysplasia. Squamous mucosa without significant pathology. F-Colon, random biopsy: Colonic mucosa with hyperplastic changes and nonspecific mild inflammation. No evidence of microscopic colitis. G-Colon, sigmoid polyp, polypectomy: Tubular adenoma. H-Rectal polyp, polypectomy: Tubular adenoma. 05/13/2021 - 1146 CLINICAL DIAGNOSIS Abdominal pain, Castle's, celiac disease 05/12/2021 - 1527 GROSS DIAGNOSIS A - Received in formalin labeled "duodenal biopsy, follow up celiac disease" and consists of a fragment of tissue, 0.2 x 0.1 x 0.1 cm. All in one. B - Received in formalin labeled "gastric biopsy for gastritis" and consists of a fragment of tissue, 0.1 x 0.1 x 0.1 cm. All in one. C - Received in formalin labeled "biopsy below Z-line, R/O Castle's" and consists of fragments of tissue, 0.2 x 0.2 x 0.1 cm. All in one. D - Received in formalin labeled "biopsy for Castle's" and consists of a fragment of tissue, 0.2 x 0.1 x 0.1 cm. All in one. E - Received in formalin labeled "biopsy for Castle's" and consists of fragments of tissue, 0.3 x 0.2 x 0.1 cm. All in one. F - Received in formalin labeled "random colon biopsy, R/O microscopic colitis" and consists of a fragment of tissue, 0.2 x 0.1 x 0.1 cm. All in one. G - Received in formalin labeled "sigmoid polyp" and consists of a fragment of tissue, 0.2 x 0.1 x 0.1 cm. All in one. H - Received in formalin labeled "rectal polyp" and consists of a fragment of tissue, 0.2 x 0.1 x 0.1 cm. All in one. -OA 05/12/2021 - 1527 Signed CONNIE MALIK MD 05/13/2021 1147 2 This Gastrointestinal PCR Pa pollo detects the following bacteria, parasites and viruses: Campylobacter (jejuni, coli and upsaliensis), Clostridium difficile (toxin A/B), Plesiomonas shigelloides, Salmonella, Yersinia enterocolitica, Vibrio (parahaemolyticus, vulnificus and cholerae), Vibrio clolerae, Enteroaggregative E. coli (EAEC), Enteropathogenis E. coli (EPEC), Enterotoxigenic E. coli (ETEC) it/st, Shiga-like producing E. coli (STEC) stx1/stc2, E.coli O157, Shigella/Enteroinvasive E. coli (EIEC), Cryptosporidium, Cyclospora cayetanensis, Entamoeba histolytica, Giardia lamblia, Adenovirus F 40/41, Astrovirus, Norovirus GI/GII, Rotavirus A and Sapovirus (I, II, IV, V). One negative specimen does not rule out the possibility of a parasitic infection. NEGATIVE by MULTIPLEXED NUCLEIC ACID PCR 3 04/16/21 (MonApr 16) 05:25 P M MAIKOL REINDL neg 4 Concentration Interpreta tion Follow-Up <16 - 50 ug/g Normal None >50 -120 ug/g Borderline Re-evaluate in 4-6 weeks >120 ug/g Abnormal Repeat as clinically indicated Performed at: - [facility] [id number] [employer] Warehouse Developer: Marj Loving MD, Phone: [phone] Result Units: ug Elast./g Severe Pancreatic Insufficiency: <100 Moderate Pancreatic Insufficiency: 100 - 200 Normal: >200 Procedures Date Code Description Status 07/26/2021 70292 Office/Outpatient Established Mo d MDM 30-39 Min Completed 05/12/2021 93755 Colonoscopy W/ Poly Completed 05/12/2021 44798 Colonoscopy Flexible Proximal To Splenic Flexure W/Biopsy Single/ Completed 05/12/2021 20274 Endoscopy Upper GI Biopsy Comple devora 04/13/2021 81395 Office/Outpatient Established Mo d MDM 30-39 Min Completed 04/03/2019 34607618 Mammogram Completed 03/14/2017 [id number] Mammogram Completed Medical Devices Description No Information Available Encounters Type Date Location Provider Dx Diagnosis Office Visit 07/26/2021 3:00p [facility] Pra ctlayla Arriola MD K31.84 Gastroparesis K90.0 Celiac disease K59.00 Constipation, unspecified K22.70 Castle's esophagus without dysplasia Office Visit 04/13/2021 2:15p [facility] Pra elsi Arriola MD K58.2 Mixed irritable bowel syndro me K90.0 Celiac disease K22.70 Castle's esophagus without dysplasia K31.84 Gastroparesis Assessments Date Code Description Provider 07/26/2021 K31.84 Gastroparesis Maikol Arriola MD 07/26/2021 K90.0 Celiac disease Maikol Arriola MD 07/26/2021 K59.00 Constipation, unspecified Maikol Arriola MD 07/26/2021 K22.70 Castle's esophagus without dysp lasia Maikol Arriola MD 05/12/2021 D12.5 Benign neoplasm of sigmoid colon Maikol Arriola MD 05/12/2021 D12.8 Benign neoplasm of rectum Maikol Arriola MD 05/12/2021 R10.84 Generalized abdominal pain Maikol Arriola MD 05/12/2021 K58.1 Irritable bowel syndrome with co nstipation Maikol Arriola MD 05/12/2021 Q43.8 Other specified congenital malfo rmations of intestine Maikol Arriola MD 05/12/2021 K22.70 Acstle's esophagus without dysp lasia Maikol Arriola MD 05/12/2021 K31.89 Other diseases of stomach and du odenum Maikol Arriola MD 05/12/2021 K90.0 Celiac disease Maikol Arriola MD 05/12/2021 K14.0 Glossitis Maikol Arriola MD 04/13/2021 K58.2 Mixed irritable bowel syndrome Enid Arriola MD 04/13/2021 K90.0 Celiac disease Maikol Arriola MD 04/13/2021 K22.70 Castle's esophagus without dysp lasia Maikol Arriola MD 04/13/2021 K31.84 Gastroparesis Maikol Arriola MD Plan of Treatment No Information Available Functional Status Description No Information Available Mental Status Description No Information Available Referrals Description No Information Available
--- OUTSIDE RECORDS SUMMARY | 2021-09-08 13:50 | CCD | Continuity of Care Document ---
Author Author Karen QUACH M.D. Organization Unknown Address [address] [place] [id number] Phone [phone] Care Team Providers Care Compensation Programs Manager Name Role Phone Reji Arriola M.D. AUTM [phone] Problems Active Problems Provider Date Celiac disease Abdi Quach M.D. Onset: 7 Chronic obstructive lung disease Abdi Quach M.D. Ons et: 05/24/2017 Overweight Abdi Quach M.D. Onset: 8 Gastroparesis syndrome Abdi Quach M.D. Onset: 2017 Castle's esophagus Abdi Quach M.D. Onset: 8 Irritable bowel syndrome Abdi Quach M.D. Onset: 09/15 Vitamin D deficiency Lavell Amin RPA Onset: 0 Social History Type Date Description Comments Sex Unknown Tobacco Use Start: Unknown Current Cigarette Smoker 1 Pack Daily for 23 years ETOH Use Occasionally consumes alcohol Tobacco Use Start: Unknown Patient is a current smoker, smo kes every day Allergies and adverse reactions Active Allergies Criticality Reaction | Severity Comments Date Morphine Unable to assess criticality 06/28/2013 Percocet Unable to assess criticality 06/28/2013 Albuterol Unable to assess criticality 06/28/2013 Bactrim Unable to assess criticality 06/13/2014 Medications Active Medications SIG Qnty Indications Ordering Provide r Date Vitamin D (Ergocalciferol) 1.25mg (25624 Ut) Capsules take one capsule by mouth once weekly 12caps Abdi Quach M.D. 12/28/2020 Ondansetron HCL 4mg Tablets take one tablet by mouth every 6 hours as needed for nausea 20tabs Abdi Quach M.D. 12/23/2020 Naproxen 500mg Tablets take one tablet by mouth twice a day as needed for pain 60tabs Sanket Quach M.D. 03/27/2019 Polyethylene Glycol 3350 3350NF Po wder Mix 1 Capful (17g) In 4 To 8 Ounces Of Liquid twice a day 510units Abdi Quach M.D. 07/09/2018 Oxybutynin Chloride ER 5mg Tablets ER 24HR Take One Tablet By Mouth Every Day 90tabs Abdi Rubi M.D. Omeprazole 40mg Capsules DR 1 by mouth twice a day 60Abdi Hilliard M.D. Lactulose 10GM/15ML Solution twice a day as needed Unknown Linzess 145mcg Capsules one by mouth daily - 30 minutes prior to the first meal of the day 30Abdi Hilliard M.D. Dicyclomine HCL 10mg Capsules 1-2 tab by mouth four times a day as needed 30 minutes prior to eating and at bedtime Reji Arriola M.D. History Medications Ketorolac Tromethamine 10mg Tablet s one by mouth q6 as needed pain (SMC) Unknown - 07/16/2021 Medications Administered in Office Medication SIG Qnty Indications Ordering Provider Date Injection (SC)/(Im) Injection Lavell Amin RPA 08/26/2020 Immunizations CPT Code Status Date Vaccine Lot # [id number] Given 07/16/2021 Influenza Virus Vaccine, Quadrivalent, Slit Virus, Im Use 3Y & Up [id number] Given 09/30/2019 Influenza Virus Vaccine, Quadrivalent, Slit Virus, Im Use 3Y & Up [id number] Vital Signs Date Vital Result Comment 07/16/2021 1:37pm BP Systolic 88 mmHg BP Diastolic 58 mmHg Body Temperature 97.7 F Heart Rate 70 /min Respiratory Rate 16 /min Height 64.75 inches 5'4.75" Weight 163.00 lb [place] Body Weight 120 lb BMI (Body Mass Index) 27.3 kg/m2 O2 % BldC Oximetry 98 % 05/14/2021 2:39pm BP Systolic 92 mmHg BP Diastolic 60 mmHg Body Temperature 97.2 F Heart Rate 60 /min Respiratory Rate 16 /min Height 64.75 inches 5'4.75" Weight 160.00 lb [place] Body Weight 120 lb BMI (Body Mass Index) 26.8 kg/m2 O2 % BldC Oximetry 94 % Results Test Acquired Date Facility Test Result H/L Range Note Coronavirus 2019 Nasopharygeal 05/07/2021 [facility] (Interface) [phone] Coronavirus 2019 Nasopharygeal ASSAY INFORMATIO <SEE N OTE> 1 CBC With Differential 04/14/2021 [facility] (Interface) [phone] White Blood Count 10.7 10 High 4.0-10.0 Red Blood Count 4.28 10 Normal 4.00-5.40 Hemoglobin 11.4 g/dL Low 12.0-15.5 Hematocrit 35.4 % Low 36.0-47.0 Mean Corpuscular Volume 82.7 fl Normal 80.0-96.0 Mean Corpuscular Hemoglobin 26.6 pg Low 27.0-33.0 Mean Corpuscular HGB Conc 32.2 g/dL Normal 32.0-36.5 Red Cell Distribution Width 15.7 % High 11.5-14.5 Platelet Count, Automated 304 10 Normal 150-450 Neutrophils % 49.7 % Normal 36.0-66.0 Lymph % 38.7 % Normal 24.0-44.0 [place] % 6.7 % Normal 2.0-8.0 Eos % 3.6 % High 0.0-3.0 Baso % 1.0 % Normal 0.0-1.0 Immature Granulocyte % 0.3 % Normal 0-3.0 Nucleated Red Blood Cell % 0.0 % Normal 0-0 Neutrophils # 5.3 10 Normal 1.5-8.5 Lymph # 4.2 10 Normal 1.5-5.0 [place] # 0.7 10 Normal 0.0-0.8 Eos # 0.4 10 Normal 0.0-0.5 Baso # 0.1 10 Normal 0.0-0.2 Liver Profile 04/14/2021 [facility] (I nterfa) [phone] Ast/Sgot 20 U/L Normal 7-37 Alt/SGPT 29 U/L Normal 12-78 Alkaline Phosphatase 60 U/L Normal 45-117 Bilirubin,Total 0.1 mg/dL Low 0.2-1.0 Bilirubin,Direct < 0.1 mg/dL Normal 0.0-0.2 Total Protein 6.3 GM/DL Low 6.4-8.2 Albumin 3.2 GM/DL Normal 3.2-5.2 Albumin/Globulin Ratio 1.0 Low 1.2-2.2 Basic Metabolic Profile 04/14/2021 [facility] (Interface) [phone] Glucose, Fasting 94 mg/dL Normal 70-100 Blood Urea Nitrogen 11 mg/dL Normal 7-18 Creatinine For GFR 0.50 mg/dL Low 0.55-1.30 Glomerular Filtration Rate > 60.0 Normal >58 2 Sodium Level 139 mEq/L Normal 136-145 Potassium Serum 4.3 mEq/L Normal 3.5-5.1 Chloride Level 110 mEq/L High 98-107 Carbon Dioxide Level 24 mEq/L Normal 21-32 Anion Gap 5 mEq/L Low 8-16 Calcium Level 8.3 mg/dL Low 8.5-10.1 Laboratory test finding 04/14/2021 [facility] (Interface) [phone] Lipase 61 U/L Low 73-393 Laboratory test finding 02/08/2021 [facility] [place] Vitamin D, 25-Hydroxy 45.7 ng/mL 30.0-100.0 3 Metabolic Panel (14), Comprehensive 02/08/2021 [facility] [place] Glucose 87 mg/dL 65-99 BUN 7 mg/dL 6-24 Creatinine 0.66 mg/dL 0.57-1.00 eGFR If NonAfricn Am 105 mL/min/1.73 >59 eGFR If Africn Am 121 mL/min/1.73 >59 4 BUN/Creatinine Ratio 11 9-23 Sodium 138 mmol/L 134-144 Potassium 4.6 mmol/L 3.5-5.2 Chloride 104 mmol/L 96-106 Carbon Dioxide, Total 24 mmol/L 20-29 Calcium 9.2 mg/dL 8.7-10.2 Protein, Total 6.8 g/dL 6.0-8.5 Albumin 4.1 g/dL 3.8-4.8 Globulin, Total 2.7 g/dL 1.5-4.5 A/G Ratio 1.5 1.2-2.2 Bilirubin, Total 0.2 mg/dL 0.0-1.2 Alkaline Phosphatase 82 IU/L 39-117 Ast (Sgot) 19 IU/L 0-40 Alt (SGPT) 14 IU/L 0-32 Laboratory test finding 02/08/2021 [facility] [place] TSH 1.320 uIU/mL 0.450-4.500 1 ASSAY INFORMATION: Real Time RT-PCR NOTE: The COVID-19 assay has been cleared by the U.S. Food and Drug Administration under the Emergency Use Authorization (EUA). [email or web address] and [facility] are designated as high complexity laboratories by the Clinical Laboratory Improvement Amendments of 1988(CLIA) and are qualified to perform this test. Not Detected 2 Units are mL/min/1.73 m2 Chronic Kidney Disease Staging per NKF: Stage I & II GFR >=60 Normal to Mildly Decreased Stage III GFR 30-59 Moderately Decreased Stage IV GFR 15-29 Severely Decreased Stage V GFR <15 Very Little GFR Left ESRD GFR <15 on DESK DIRECTOR 3 Vitamin D deficiency has bee n defined by the [place] of Medicine and an Endocrine Society practice guideline as a level of serum 25-OH vitamin D less than 20 ng/mL (1,2). The Endocrine Society went on to further define vitamin D insufficiency as a level between 21 and 29 ng/mL (2). 1. IOM ([place] of Medicine). 2010. Di etary reference intakes for calcium and D. [place]: The National Academies Press. 2. Nate MF, Lotus NC, Felix ambriz DAMON, et al. Evaluation, treatment, and prevention of vitamin D deficiency: an Endocrine Society clinical practice guideline. JCEM. 2010; 96(7):1911-30. 4 [facility] currently reports eGFR in compliance with the current recommendations of the National Kidney Foundation. [facility] will update reporting as new guidelines are published from the NKF-ASN Task force. Procedures Date Code Description Status 07/16/2021 54473 Office/Outpatient Established Mo d MDM 30-39 Min Completed 05/14/2021 85377 Office/Outpatient Established Mo d MDM 30-39 Min Completed 04/20/2021 16738 Office/Outpatient Established Mo d MDM 30-39 Min Completed 04/14/2021 25631 Office/Outpatient Established Mo d MDM 30-39 Min Completed 02/08/2021 54139 Office/Outpatient Established Mo d MDM 30-39 Min Completed 03/15/2018 [id number] Mammogram Completed Medical Devices Description No Information Available Encounters Type Date Location Provider Dx Diagnosis Office Visit 07/16/2021 1:30p [facility] Abdi Quach M. D. K59.00 Constipation, unspecified J44.9 Chronic obstructive pulmonar y disease, unspecified Z23 Encounter for immunization Office Visit 05/14/2021 2:45p [facility] Abdi Quach M. D. K59.00 Constipation, unspecified Office Visit 04/20/2021 4:00p [facility] Abdi Quach M. D. D48.61 Neoplasm of uncertain behavior of right breast K59.00 Constipation, unspecified Office Visit 04/14/2021 11:30a [facility] Abdi Quach M. D. D48.61 Neoplasm of uncertain behavior of right breast R10.9 Unspecified abdominal pain Office Visit 02/08/2021 8:45a [facility] Abdi Qucah M. D. J44.9 Chronic obstructive pulmonary disease, unspecified E55.9 Vitamin D deficiency, unspec ified Assessments Date Code Description Provider 07/16/2021 K59.00 Constipation, unspecified Abdi Rubi M.D. 07/16/2021 J44.9 Chronic obstructive pulmonary di sease, unspecified Abdi Quach M.D. 07/16/2021 Z23 Encounter for immunization Abdi Cullen M.D. 05/14/2021 K59.00 Constipation, unspecified Abdi Rubi M.D. 04/20/2021 D48.61 Neoplasm of uncertain behavior o f right breast Abdi Quach M.D. 04/20/2021 K59.00 Constipation, unspecified Abdi Rubi M.D. 04/14/2021 D48.61 Neoplasm of uncertain behavior o f right breast Abdi Quach M.D. 04/14/2021 R10.9 Unspecified abdominal pain Abdi Cullen M.D. 02/08/2021 J44.9 Chronic obstructive pulmonary di sease, unspecified Abdi Quach M.D. 02/08/2021 E55.9 Vitamin D deficiency, unspecifie d Abdi Quach M.D. Plan of Treatment Future Appointment(s):* 10/18/2021 10:20 am - Abdi Quach M.D. at [facility] Functional Status Description No Information Available Mental Status Description No Information Available Referrals Refer to Reason for Referral Status Appt Date Alexia Mckeon M.D. chronic constipation with pa in - eval and treat. Hx: celiac disease, gastroparesis, irritable bowel, Castle's esophagus [facility] [place] [address] [place], [place] [address] [phone]
--- OUTSIDE RECORDS SUMMARY | 2021-09-08 13:50 | CCD | Continuity of Care Document ---
Author Author Karen QUACH M.D. Organization Unknown Address [address] [id number] Phone [phone] Care Team Providers Care Radiographer Technologist Name Role Phone Reji Arriola M.D. AUTM [phone] Problems Active Problems Provider Date Celiac disease Abdi Quach M.D. Onset: 7 Chronic obstructive lung disease Abdi Quach M.D. Ons et: 05/24/2017 Overweight Abdi Quach M.D. Onset: 8 Gastroparesis syndrome Abdi Quach M.D. Onset: 2017 Castle's esophagus Abdi Quach M.D. Onset: 8 Irritable bowel syndrome Abdi Quach M.D. Onset: 09/15 Vitamin D deficiency Lavell Amin [facility] Onset: 0 Social History Type [...] SIG Qnty Indications Ordering Provide r Date Ketorolac Tromethamine 10mg Tablet s one by mouth q6 as needed pain (SMC) Unknown Vitamin D (Ergocalciferol) 1.25mg (47289 Ut) Capsules Take One Capsule By Mouth Once Weekly For 8 Weeks 4caps Abdi Quach M.D. 12/28/2020 Ondansetron HCL 4mg [...] eating and at bedtime Reji Arriola M.D. Medications Administered in Office Medication SIG Qnty Indications Ordering Provider Date Injection (SC)/(Im) Injection Lavell Amin RPA 08/26/2020 Immunizations CPT Code Status Date Vaccine Lot # [id number] Given 09/30/2019 Influenza Virus Vaccine, Quadrivalent, Slit Virus, Im Use 3Y & Up [id number] Vital Signs Date Vital Result Comment 05/14/2021 2:39pm BP Systolic 92 mmHg BP Diastolic 60 mmHg Body Temperature 97.2 F Heart Rate 60 /min Respiratory Rate 16 /min Height 64.75 inches 5'4.75" Weight 160.00 lb [place] Body Weight 120 lb BMI (Body Mass Index) 26.8 kg/m2 O2 % BldC Oximetry 94 % 04/20/2021 3:46pm BP Systolic 102 mmHg BP Diastolic 60 mmHg Body Temperature 97.4 F Heart Rate 70 /min Respiratory Rate 18 /min Height 64.75 inches 5'4.75" Weight 160.00 lb [place] Body Weight 120 lb BMI (Body Mass Index) 26.8 kg/m2 O2 % BldC Oximetry 98 % Results Test Acquired Date Facility Test Result H/L Range Note Coronavirus 2019 Nasopharygeal 05/07/2021 [facility]) [phone] Coronavirus 2019 Nasopharygeal ASSAY INFORMATIO <SEE N OTE> 1 CBC With Differential 04/14/2021 [facility]) [phone] White Blood Count 10.7 10 High 4.0-10.0 [...] 36.0-66.0 Lymph % 38.7 % Normal 24.0-44.0 [place] % 6.7 % Normal 2.0-8.0 Eos % 3.6 % High 0.0-3.0 Baso % 1.0 % Normal 0.0-1.0 Immature Granulocyte % 0.3 % Normal 0-3.0 Nucleated Red Blood Cell % 0.0 % Normal 0-0 Neutrophils # 5.3 10 Normal 1.5-8.5 Lymph # 4.2 10 Normal 1.5-5.0 [place] # 0.7 10 Normal 0.0-0.8 Eos # 0.4 10 Normal 0.0-0.5 Baso # 0.1 10 Normal 0.0-0.2 Liver Profile 04/14/2021 [facility] (I nterface) [phone] Ast/Sgot 20 U/L Normal 7-37 Alt/SGPT 29 U/L Normal 12-78 Alkaline Phosphatase 60 U/L Normal 45-117 Bilirubin,Total 0.1 mg/dL Low 0.2-1.0 Bilirubin,Direct < 0.1 mg/dL Normal 0.0-0.2 Total Protein 6.3 GM/DL Low 6.4-8.2 Albumin 3.2 GM/DL Normal 3.2-5.2 Albumin/Globulin Ratio 1.0 Low 1.2-2.2 Basic Metabolic Profile 04/14/2021 [facility] (Interface) [phone] Glucose, Fasting 94 mg/dL Normal 70-100 Blood [...] mg/dL Low 8.5-10.1 Laboratory test finding 04/14/2021 [facility] (Interface) [phone] Lipase 61 U/L Low 73-393 Laboratory test [...] Administration under the Emergency Use Authorization (EUA). [facility] and [facility] are designated as high complexity laboratories by [...] Little GFR Left ESRD GFR <15 on PROJECT SCHEDULER 3 Vitamin D deficiency has bee n defined by the [place] of Medicine and an Endocrine Society practice guideline as a level of serum 25-OH vitamin D less than 20 ng/mL (1,2). The Endocrine Society went on to further define vitamin D insufficiency as a level between 21 and 29 ng/mL (2). 1. IOM ([place] of Medicine). 2010. Di etary reference intakes for calcium and D. [place]: The National Academies Press. 2. Nate REDDY, Lotus CASSIDY, Felix ambriz DAMON, et al. Evaluation, treatment, and prevention of vitamin D deficiency: an Endocrine Society clinical practice guideline. JCEM. 2010; 96(7):1911-30. 4 [facility] currently reports eGFR in compliance with the current recommendations of the National Kidney Foundation. [facility] will update reporting as new guidelines are published from the NKF-ASN Task force. Procedures Date Code Description Status 07/16/2021 92221 Office/Outpatient Established Mo d MDM 30-39 Min Completed 05/14/2021 48243 Office/Outpatient Established Mo d MDM 30-39 Min Completed 04/20/2021 03660 Office/Outpatient Established Mo d MDM 30-39 Min Completed 04/14/2021 46016 Office/Outpatient Established Mo d MDM 30-39 Min Completed 02/08/2021 99740 Office/Outpatient Established Mo d MDM 30-39 Min Completed 03/15/2018 [id number] Mammogram Completed Medical Devices Description No Information Available Encounters Type Date Location Provider Dx Diagnosis Office Visit 07/16/2021 1:30p [place] [facility] Abdi Quach M. D. K59.00 Constipation, unspecified J44.9 Chronic obstructive pulmonar y disease, unspecified Office Visit 05/14/2021 2:45p [place] [place] [facility] Abdi Quach M. D. K59.00 Constipation, unspecified Office Visit 04/20/2021 4:00p [place] [facility] Abdi Quach M. D. D48.61 Neoplasm of uncertain behavior of right breast K59.00 Constipation, unspecified Office Visit 04/14/2021 11:30a [place] [place] [facility] Abdi Quach M. D. D48.61 Neoplasm of uncertain behavior of right breast R10.9 Unspecified abdominal pain Office Visit 02/08/2021 8:45a [place] [facility] Abdi Quach M. D. J44.9 Chronic obstructive pulmonary disease, unspecified E55.9 Vitamin D deficiency, unspec ified Assessments Date Code Description Provider 07/16/2021 K59.00 Constipation, unspecified Abdi Rubi M.D. 07/16/2021 J44.9 Chronic obstructive pulmonary di sease, unspecified Abdi Quach M.D. 05/14/2021 K59.00 Constipation, unspecified Abdi Rubi [...] 02/08/2021 E55.9 Vitamin D deficiency, unspecifie d [place], Abdi H, M.D. Plan of Treatment Future Appointment(s):* 08/16/2021 9:00 am - Abdi Quach M.D. at [facility] Functional Status Description No Information Available Mental Status Description No Information Available Referrals Refer to Reason for Referral Status Appt Date Alexia Mckeon M.D. chronic constipation with pa in - eval and treat. Hx: celiac disease, gastroparesis, irritable bowel, Castle's esophagus [facility] [address] [place], [place] [address] [phone]
--- OUTSIDE RECORDS SUMMARY | 2021-09-08 13:50 | CCD | Continuity of Care Document ---
Author Author Karen ARRIOLA MD Organization Unknown Address [address] [place] [address] Phone [phone] Care Team Providers Care Piecer Name Role Phone Abdi Quach M.D. AUTM [phone] Problems Active Problems Provider Date Breast lump [...] SIG Qnty Indications Ordering Provide r Date Dicyclomine HCL 10mg Capsules 1 to 2 [...] a day prn Unknown Vitamin D3 1.25mg (75946 Ut) Capsu les every week Unknown Ketorolac [...] arriola colon preparation instructions 510gm K58.2 Gerald esequiel Arriola MD 04/13/2021 - 07/25/2021 Immunizations Description No Information Available Vital Signs Date Vital Result Comment 07/26/2021 3:01pm BP Systolic 108 mmHg BP Diastolic 60 mmHg Height 65 inches 5'5" Weight 162.00 lb BMI (Body Mass Index) 27.0 kg/m2 [place] Body Weight 125 lb Weight 73.483 kg BSA (Body Surface Area) 1.81 m2 04/13/2021 2:13pm BP Systolic 96 mmHg BP Diastolic 61 mmHg Height 65 inches 5'5" Weight 159.00 lb BMI (Body Mass Index) 26.5 kg/m2 [place] Body Weight 125 lb Weight 72.122 kg BSA (Body Surface Area) 1.79 m2 Results Test Acquired Date Facility Test Result H/L Range Note Laboratory test finding 05/12/2021 [facility] [address] [place] [address] [id number] [phone] Pathology Request For Service (SEE NOTE) 1 Gastrointestinal (GI) Panel 04/14/2021 [facility] [address] [place] [address] [id number] [phone] Gastrointestinal (GI) Panel This Gastrointes <SEE NOTE > 2, 3 Laboratory test finding 04/14/2021 [facility] [address] [place] [address] [id number] [phone] Calprotectin Stool 175 ug/g High 0-120 4 [...] 04/16/21 (MonApr 16) 05:25 P M MAIKOL REINSTEPH neg 4 Concentration Interpreta tion Follow-Up <16 - 50 ug/g Normal None >50 -120 ug/g Borderline Re-evaluate in 4-6 weeks >120 ug/g Abnormal Repeat as clinically indicated Performed at: [address] [id number] 61 Equal Opportunity Counselor: Marj Loving MD, Phone: [phone] 5 Result Units: ug Elast./g Severe Pancreatic Insufficiency: <100 Moderate Pancreatic Insufficiency: 100 - 200 Normal: >200 Procedures Date Code Description Status 07/26/2021 34892 Office/Outpatient Established Mo d MDM 30-39 Min Completed 05/12/2021 36590 Colonoscopy W/ Poly Completed 05/12/2021 82099 Colonoscopy Flexible Proximal To Splenic Flexure W/Biopsy Single/ Completed 05/12/2021 20408 Endoscopy Upper GI Biopsy Comple devora 04/13/2021 87278 Office/Outpatient Established Mo d MDM 30-39 Min Completed 02/24/2021 99322 Office/Outpatient Established Mo d MDM 30-39 Min Completed 04/03/2019 [id number] Mammogram Completed 03/14/2017 [id number] Mammogram Completed Medical Devices Description No Information Available Encounters Type Date Location Provider Dx Diagnosis Office Visit 07/26/2021 3:00p [facility] elsi Arriola MD K31.84 Gastroparesis K90.0 Celiac disease K59.00 Constipation, unspecified K22.70 Castle's esophagus without dysplasia Office Visit 04/13/2021 2:15p [facility] elsi Arriola MD K58.2 Mixed irritable bowel syndro me K90.0 Celiac disease K22.70 Castle's esophagus without dysplasia K31.84 Gastroparesis Office Visit 02/24/2021 1:00p [facility] lesi Arriola MD K58.1 Irritable bowel syndrome wit h constipation K22.70 Castle's esophagus without dysplasia K90.0 Celiac disease K31.84 Gastroparesis Assessments Date Code Description Provider [...] of intestine Maikol Arriola MD 05/12/2021 K22.70 Castle's esophagus without dysp lasia Maikol Arriola MD 05/12/2021 K31.89 Other diseases of stomach and du odenum Maikol Arriola MD 05/12/2021 K90.0 Celiac disease Maikol Arriola MD 05/12/2021 K14.0 Glossitis Maikol Arriola MD 04/13/2021 K58.2 Mixed irritable bowel syndrome Eind Arriola MD 04/13/2021 K90.0 Celiac disease Maikol Arriola MD 04/13/2021 K22.70 Castle's esophagus without dysp lasia Maikol Arriola MD 04/13/2021 K31.84 Gastroparesis Maikol Arriola MD 02/24/2021 K58.1 Irritable bowel syndrome with co nstipation Maikol Arriola MD 02/24/2021 K22.70 Castle's esophagus without dysp lasia Maikol Arriola MD 02/24/2021 K90.0 Celiac disease Maikol Arriola MD 02/24/2021 K31.84 Gastroparesis Maikol Arriola MD Plan of Treatment 07/26/2021 - Maikol Arriola MD* K31.84 Gastroparesis * K90.0 Celiac disease * K59.00 Constipation, unspecified * K22.70 Castle's esophagus without dysplasia * * New Orders:* [facility]ile test capsule/KUB, Ordered: 07/26/21 * Comments:* Pt with multiple GI issues. mainly c/o nausea and vomiting. Caron is taking Zofran PRN with intermittent resultsHer stool testing in past showed a elevated Calprotectin level. Her EGD and colonoscopy do not show inflammmation. She has had Small bowel studies over the years without obvious SB disease (she does have Celiac)SHe has celiac disease which is fairly well controlled by diet (marker has come down fro >100 to 6), although the biopsies show celiac disease is present.(flattened villi) * Recommendations:* 1) Smaller more frequent meals--gastroparesis diet 2) Cont celiac diet/gluten free 3) Cont prn Zofran 4) will do Pillcam (incr calprotectin, normal EGD/[place])---calprotectin may be possibly be elevated form celiac. Functional Status Description No Information Available Mental Status Description No Information Available Referrals Description No Information Available
--- OUTSIDE RECORDS SUMMARY | 2021-09-08 13:50 | CCD | Continuity of Care Document ---
Author Author Karen ARRIOLA MD Organization Unknown Address [address] [place] [address] Phone [phone] Care Team Providers Care Handstitching Machine Collar Feller Name Role Phone Abdi Quach M.D. AUTM [phone] Problems Active Problems Provider Date Breast lump [...] a day prn Unknown Vitamin D3 1.25mg (19180 Ut) Capsu les every week Unknown Ketorolac [...] lb BMI (Body Mass Index) 27.0 kg/m2 [place] Body Weight 125 lb Weight 73.483 kg BSA (Body Surface Area) 1.81 m2 04/13/2021 2:13pm BP Systolic 96 mmHg BP Diastolic 61 mmHg Height 65 inches 5'5" Weight 159.00 lb BMI (Body Mass Index) 26.5 kg/m2 [place] Body Weight 125 lb Weight 72.122 kg BSA (Body Surface Area) 1.79 m2 Results Test Acquired Date Facility Test Result H/L Range Note Laboratory test finding 05/12/2021 [facility] Main Lab [address] [place] [address] [phone] Pathology Request For Service (SEE NOTE) 1 Gastrointestinal (GI) Panel 04/14/2021 [facility] Main Lab [address] [place] [address] [phone] Gastrointestinal (GI) Panel This Gastrointes <SEE NOTE > 2, 3 Laboratory test finding 04/14/2021 [facility] Main Lab [address] [place] [address] [phone] Calprotectin Stool 175 ug/g High 0-120 4 [...] Abnormal Repeat as clinically indicated Performed at: [address] [id number] 61 Supervisor Sewing Department: Marj Loving MD, Phone: [phone] 5 Result Units: ug Elast./g Severe Pancreatic Insufficiency: <100 Moderate Pancreatic Insufficiency: 100 - 200 Normal: >200 Procedures Date Code Description Status 07/26/2021 81357 Office/Outpatient Established Mo d MDM 30-39 Min Completed 05/12/2021 67152 Colonoscopy W/ Poly Completed 05/12/2021 17201 Colonoscopy Flexible Proximal To Splenic Flexure W/Biopsy Single/ Completed 05/12/2021 92057 Endoscopy Upper GI Biopsy Comple devora 04/13/2021 69117 Office/Outpatient Established Mo d MDM 30-39 Min Completed 02/24/2021 38039 Office/Outpatient Established Mo d MDM 30-39 Min Completed 04/03/2019 [id number] Mammogram Completed 03/14/2017 [id number] Mammogram Completed Medical Devices Description No Information Available Encounters Type Date Location Provider Dx Diagnosis Office Visit 07/26/2021 3:00p [facility]astro[facility] elsi Arriola MD K31.84 Gastroparesis K90.0 Celiac disease K59.00 Constipation, unspecified K22.70 Castle's esophagus without dysplasia Office Visit 04/13/2021 2:15p [facility]astro[facility] elsi Arriola MD K58.2 Mixed irritable bowel syndro me K90.0 Celiac disease K22.70 Castle's esophagus without dysplasia K31.84 Gastroparesis Office Visit 02/24/2021 1:00p [facility]astro[facility] elsi Arriola MD K58.1 Irritable bowel syndrome wit [...] 4) will do Pillcam (incr calprotectin, normal EGD/[place])---calprotectin may be possibly be elevated form celiac. Functional Status Description No Information Available Mental Status Description No Information Available Referrals Description No Information Available
--- OUTSIDE RECORDS SUMMARY | 2021-09-08 13:50 | CCD | Continuity of Care Document ---
Author Author Karen ARRIOLA MD Organization Unknown Address [address] [place] [address] Phone [phone] Care Team Providers Care Bench Assembler Name Role Phone Abdi Quach M.D. AUTM [phone] Problems Active Problems Provider Date Breast lump [...] r Date Magnesium Citrate 1.745GM/30ML Marci ution one 10 oz bottle green or clear only, use for additional prep at 2-3 days before procedure 296ml K58.2 Maikol Arriola MD 04/13/2021 Miralax 17GM/Scoop Powder use as directed see dr arriola colon preparation instructions 510gm K58.2 Geradl Arriola MD 04/13/2021 Dicyclomine HCL 10mg Capsules 1 to 2 by mouth every 6 hours as needed abdominal cramping 60caps K58.1 Maikol Arriola MD 06/24/2020 Lactulose 10GM/15ML Solution take 30 milliliters by mouth prn use 1200units K58.1 Maikol Arriola MD Omeprazole 40mg Capsules DR Take One Capsule By Mouth Twice A Day (Barrets esophagus) 60caps K22.70 Maikol Arriola MD 07/22/2019 Oxybutynin Chloride ER 5mg Tablets ER 24HR 1 by mouth every day 30tabs N39.41 Rae Ramos MD 03/08 Miralax 3350NF Powder Take 17 gm twice a day 1020gm Maikol Arriola MD 08/30/2016 Naproxen 500mg Tablets 1 by mouth twice a day prn Unknown Vitamin D3 1.25mg (42068 Ut) Capsu les every week Unknown Ketorolac Tromethamine 10mg Tablets Unknown Immunizations Description No Information Available Vital Signs Date Vital Result Comment 04/13/2021 2:13pm BP Systolic 96 mmHg BP Diastolic 61 mmHg Height 65 inches 5'5" Weight 159.00 lb BMI (Body Mass Index) 26.5 kg/m2 [place] Body Weight 125 lb Weight 72.122 kg BSA (Body Surface Area) 1.79 m2 02/24/2021 1:03pm BP Systolic 108 mmHg BP Diastolic 65 mmHg Height 65 inches 5'5" Weight 156.00 lb BMI (Body Mass Index) 26.0 kg/m2 [place] Body Weight 125 lb Weight 70.762 kg BSA (Body Surface Area) 1.78 m2 Results Test Acquired Date Facility Test Result H/L Range Note Laboratory test finding 05/12/2021 [facility] Main Lab [address] [place] [phone] Pathology Request For Service (SEE NOTE) 1 Gastrointestinal (GI) Panel 04/14/2021 [facility] Main Lab [address] [place] [address] [phone] Gastrointestinal (GI) Panel This Gastrointes <SEE NOTE > 2, 3 Laboratory test finding 04/14/2021 [facility] Main Lab [address] [place] [address] 57478 [phone] Calprotectin Stool 175 ug/g High 0-120 4 [...] H-Rectal polyp, polypectomy: Tubular adenoma. 05/13/2021 - 114 CLINICAL DIAGNOSIS Abdominal pain, Castle's, celiac disease [...] Abnormal Repeat as clinically indicated Performed at: [address] [id number] 61 Home And School Visitor: Marj Loving MD, Phone: [phone] 5 Result Units: ug Elast./g Severe Pancreatic Insufficiency: <100 Moderate Pancreatic Insufficiency: 100 - 200 Normal: >200 Procedures Date Code Description Status 05/12/2021 47851 Colonoscopy W/ Poly Completed 05/12/2021 50411 Colonoscopy Flexible Proximal To Splenic Flexure W/Biopsy Single/ Completed 05/12/2021 25786 Endoscopy Upper GI Biopsy Comple devora 04/13/2021 94049 Office/Outpatient Established Mo d MDM 30-39 Min Completed 02/24/2021 27815 Office/Outpatient Established Mo d MDM 30-39 Min Completed 04/03/2019 [id number] Mammogram Completed 03/14/2017 [id number] Mammogram Completed Medical Devices Description No Information Available Encounters Type Date Location Provider Dx Diagnosis Office Visit 04/13/2021 2:15p [facility] elsi Arriola MD K58.2 Mixed irritable bowel syndro me K90.0 Celiac disease K22.70 Castle's esophagus without dysplasia K31.84 Gastroparesis Office Visit 02/24/2021 1:00p [facility] elsi Arriola MD K58.1 Irritable bowel syndrome wit h constipation K22.70 Castle's esophagus without dysplasia K90.0 Celiac disease K31.84 Gastroparesis Assessments Date Code Description Provider 05/12/2021 D12.5 Benign neoplasm of sigmoid colon [...] MD 04/13/2021 K58.2 Mixed irritable bowel syndrome D evert Arriola MD 04/13/2021 K90.0 Celiac disease Maikol Arriola MD 04/13/2021 K22.70 Castle's esophagus without dysp lasia Maikol Arriola MD 04/13/2021 K31.84 Gastroparesis Maikol Arriola MD 02/24/2021 K58.1 Irritable bowel syndrome with co nstipation Maikol Arriola MD 02/24/2021 K22.70 Castle's esophagus without dysp lasia Maikol Arriola MD 02/24/2021 K90.0 Celiac disease Maikol Arriola MD 02/24/2021 K31.84 Gastroparesis Maikol Arriola MD Plan of Treatment Future Appointment(s):* 07/26/2021 3:00 pm - Maikol Arriola MD at [facility] 04/13/2021 - Maikol Arriola MD* K58.2 Mixed irritable bowel syndrome * K90.0 Celiac disease * K22.70 Castle's esophagus without dysplasia * K31.84 Gastroparesis * * New Medication:* Magnesium Citrate 1.745 GM/30ML * Miralax 17 GM/Scoop * New Labs:* Tissue Transglutaminase Iga, Ordered: 04/13/21 * Comments:* was doingh well until 48 hrs. had sudden onset of abdominal pain. Has had last BM 48 hrs ago (small). has had small BM today. stools are soft/loose-scant.CT appearnace (done without PO contrast) of small bowel may be related to Miralax/Lactulose use(fluid filled small bowel) rather than pathologic. I doi note increased WBC. * Recommendations:* 1) CT enterography 2) EGD 3) colonoscopy 4) cont Miralax and lactulose for IBS-C 5) Pt c/o foul smelling soft stools that float.--Will do GI Panel and elastase testing 6) can use Dicyclomine intermittently (could be counterproductive) Functional Status Description No Information Available Mental Status Description No Information Available Referrals Description No Information Available
--- OUTSIDE RECORDS SUMMARY | 2021-09-08 13:50 | CCD | Continuity of Care Document ---
Author Author Karen ARRIOLA MD Organization Unknown Address [address] [place] [address] Phone [phone] Care Team Providers Care Bale Piler Name Role Phone Abdi Quach M.D. AUTM [phone] Problems Active Problems Provider Date Breast lump [...] a day prn Unknown Vitamin D3 1.25mg (16235 Ut) Capsu les every week Unknown Ketorolac [...] lb BMI (Body Mass Index) 27.0 kg/m2 [place] Body Weight 125 lb Weight 73.483 kg BSA (Body Surface Area) 1.81 m2 04/13/2021 2:13pm BP Systolic 96 mmHg BP Diastolic 61 mmHg Height 65 inches 5'5" Weight 159.00 lb BMI (Body Mass Index) 26.5 kg/m2 [place] Body Weight 125 lb Weight 72.122 kg BSA (Body Surface Area) 1.79 m2 Results Test Acquired Date Facility Test Result H/L Range Note Laboratory test finding 05/12/2021 [facility] Main Lab [address] [place] [address] [phone] Pathology Request For Service (SEE NOTE) 1 Gastrointestinal (GI) Panel 04/14/2021 [facility] Main Lab [address] [place] [address] [phone] Gastrointestinal (GI) Panel This Gastrointes <SEE NOTE > 2, 3 Laboratory test finding 04/14/2021 [facility] Main Lab [address] [place] [address] [phone] Calprotectin Stool 175 ug/g High 0-120 4 [...] Abnormal Repeat as clinically indicated Performed at: [address] [id number] 61 Spooling Operator: Marj Loving MD, Phone: [phone] Result Units: ug Elast./g Severe Pancreatic Insufficiency: <100 Moderate Pancreatic Insufficiency: 100 - 200 Normal: >200 Procedures Date Code Description Status 07/26/2021 47508 Office/Outpatient Established Mo d MDM 30-39 Min Completed 05/12/2021 16399 Colonoscopy W/ Poly Completed 05/12/2021 22188 Colonoscopy Flexible Proximal To Splenic Flexure W/Biopsy Single/ Completed 05/12/2021 81643 Endoscopy Upper GI Biopsy Comple devora 04/13/2021 20529 Office/Outpatient Established Mo d MDM 30-39 Min Completed 02/24/2021 99739 Office/Outpatient Established Mo d MDM 30-39 Min Completed 04/03/2019 [id number] Mammogram Completed 03/14/2017 [id number] Mammogram Completed Medical Devices Description No Information Available Encounters Type Date Location Provider Dx Diagnosis Office Visit 07/26/2021 3:00p [facility] Gastroenterology [facility] elsi Arriola MD K31.84 Gastroparesis K90.0 Celiac disease K59.00 Constipation, unspecified K22.70 Castle's esophagus without dysplasia Office Visit 04/13/2021 2:15p [facility]astroenter[facility] elsi Arriola MD K58.2 Mixed irritable bowel syndro me K90.0 Celiac disease K22.70 Castle's esophagus without dysplasia K31.84 Gastroparesis Office Visit 02/24/2021 1:00p [facility]astroenter[facility] elsi Arriola MD K58.1 Irritable bowel syndrome [...] 4) will do Pillcam (incr calprotectin, normal EGD/[place])---calprotectin may be possibly be elevated form celiac. Functional Status Description No Information Available Mental Status Description No Information Available Referrals Description No Information Available
--- OUTSIDE RECORDS SUMMARY | 2021-09-08 13:51 | CCD ---
Author Author [facility] Organization [facility] Address Unknown Phone Unavailable Care Team Providers Care Research Worker Encyclopedia Name Role Phone MAIKOL ENAMORADO MD Unavailable Unavailable MAIKOL ENAMORADO MD Unavailable Unavailable MAIKOL ENAMORADO MD Unavailable Unavailable MAIKOL ENAMORADO MD Unavailable Unavailable MAIKOL ENAMORADO MD Unavailable Unavailable MAIKOL ENAMORADO MD Unavailable Unavailable MAIKOL ENAMORADO MD Unavailable Unavailable MAIKOL ENAMORADO MD Unavailable Unavailable MAIKOL ENAMORADO MD Unavailable Unavailable MAIKOL ENAMORADO MD Unavailable Unavailable MAIKOL ENAMORADO MD Unavailable Unavailable MAIKOL ENAMORADO MD Unavailable Unavailable MAIKOL ENAMORADO MD Unavailable Unavailable MAIKOL ENAMORADO MD Unavailable Unavailable MAIKOL ENAMORADO MD Unavailable Unavailable MAIKOL ENAMORADO MD Unavailable Unavailable MAIKOL ENAMORADO MD Unavailable Unavailable MAIKOL ENAMORADO MD Unavailable Unavailable MAIKOL ENAMORADO MD Unavailable Unavailable MAIKOL ENAMORADO MD Unavailable Unavailable MAIKOL ENAMORADO MD Unavailable Unavailable MAIKOL ENAMORADO MD Unavailable Unavailable MAIKOL ENAMORADO MD Unavailable Unavailable MAIKOL ENAMORADO MD Unavailable [...] Unavailable Unavailable REINDL, MAIKOL OBRIEN Unavailable Unavailable Skylar Wen Unavailable Unavailable MATHEUS (RUSS), Yvonne LUCIANO MD Unavailable Unavailab le MATHEUS (RUSS), Yvonne LUCIANO MD Unavailable Unavailab le MATHEUS (RUSS), Yvonne LUCIANO MD Unavailable Unavailab le MATHEUS (RUSS), Yvonne LUCIANO MD Unavailable Unavailab le MATHEUS (RUSS), Yvonne LUCIANO MD Unavailable Unavailab le MATHEUS (RUSS), Yvonne LUCIANO MD Unavailable Unavailab le MATHEUS (RUSS), Yvonne LUCIANO MD Unavailable Unavailab le MATHEUS (RUSS), Yvonne LUCIANO MD Unavailable Unavailab le MATHEUS (RUSS), Yvonne LUCIANO MD Unavailable Unavailab le MATHEUS (RUSS), Yvonne LUCIANO MD Unavailable Unavailab le MATHEUS (RUSS), Yvonne LUCIANO MD Unavailable Unavailab le MATHEUS (RUSS), Yvonne LUCIANO MD Unavailable Unavailab le MATHEUS (RUSS), Yvonne LUCIANO MD Unavailable Unavailab le MATHEUS (RUSS), Yvonne LUCIANO MD Unavailable Unavailab le MATHEUS (RUSS), Yvonne LUCIANO MD Unavailable Unavailab le MATHEUS (RUSS), Yvonne LUCIANO MD Unavailable Unavailab le MATHEUS (RUSS), Yvonne LUCIANO MD Unavailable Unavailab le MATHEUS (RUSS), Yvonne LUCIANO MD Unavailable Unavailab le MATHEUS (RUSS), Yvonne LUCIANO MD Unavailable Unavailab le MATHEUS (RUSS), Yvonne LUCIANO MD Unavailable Unavailab le MATHEUS (RUSS), Yvonne LUCIANO MD Unavailable Unavailab le MATHEUS (RUSS), Yvonne LUCIANO MD Unavailable Unavailab le MATHEUS (RUSS), Yvonne LUCIANO MD Unavailable Unavailab le MATHEUS (RUSS), Yvonne LUCIANO MD Unavailable Unavailab le MATHEUS (RUSS), Yvonne LUCIANO MD Unavailable Unavailab le MATHEUS (RUSS), Yvonne LUCIANO MD Unavailable Unavailab le MATHEUS (RUSS), Yvonne LUCIANO MD Unavailable Unavailab le MATHEUS (RUSS), Yvonne LUCIANO MD Unavailable Unavailab le MATHEUS (RUSS), Yvonne LUCIANO MD Unavailable Unavailab le MATHEUS (RUSS), Yvonne LUCIANO MD Unavailable Unavailab le MATHEUS (RUSS), Yvonne LUCIANO MD Unavailable Unavailab le MATHEUS (RUSS), Yvonne LUCIANO MD Unavailable Unavailab le MATHEUS (RUSS), Yvonne LUCIANO MD Unavailable Unavailab le MATHEUS (RUSS), Yvonne LUCIANO MD Unavailable Unavailab le MATHEUS (RUSS), Yvonne LUCIANO MD Unavailable Unavailab le MATHEUS (RUSS), Yvonne LUCIANO MD Unavailable Unavailab le MATHEUS (RUSS), Yvonne LUCIANO MD Unavailable Unavailab le MATHEUS (RUSS), Yvonne LUCIANO MD Unavailable Unavailab le MATHEUS (RUSS), Yvonne LUCIANO MD Unavailable Unavailab le MATHEUS (RUSS), Yvonne LUCIANO MD Unavailable Unavailab le MATHEUS (RUSS), Yvonne LUCIANO MD Unavailable Unavailab le MATHEUS (RUSS), Yvonne LUCIANO MD Unavailable Unavailab le MATHEUS (RUSS), Yvonne LUCIANO MD Unavailable Unavailab le MATHEUS (RUSS), Yvonne LUCIANO MD Unavailable Unavailab le MATHEUS (RUSS), Yvonne LUCIANO MD Unavailable Unavailab le MATHEUS (RUSS), Yvonne LUCIANO MD Unavailable Unavailab le MATHEUS (RUSS), Yvonne LUCIANO MD Unavailable Unavailab le MATHEUS (RUSS), Yvonne LUCIANO MD Unavailable Unavailab le MATHEUS (RUSS), Yvonne LUCIANO MD Unavailable Unavailab le MATHEUS (RUSS), Yvonne LUCIANO MD Unavailable Unavailab le MATHEUS (RUSS), Yvonne LUCIANO MD Unavailable Unavailab le MATHEUS (RUSS), Yvonne LUCIANO MD Unavailable Unavailab le MATHEUS (RUSS), Yvonne LUCIANO MD Unavailable Unavailab le MATHEUS (RUSS), Yvonne LUCIANO MD Unavailable Unavailab le MATHEUS (RUSS), Yvonne LUCIANO MD Unavailable Unavailab le MATHEUS (RUSS), Yvonne LUCIANO MD Unavailable Unavailab le MATHEUS (RUSS), Yvonne LUCIANO MD Unavailable Unavailab le MATHEUS (RUSS), Yvonne LUCIANO MD Unavailable Unavailab le MATHEUS (RUSS), Yvonne LUCIANO MD Unavailable Unavailab le MATHEUS (RUSS), Yvonne LUCIANO MD Unavailable Unavailab le MATHEUS (RUSS), Yvonne LUCIANO MD Unavailable Unavailab le MATHEUS (RUSS), Yvonne LUCIANO MD Unavailable Unavailab le MATHEUS (RUSS), Yvonne LUCIANO MD Unavailable Unavailab le MATHEUS (RUSS), Yvonne LUCIANO MD Unavailable Unavailab le MATHEUS (RUSS), Yvonne LUCIANO MD Unavailable Unavailab le MATHEUS (RUSS), Yvonne LUCIANO MD Unavailable Unavailab le MATHEUS (RUSS), Yvonne LUCIANO MD Unavailable Unavailab le MATHEUS (RUSS), Yvonne LUCIANO MD Unavailable Unavailab le MATHEUS (RUSS), Yvonne LUCIANO MD Unavailable Unavailab le MATHEUS (RUSS), Yvonne LUCIANO MD Unavailable Unavailab le MATHEUS (RUSS), Yvonne LUCIANO MD Unavailable Unavailab le MATHEUS (RUSS), Yvonne LUCIANO MD Unavailable Unavailab le MATHEUS (RUSS), Yvonne LUCIANO MD Unavailable Unavailab le MATHEUS (RUSS), Yvonne LUCIANO MD Unavailable Unavailab le MATHEUS (RUSS), Yvonne LUCIANO MD Unavailable Unavailab le MATHEUS (RUSS), Yvonne LUCIANO MD Unavailable Unavailab le MATHEUS (RUSS), Yvonne LUCIANO MD Unavailable Unavailab le MATHEUS (RUSS), Yvonne LUCIANO MD Unavailable Unavailab le MATHEUS (RUSS), Yvonne LUCIANO MD Unavailable Unavailab le MATHEUS (RUSS), Yvonne LUCIANO MD Unavailable Unavailab le MATHEUS (RUSS), Yvonne LUCIANO MD Unavailable Unavailab le MATHEUS (RUSS), Yvonne LUCIANO MD Unavailable Unavailab le MATHEUS (RUSS), Yvonne LUCIANO MD Unavailable Unavailab le MATHEUS (RUSS), Yvonne LUCIANO MD Unavailable Unavailab le MATHEUS (RUSS), Yvonne LUCIANO MD Unavailable Unavailab le MATHEUS (RUSS), Yvonne LUCIANO MD Unavailable Unavailab le MATHEUS (RUSS), Yvonne LUCIANO MD Unavailable Unavailab le Tara SOLANO MD Unavailable Unavailable Tara SOLANO [...] Unavailable Unavailable Tara SOLANO MD Unavailable Unavailable RUSS, H BISHOP MD Unavailable Unavailable Tara SOLANO MD Unavailable [...] Unavailable Unavailable Tara SOLANO MD Unavailable Unavailable ANTECOL, Tara LASSITER MD Unavailable Unavailable ANTECOL, Tara LASSITER MD Unavailable Unavailable ANTECOL, Tara LASSITER MD Unavailable Unavailable ANTECOL, Tara LASSITER MD Unavailable Unavailable ANTECOL, Tara LASSITER MD Unavailable Unavailable ANTECOL, Tara LASSITER MD Unavailable Unavailable ANTECOL, Tara LASSITER MD Unavailable Unavailable ANTECOL, Tara LASSITER MD Unavailable Unavailable ANTECOL, Tara LASSITER MD Unavailable Unavailable ANTECOL, Tara LASISTER MD Unavailable Unavailable ANTECOL, Tara LASSITER MD [...] Unavailable ANTECOL, Tara LASSITER MD Unavailable Unavailable Eloisa, D Lavell PA Unavailable Unavailable Eloisa, D Lavell PA Unavailable Unavailable Eloisa, D Lavell PA Unavailable Unavailable Eloisa, D Lavell PA Unavailable Unavailable Eloisa, D Lavell PA Unavailable Unavailable Eloisa, D Lavell PA Unavailable Unavailable Eloisa, D Lavell PA Unavailable Unavailable Eloisa, D Lavell PA Unavailable Unavailable Eloisa, D Lavell PA Unavailable Unavailable Eloisa, D Lavell PA Unavailable Unavailable Eloisa, D Lavell PA Unavailable Unavailable Eloisa, D Lavell PA Unavailable Unavailable Eloisa, D Lavell PA Unavailable Unavailable Eloisa, D Lavell PA Unavailable Unavailable Eloisa, D Lavell PA Unavailable Unavailable Eloisa, D Lavell PA Unavailable Unavailable Eloisa, D Lavell PA Unavailable Unavailable Eloisa, D Lavell PA Unavailable Unavailable Eloisa, D Lavell PA Unavailable Unavailable Eloisa, D Lavell PA Unavailable Unavailable Eloisa, D Lavell PA Unavailable Unavailable Eloisa, D Lavell PA Unavailable Unavailable Eloisa, D Lavell PA Unavailable Unavailable Eloisa, D Lavell PA Unavailable Unavailable Eloisa, D Lavell PA Unavailable Unavailable Eloisa, D Lavell PA Unavailable Unavailable Eloisa, D Lavell PA Unavailable Unavailable Eloisa, D Lavell PA Unavailable Unavailable Eloisa, D Lavell PA Unavailable Unavailable Eloisa, D Lavell PA Unavailable Unavailable Eloisa, D Lavell PA Unavailable Unavailable Eloisa, D Lavell PA Unavailable Unavailable Eloisa, D Lavell PA Unavailable Unavailable Eloisa, D Lavell PA Unavailable Unavailable Eloisa, D Lavell PA Unavailable Unavailable Eloisa, D Lavell PA Unavailable Unavailable Eloisa, D Lavell PA Unavailable Unavailable Eloisa, D Lavell PA Unavailable Unavailable Eloisa, D Lavell PA Unavailable Unavailable Eloisa, D Lavell PA Unavailable Unavailable Eloisa, D Lavell PA Unavailable Unavailable Eloisa, D Lavell PA Unavailable Unavailable Eloisa, D Lavell PA Unavailable Unavailable Eloisa, D Lavell PA Unavailable Unavailable Eloisa, D Lavell PA Unavailable Unavailable Eloisa, D Lavell PA Unavailable Unavailable Eloisa, D Lavell PA Unavailable Unavailable Eloisa, D Lavell PA Unavailable Unavailable Eloisa, D Lavell PA Unavailable Unavailable Eloisa, D Lavell PA Unavailable Unavailable Eloisa, D Lavell PA Unavailable Unavailable Eloisa, D Lavell PA Unavailable Unavailable Eloisa, D Lavell PA Unavailable Unavailable Eloisa, D Lavell PA Unavailable Unavailable Eloisa, D Lavell PA Unavailable Unavailable Eloisa, D Lavell PA Unavailable Unavailable Eloisa, D Lavell PA Unavailable Unavailable Eloisa, D Lavell PA Unavailable Unavailable Eloisa, D Lavell PA Unavailable Unavailable Eloisa, D Lavell PA Unavailable Unavailable Eloisa, D Lavell PA Unavailable Unavailable Eloisa, D Lavell PA Unavailable Unavailable Eloisa, D Lavell PA Unavailable Unavailable Eloisa, D Lavell PA Unavailable Unavailable Eloisa, D Lavell PA Unavailable Unavailable Eloisa, D Lavell PA Unavailable Unavailable Eloisa, D Lavell PA Unavailable Unavailable Eloisa, D Lavell PA Unavailable Unavailable Tara SOLANO MD Unavailable Unavailable [...] Unavailable Tara SOLANO MD Unavailable Unavailable Tara SOLNAO MD Unavailable Unavailable Tara SOLANO MD Unavailable [...] Unavailable Tara SOLANO MD Unavailable Unavailable Tara SLOANO MD Unavailable Unavailable Tara SOLANO MD Unavailable Unavailable Tara SOLANO MD Unavailable Unavailable Tara SOLANO MD Unavailable Unavailable Tara SOLANO MD Unavailable Unavailable Tara SOLANO MD Unavailable Unavailable Tara SOLANO MD Unavailable Unavailable Tara SOLANO MD Unavailable Unavailable Tara SOLANO MD Unavailable Unavailable Tara SOLANO MD Unavailable Unavailable Tara SOLANO MD Unavailable Unavailable Yvonne Smith PA-C Unavailable Unavailable Smith, M Christopher PA-C Unavailable Unavailable Smith, M Christopher PA-C Unavailable Unavailable Smith, M Christopher PA-C Unavailable Unavailable Smith, M Christopher PA-C Unavailable Unavailable Smith, M Christopher PA-C Unavailable Unavailable Smith, M Christopher PA-C Unavailable Unavailable Smith, M Christopher PA-C Unavailable Unavailable Smith, M Christopher PA-C Unavailable Unavailable Smith, M Christopher PA-C Unavailable Unavailable Smith, M Christopher PA-C Unavailable Unavailable Smith, M Christopher PA-C Unavailable Unavailable Smith, M Christopher PA-C Unavailable Unavailable Smith, M Christopher PA-C Unavailable Unavailable Smith, M Christopher PA-C Unavailable Unavailable Smith, M Christopher PA-C Unavailable Unavailable Smith, M Christopher PA-C Unavailable Unavailable Smith, M Christopher PA-C Unavailable Unavailable Smith, M Christopher PA-C Unavailable Unavailable Smith, M Christopher PA-C Unavailable Unavailable Smith, M Christopher PA-C Unavailable Unavailable Smith, M Christopher PA-C Unavailable Unavailable Smith, M Christopher PA-C Unavailable Unavailable Smith, M Christopher PA-C Unavailable Unavailable Smith, M Christopher PA-C Unavailable Unavailable Smith, M Christopher PA-C Unavailable Unavailable Re-disclosure Warning The records that [...] is protected by Article 27-F of the [facility] Public Health law. If you continue you may have access to information: Regarding HIV / AIDS; Provided by facilities licensed or operated by the [facility] Office of Mental Health; or Provided by the [facility] Office for People With Developmental Disabilities. If such information is present, then the following [facility] mandated warning applies: This information has [...] law may result in a fine or nursing home sentence or both. A general authorization for the release of medical or other information is NOT sufficient authorization for further disc losure. Family History Family Member Name Family Member Gender Family Member Status Date o f Status Description Data Source(s) Unknown Unknown Problem [facility] ([facility] Unknown Unknown Problem [facility] ([facility] Encounters Encounter Providers Location Date Indications Data Source(s ) Attender: MUSTAPHA VIGIL) MDReferrer: Sanket SOLANO MD 09/07/2021 08:21:11 PM EST [facility] Attender: MUSTAPHA JARVIS ([place]) MDReferrer: Sanket SOLANO MD 09/07/2021 08:21:11 PM EST [facility] Attender: MUSTAPHA JARVIS ([place]) MDReferrer: Sanket SOLANO MD 09/07/2021 08:21:11 PM EST [facility] Attender: MUSTAPHA JARVIS ([place]) MDReferrer: Sanket SOLANO MD 09/07/2021 08:21:11 PM EST [facility] Attender: MUSTAPHA JARVIS ([place]) MDReferrer: Sanket SOLANO MD 09/07/2021 08:21:11 PM EST [facility] Attender: MUSTAPHA JARVIS ([place]) MDReferrer: Sanket SOLAON MD 09/07/2021 08:21:11 PM EST [facility] Attender: MUSTAPHA JARVIS ([place]) MDReferrer: Sanket SOLANO MD 09/07/2021 08:21:11 PM EST [facility] Attender: MUSTAPHA JARVIS ([place]) MDReferrer: Sanket SOLANO MD 09/07/2021 08:21:11 PM EST [facility] Outpatient Attender: MAIKOL Lam/Manju/Carloz/Armond ivey 07/26/2021 03:00:00 PM EDT MEDENT ([facility] Outpatient Attender: BISHOP SOLANO MD [place] [facility] 10/2020 01:30:00 PM EDT [facility] ([facility] [place] [address] [facility] [address] 07/14/2021 12:00:00 AM EDT eCW1 (Critical access hospital) Outpatient Attender: Skylar Renteriaender: Kenneth Smith PA-C 06/04/2021 06:57:45 PM EDT - 06/04/2021 08:26:34 PM EDT [facility] ([facility]) Attender: MUSTAPHA VIGIL) MDReferrer: Sanket SOLANO MD 06/02/2021 08:21:08 PM EDT [facility] Attender: MUSTAPHA VIGIL) MDReferrer: Sanket SOLANO MD 06/02/2021 08:21:08 PM EDT [facility] Outpatient Attender: BISHOP SOLANO MD [place] [facility] 02:45:00 PM EDT [facility] ([facility] Attender: MUSTAPHA JARVIS ([place]) MDReferrer: Sanket SOLANO MD 04/29/2021 08:21:07 PM EDT [facility] Attender: MUSTAPHA JARVIS ([place]) MDReferrer: Sanket SOLANO MD 04/29/2021 08:21:07 PM EDT [facility] Outpatient Attender: BISHOP SOLANO MD [place] [facility] 03/2021 04:00:00 PM EDT [facility] ([facility] Outpatient Attender: BISHOP SOLANO MD [place] [facility] 11:30:00 AM EDT [facility] ([facility] Outpatient Attender: MAIKOL Lam/[place]/Carloz/Rein dl 04/13/2021 02:15:00 PM EDT [facility] ([facility] Outpatient Attender: MAIKOL Lam/[place]/Carloz/Rein dl 02/24/2021 01:00:00 PM EDT [facility] ([facility] Outpatient Attender: BISHOP SOLANO MD [place] [facility] 08:45:00 AM EDT [facility] Outpatient Attender: BISHOP SOLANO MD [place] [facility] 01:15:00 PM EDT MED[facility] ([facility] Outpatient Attender: BISHOP SOLANO MD [place] [facility] 03:20:00 PM EDT [facility] ([facility] [place] [address] [facility] [address] 01/01/2021 12:00:00 AM EDT eCW1 ([facility]) Unknown [address] [facility] [place] [address] 01/01/2021 12:00:00 AM EDT eCW1 ([facility]) [place] [address] [facility] [address] 12/29/2020 12:00:00 AM EDT eCW1 ([facility]) [place] [address] [facility] [facility] [address] 12/29/2020 12:00:00 AM EDT [facility]1 [facility]) [place] [address] [facility] [address] 12/14/2020 12:00:00 AM EST eCW1 [facility] TeleMedicine Phone E/M by Phys 11-20 Min [address] [place] [address] 12/11/2020 12:00:00 AM EST eCW1 ([facility]) [place] [address] [facility] [address] 12/10/2020 12:00:00 AM EST eCW1 (Critical access hospital) Outpatient Attender: BISHOP SOLANO MD [place] [facility] 01:45:00 PM EST [facility] ([facility] Outpatient Attender: MAIKOL RHODES MD Main Office 09/29/2020 12:30:00 PM EST MED[facility] ([facility]) Outpatient Attender: BISHOP SOLANO MD [place] [facility] 01:30:00 PM EST [facility] ([facility] Outpatient Attender: Lavell CALHOUN [place] [facility] 08/2020 07:45:00 AM EST [facility] ([facility] Immunizations Vaccine Date Status Description Data Source(s) COVID-19 VACCINE Moderna 09/03/2021 12:00:00 AM EST completed [facility] Vaccine Series Complete: YESThis Data wa s Submitted to [facility] Via [email or web address]. New in 2012. IIV4 07/16/2021 01:38:00 PM EDT completed [facility] ([facility] COVID-19 VACCINE Moderna 02/10/2021 12:00:00 AM EDT completed [facility] Vaccine Series Complete: YESThis Data wa s Submitted to [facility] Via [email or web address]. COVID-19 VACCINE Moderna 01/11/2021 12:00:00 AM EDT completed [facility] Vaccine Series Complete: NOThis Data was Submitted to [facility] Via [email or web address]. Medications Medication Brand Name Start Date Product Form Dose Route Admi nistrative Instructions Pharmacy Instructions Status Indications Reaction Description Data Source(s) magnesium citrate 58.2 MG/ML Oral Solution Magnesium Citrate 08/25/2021 12:00:00 AM EST active [facility] ([facility]) 1,250 mcg (50,000 unit) 08/17/2021 12:00:00 AM EDT capsule 4 TAKE 1 CAPSULE BY MOUTH ONCE WEEKLY TAKE 1 CAPSULE BY MOUTH ONCE WEEKLY SOLD: 08/19/2021 [facility] 10 mg 07/14/2021 12:00:00 AM EDT tablet extended release 24hr 30 TAKE ONE TABLET BY MOUTH EVERY DAY TAKE ONE TABLET BY MOUTH EVERY DAY SOLD: 08/19/2021 [facility] 10 mg 07/14/2021 12:00:00 AM EDT tablet extended release 24hr 30 TAKE ONE TABLET BY MOUTH EVERY DAY TAKE ONE TABLET BY MOUTH EVERY DAY SOLD: 07/22/2021 [facility] 24 HR Oxybutynin chloride 10 MG Extended Release Oral Tablet Oxybutynin Chloride ER 10 MG Oxybutynin Chloride ER 10 MG 07/14/2021 12:00:00 AM EDT 1.0 {tablet} active Oxybutynin Chloride ER 10 MG eCW1 ([facility]) 1,250 mcg (50,000 unit) 06/23/2021 12:00:00 AM EDT capsule 4 TAKE ONE CAPSULE BY MOUTH ONCE WEEKLY FOR 8 WEEKS TAKE ONE CAPSULE BY MOUTH ONCE WEEKLY FOR 8 WEEKS SOLD: 07/22/2021 [facility] 1,250 mcg (50,000 unit) 06/23/2021 12:00:00 AM EDT capsule 4 TAKE ONE CAPSULE BY MOUTH ONCE WEEKLY FOR 8 WEEKS TAKE ONE CAPSULE BY MOUTH ONCE WEEKLY FOR 8 WEEKS SOLD: 06/24/2021 [facility] 500 mg 05/15/2021 12:00:00 AM EDT tablet 60 TAKE ONE TABLET BY MOUTH TWICE A DAY NEEDED FOR PAIN TAKE ONE TABLET BY MOUTH TWICE A DAY NEEDED FOR CHANCE N SOLD: 07/13/2021 [facility] 145 mcg 05/15/2021 12:00:00 AM EDT capsule 30 TAKE 1 CAPSULE BY MOUTH DAILY 30 MINUTES PRIOR TO THE FIRST MEAL OF THE DAY TAKE 1 CAPSULE BY MOUTH DAILY 30 MINUTES PRIOR TO THE FIRST MEAL OF THE DAY SOLD: 06/14/2021 [facility] 145 mcg 05/15/2021 12:00:00 AM EDT capsule 30 TAKE 1 CAPSULE BY MOUTH DAILY 30 MINUTES PRIOR TO THE FIRST MEAL OF THE DAY TAKE 1 CAPSULE BY MOUTH DAILY 30 MINUTES PRIOR TO THE FIRST MEAL OF THE DAY SOLD: 08/12/2021 [facility] 145 mcg 05/15/2021 12:00:00 AM EDT capsule 30 TAKE 1 CAPSULE BY MOUTH DAILY 30 MINUTES PRIOR TO THE FIRST MEAL OF THE DAY TAKE 1 CAPSULE BY MOUTH DAILY 30 MINUTES PRIOR TO THE FIRST MEAL OF THE DAY SOLD: 05/17/2021 [facility] 500 mg 05/15/2021 12:00:00 AM EDT tablet 60 TAKE ONE TABLET BY MOUTH TWICE A DAY NEEDED FOR PAIN TAKE ONE TABLET BY MOUTH TWICE A DAY NEEDED FOR CHANCE N SOLD: 05/17/2021 [facility] 500 mg 05/15/2021 12:00:00 AM EDT tablet 60 TAKE ONE TABLET BY MOUTH TWICE A DAY NEEDED FOR PAIN TAKE ONE TABLET BY MOUTH TWICE A DAY NEEDED FOR CHANCE N SOLD: 06/14/2021 [facility] 145 mcg 05/15/2021 12:00:00 AM EDT capsule 30 TAKE 1 CAPSULE BY MOUTH DAILY 30 MINUTES PRIOR TO THE FIRST MEAL OF THE DAY TAKE 1 CAPSULE BY MOUTH DAILY 30 MINUTES PRIOR TO THE FIRST MEAL OF THE DAY SOLD: 07/13/2021 [facility] 40 mg 04/30/2021 12:00:00 AM EDT capsule,delayed release (DR/EC) 60 TAKE ONE CAPSULE BY MOUTH TWICE A DAY TAKE ONE CAPSULE BY MOUTH TWICE A DAY SOLD: 07/13/2021 [facility] 40 mg 04/30/2021 12:00:00 AM EDT capsule,delayed release (DR/EC) 60 TAKE ONE CAPSULE BY MOUTH TWICE A DAY TAKE ONE CAPSULE BY MOUTH TWICE A DAY SOLD: 06/05/2021 [facility] 40 mg 04/30/2021 12:00:00 AM EDT capsule,delayed release (DR/EC) 60 TAKE ONE CAPSULE BY MOUTH TWICE A DAY TAKE ONE CAPSULE BY MOUTH TWICE A DAY SOLD: 08/12/2021 [facility] 40 mg 04/30/2021 12:00:00 AM EDT capsule,delayed release (DR/EC) 60 TAKE ONE CAPSULE BY MOUTH TWICE A DAY TAKE ONE CAPSULE BY MOUTH TWICE A DAY SOLD: 05/07/2021 [facility] 1,250 mcg (50,000 unit) 04/23/2021 12:00:00 AM EDT capsule 4 TAKE ONE CAPSULE BY MOUTH ONCE WEEKLY FOR 8 WEEKS TAKE ONE CAPSULE BY MOUTH ONCE WEEKLY FOR 8 WEEKS SOLD: 05/29/2021 [facility] 1,250 mcg (50,000 unit) 04/23/2021 12:00:00 AM EDT capsule 4 TAKE ONE CAPSULE BY MOUTH ONCE WEEKLY FOR 8 WEEKS TAKE ONE CAPSULE BY MOUTH ONCE WEEKLY FOR 8 WEEKS SOLD: 04/26/2021 [facility] 145 mcg 04/16/2021 12:00:00 AM EDT capsule 30 TAKE ONE CAPSULE BY MOUTH ONCE DAILY TAKE ONE CAPSULE BY MOUTH ONCE DAILY SOLD: 04/16/2021 [facility] Ketorolac Tromethamine 10 MG Oral Tablet Ketorolac Trometham ine 04/16/2021 12:00:00 AM EDT ORAL completed [facility] ([facility] magnesium citrate 58.2 MG/ML Oral Solution Magnesium Citrate 04/13/2021 12:00:00 AM EDT completed [facility] ([facility] ) 10 mg 04/13/2021 12:00:00 AM EDT tablet 12 TAKE ONE TABLET BY MOUTH EVERY 6 HOURS NEEDED FOR PAIN TAKE ONE TABLET BY MOUTH EVERY 6 HOURS A S NEEDED FOR PAIN SOLD: 04/13/2021 [facility] POLYETHYLENE GLYCOL 3350 142 MG/ML Oral Solution [Miralax] M iralax 04/13/2021 12:00:00 AM EDT completed [facility] ([facility], ) 5 mg 03/31/2021 12:00:00 AM EDT tablet extended release 24hr 30 TAKE ONE TABLET BY MOUTH EVERY DAY TAKE ONE TABLET BY MOUTH EVERY DAY SOLD: 04/06/2021 [facility] 5 mg 03/31/2021 12:00:00 AM EDT tablet extended release 24hr 30 TAKE ONE TABLET BY MOUTH EVERY DAY TAKE ONE TABLET BY MOUTH EVERY DAY SOLD: 05/07/2021 [facility] 5 mg 03/31/2021 12:00:00 AM EDT tablet extended release 24hr 30 TAKE ONE TABLET BY MOUTH EVERY DAY TAKE ONE TABLET BY MOUTH EVERY DAY SOLD: 06/05/2021 [facility] 5 mg 03/31/2021 12:00:00 AM EDT tablet extended release 24hr 30 TAKE ONE TABLET BY MOUTH EVERY DAY TAKE ONE TABLET BY MOUTH EVERY DAY SOLD: 07/07/2021 [facility] 1,250 mcg (50,000 unit) 02/22/2021 12:00:00 AM EDT capsule 4 TAKE ONE CAPSULE BY MOUTH ONCE A WEEK FOR 8 WEEKS TAKE ONE CAPSULE BY MOUTH ONCE A WEEK FOR 8 WEEKS SOLD: 03/29/2021 [facility] 1,250 mcg (50,000 unit) 02/22/2021 12:00:00 AM EDT capsule 4 TAKE ONE CAPSULE BY MOUTH ONCE A WEEK FOR 8 WEEKS TAKE ONE CAPSULE BY MOUTH ONCE A WEEK FOR 8 WEEKS SOLD: 03/06/2021 [facility] Fluconazole 150 MG Oral Tablet [Diflucan] Diflucan 01/12/2021 1 2:00:00 AM EDT ORAL completed MEDENT ([facility] 150 mg 01/12/2021 12:00:00 AM EDT tablet 2 TAKE ONE TABLET BY MOUTH FOR 1 DOSE TAKE ONE TABLET BY MOUTH FOR 1 DOSE SOLD: 01/12/2021 [facility] 18 mcg 01/02/2021 12:00:00 AM EDT capsule, w/inhalation d evice 30 INHALE THE CONTENTS OF ONE CAPSULE VIA HANDIHALER BY MOUTH EVERY DAY INHALE THE CONTENTS OF ONE CAPSULE VIA HANDIHALER BY MOUTH EVERY DAY SOLD: 01/03/2021 [facility] tiotropium 0.018 MG/ACTUAT Inhalant Powder [Spiriva] S piriva HandiHaler 18 MCG Spiriva HandiHaler 18 MCG 01/01/2021 12:00:00 AM EDT active Spiriva HandiHaler 18 MCG eCW1 ([facility]) tiotropium 0.018 MG/ACTUAT Inhalant Powder [Spiriva] S piriva HandiHaler 18 MCG Spiriva HandiHaler 18 MCG 01/01/2021 12:00:00 AM EDT active Spiriva HandiHaler 18 MCG eCW1 ([facility]) tiotropium 0.018 MG/ACTUAT Inhalant Powder [Spiriva] S piriva HandiHaler 18 MCG Spiriva HandiHaler 18 MCG 01/01/2021 12:00:00 AM EDT active Spiriva HandiHaler 18 MCG eCW1 ([facility])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 assembler+19V4cxF0IHmo9h4Ht3WofUo+WIx5F80LPZTWxsdI/ejN0smDT+WHAga3GrNgHTRxQEa435Agn9Ctj cSN8wjem5ip2wOyzayPXmQaKYDZv0dgWMjgq5af9CU yxEhwFr03Zgf/APtt0w3vQJp3uIFCPIH/TlQb+mwxQ2J/HeAsRI5d/Erasto+JT/YlKAOoQ4iGX47egdOLx [file] MKK8jj5rfWNRdN/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/6EqZWivMl0BrkYTZ3IqXwYW9C3Aye8dVRF/zEwhKHysw3l5ySTTDCa/fJ9WQh [file] surgical services tech/AOp3dPTBEIUV0otzTI3d0uydgE4KZ353/gX0iJUad7jvDqCHH21bkwTFcwjuLHsXUivhtkumUl4/ [file] jrn2x2yth7+3b+Barbara/NrQ5riVlnNvzgiMJyw62BjL71k4KnpwZlouifftk+kiZUf1sFlTHvE4j4BINJq PboNobzxIa8m0+ySuXadHMWmJZEloc/dYsqsv6SyNEqhxULh0y7gvnNqtE0HzMq1AyeRW1lS7cpfD04B LNAi09s0yYetJ/6XhTI5IdjD8+U7a/0YUVE6Q5XXIc 8smhVlhKAwy5+epbeeWR5S0EOFxaP2xSuRosh0Ex3TA/ks1vu/wK/sBZQ6kKg/rSpTCoOxIFeDyEKY5t 1H9BAZZGsGXaYhuTAYA2e9QpoEb5RS8hbW5Nlqq467uDFmNQw38FWLOAwKziK+oIXaW/P9vQFBYG7kQz Yxhg7zJ5A1AmHWL7UZdd2BXNiX80QNVky8MsW7JFu0 V/CdQHTkO4na713Mvpi4sxWxN7MXrKAAaMnPTcPkgBg/zaqYbt7xe+7wDsKZMj70yR1RcxC6rXPph+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 [file] jose c/Wt+FgOazI1F2FIJSSuw8E7A9eY5JgciBZyC2O2c/lVpt+MPulqu1qleANK0VeP4A2yvIbR6UCwIW [file] Jose R+vjiV1h3Q0aGzwM+REWDOsCEhicHfYqc6uOcvjhhocujCG0XG9bYESbkCwADVCsTN2S0xCjzSFKM0 [file] iL99G9Y4YEbKUvP/ирина/T6IMQa7iXThlMQDUmRU7OKRDxAjhHLjFAfcjjiNgJfWOc69BpaxADYR5OHW [file] A34tVCkkfltzhiBDxpUt/sYAzzB6EyCVaULxLgSkyv/5vfp/Germán/tFrTMgd/8Z9C+onjaZW0Fh4/0840 [file] jo8Pfuplf20P76OADvVPuelfwLmIB//car repairer pullman/nWCefTDgnPXseQwCtXEpKKQEu7fi8cm1V4vfLLM1DXmb0 [file] kr6MufgB159JIsSiDbHlp2M0sv0++1jo604Gx8qqq/sxedJj9lR2rOXX/Bora+sTTjaHilpZbmOmwwbw2 gsOegh4RO8HbEaBrMgLluKTz+h5iiQGfw9PfW1/Hlx pGGKCtBbUXSd4Eeu77gyzuZRe1RF4qes6J3p71S5NIRFyIi/5ie5BwbXQkKcF6DHeaOByMf97u3Ve+l7 K0FNdSGaoOaF83mNnIIu4EZnwyrgVM601+x+T9dksmv0iQybkfQpSo26RggdpJeHXqEA4zjmV/LvYTB0 qvCm0cGlbEwwVw7X0cpnuizbALZgnVqEK0RUbMHKG1 Iuv6ku2BR4zCspGQJzsnqLUTI8kLtZu4xrq/+e2M+8J/udSqp3WqzwEHfQfjDhTXuMs+rQpEMFarxliF vPNeS9dZcOXvjq0MlLFTflklI9VE0nUIVjC/pEU0mIkLwhOkLqJIG0pme2LT3GII/960xx1RPpsU3lW8 Z49uQfyM01dQZuGeX163kSH5AtLmwXV6t8iNpER5f9 5wjCE7tp9yoymM9ejP5wTda8tPD1xmYHP/TyL0E6Gohdrzd199zPNxknBzEt50zApyeaFD3glED8nsoo eKsrqw2p/R9YKIbM8WlY/Lpu7mX69sFwDBPRhgc/pNUxoNjq7OIexda+dei9ANjVHc0IsixzWZ79cu/O LwfMxBOmahMKMmHxfhz5QT/MsltEdyVBKKv8a3xU9w port captain+lb/NEsIQx8ZDHnEkHhb4f3UibtvwsNmVS3NoQWpgQ4ScTzPxIDsBRygQRnr1EAy4Z77RTK5EwqEZh [file] /E/1b59dasbkBbnNrd+Db83vivh/JS0xHng4/ikpTC7/Data Report Analyst+kfSUnWsvhxjHNenRmX8FlAqbQh0Kf0cXM [file] ZCGoJdZEO5iaMozN7QAV2cy7TbNB4Md3FgmyB0fcTtPZhdWbU9APU1DJpsRPCQUa== ID Date Data Source [id number] 05/12/2021 12:18:00 PM EDT [facility] ([facility]) Name Value Range Interpretation Code Description Data Criss rce(s) Supporting Document(s) Surgical pathology study Laboratory test result [facility] ([facility]) FINAL DIAGNOSIS A-Duodenal biopsy: Duodenal mucosa with [...] Abdominal pain, Castle's, celiac disease 05/12/2021 - 152 GROSS DIAGNOSIS A - Received in formalin [...] cm. All in one. -OA 05/12/2021 - 1526 Signed CONNIE MALIK MD 05/13/2021 1147 ID Date Data Source [id number] 05/07/2021 11:25:00 AM EDT [facility] ([facility] Name Value Range Interpretation Code Description Data Criss rce(s) Supporting Document(s) Laboratory test finding (navigational concept) Laboratory test result [facility] ([facility] ASSAY INFORMATION: Real Time RT-PCR NOTE: The COVID-19 assay has been cleared by the U.S. Food and Drug Administration under the Emergency Use Authorization (EUA). [facility] and [facility] are designated as high complexity laboratories by the Clinical Laboratory Improvement Amendments of 1988(CLIA) and are qualified to perform this test. Not Detected ID Date Data Source [id number] 04/15/2021 03:46:00 AM EDT [facility] Name Value Range Interpretation Code Description Data Criss rce(s) Supporting Document(s) SARS coronavirus 2 RNA [Presence] in Res piratory specimen by CORKY with probe detection NEGATIVE [facility] This lab was ordered by [facility] a nd reported by [facility]. ID Date Data Source [id number] 04/14/2021 09:23:00 PM EDT [facility] ([facility] Name Value Range Interpretation Code Description Data Criss rce(s) Supporting Document(s) Lipoprotein lipase [Enzymatic activity/volume] in Serum or Plasm a 61 U/L 73-393 Below low normal [facility] ([facility] ) ID Date Data Source [id number] 04/14/2021 09:23:00 PM EDT [facility] ([facility] Name Value Range Interpretation Code Description Data Criss rce(s) Supporting Document(s) Glucose, Fasting 94 mg/dL 70-100 Normal (applies to non-numeric results) [facility] ([facility] Blood Urea Nitrogen 11 mg/dL 7-18 Normal (applies to non-nume tiara results) [facility] ([facility] Glomerular Filtration Rate Laboratory test result Normal (applies to non- numeric results) [facility] ([facility] ) <content>Units are mL/min/1.73 m2</content>
<content></content>
<content>Chronic Kidney Disease Staging per NK[facility]:</content>
<content></content>
<content>Stage I & II GFR >=60 Normal to Mildly Decreased</content>
<content>Stage III GFR 30-59 Moderately Decreased</content>
<content>Stage IV GFR 15-29 Severely Decreased</content>
<content>Stage V GFR <15 Very Little GFR Left</content>
<content>ESRD GFR <15 on ADMITTING COUNSELOR</content>
<content></content> Creatinine For GFR 0.50 mg/dL 0.55-1.30 Below low normal [facility] ([facility] Potassium Serum 4.3 meq/L 3.5-5.1 Normal (applies to non-numeric results) [facility] ([facility] Sodium Level 139 meq/L 136-145 Normal (applies to non-numeric res ults) [facility] ([facility] Chloride Level 110 meq/L 98-107 Above high normal [facility] ([facility] Anion Gap 5 meq/L 8-16 Below low normal [facility] ( [facility] Carbon Dioxide Level 24 meq/L 21-32 Normal (applies to non-num paul results) [facility] ([facility] Calcium Level 8.3 mg/dL 8.5-10.1 Below low normal [facility] ([facility] ID Date Data Source [id number] 04/14/2021 09:23:00 PM EDT [facility] ([facility] Name Value Range Interpretation Code Description Data Criss rce(s) Supporting Document(s) Ast/Sgot 20 U/L 7-37 Normal (applies to non-numeric resul ts) [facility] ([facility] Alt/SGPT 29 U/L 12-78 Normal (applies to non-numeric resul ts) [facility] ([facility] Alkaline Phosphatase 60 U/L 45-117 Normal (applies to non-num paul results) [facility] ([facility] Bilirubin,Direct Laboratory test result 0.0-0.2 Normal ( applies to non-numeric results) [facility] ([facility] ) Total Protein 6.3 GM/DL 6.4-8.2 Below low normal [facility] ([facility] Bilirubin,Total 0.1 mg/dL 0.2-1.0 Below low normal [facility] ([facility] Albumin/Globulin Ratio 1.0 1.2-2.2 Below low normal [facility] ([facility] Albumin 3.2 GM/DL 3.2-5.2 Normal (applies to non-numeric resul ts) [facility] ([facility] ID Date Data Source [id number] 04/14/2021 09:23:00 PM EDT [facility] ([facility] Name Value Range Interpretation Code Description Data Criss rce(s) Supporting Document(s) Red Blood Count 4.28 10 4.00-5.40 Normal (applies to non-numeric results) [facility] ([facility] White Blood Count 10.7 10 4.0-10.0 Above high normal [facility] ([facility] Mean Corpuscular Volume 82.7 fl 80.0-96.0 Normal ( applies to non-numeric results) [facility] ([facility] ) Hematocrit 35.4 % 36.0-47.0 Below low normal [facility] ( [facility] Hemoglobin 11.4 g/dL 12.0-15.5 Below low normal [facility] ( [facility] Mean Corpuscular HGB Conc 32.2 g/dL 32.0-36.5 Normal (applies to non-numeric results) [facility] ([facility] ) Mean Corpuscular Hemoglobin 26.6 pg 27.0-33.0 Below low normal [facility] ([facility] Red Cell Distribution Width 15.7 % 11.5-14.5 Above high normal [facility] ([facility] Platelet Count, Automated 304 10 150-450 Normal (applies to non-numeric results) [facility] ([facility] ) Lymph % 38.7 % 24.0-44.0 Normal (applies to non-numeric resul ts) [facility] ([facility] Cecil % 6.7 % 2.0-8.0 Normal (applies to non-numeric resul ts) [facility] ([facility] Neutrophils % 49.7 % 36.0-66.0 Normal (applies to non-numeric re sults) [facility] ([facility] Eos % 3.6 % 0.0-3.0 Above high normal [facility] ([facility] Baso % 1.0 % 0.0-1.0 Normal (applies to non-numeric resul ts) [facility] ([facility] Immature Granulocyte % 0.3 % 0-3.0 Normal (applies to non-n umeric results) [facility] ([facility] Nucleated Red Blood Cell % 0.0 % 0-0 Normal (applies to n on-numeric results) [facility] ([facility] Cecil # 0.7 10 0.0-0.8 Normal (applies to non-numeric resul ts) [facility] ([facility] Lymph # 4.2 10 1.5-5.0 Normal (applies to non-numeric resul ts) [facility] ([facility] Neutrophils # 5.3 10 1.5-8.5 Normal (applies to non-numeric re sults) [facility] ([facility] Eos # 0.4 10 0.0-0.5 Normal (applies to non-numeric resul ts) [facility] ([facility] Baso # 0.1 10 0.0-0.2 Normal (applies to non-numeric resul ts) [facility] ([facility] ID Date Data Source [id number] 04/14/2021 01:42:00 PM EDT [facility] Name Value Range Interpretation Code Description Data Criss rce(s) Supporting Document(s) Elastase.pancreatic [Mass/mass] in Stool 223 Normal (applies to non-numeric results) [facility] ([facility]) <content>Result Units: ug Elast./g</cont ent>
<content>Severe Pancreatic Insufficiency: <100</content>
<content>Moderate Pancreatic Insufficiency: 100 - 200</content>
<content>Normal: >200</content>
<content></content> Calprotectin [Mass/mass] in Stool 175 ug/g 0-120 Above high no rmal [facility] ([facility], ) <content>Concentration Interpretatio n Follow-Up</content>
<content><16 - 50 ug/g Normal None</content>
<content>>50 -120 ug/g Borderline Re-evaluate in 4-6 weeks</content>
<content>>120 ug/g Abnormal Repeat as clinically</content>
<content>indicated</content>
<content>Performed at: [facility]</content>
<content>[address] [place] [id number]</content>
<content>Cooling Pan Tender: Marj Loving MD, Phone: [phone]</content>
<content></content> ID Date Data Source [id number] 04/14/2021 01:42:00 PM EDT [facility] ([facility]) Name Value Range Interpretation Code Description Data Criss rce(s) Supporting Document(s) Gastrointestinal (GI) Panel Laboratory test result [facility] ([facility]) This Gastrointestinal PCR Panel detects the following bacteria, parasites and viruses: [...] infection. NEGATIVE by MULTIPLEXED NUCLEIC ACID PCR ID Date Data Source [id number] 02/08/2021 08:47:00 AM EDT [facility] ([facility] Name Value Range Interpretation Code Description Data Criss rce(s) Supporting Document(s) Thyrotropin [Units/volume] in Serum or Plasma 1.320 uIU/mL 0.450-4.50 0 [facility] ([facility] ID Date Data Source [id number] 02/08/2021 08:47:00 AM EDT [facility] ([facility] Name Value Range Interpretation Code Description Data Criss rce(s) Supporting Document(s) Glucose [Mass/volume] in Serum or Plasma 87 mg/dL 65-99 [facility] ([facility] Creatinine [Mass/volume] in Serum or Plasma 0.66 mg/dL 0.57-1.00 [facility] ([facility] BUN 7 mg/dL 6-24 [facility] ([facility] eGFR If NonAfricn Am 105 mL/min/1.73 [facility] ([facility] eGFR If Africn Am 121 mL/min/1.73 [facility] ([facility] currently reports eGFR in comp liance with the current recommendations of the National Kidney Foundation. [facility] will update reporting as new guidelines are published from the NKF-ASN Task force. Sodium [Moles/volume] in Serum or Plasma 138 mmol/L 134-144 [facility] ([facility] Urea nitrogen/Creatinine [Mass Ratio] in Serum or Plasma 11 9 -23 [facility] ([facility] Chloride [Moles/volume] in Serum or Plasma 104 mmol/L 96-106 [facility] ([facility] Potassium [Moles/volume] in Serum or Plasma 4.6 mmol/L 3.5-5.2 [facility] ([facility] Calcium [Mass/volume] in Serum or Plasma 9.2 mg/dL 8.7-10.2 [facility] ([facility] Carbon dioxide, total [Moles/volume] in Serum or Plasma 24 mmol/L 20 -29 [facility] ([facility] Albumin [Mass/volume] in Serum or Plasma 4.1 g/dL 3.8-4.8 [facility] ([facility] Protein [Mass/volume] in Serum or Plasma 6.8 g/dL 6.0-8.5 [facility] ([facility] Globulin [Mass/volume] in Serum by calculation 2.7 g/dL 1.5-4.5 [facility] ([facility] Albumin/Globulin [Mass Ratio] in Serum or Plasma 1.5 1.2-2.2 [facility] ([facility] Alkaline phosphatase [Enzymatic activity/volume] in Serum or Plasma 82 IU/L 39-117 [facility] Bilirubin.total [Mass/volume] in Serum or Plasma 0.2 mg/dL 0.0-1.2 [facility] ([facility] Aspartate aminotransferase [Enzymatic activity/volume] in Serum or Plasma 19 IU/L 0-40 [facility] Alanine aminotransferase [Enzymatic activity/volume] in Seru m or Plasma 14 IU/L 0-32 [facility] ID Date Data Source [id number] 02/08/2021 08:47:00 AM EDT [facility] ([facility] Name Value Range Interpretation Code Description Data Criss rce(s) Supporting Document(s) Calcidiol [Mass/volume] in Serum or Plasma 45.7 ng/mL 30.0-100.0 [facility] ([facility] Vitamin D deficiency has been defined by the [place] of [employer] and an Endocrine Society practice guideline as a level of serum 25-OH vitamin D less than 20 ng/mL (1,2). The Endocrine Society went on to further define vitamin D insufficiency as a level between 21 and 29 ng/mL (2). 1. IOM ([place] of Medicine). 2010. Di etary reference intakes for calcium and D. [place]: The National Academies Press. 2. Nate REDDY, Lotus CASSIDY, Felix ambriz INGRAM, et al. Evaluation, treatment, and prevention of vitamin D deficiency: an Endocrine Society clinical practice guideline. JCEM. 2010; 96(7):1911-30. ID Date Data Source [facility] ANGIO CHEST 12/30/2020 12:00:00 AM EDT eCW1 (Formerly [facility]) Name Value Range Interpretation Code Description Data Criss rce(s) Supporting Document(s) eCW1 (Formerly [facility]) ID Date Data Source TROPONIN I 12/29/2020 12:00:00 AM EDT eCW1 (Formerly [facility]) Name Value Range Interpretation Code Description Data Criss rce(s) Supporting Document(s) < 0.02 < 0.10 eCW1 (Formerly [facility]) ID Date Data Source CBC with Auto Differential 12/29/2020 12:00:00 AM EDT eCW1 ( [facility]) Name Value Range Interpretation Code Description Data Criss rce(s) Supporting Document(s) 12.1 4.0-10.0 eCW1 (Formerly [facility]) 4.37 4.00-5.40 eCW1 (Formerly [facility]) 86.5 80.0-96.0 eCW1 (Formerly [facility]) 12.1 12.0-15.5 eCW1 (Formerly [facility]) 37.8 36.0-47.0 eCW1 (Formerly [facility]) 32.0 32.0-36.5 eCW1 (Formerly [facility]) 17.9 11.5-14.5 eCW1 (Formerly [facility]) 327 150-450 eCW1 (Formerly [facility]) 27.7 27.0-33.0 eCW1 (Formerly [facility]) 54.6 36.0-66.0 eCW1 (Formerly [facility]) 0.9 0.0-1.0 eCW1 (Formerly [facility]) 2.1 0.0-3.0 eCW1 (Formerly [facility]) 33.5 24.0-44.0 eCW1 (Formerly [facility]) 8.6 2.0-8.0 eCW1 (Formerly [facility]) 0.0 0-0 eCW1 (Formerly [facility]) 4.0 1.5-5.0 eCW1 (Formerly [facility]) 6.6 1.5-8.5 eCW1 (Formerly [facility]) 0.3 0-3.0 eCW1 (Formerly [facility]) 1.0 0.0-0.8 eCW1 (Formerly [facility]) 0.3 0.0-0.5 eCW1 (Formerly [facility]) 0.1 0.0-0.2 eCW1 (Formerly [facility]) ID Date Data Source FREE T4 & TSH PANEL 12/29/2020 12:00:00 AM EDT eCW1 ([facility]ly [facility]) Name Value Range Interpretation Code Description Data Criss rce(s) Supporting Document(s) 0.94 0.76-1.46 eCW1 (Formerly [facility]) 1.560 0.358-3.740 eCW1 ([facility]) ID Date Data Source DDIMER QUANT 12/29/2020 12:00:00 AM EDT eCW1 (Formerly [facility]) Name Value Range Interpretation Code Description Data Criss rce(s) Supporting Document(s) 571.24 <500 eCW1 (Formerly [facility]) ID Date Data Source Comprehensive Metabolic Profile (CMP) 12/29/2020 12:00:00 AM EDT eCW1 ([facility]) Name Value Range Interpretation Code Description Data Criss rce(s) Supporting Document(s) 6 7-18 eCW1 (Formerly [facility]) 80 70-100 eCW1 (Formerly [facility]) 0.59 0.55-1.30 eCW1 (Formerly [facility]) 107 98-107 eCW1 (Formerly [facility]) 4.1 3.5-5.1 eCW1 (Formerly [facility]) 141 136-145 eCW1 ([facility]ly [facility]) > 60.0 >58 eCW1 (Formerly [facility]) 28 21-32 eCW1 ([facility]ly [facility]) 10 7-37 eCW1 ([facility]ly [facility]) 8.8 8.5-10.1 eCW1 (Formerly [facility]) 29 12-78 eCW1 ([facility]ly [facility]) 70 45-117 eCW1 ([facility]ly [facility]) 0.2 0.2-1.0 eCW1 ([facility]ly [facility]) 6.7 6.4-8.2 eCW1 ([facility]ly [facility]) 3.5 3.2-5.2 eCW1 ([facility]ly [facility]) 1.1 1.2-2.2 eCW1 (Formerly [facility]) ID Date Data Source [id number] [id number] VIEW 12/29/2020 12:00:00 AM EDT eCW1 ([facility]) Name Value Range Interpretation Code Description Data Criss rce(s) Supporting Document(s) eCW1 (Formerly [facility]) ID Date Data Source [id number] 12/09/2020 01:35:00 PM EST MEDENT ([facility] Name Value Range Interpretation Code Description Data Criss rce(s) Supporting Document(s) ABG pH (Arterial) 7.445 units 7.350-7.450 Normal (applie s to non-numeric results) MEDENT ([facility] ) ABG Partial Pressure Co2 32.4 mmHg 35.0-45.0 Below low normal MEDENT ([facility] ABG Partial Pressure O2 81.2 mmHg 75.0-100.0 Normal ( applies to non-numeric results) MEDENT ([facility] ) ABG Total Co2 22.8 meq/L 22.0-29.0 Normal (applies to non-numeric re sults) MEDENT ([facility] ABG Base Excess -1.6 Normal (applies to non-numeric results) MEDENT ([facility] ABG Standard Hco3 23.1 meq/L 22.0-26.0 Normal (applies to non- numeric results) MEDENT ([facility] ABG Hco3 21.8 meq/L 22.0-26.0 Below low normal MEDENT ( [facility] ABG O2 Saturation 96.6 % 95.0-99.0 Normal (applies to non-numeri c results) MEDENT ([facility] ID Date Data Source [id number] 12/09/2020 01:02:00 PM EST MEDENT ([facility] Name Value Range Interpretation Code Description Data Criss rce(s) Supporting Document(s) Respiratory Panel Laboratory test result MEDENT ([facility] This respiratory PCR panel detects Influ denton A H1, H3 and 2009 H1 viruses, Influenza B virus, Resp iratory Syncytial Virus, Human metapneumovirus, Parainfluenza virus 1, 2, 3 and 4, Adenovirus, Rhinovirus/Enterovirus, Coronavirus HKU1, NL63, OC43, 229E and SARS-CoV-2 (COVID 19), Bordetella pertussis, Bordetella parapertussis, Mycoplasma pneumoniae and Chlamydia pneumoniae. POSITIVE by MULTIPLEXED NUCLEIC ACID PCR SARS-CoV-2 (COVID 19) POSITIVE - SARS-CoV-2 (COVID19) ORGANISM 1: SARS-CoV-2 (COVID 19) ID Date Data Source [id number] 12/09/2020 01:02:00 PM EST [facility] Name Value Range Interpretation Code Description Data Criss rce(s) Supporting Document(s) Respiratory pathogens identified [Type] in Nasopharynx by Probe and target amplification method SARS-CoV-2 (COVID 19) [facility] This lab was ordered by [facility] a nd reported by [facility]. ID Date Data Source [id number] 12/09/2020 11:26:00 AM EST MEDENT ([facility] Name Value Range Interpretation Code Description Data Criss rce(s) Supporting Document(s) Glucose, Fasting 90 mg/dL 70-100 Normal (applies to non-numeric results) MEDENT ([facility] Blood Urea Nitrogen 10 mg/dL 7-18 Normal (applies to non-nume tiara results) MEDENT ([facility] Creatinine For GFR 0.64 mg/dL 0.55-1.30 Normal (applies to non -numeric results) MEDENT ([facility] Glomerular Filtration Rate Laboratory test result Normal (applies to non- numeric results) [facility] ([facility] ) <content>Units are mL/min/1.73 m2</content>
<content></content>
<content>Chronic Kidney Disease Staging per NKF:</content>
<content></content>
<content>Stage I & II GFR >=60 Normal to Mildly Decreased</content>
<content>Stage III GFR 30- 59 Moderately Decreased</content>
<content>Stage IV GFR 15-29 Severely Decreased</content>
<content>Stage V GFR <15 Very Little GFR Left</content>
<content>ESRD GFR <15 on ADMITTING COUNSELOR</content>
<content></content> Sodium Level 138 meq/L 136-145 Normal (applies to non-numeric res ults) MEDENT ([facility] Potassium Serum 3.9 meq/L 3.5-5.1 Normal (applies to non-numeric results) MEDENT ([facility] Carbon Dioxide Level 24 meq/L 21-32 Normal (applies to non-num paul results) MEDENT ([facility] Chloride Level 106 meq/L 98-107 Normal (applies to non-numeric r esults) MEDENT ([facility] Calcium Level 8.9 mg/dL 8.5-10.1 Normal (applies to non-numeric re sults) MEDENT ([facility] Anion Gap 8 meq/L 8-16 Normal (applies to non-numeric resul ts) MEDENT ([facility] ID Date Data Source [id number] 12/09/2020 11:26:00 AM EST SHAMIR ([facility] Name Value Range Interpretation Code Description Data Criss rce(s) Supporting Document(s) CPK Creatine Phosphokinase 84 U/L 26-192 Alice l (applies to non-numeric results) SHAMIR ([facility] ) CK-MB Value Mass Laboratory test result Normal ( applies to non-numeric results) SHAMIR ([facility] ) MB/CK Relative Index 1.19 Normal (applies to non-num paul results) SHAMIR ([facility] <content>DIAGNOSIS CRITERIA</content>
<content>MMB ng/ml Relative Index (RI)</content>
<content>NON-AMI < or = 5 N/A</content>
<content>FIGUEREDO ZONE > 5 < or = 4</content>
<content>AMI > 5 > 4</content>
<content></content> Troponin I Laboratory test result Normal (applies to non-n umeric results) [facility] <content>Troponin I Reference Interval f or Siemens [place] LOCI:</content>
<content></content>
<content>99th Percentile= 0.00-0.045 ng/ml</content>
<content></content>
<content>Risk Stratification:</content>
<content><= 0.10 ng/ml Decreased Risk for Adverse Clinical</content>
<content>Events.</content>
<content>0.10-1.50 ng/ml Increased Risk for Adverse Clinical</content>
<content>Events. Evaluation of additional</content>
<content>criterion and/or repeat testing in 2-6</content>
<content>hours is suggested to rule out myocardial</content>
<content>damage.</content>
<content>>= 1.50 ng/ml Indicative of Myocardial Injury.</content>
<content></content> ID Date Data Source [id number] 12/09/2020 11:26:00 AM EST MEDENT ([facility] Name Value Range Interpretation Code Description Data Criss rce(s) Supporting Document(s) Red Blood Count 4.38 10 4.00-5.40 Normal (applies to non-numeric results) MEDENT ([facility] White Blood Count 7.1 10 4.0-10.0 Normal (applies to non-numeri c results) MEDENT ([facility] Hemoglobin 12.2 g/dL 12.0-15.5 Normal (applies to non-numeric resul ts) MEDENT ([facility] Hematocrit 37.6 % 36.0-47.0 Normal (applies to non-numeric resul ts) MEDENT ([facility] Mean Corpuscular Volume 85.8 fl 80.0-96.0 Normal ( applies to non-numeric results) MEDENT ([facility] ) Mean Corpuscular HGB Conc 32.4 g/dL 32.0-36.5 Normal (applies to non-numeric results) MEDENT ([facility] ) Mean Corpuscular Hemoglobin 27.9 pg 27.0-33.0 Norm al (applies to non-numeric results) MEDENT ([facility] ) Platelet Count, Automated 312 10 150-450 Normal (applies to non-numeric results) MEDENT ([facility] ) Red Cell Distribution Width 16.9 % 11.5-14.5 Above high normal MEDENT ([facility] Lymph % 47.0 % 24.0-44.0 Above high normal MEDENT ([facility] Neutrophils % 38.6 % 36.0-66.0 Normal (applies to non-numeric re sults) MEDENT ([facility] Eos % 2.6 % 0.0-3.0 Normal (applies to non-numeric resul ts) MEDENT ([facility] Cecil % 9.9 % 2.0-8.0 Above high normal MEDENT ([facility] Baso % 1.6 % 0.0-1.0 Above high normal MEDENT ([facility] Immature Granulocyte % 0.3 % 0-3.0 Normal (applies to non-n umeric results) MEDENT ([facility] Nucleated Red Blood Cell % 0.0 % 0-0 Normal (applies to n on-numeric results) MEDENT ([facility] Neutrophils # 2.7 10 1.5-8.5 Normal (applies to non-numeric re sults) MEDENT ([facility] Cecil # 0.7 10 0.0-0.8 Normal (applies to non-numeric resul ts) MEDENT ([facility] Lymph # 3.3 10 1.5-5.0 Normal (applies to non-numeric resul ts) MEDENT ([facility] Eos # 0.2 10 0.0-0.5 Normal (applies to non-numeric resul ts) MEDENT ([facility] Baso # 0.1 10 0.0-0.2 Normal (applies to non-numeric resul ts) MEDENT ([facility] ID Date Data Source [id number] 09/01/2020 02:09:00 PM EST MEDENT ([facility] Name Value Range Interpretation Code Description Data Criss rce(s) Supporting Document(s) CPK Creatine Phosphokinase 86 U/L 26-192 Alice l (applies to non-numeric results) MEDENT ([facility] ) CK-MB Value Mass Laboratory test result Normal ( applies to non-numeric results) MEDENT ([facility] ) MB/CK Relative Index 1.16 Normal (applies to non-num paul results) MEDENT ([facility] <content>DIAGNOSIS CRITERIA</content>
<content>MMB ng/ml Relative Index (RI)</content>
<content>NON-AMI < or = 5 N/A</content>
<content>FIGUEREDO ZONE > 5 < or = 4</content>
<content>AMI > 5 > 4</content>
<content></content> Troponin I Laboratory test result Normal (applies to non-n umeric results) MEDENT ([facility] <content>Troponin I Reference Interval f or [employer] [place] LOCI:</content>
<content></content>
<content>99th Percentile= 0.00-0.045 ng/ml</content>
<content></content>
<content>Risk Stratification:</content>
<content><= 0.10 ng/ml Decreased Risk for Adverse Clinical</content>
<content>Events.</content>
<content>0.10-1.50 ng/ml Increased Risk for Adverse Clinical</content>
<content>Events. Evaluation of additional</content>
<content>criterion and/or repeat testing in 2-6</content>
<content>hours is suggested to rule out myocardial</content>
<content>damage.</content>
<content>>= 1.50 ng/ml Indicative of Myocardial Injury.</content>
<content></content> ID Date Data Source [id number] 09/01/2020 01:34:00 PM EST MEDENT ([facility] Name Value Range Interpretation Code Description Data Criss rce(s) Supporting Document(s) White Blood Count 15.1 4.0-10.0 MEDENT ([facility]) Hemoglobin 12.9 MEDENT ([facility]) Red Blood Count 4.70 4.00-5.40 MEDENT ([facility]) Platelets 301 150-450 MEDENT ([facility] Hematocrit 40.5 MEDENT ([facility]) ID Date Data Source [id number] 09/01/2020 01:34:00 PM EST MEDENT ([facility]) Name Value Range Interpretation Code Description Data Criss rce(s) Supporting Document(s) Thyroid Stimulating Hormone 1.310 ME DENT ([facility]) Troponin Laboratory test result MEDENT ([facility]) Lipoprotein lipase [Enzymatic activity/volume] in Serum or Plasma 66 MEDENT ([facility]) Free T4 1.26 MEDENT ([facility]) ID Date Data Source [id number] 09/01/2020 01:34:00 PM EST [facility] [place] Name Value Range Interpretation Code Description Data Criss rce(s) Supporting Document(s) CPK-MB Laboratory test result MEDENT ([facility]) Creatine kinase [Enzymatic activity/volume] in Serum or Plasma 106 MEDENT ([facility]) ID Date Data Source [id number] 09/01/2020 01:34:00 PM EST [facility] [place] Name Value Range Interpretation Code Description Data Criss rce(s) Supporting Document(s) Albumin [Mass/volume] in Serum or Plasma 3.4 MEDENT ([facility]) Alanine aminotransferase [Enzymatic activity/volume] in Serum or Pl asma 49 MEDENT ([facility]) Carbon dioxide, total [Moles/volume] in Serum or Plasma 26 MEDENT ([facility]) Calcium [Mass/volume] in Serum or Plasma 9.1 MEDENT ([facility]) Potassium [Moles/volume] in Serum or Plasma 4.1 MEDENT ([facility]) Alkaline phosphatase [Enzymatic activity/volume] in Serum or Plasma 8 9 MEDENT ([facility]) Chloride [Moles/volume] in Serum or Plasma 104 MEDENT ([facility]) Protein [Mass/volume] in Serum or Plasma 7.2 MEDENT ([facility]) Sodium 135 MEDENT ([facility]) Urea nitrogen [Mass/volume] in Serum or Plasma 12 MEDENT ([facility]) Aspartate aminotransferase [Enzymatic activity/volume] in Serum or Plasma 14 MEDENT ([facility]) Glucose 105 70-105 MEDENT ([facility]) Creatinine For GFR 0.71 MEDENT ([facility]) ID Date Data Source [id number] 08/26/2020 09:16:00 AM EST MEDENT ([facility] Name Value Range Interpretation Code Description Data Criss rce(s) Supporting Document(s) Calcidiol [Mass/volume] in Serum or Plasma 16.4 ng/mL 30.0- 100.0 Below low normal MEDENT ([facility] ) Vitamin D deficiency has been defined by the [place] of [employer] and an Endocrine Society practice guideline as a level of serum 25-OH vitamin D less than 20 ng/mL (1,2). The Endocrine Society went on to further define vitamin D insufficiency as a level between 21 and 29 ng/mL (2). 1. IOM ([place] [employer]). 2010. Di etary reference intakes for calcium and D. [place]: The National Academies Press. 2. Nate REDDY, Lotus CASSIDY, Felix ambriz INGRAM, et al. Evaluation, treatment, and prevention of vitamin D deficiency: an Endocrine Society clinical practice guideline. JCEM. 2010; 96(7):1911-30. Erythrocyte sedimentation rate by Westergren method 21 mm/hr 0-32 MEDENT ([facility] Magnesium [Mass/volume] in Serum or Plasma 2.0 mg/dL 1.6-2.3 MEDENT ([facility] ID Date Data Source [id number] 08/26/2020 09:16:00 AM EST MEDENT ([facility] Name Value Range Interpretation Code Description Data Criss rce(s) Supporting Document(s) Glucose [Mass/volume] in Serum or Plasma 90 mg/dL 65-99 MEDENT ([facility] BUN 9 mg/dL 6-24 MEDENT ([facility] Creatinine [Mass/volume] in Serum or Plasma 0.53 mg/dL 0.57 -1.00 Below low normal MEDENT ([facility] ) Urea nitrogen/Creatinine [Mass Ratio] in Serum or Plasma 17 9 -23 MEDENT ([facility] eGFR If Africn Am 130 mL/min/1.73 ME DENT ([facility] eGFR If NonAfricn Am 113 mL/min/1.73 MEDENT ([facility] Potassium [Moles/volume] in Serum or Plasma 4.4 mmol/L 3.5-5.2 MED[facility] ([facility] Sodium [Moles/volume] in Serum or Plasma 138 mmol/L 134-144 MEDENT ([facility] Chloride [Moles/volume] in Serum or Plasma 104 mmol/L 96-106 MED[facility] ([facility] Carbon dioxide, total [Moles/volume] in Serum or Plasma 20 mmol/L 20 -29 MEDENT ([facility] Calcium [Mass/volume] in Serum or Plasma 9.2 mg/dL 8.7-10.2 MEDENT ([facility] Protein [Mass/volume] in Serum or Plasma 6.6 g/dL 6.0-8.5 MEDENT ([facility] Albumin/Globulin [Mass Ratio] in Serum or Plasma 1.5 1.2-2.2 MED[facility] ([facility] Globulin [Mass/volume] in Serum by calculation 2.6 g/dL 1.5-4.5 MEDENT ([facility] Albumin [Mass/volume] in Serum or Plasma 4.0 g/dL 3.8-4.8 MEDENT ([facility] Bilirubin.total [Mass/volume] in Serum or Plasma 0.3 mg/dL 0.0-1.2 MED[facility] ([facility] Alkaline phosphatase [Enzymatic activity/volume] in Serum or Plasma 70 IU/L 39-117 [facility] Aspartate aminotransferase [Enzymatic activity/volume] in Serum or Plasma 60 IU/L 0-40 Above high normal MEDENT ([facility] Alanine aminotransferase [Enzymatic activity/volume] in Seru m or Plasma 26 IU/L 0-32 [facility] ([facility] ID Date Data Source [id number] 08/26/2020 09:16:00 AM EST MEDENT ([facility] Name Value Range Interpretation Code Description Data Criss rce(s) Supporting Document(s) Erythrocytes [#/volume] in Blood by Automated count 4.54 x10E6/uL 3.7 7-5.28 MEDENT ([facility] Leukocytes [#/volume] in Blood by Automated count 8.9 x10E3/uL 3.4-10 .8 MED[facility] ([facility] Hemoglobin [Mass/volume] in Blood 12.4 g/dL 11.1-15.9 MED[facility] ([facility] Hematocrit [Volume Fraction] of Blood by Automated count 39.2 % 3 4.0-46.6 MEDENT ([facility] Erythrocyte mean corpuscular volume [Entitic volume] by Auto mated count 86 fL 79-97 MEDENT ([facility] Erythrocyte mean corpuscular hemoglobin concentration [Mass/volume] by Automated count 31.6 g/dL 31.5-35.7 [facility] Erythrocyte mean corpuscular hemoglobin [Entitic mass] by Automated count 27.3 pg 26.6-33.0 MEDENT ([facility] Neutrophils 49 % [facility] ([facility] Erythrocyte distribution width [Ratio] by Automated count 15.1 % 11.7-15.4 MEDENT ([facility] Platelets [#/volume] in Blood by Automated count 321 x10E3/uL 150-450 MEDENT ([facility] Monocytes/100 leukocytes in Blood by Automated count 8 % MED[facility] ([facility] Lymphs 39 % [facility] Eosinophils/100 leukocytes in Blood by Automated count 3 % MED[facility] ([facility] Basophils/100 leukocytes in Blood by Automated count 1 % MED[facility] ([facility] Immature cells [#/volume] in Blood Laboratory test result MEDENT ([facility] Neutrophils [#/volume] in Blood by Automated count 4.4 x10E3/uL 1.4-7 .0 MED[facility] ([facility] Lymphocytes [#/volume] in Blood 3.4 x10E3/uL 0.7-3.1 Above high no rmal MEDENT ([facility] Monocytes [#/volume] in Blood 0.7 x10E3/uL 0.1-0.9 MEDENT ([facility] Immature granulocytes/100 leukocytes in Blood by Automated count 0 % MEDENT ([facility] Eosinophils [#/volume] in Blood by Automated count 0.3 x10E3/uL 0.0-0 .4 MEDENT ([facility] Basophils [#/volume] in Blood by Automated count 0.1 x10E3/uL 0.0-0.2 MEDENT ([facility] Nucleated erythrocytes/100 leukocytes [Ratio] in Blood by Automated count Laboratory test result [facility] Immature granulocytes [#/volume] in Blood by Automated count 0.0 x10E3/uL 0.0-0.1 [facility] Morphology [Interpretation] in Blood Narrative Laboratory test result MEDENT ([facility] Procedure Social History Code Duration Value Status Description Data Source(s ) Smoking 07/14/2021 12:00:00 AM EDT Current Smoker completed Curre nt Smoker eCW1 ([facility]) Smoking 01/01/2021 12:00:00 AM EDT Current Smoker completed Curre nt Smoker eCW1 ([facility]) Smoking 01/01/2021 12:00:00 AM EDT Current Smoker completed Curre nt Smoker eCW1 ([facility]) Smoking 01/01/2021 12:00:00 AM EDT Current Smoker completed Curre nt Smoker eCW1 ([facility]) Smoking 12/29/2020 12:00:00 AM EDT Current Smoker completed Curre nt Smoker eCW1 ([facility]) Smoking 12/14/2020 12:00:00 AM EST Current Smoker completed Curre nt Smoker eCW1 ([facility]) Smoking 12/14/2020 12:00:00 AM EST Current Smoker completed Curre nt Smoker eCW1 ([facility]) Smoking 12/14/2020 12:00:00 AM EST Current Smoker completed Curre nt Smoker eCW1 ([facility]) Vital Signs ID Date Data Source UNK Name Value Range Interpretation Code Description Data Source(s) Body surface area Derived from formula 1.81 m2 1.81 m2 [facility] Systolic blood pressure 108 mm[Hg] 108 mm[Hg] M EDENT ([facility]) Diastolic blood pressure 60 mm[Hg] 60 mm[Hg] MEDENT ([facility]) Body height 65 [in_i] 65 [in_i] MEDENT ([facility]) 5'5" Body weight 162.00 [lb_av] 162.00 [lb_av] MEDEN T ([facility]) Body mass index (BMI) [Ratio] 27.0 kg/m2 27.0 k g/m2 [facility] Jean body weight 125 [lb_av] 125 [lb_av] MEDEN T ([facility]) Body weight 73.483 kg 73.483 kg FOSTORIA [facility] Systolic blood pressure 88 mm[Hg] 88 mm[Hg] M EDENT ([facility] Diastolic blood pressure 58 mm[Hg] 58 mm[Hg] MEDENT ([facility] Body temperature 97.7 [degF] 97.7 [degF] MEDENT ([facility] Heart rate 70 /min 70 /min MEDENT ([facility] Respiratory rate 16 /min 16 /min MEDENT ( [facility] Body height 64.75 [in_i] 64.75 [in_i] MEDENT ([facility] 5'4.75" Body weight 163.00 [lb_av] 163.00 [lb_av] MEDEN T ([facility] Jean body weight 120 [lb_av] 120 [lb_av] MEDEN T ([facility] Body mass index (BMI) [Ratio] 27.3 kg/m2 27.3 k g/m2 MEDENT ( [facility] Oxygen saturation in Arterial blood by Pulse oximetry 98 % 98 % MEDENT ( [facility] Body weight 164 [lb_av] 164 [lb_av] eCW1 ([facility]) Body weight 74.39 kg 74.39 kg eCW1 ([facility]) Body height 64 [in_i] 64 [in_i] eCW1 ([facility]) Body mass index (BMI) [Ratio] 28.15 kg/m2 28.15 kg/m2 eCW1 ([facility]) Systolic blood pressure 100 mm[Hg] 100 mm[Hg] e CW1 ([facility]) Diastolic blood pressure 60 mm[Hg] 60 mm[Hg] eCW1 ([facility]) Respiratory rate 16 /min 16 /min MEDENT ( [facility] Body height 64.75 [in_i] 64.75 [in_i] MEDENT ( [facility] 5'4.75" Body weight 160.00 [lb_av] 160.00 [lb_av] MEDEN T ([facility] Jean body weight 120 [lb_av] 120 [lb_av] MEDEN T ([facility] Systolic blood pressure 92 mm[Hg] 92 mm[Hg] M EDENT ( [facility] Diastolic blood pressure 60 mm[Hg] 60 mm[Hg] MEDENT ([facility] Body temperature 97.2 [degF] 97.2 [degF] MEDENT ( [facility] Heart rate 60 /min 60 /min MEDFABI[facility]N ( [facility] Body mass index (BMI) [Ratio] 26.8 kg/m2 26.8 k g/m2 MEDENT ( [facility] Oxygen saturation in Arterial blood by Pulse oximetry 94 % 94 % SHAMIR ( [facility] Diastolic blood pressure 60 mm[Hg] 60 mm[Hg] MEDENT ([facility] Systolic blood pressure 102 mm[Hg] 102 mm[Hg] M EDENT ([facility] Body temperature 97.4 [degF] 97.4 [degF] MEDENT ([facility] Heart rate 70 /min 70 /min MEDENT ([facility] Respiratory rate 18 /min 18 /min MEDENT ( [facility] Body height 64.75 [in_i] 64.75 [in_i] MEDENT ([facility] 5'4.75" Body weight 160.00 [lb_av] 160.00 [lb_av] MEDEN T ([facility] Jean body weight 120 [lb_av] 120 [lb_av] MEDEN T ([facility] Body mass index (BMI) [Ratio] 26.8 kg/m2 26.8 k g/m2 MEDENT ([facility] Oxygen saturation in Arterial blood by Pulse oximetry 98 % 98 % MEDENT ([facility] Body height 64.75 [in_i] 64.75 [in_i] MEDENT ([facility] 5'4.75" Body weight 160.00 [lb_av] 160.00 [lb_av] MEDEN T ([facility] Jean body weight 120 [lb_av] 120 [lb_av] MEDEN T ([facility] Diastolic blood pressure 88 mm[Hg] 88 mm[Hg] MEDENT ([facility] Body temperature 97.3 [degF] 97.3 [degF] MEDENT ([facility] Body mass index (BMI) [Ratio] 26.8 kg/m2 26.8 k g/m2 MEDENT ([facility] Oxygen saturation in Arterial blood by Pulse oximetry 97 % 97 % SHAMIR ([facility] Systolic blood pressure 138 mm[Hg] 138 mm[Hg] M EDENT ([facility] Heart rate 60 /min 60 /min MEDENT ([facility] Respiratory rate 18 /min 18 /min MEDENT ( [facility] Systolic blood pressure 96 mm[Hg] 96 mm[Hg] EDENT ([facility]) Diastolic blood pressure 61 mm[Hg] 61 mm[Hg] [facility] Body height 65 [in_i] 65 [in_i] MEDENT ([facility]) 5'5" Jean body weight 125 [lb_av] 125 [lb_av] MEDEN T ([facility]) Body weight 159.00 [lb_av] 159.00 [lb_av] MEDEN T ([facility]) Body mass index (BMI) [Ratio] 26.5 kg/m2 26.5 k g/m2 [facility] ([facility]) Body weight 72.122 kg 72.122 kg [facility] ([facility]) Body surface area Derived from formula 1.79 m2 1.79 m2 [facility] ([facility]) Body height 65 [in_i] 65 [in_i] MEDENT ([facility]) 5'5" Body weight 159.00 [lb_av] 159.00 [lb_av] MEDEN T ([facility]) Body mass index (BMI) [Ratio] 26.5 kg/m2 26.5 k g/m2 [facility] ([facility]) Jean body weight 125 [lb_av] 125 [lb_av] MEDEN T ([facility]) Body weight 72.122 kg 72.122 kg [facility] ([facility]) Body surface area Derived from formula 1.79 m2 1.79 m2 [facility] ([facility]) Body weight 70.762 kg 70.762 kg [facility] ([facility]) Body surface area Derived from formula 1.78 m2 1.78 m2 [facility] ([facility]) Body height 65 [in_i] 65 [in_i] [facility] 5'5" Body weight 156.00 [lb_av] 156.00 [lb_av] MEDEN T ([facility]) Body mass index (BMI) [Ratio] 26.0 kg/m2 26.0 k g/m2 MEDENT ([facility]) Jean body weight 125 [lb_av] 125 [lb_av] MEDEN T ([facility]) Systolic blood pressure 108 mm[Hg] 108 mm[Hg] M EDENT ([facility]) Diastolic blood pressure 65 mm[Hg] 65 mm[Hg] MEDENT ([facility]) Body height 65 [in_i] 65 [in_i] MEDENT ([facility]) 5'5" Body weight 156.00 [lb_av] 156.00 [lb_av] MEDEN T ([facility]) Body mass index (BMI) [Ratio] 26.0 kg/m2 26.0 k g/m2 [facility] ([facility]) Jean body weight 125 [lb_av] 125 [lb_av] MEDEN T ([facility]) Body weight 70.762 kg 70.762 kg [facility] Body surface area Derived from formula 1.78 m2 1.78 m2 [facility] ([facility]) Body height 64.75 [in_i] 64.75 [in_i] MEDENT ([facility] 5'4.75" Body temperature 97.8 [degF] 97.8 [degF] MEDENT ([facility] Heart rate 64 /min 64 /min MEDENT ([facility] Jean body weight 120 [lb_av] 120 [lb_av] MEDEN T ([facility] Systolic blood pressure 116 mm[Hg] 116 mm[Hg] M EDENT ([facility] Diastolic blood pressure 78 mm[Hg] 78 mm[Hg] MEDENT ([facility] Respiratory rate 18 /min 18 /min MEDENT ( [facility] Body weight 162.00 [lb_av] 162.00 [lb_av] MEDEN T ([facility] Body mass index (BMI) [Ratio] 27.2 kg/m2 27.2 k g/m2 MEDENT ([facility] Oxygen saturation in Arterial blood by Pulse oximetry 97 % 97 % MEDENT ([facility] Oxygen saturation in Arterial blood by Pulse oximetry 98 % 98 % MEDENT ([facility] Systolic blood pressure 116 mm[Hg] 116 mm[Hg] M EDENT ([facility] Diastolic blood pressure 74 mm[Hg] 74 mm[Hg] MEDENT ([facility] Body temperature 97.9 [degF] 97.9 [degF] MEDENT ([facility] Heart rate 72 /min 72 /min MEDENT ([facility] Respiratory rate 18 /min 18 /min MEDENT ( [facility] Body height 64.75 [in_i] 64.75 [in_i] MEDENT ([facility] 5'4.75" Jean body weight 120 [lb_av] 120 [lb_av] MEDEN T ([facility] Systolic blood pressure 118 mm[Hg] 118 mm[Hg] M EDENT ([facility] Diastolic blood pressure 70 mm[Hg] 70 mm[Hg] MEDENT ([facility] Body temperature 97.2 [degF] 97.2 [degF] MEDENT ([facility] Heart rate 76 /min 76 /min MEDENT ([facility] Respiratory rate 14 /min 14 /min MEDENT ( [facility] Body height 64.75 [in_i] 64.75 [in_i] MEDENT ([facility] 5'4.75" Body weight 158.00 [lb_av] 158.00 [lb_av] MEDEN T ([facility] Jean body weight 120 [lb_av] 120 [lb_av] MEDEN T ([facility] Body mass index (BMI) [Ratio] 26.5 kg/m2 26.5 k g/m2 MEDFABI[facility]N ([facility] Oxygen saturation in Arterial blood by Pulse oximetry 96 % 96 % MEDFABI[facility]N ([facility] Body weight 164 [lb_av] 164 [lb_av] eCW1 ([facility]) Body height 64 [in_i] 64 [in_i] eCW1 ([facility]) Body mass index (BMI) [Ratio] 28.15 kg/m2 28.15 kg/m2 eCW1 ([facility]) Heart rate 88 /min 88 /min eCW1 ([facility]) Respiratory rate 18 /min 18 /min eCW1 ([facility]) Body temperature 98.4 [degF] 98.4 [degF] eCW1 ( [facility]) Systolic blood pressure 96 mm[Hg] 96 mm[Hg] e CW1 ([facility]) Diastolic blood pressure 54 mm[Hg] 54 mm[Hg] eCW1 ([facility]) Body weight 161 [lb_av] 161 [lb_av] eCW1 ([facility]) Body height 64 [in_i] 64 [in_i] eCW1 ([facility]) Body mass index (BMI) [Ratio] 27.63 kg/m2 27.63 kg/m2 eCW1 ([facility]) Heart rate 96 /min 96 /min eCW1 ([facility]) Respiratory rate 20 /min 20 /min eCW1 ([facility]) Body temperature 98.9 [degF] 98.9 [degF] eCW1 ( [facility]) Systolic blood pressure 92 mm[Hg] 92 mm[Hg] e CW1 ([facility]) Diastolic blood pressure 58 mm[Hg] 58 mm[Hg] eCW1 ([facility]) Body weight 150 [lb_av] 150 [lb_av] eCW1 ([facility]) Body height 64 [in_i] 64 [in_i] W1 ([facility]) Body mass index (BMI) [Ratio] 25.74 kg/m2 25.74 kg/m2 W1 ([facility]) Oxygen saturation in Arterial blood by Pulse oximetry 94 % 94 % MEDENT ([facility] Systolic blood pressure 116 mm[Hg] 116 mm[Hg] M EDENT ([facility] Diastolic blood pressure 72 mm[Hg] 72 mm[Hg] MEDENT ([facility] Body temperature 96.9 [degF] 96.9 [degF] MEDENT ([facility] Heart rate 50 /min 50 /min MEDENT ([facility] Respiratory rate 18 /min 18 /min MEDENT ( [facility] Body height 64.75 [in_i] 64.75 [in_i] MEDENT ([facility] 5'4.75" Body weight 165.00 [lb_av] 165.00 [lb_av] MEDEN T ([facility] Jean body weight 120 [lb_av] 120 [lb_av] MEDEN T ([facility] Body mass index (BMI) [Ratio] 27.7 kg/m2 27.7 k g/m2 MEDENT ([facility] Body weight 161.00 [lb_av] 161.00 [lb_av] MEDEN T ([facility]) Body height 66 [in_i] 66 [in_i] [facility]ENT ([facility] 5'6" Body mass index (BMI) [Ratio] 26.0 kg/m2 26.0 k g/m2 MEDENT ([facility]) Heart rate 65 /min 65 /min [facility] ([facility]) Systolic blood pressure--sitting 103 mm[Hg] 103 mm[Hg] MEDENT ([facility]) Omron, adult cuff/Ra Diastolic blood pressure--sitting 62 mm[Hg] 62 mm[Hg] MEDENT ([facility]) Omron, adult cuff/Ra Body weight 165.00 [lb_av] 165.00 [lb_av] MEDEN T ([facility] Systolic blood pressure 110 mm[Hg] 110 mm[Hg] M EDENT ([facility] Diastolic blood pressure 80 mm[Hg] 80 mm[Hg] MEDENT ([facility] Body temperature 97.9 [degF] 97.9 [degF] MEDENT ([facility] Heart rate 70 /min 70 /min MEDENT ([facility] Respiratory rate 14 /min 14 /min MEDENT ( [facility] Body height 64.75 [in_i] 64.75 [in_i] MEDENT ([facility] 5'4.75" Jean body weight 120 [lb_av] 120 [lb_av] MEDEN T ([facility] Body mass index (BMI) [Ratio] 27.7 kg/m2 27.7 k g/m2 MEDENT ([facility] Oxygen saturation in Arterial blood by Pulse oximetry 95 % 95 % MEDENT ([facility] Systolic blood pressure 112 mm[Hg] 112 mm[Hg] M EDENT ([facility] Diastolic blood pressure 74 mm[Hg] 74 mm[Hg] MEDENT ([facility] Body temperature 98.7 [degF] 98.7 [degF] MEDENT ([facility] Heart rate 76 /min 76 /min MEDENT ([facility] Respiratory rate 16 /min 16 /min MEDENT ( [facility] Body height 64.75 [in_i] 64.75 [in_i] MEDENT ([facility] 5'4.75" Body weight 168.00 [lb_av] 168.00 [lb_av] MEDEN T ([facility] Jean body weight 120 [lb_av] 120 [lb_av] MEDEN T ([facility] Body mass index (BMI) [Ratio] 28.2 kg/m2 28.2 k g/m2 MEDFABI[facility]N ([facility] Oxygen saturation in Arterial blood by Pulse oximetry 97 % 97 % SHAMIR ([facility] Patient Treatment Plan of Care Planned Activity Planned Date Details Description Data Source (s) 24 HR Oxybutynin chloride 10 MG Extended Release Oral Tablet 07/14/2021 12:00:00 AM EDT eCW1 ([facility]) tiotropium 0.018 MG/ACTUAT Inhalant Powder [Spiriva] 12:00:00 AM EDT eCW1 ([facility] tiotropium 0.018 MG/ACTUAT Inhalant Powder [Spiriva] 12:00:00 AM EDT eCW1 ([facility]) tiotropium 0.018 MG/ACTUAT Inhalant Powder [Spiriva] 12:00:00 AM EDT eCW1 ([facility]) Augmentin 875-125 MG 12/29/2020 12:00:00 AM EDT eCW1 ([facility]) benzonatate 200 MG Oral Capsule 12/29/2020 12:00:00 AM EDT eCW1 ([facility])
[2021-09-08] MEDS ORDERED: BUDE3CAP (13:58)
[2021-09-08 15:16] LABS: RSV AMPLIFICATION NEGATIVE (NEGATIVE)
--- OUTSIDE RECORDS SUMMARY | 2021-09-08 17:36 | CCD ---
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 [facility] ([facility] Baso # 0.1 10 0.0-0.2 Normal (applies to non-numeric resul ts) [facility] ([facility] ID Date Data Source [id number] 09/07/2021 08:30:00 AM EST [facility] Name Value Range Interpretation Code Description Data Criss rce(s) Supporting Document(s) Follow Up [facility] VMTOMh6fYaDFJsTyJBHlZaeYXYrkKNmzGRTzZ8C9MUmbYo0SKUrxgdGiXYSyNv5+SMLiGX8euj1yORIk gMy [file] +s00bJ9U0X3wamsCTBl1hYtblSuELLOEzLKF+geKT1k/xADGgYTIK6f7R9973gueg4IJQtFtv/mT+Jessa +PO0Gs27dXqwnfW/ga/chYvImQULMuCQFLLfy7p2vCqVm/fDOAAaTCpA6so1mvVnp8fW5liHSWNFb1fP M8pq/LO1TdvspfBRxOU+bZ6zE4JWKgucea9/dLo537 au/J4kUKZwtK8J1rfmqCH87izDoYxCg18sCUAyyE4zzzM7+bjOn3g4tkJMEeG3fdmFwnAHi+zHjZ8euX voi4+jiazmvCS+ei3ytH7O7wI/tm58FA7zwFlgbFR8MRQv51NQbUGfZC/fuel manager/rVm+UPZU+kyHTCRHPe7 [file] Ao4Y5Ss3/aNwhV1fYK6p1kEGUl8va6Y01jBIAeKGD6SiCALh1+Suárez/Ki9C6V4v5n6g337txPY87LoaO6 [file] gs3MySBTFGCkUpXMV8HZklRZVFVCMgTPhYfDUr3fIevO11gIRShpOVNSNds8mvJBlVgRs7CgAWL6+Pipeline Welder [file] RARoVVgK4KF3KNxubOhk2m+Conduit Helper/rMQuQP6EEh8EBjx1e01uf4v3m08x6yZREhtpJ1zV/7xniwPYhQys7 [file] switchboard operator supervisor/xpX/Ke81pN5SM1yR+n8Yu3QN5ZZo9APG1XNczl [file] Senior Audit Manager/gY0tuLJpGUcOKBLzy1wL1ew21AdvDWhywXewEt [file] nyvTRAZ/evue/bzTP4bSjfN6ZaZmW5CHC5herMeXdLk+/lnjMX0dPo/Il9o9vbOJqxQKO+5y3msDw+smoking pipe driller and threader [file] CsMqmf1DZWiU02KZa3LXtSYK9P5epXNwfA9SHN0KsmafAf+5853rXnsUt7am/licensed appraiser/rB1ZZfhoIVVELbt [file] bqE/anPrR81UDgufJAnvOHbTeOHbx37vqo9dmm+Germán [file] +8VVHD6Ctdu0fJUfuHi0/Director Of Nurses Registry/XPwZP+gXRDrd1ttqT7E1T30n9cNQVVVFs3k6s21HCnzjvsOmGMMRLEqO eeyLV7yaX9s3D39nv5qkDYY1FIEHN96Nume6Qhn3My xVzSQzQlq0cOedsnlkJeJB2pwJj4oNjT/ug6aBjdlUgGHQiqyPO+QBMx2Y/dcIK/36q+mN8WyynDy028 B97RY0flOforyaASF5R3MDiLOwidAbwvRG8Fo6QUjgoshkUQ6ONRWBDI3zM6D1GIGF8wY/pqkH5/x0Cr ZamrQKTfsNKLfYinod1id3InDgpD/GlDh77qgWmbEh msNgdUZMRkf78TaAaBZL3nguOaa6QdQ7uVDfjVn0ROCcXlPhoRUhptorzbeEnlpyx9A1kjljXvEgks1U FDQyAgBibSfROt5Bg1DnrOxu+0HCDPVdsu2UVcXlO1xBGAK8mw6H6/cUVM8c5RJR99vBCCMMQcifpHnv 8VKy70a3t6N/R4c6kBdT5rUL8tqgnxiMGq5bCE3VD6 cMrIYfnOFNyB7r3qRPr0wOSRFtOZDN332+m3OmAgRu79sbjwk78CPO8vmZ2sSgD8Y2m+LMqLtU/zn5fw /F6WmtW18u+p/obsc93eOP7hs7T1I/EsdWJFXgakV/MzuZldhikw5FptvxtJOZaKVIxYQYZbaCcgQUXb V9gttJY88ieKHmCMWRd9sfMbjVgp84BIYivhbf+nLq uu/uwNDmwxArMpLZ39wgmSt56QsDjTq90O9qyiXTPtfGlJe393b+O5i15zymMOXBG0FFBayKfjwj3Ju1 X506cbl/1kfMhl21bxn4KtazpquxyQZmQ3Zu7yuPQc294QMs6XeAAtc8at6jkqET0sDdt+BLA8ADEen7 UaicsxQ3KBn9N6q0GMQbg9iFDNhZ2msKES/CZECH+Nh2h [file] smoking pipe driller and threader+48G6kiA9JPft9u7Jv7DygZp+NLi6P45FLNYQqijD/xyT2ydOW+JYGlv7XvRmGVPmOQk173Hre4Fgg bHV4znrz9yg8bMlnygJUcXnIKFAg3onOLhfw5td9AT biZeuKd39Sfs/UZys6b8nTEh3sWKFDNO/TlQb+mwxQ2J/ObRmZL0x/Erasto+JT/CxTOKcR1fAT25xgyVUl [file] VSE6df0szHOVfB/process steward/0CcTYfjIt6OqeIUL8SpYnBH8T1Gsi3vDNQ/mZjoFQjvh7w3vAFZJLz/fJ9WQh [file] linotype operator/FPl9xDDYRJHF8xdnWB9i8edanT6RY082/fT4lZLgu4szDgZAR59sxeBUyurcIGhAOdbzdiviQl3/ [file] ans6p5nja8+3b+Barbara/UpP1cdZpxTkykpNYgp41XeX48d7KjafYhalhxyqz+bnWIt4uBeFFgM6z8EQLFv VezKavrlLm1j2+ySuXadHMWmJZEloc/wXpgls7PnTBfmjYUb2c4vekAeaR5UyPm9JpbYA7xL4onfG42T PUUi77e4rFfsS/7OoGR0TafQ5+U7a/9RFAG4Z3EHBl 9mflXylUNag0+ttxlvWA9O4JRMrxX7zErCkwx8Hs6AJ/ks1vu/wK/sOOR3cHh/cRbDDnEmIJvNdXOR2s 8X3YWWYDqFJtUscCWFE2d1QcsCa3CQ0qdJ2Lgeh201pJLiWZo26FJJRTxJknL+oIXaW/Q4uDXZGR7jCi Spcu7aP3K3CdJRP8VYlu5XHUdE92FJEns2RdP4LVa5 V/ImIVYfO5um597Trqu9glFhH0RJmMEKjSqDGfQxaOs/cnqTew7sv+1pThKPWo81gQ8AzhD1xSBby+material engineer [file] jose c/Wt+MyXuoN7V8VXMQKnh8G0N4gV8DxjeTSfW7X7k/lVpt+KMjhex5ltyEAU1TfG9Q4rjQhC2RBwYU [file] Jose R+zwjJ0j9S4aVpcB+NSFYOcWFmxhCrVhd1gAdzyulbrxaOT9YR5iYXHhuUyERFLvZT6X4aAftKZMR1 [file] bM15A1J3LRyPFaR/ирина/L4NERo9qXRuxRDQVlFL8OKHYbDieJKwSAlnrbvZzWaXCd67MdtfTKZT2HGO [file] M09nDKfodieqcnUMsgPi/zNWwjC4SmPNbDPzWxZcwh/5vfp/Germán/tFrTMgd/8Z9C+zgylYK2Lt7/0840 [file] 6gUC9QI6hfzKwMNU4QuePAp4TfPdRq7TGTok+p11HU5ChhdohPlHjD7BXs9k7E7/consumer safety inspector+CO29X7Ic6+m+ NtaRV5ckUAMveioBbzxKrDUMI56pgx4OaakI7TxHUi EQYNYeEOr0Pc6oFaX/ewUue2KzADu6w68FlU07b/A9HPF05keOsb1vWpHy6UuJ5Nlc0z2dnrJS94OJrq gx5BhRU5NkZDvhauDJ5+U1DpBs3S26kb9n9eTgFABwRuyRQw2ESqmfnSpn5lu/LPzVaZKkg994F0mD0E yEF+yk1WCGvEF0TtxIwzJRPJO0g9Ge+G8ROXTXBIqr +dUQ0s9o4YXmucfqeZOJ53rbcGIqYGthJXjZ3RbwN2ymq8VSIpBbJlX12v+f6ahZDSYmQnAfhhLWSmua Nr45eM/2ctnxq8mu8NGq9lwOymBdyl86Cmw7TQs7UsnaEnfj9+4sPx9kyO4V+/r59mR1K05euVJQu5xi HDpeGDj9c1UlcdUL/rZ7Xz6Jate3IML77VSijI/JY1 ob4m/nREpea9fyUbcAAGXMG1i2qw8TCxPS0xBQLmTI1fNP/6OnweyjJHxE1Mb1ImpFQqdbAVdU7B0OaV unEU8Y1WfQ1nETTjaN0/v94Q5dMO41ZKa/ifAJxlnfcry5f8aygHXyp/WjgDQGHqzjsHrs5pX6Hqgy3O cyZ7e6U3p/e5qoj42tZv/zLwnqCezmlPtzwRScrTa0 bnhR5Re0h+fNTTv+5yNOqNjM0+aGND6bgP1OpGM7CQL3qjbThc8wcx72mpPAjjnVG+Y3SaF3jAzG+W0g 0/w2Qy9L9dMaShZHY/dh/5d6V4vpyduS54afzw08K6bvsRPk1mmJPhW95aj7F0n8lKzMFEWAmGkU4tvf Ftl6gAR5Tqf+OkNtqvKUM63LJ54puNjK9vrTdlfocf nz9L43+PlXqeLD1XjGEGyCcxGHRJT2HHNORrfbiLgn9iLrpEp+EZsF8mR1kU3aF99PRp2gaO0AOeO4ka duW4cMMS1AErVS0rUD4tHlWtBJw4g0wM+J885aR9K6PaoleEEHyGtOKFMRXIZNcAcdj3Pkhw8JNb/ROCCO [file] ra8Onoqav64I92CQLlGJnmaetTjFW//core paster/uVZxgBBwyVPitXbKuQXpBXKLk9oy7ms4N9euOPC8PIgr9 [file] oc0TzlsA078JXtCsMfLwj4W4wf4++9oo989Di9hkn/edpaFy2fP7mSAR/Bora+sTTjaHilpZbmOmwwbw2 qfFivf3MX0FmZaTuQpKilYTv+p3kzCSaz3EnD3/Hlx cEQMKvPmMVVw4Gqc29gybjCEh5WC3goo0I8y75L5FUQMoQa/4sy1KjaICbViE9YNqaQMkPj03a4Yx+l7 M4MGdKFhtSmB26rCiTJh2FTufsidXT277+x+M1pcgeu8lFjuvoArDj97ZzugbWvISiTD8qwgK/LvYTB0 ydLj4yOpvWthPc8R3juolhplYGAkyAdEU3ULdDXLE9 Dnd2js3ZZ7qEixOPStarfQKMF4uNuNf0ung/+e2M+8J/dlLzt0OjaoZCaRwaNzTHdTp+rQpEMFarxliF nQNaY3uPrXObsa4EcIFAgowpQ4UF0cSEXjH/oYB4wYfGmpWhUxHJJ2brz9IB6EWZ/209ws2JLukC9gC1 X95lObqD09mQZjRnN603xNI8BhAyfHZ3v0gEfNL1e8 5evIJ3rc1laivB9bqR5kCve5bEV0pySHQ/MrV3G6Lvgcund299gEOpdzLkEy12jPgfhrED4zpGZ7kpud rKrivf3j/I7TXKyT8RgN/Pyu4lJ27yCiRDTOnup/rOBrvMlc4JTmfnv+ofz0WClTMr0GsubtEW39vv/O QfoYcKQhepWTIwLjyug6PZ/YjfmLqeZCLWq0d4nQ4z registry [file] /E/5d31jhmjcWjhVli+Pc73agux/PZ3wYwb4/ikpTC7/Director Of Nurses [file] FQXqQuXSB9zhMliQ9XMB6yv8OgKG8Yt2OufcT1qwOmVQqkNyB7GZL7HEqiQDQJYt== ID Date Data Source [id number] 05/12/2021 12:18:00 PM EDT [facility]) Name Value Range Interpretation Code Description Data Criss rce(s) Supporting Document(s) Surgical pathology study Laboratory test result [facility] ([facility]) FINAL DIAGNOSIS A-Duodenal biopsy: Duodenal mucosa [...] Abdominal pain, Castle's, celiac disease 05/12/2021 - 1526 GROSS DIAGNOSIS A - Received in formalin [...] MD 05/13/2021 1147 ID Date Data Source [id number] 05/07/2021 11:25:00 AM EDT [facility] ([facility] Name Value Range Interpretation Code Description Data Criss rce(s) Supporting Document(s) Laboratory test finding (navigational concept) Laboratory test result [facility] ([facility] ASSAY INFORMATION: Real Time RT-PCR NOTE: The COVID-19 assay has been cleared by the U.S. Food and Drug Administration under the Emergency Use Authorization (EUA). [facility] and [facility] are designated as high complexity laboratories by the Clinical Laboratory Improvement Amendments of 1988(CLIA) and are qualified to perform this test. Not Detected ID Date Data Source [id number] 04/15/2021 03:46:00 AM EDT [facility] Name Value Range Interpretation Code Description Data Criss rce(s) Supporting Document(s) SARS coronavirus 2 RNA [Presence] in Res piratory specimen by CORKY with probe detection NEGATIVE [facility] This lab was ordered by [facility] a nd reported by [facility]. ID Date Data Source [id number] 04/14/2021 09:23:00 PM EDT [facility] Name Value Range Interpretation Code Description Data Criss rce(s) Supporting Document(s) Lipoprotein lipase [Enzymatic activity/volume] in Serum or Plasm a 61 U/L 73-393 Below low normal [facility] ([facility] ) ID Date Data Source [id number] 04/14/2021 09:23:00 PM EDT [facility] Name Value Range Interpretation Code Description Data Criss rce(s) Supporting Document(s) Glucose, Fasting 94 mg/dL 70-100 Normal (applies to non-numeric results) [facility] ([facility] Blood Urea Nitrogen 11 mg/dL 7-18 Normal (applies to non-nume tiara results) [facility] ([facility] Creatinine For GFR 0.50 mg/dL 0.55-1.30 Below low normal [facility] ([facility] Glomerular Filtration [...] Little GFR Left</content>
<content>ESRD GFR <15 on PHYSICIAN OBSTETRICIAN</content>
<content></content> Potassium Serum 4.3 meq/L 3.5-5.1 Normal (applies to non-numeric results) [facility] ([facility] Sodium Level 139 meq/L 136-145 Normal (applies to non-numeric res ults) [facility] ([facility] Chloride Level 110 meq/L 98-107 Above high normal [facility] ([facility] Carbon Dioxide Level 24 meq/L 21-32 Normal (applies to non-num paul results) [facility] ([facility] Anion Gap 5 meq/L 8-16 Below [facility] Calcium Level 8.3 mg/dL 8.5-10.1 Below low normal [facility] ([facility] ID Date Data Source [id number] 04/14/2021 09:23:00 PM EDT [facility] ([facility] Name Value Range Interpretation Code Description Data Criss rce(s) Supporting Document(s) Ast/Sgot 20 U/L 7-37 Normal (applies to non-numeric resul ts) [facility] ([facility] Alt/SGPT 29 U/L 12-78 Normal (applies to non-numeric resul ts) [facility] ([facility] Alkaline Phosphatase 60 U/L 45-117 Normal (applies to non-num paul results) [facility] ([facility] Bilirubin,Direct Laboratory test result 0.0-0.2 Normal ( applies to non-numeric results) [facility] ([facility] ) Bilirubin,Total 0.1 mg/dL 0.2-1.0 Below low normal [facility] ([facility] Total Protein 6.3 GM/DL 6.4-8.2 Below low normal [facility] ([facility] Albumin 3.2 GM/DL 3.2-5.2 Normal (applies to non-numeric resul ts) [facility] ([facility] Albumin/Globulin Ratio 1.0 1.2-2.2 Below low normal [facility] ([facility] ID Date Data Source [id number] 04/14/2021 09:23:00 PM EDT [facility] ([facility] Name Value Range Interpretation Code Description Data Criss rce(s) Supporting Document(s) White Blood Count 10.7 10 4.0-10.0 Above high normal [facility] ([facility] Red Blood Count 4.28 10 4.00-5.40 Normal (applies to non-numeric results) [facility] ([facility] Hemoglobin 11.4 g/dL 12.0-15.5 Below low normal [facility] ( [facility] Mean Corpuscular Volume 82.7 fl 80.0-96.0 Normal ( applies to non-numeric results) [facility] ([facility] ) Hematocrit 35.4 % 36.0-47.0 Below low normal [facility] ( [facility] Mean Corpuscular Hemoglobin 26.6 pg 27.0-33.0 Below low normal [facility] ([facility] Mean Corpuscular HGB Conc 32.2 g/dL 32.0-36.5 Normal (applies to non-numeric results) [facility] ([facility] ) Red Cell Distribution Width 15.7 % 11.5-14.5 Above high normal [facility] ([facility] Platelet Count, Automated 304 10 150-450 Normal (applies to non-numeric results) [facility] ([facility] ) Neutrophils % 49.7 % 36.0-66.0 Normal (applies to non-numeric re sults) [facility] ([facility] Lymph % 38.7 % 24.0-44.0 Normal (applies to non-numeric resul ts) [facility] ([facility] [place] % 6.7 % 2.0-8.0 Normal (applies to [...] ([facility] [place] # 0.7 10 0.0-0.8 Normal (applies to non-numeric resul ts) [facility] ([facility] Eos # 0.4 10 0.0-0.5 Normal (applies to non-numeric resul ts) [facility] ([facility] Baso # 0.1 10 0.0-0.2 Normal (applies to non-numeric resul ts) [facility] ([facility] ID Date Data Source [id number] 04/14/2021 01:42:00 PM EDT [facility] ([facility], ) Name Value Range Interpretation Code Description Data Criss rce(s) Supporting Document(s) Elastase.pancreatic [Mass/mass] in Stool 223 Normal (applies to non-numeric results) [facility] ([facility], ) <content>Result Units: ug Elast./g</cont ent>
<content>Severe Pancreatic Insufficiency: <100</content>
<content>Moderate Pancreatic Insufficiency: 100 - 200</content>
<content>Normal: >200</content>
<content></content> Calprotectin [Mass/mass] in Stool 175 ug/g 0-120 Above high no rmal [facility] ([facility], ) <content>Concentration Interpretatio n Follow-Up</content>
<content><16 - 50 ug/g Normal None</content>
<content>>50 -120 ug/g Borderline Re-evaluate in 4-6 weeks</content>
<content>>120 ug/g Abnormal Repeat as clinically</content>
<content>indicated</content>
<content>Performed at: [facility]</content>
<content>[address], [place] [id number]</content>
<content>Aviation Safety Technician: Marj Loving MD, Phone: [phone]</content>
<content></content> ID Date Data Source [id number] 04/14/2021 01:42:00 PM EDT [facility] ([facility]) Name Value Range Interpretation Code Description Data Criss rce(s) Supporting Document(s) Gastrointestinal (GI) Panel Laboratory test result [facility] ) This Gastrointestinal PCR Panel detects the following [...] NUCLEIC ACID PCR ID Date Data Source [id number] 02/08/2021 08:47:00 AM EDT [facility] ([facility] Name Value Range Interpretation Code Description Data Criss rce(s) Supporting Document(s) Thyrotropin [Units/volume] in Serum or Plasma 1.320 uIU/mL 0.450-4.50 0 [facility] ([facility] ID Date Data Source [id number] 02/08/2021 08:47:00 AM EDT [facility] ([facility] Name Value Range Interpretation Code Description Data Criss rce(s) Supporting Document(s) Glucose [Mass/volume] in Serum or Plasma 87 mg/dL 65-99 [facility] ([facility] Creatinine [Mass/volume] in Serum or Plasma 0.66 mg/dL 0.57-1.00 [facility] ([facility] BUN 7 mg/dL 6-24 [facility] (Counts include 234 beds at the [facility] eGFR If NonAfricn Am 105 mL/min/1.73 [facility] ([facility] eGFR If Africn Am 121 mL/min/1.73 ME DENT ([facility] currently reports eGFR in comp liance with the current recommendations of the National Kidney Foundation. [facility] will update reporting as new guidelines are published from the NKF-ASN Task force. Sodium [Moles/volume] in Serum or Plasma 138 mmol/L 134-144 [facility] ([facility] Urea nitrogen/Creatinine [Mass Ratio] in Serum or Plasma 11 9 -23 [facility] ([facility] Chloride [Moles/volume] in Serum or Plasma 104 mmol/L 96-106 [facility] ([facility] Potassium [Moles/volume] in Serum or Plasma 4.6 mmol/L 3.5-5.2 [facility] ([facility] Calcium [Mass/volume] in Serum or Plasma 9.2 mg/dL 8.7-10.2 [facility] ([facility] Carbon dioxide, total [Moles/volume] in Serum or Plasma 24 mmol/L 20 -29 [facility] ([facility] Albumin [Mass/volume] in Serum or Plasma 4.1 g/dL 3.8-4.8 [facility] ([facility] Protein [Mass/volume] in Serum or Plasma 6.8 g/dL 6.0-8.5 [facility] ([facility] Globulin [Mass/volume] in Serum by calculation 2.7 g/dL 1.5-4.5 [facility] ([facility] Albumin/Globulin [Mass Ratio] in Serum or Plasma 1.5 1.2-2.2 [facility] ([facility] Alkaline phosphatase [Enzymatic activity/volume] in Serum or Plasma 82 IU/L 39-117 [facility] Bilirubin.total [Mass/volume] in Serum or Plasma 0.2 mg/dL 0.0-1.2 [facility] ([facility] Aspartate aminotransferase [Enzymatic activity/volume] in Serum or Plasma 19 IU/L 0-40 [facility] ([facility] Alanine aminotransferase [Enzymatic activity/volume] in Seru m or Plasma 14 IU/L 0-32 [facility] ID Date Data Source [id number] 02/08/2021 08:47:00 AM EDT [facility] ([facility] Name Value Range Interpretation Code Description Data Criss rce(s) Supporting Document(s) Calcidiol [Mass/volume] in Serum or Plasma 45.7 ng/mL 30.0-100.0 [facility] ([facility] Vitamin D deficiency has been defined by the Jay of Medicine and an Endocrine Society practice guideline as a level of serum 25-OH vitamin D less than 20 ng/mL (1,2). The Endocrine Society went on to further define vitamin D insufficiency as a level between 21 and 29 ng/mL (2). 1. IOM (Jay of Medicine). 2010. Di etary reference intakes for calcium and D. [place]: The National Academies Press. 2. Nate MF, Lotus CASSIDY, Felix ambriz INGRAM, et al. Evaluation, treatment, and prevention of vitamin D deficiency: an Endocrine Society clinical practice guideline. JCEM. 2010; 96(0):1911-30. ID Date Data Source [facility] ANGIO CHEST 12/30/2020 12:00:00 AM EDT eCW1 ([facility]) Name Value Range Interpretation Code Description Data Criss rce(s) Supporting Document(s) eCW1 ([facility]) ID Date Data Source TROPONIN I 12/29/2020 12:00:00 AM EDT eCW1 ([facility]) Name Value Range Interpretation Code Description Data Criss rce(s) Supporting Document(s) < 0.02 < 0.10 eCW1 ([facility]) ID Date Data Source CBC with Auto Differential 12/29/2020 12:00:00 AM EDT eCW1 ( [facility]) Name Value Range Interpretation Code Description Data Criss rce(s) Supporting Document(s) 12.1 4.0-10.0 eCW1 ([facility]) 4.37 4.00-5.40 eCW1 ([facility]) 86.5 80.0-96.0 eCW1 ([facility]) 12.1 12.0-15.5 eCW1 ([facility]) 37.8 36.0-47.0 eCW1 ([facility]) 32.0 32.0-36.5 eCW1 ([facility]) 17.9 11.5-14.5 eCW1 ([facility]) 327 150-450 eCW1 ([facility]) 27.7 27.0-33.0 eCW1 ([facility]) 54.6 36.0-66.0 eCW1 ([facility]) 0.9 0.0-1.0 eCW1 ([facility]) 2.1 0.0-3.0 eCW1 ([facility]) 33.5 24.0-44.0 eCW1 ([facility]) 8.6 2.0-8.0 eCW1 ([facility]) 0.0 0-0 eCW1 ([facility]) 4.0 1.5-5.0 eCW1 ([facility]) 6.6 1.5-8.5 eCW1 ([facility]) 0.3 0-3.0 eCW1 ([facility]) 1.0 0.0-0.8 eCW1 ([facility]) 0.3 0.0-0.5 eCW1 ([facility]) 0.1 0.0-0.2 eCW1 ([facility]) ID Date Data Source FREE T4 & TSH PANEL 12/29/2020 12:00:00 AM EDT eCW1 ([facility]) Name Value Range Interpretation Code Description Data Criss rce(s) Supporting Document(s) 0.94 0.76-1.46 eCW1 ([facility]) 1.560 0.358-3.740 eCW1 ([facility]) ID Date Data Source [id number] QUANT 12/29/2020 12:00:00 AM EDT eCW1 ([facility]) Name Value Range Interpretation Code Description Data Criss rce(s) Supporting Document(s) 571.24 <500 eCW1 ([facility]) ID Date Data Source Comprehensive Metabolic Profile (CMP) 12/29/2020 12:00:00 AM EDT eCW1 ([facility]) Name Value Range Interpretation Code Description Data Criss rce(s) Supporting Document(s) 6 7-18 eCW1 ([facility]) 80 70-100 eCW1 ([facility]) 0.59 0.55-1.30 eCW1 ([facility]) 107 98-107 eCW1 ([facility]) 4.1 3.5-5.1 eCW1 ([facility]) 141 136-145 eCW1 ([facility]) > 60.0 >58 eCW1 ([facility]) 28 21-32 eCW1 ([facility]) 10 7-37 eCW1 ([facility]) 8.8 8.5-10.1 eCW1 ([facility]) 29 12-78 eCW1 ([facility]) 70 45-117 eCW1 ([facility]) 0.2 0.2-1.0 eCW1 ([facility]) 6.7 6.4-8.2 eCW1 ([facility]) 3.5 3.2-5.2 eCW1 ([facility]) 1.1 1.2-2.2 eCW1 ([facility]) ID Date Data Source PLZ CHEST 2 VIEW 12/29/2020 12:00:00 AM EDT eCW1 ([facility]) Name Value Range Interpretation Code Description Data Criss rce(s) Supporting Document(s) eCW1 ([facility]) ID Date Data Source [id number] 12/09/2020 01:35:00 PM EST MEDENT ([facility] Name Value Range [...] Normal (applies to non-numeric re sults) MEDENT ([facility] ABG Base Excess -1.6 Normal (applies to non-numeric results) MEDENT ([facility] ABG Standard Hco3 23.1 meq/L 22.0-26.0 Normal (applies to non- numeric results) MEDENT ([facility] ABG Hco3 21.8 meq/L 22.0-26.0 Below low normal MEDENT ( [facility] ABG O2 Saturation 96.6 % 95.0-99.0 Normal (applies to non-numeri c results) MEDENT ([facility] ID Date Data Source [id number] 12/09/2020 01:02:00 PM EST MEDENT ([facility] Name Value Range Interpretation Code Description Data Criss rce(s) Supporting Document(s) Respiratory Panel Laboratory test result MEDENT ([facility] This respiratory PCR panel detects [...] SARS-CoV-2 (COVID 19) ID Date Data Source [id number] 12/09/2020 01:02:00 PM EST [facility] Name Value Range Interpretation Code Description Data Criss rce(s) Supporting Document(s) Respiratory pathogens identified [Type] in Nasopharynx by Probe and target amplification method SARS-CoV-2 (COVID 19) [facility] This lab was ordered by [facility] a nd reported by [facility]. ID Date Data Source [id number] 12/09/2020 11:26:00 AM EST MEDENT ([facility] Name Value Range Interpretation Code Description Data Criss rce(s) Supporting Document(s) Glucose, Fasting 90 mg/dL 70-100 Normal (applies to non-numeric results) MEDENT ([facility] Blood Urea Nitrogen 10 mg/dL 7-18 Normal (applies to non-nume tiara results) [facility] ([facility] Creatinine For GFR 0.64 mg/dL 0.55-1.30 Normal (applies to non -numeric results) MEDENT ([facility] Glomerular Filtration Rate Laboratory test result Normal (applies to non- numeric results) [facility] ([facility] ) <content>Units are mL/min/1.73 m2</content>
<content></content>
<content>Chronic Kidney Disease Staging per NKF:</content>
<content></content>
<content>Stage I & II GFR >=60 Normal to Mildly Decreased</content>
<content>Stage III GFR 30- 59 Moderately Decreased</content>
<content>Stage IV GFR 15-29 Severely Decreased</content>
<content>Stage V GFR <15 Very Little GFR Left</content>
<content>ESRD GFR <15 on PHYSICIAN OBSTETRICIAN</content>
<content></content> Sodium Level 138 meq/L 136-145 Normal (applies to non-numeric res ults) MEDENT ([facility] Potassium Serum 3.9 meq/L 3.5-5.1 Normal (applies to non-numeric results) MEDENT ([facility] Carbon Dioxide Level 24 meq/L 21-32 Normal (applies to non-num paul results) MEDENT ([facility] Chloride Level 106 meq/L 98-107 Normal (applies to non-numeric r esults) MEDENT ([facility] Calcium Level 8.9 mg/dL 8.5-10.1 Normal (applies to non-numeric re sults) MED[facility] ([facility] Anion Gap 8 meq/L 8-16 Normal (applies to non-numeric resul ts) SHAMIR ([facility] ID Date Data Source [id number] 12/09/2020 11:26:00 AM EST SHAMIR ([facility] Name Value Range Interpretation Code Description Data Criss rce(s) Supporting Document(s) CPK Creatine Phosphokinase 84 U/L 26-192 Alice l (applies to non-numeric results) SHAMIR ([facility] ) CK-MB Value Mass Laboratory test result Normal ( applies to non-numeric results) SHAMIR ([facility] ) MB/CK Relative Index 1.19 Normal (applies to non-num paul results) SHAMIR ([facility] <content>DIAGNOSIS CRITERIA</content>
<content>MMB ng/ml Relative Index (RI)</content>
<content>NON-AMI < or = 5 N/A</content>
<content>FIGUEREDO ZONE > 5 < or = 4</content>
<content>AMI > 5 > 4</content>
<content></content> Troponin I Laboratory test result Normal (applies to non-n umeric results) SHAMIR ([facility] <content>Troponin I Reference Interval f or Siemens [place] LOCI:</content>
<content></content>
<content>99th Percentile= 0.00-0.045 ng/ml</content>
<content></content>
<content>Risk Stratification:</content>
<content><= 0.10 ng/ml Decreased Risk for Adverse Clinical</content>
<content>Events.</content>
<content>0.10-1.50 ng/ml Increased Risk for Adverse Clinical</content>
<content>Events. Evaluation of additional</content>
<content>criterion and/or repeat testing in 2-6</content>
<content>hours is suggested to rule out myocardial</content>
<content>damage.</content>
<content>>= 1.50 ng/ml Indicative of Myocardial Injury.</content>
<content></content> ID Date Data Source [id number] 12/09/2020 11:26:00 AM EST MEDENT ([facility] Name Value Range Interpretation Code Description Data Criss rce(s) Supporting Document(s) Red Blood Count 4.38 10 4.00-5.40 Normal (applies to non-numeric results) MED[facility] ([facility] White Blood Count 7.1 10 4.0-10.0 Normal (applies to non-numeri c results) MEDENT ([facility] Hemoglobin 12.2 g/dL 12.0-15.5 Normal (applies to non-numeric resul ts) MEDENT ([facility] Hematocrit 37.6 % 36.0-47.0 Normal (applies to non-numeric resul ts) MEDENT ([facility] Mean Corpuscular Volume 85.8 fl 80.0-96.0 Normal ( applies to non-numeric results) MEDENT ([facility] ) Mean Corpuscular HGB Conc 32.4 g/dL 32.0-36.5 Normal (applies to non-numeric results) MEDENT ([facility] ) Mean Corpuscular Hemoglobin 27.9 pg 27.0-33.0 Norm al (applies to non-numeric results) MEDENT ([facility] ) Platelet Count, Automated 312 10 150-450 Normal (applies to non-numeric results) MEDENT ([facility] ) Red Cell Distribution Width 16.9 % 11.5-14.5 Above high normal MEDENT ([facility] Lymph % 47.0 % 24.0-44.0 Above high normal MEDENT ([facility] Neutrophils % 38.6 % 36.0-66.0 Normal (applies to non-numeric re sults) MEDENT ([facility] Eos % 2.6 % 0.0-3.0 Normal (applies to non-numeric resul ts) MEDENT ([facility] [place] % 9.9 % 2.0-8.0 Above high normal MEDENT ([facility] Baso % 1.6 % 0.0-1.0 Above high normal MEDENT ([facility] Immature Granulocyte % 0.3 % 0-3.0 Normal (applies to non-n umeric results) MEDENT ([facility] Nucleated Red Blood Cell % 0.0 % 0-0 Normal (applies to n on-numeric results) MEDENT ([facility] Neutrophils # 2.7 10 1.5-8.5 Normal (applies to non-numeric re sults) MEDENT ([facility] [place] # 0.7 10 0.0-0.8 Normal (applies to non-numeric resul ts) MEDENT ([facility] Lymph # 3.3 10 1.5-5.0 Normal (applies to non-numeric resul ts) MEDENT ([facility] Eos # 0.2 10 0.0-0.5 Normal (applies to non-numeric resul ts) MEDENT ([facility] Baso # 0.1 10 0.0-0.2 Normal (applies to non-numeric resul ts) MEDENT ([facility] ID Date Data Source [id number] 09/01/2020 02:09:00 PM EST MEDENT ([facility] Name Value Range Interpretation Code Description Data Criss rce(s) Supporting Document(s) CPK Creatine Phosphokinase 86 U/L 26-192 Alice l (applies to non-numeric results) MEDENT ([facility] ) CK-MB Value Mass Laboratory test result Normal ( applies to non-numeric results) MEDENT ([facility] ) MB/CK Relative Index 1.16 Normal (applies to non-num paul results) MEDENT ([facility] <content>DIAGNOSIS CRITERIA</content>
<content>MMB ng/ml Relative Index (RI)</content>
<content>NON-AMI < or = 5 N/A</content>
<content>FIGUEREDO ZONE > 5 < or = 4</content>
<content>AMI > 5 > 4</content>
<content></content> Troponin I Laboratory test result Normal (applies to non-n umeric results) MEDENT ([facility] <content>Troponin I Reference Interval f or Siemens [place] LOCI:</content>
<content></content>
<content>99th Percentile= 0.00-0.045 ng/ml</content>
<content></content>
<content>Risk Stratification:</content>
<content><= 0.10 ng/ml Decreased Risk for Adverse Clinical</content>
<content>Events.</content>
<content>0.10-1.50 ng/ml Increased Risk for Adverse Clinical</content>
<content>Events. Evaluation of additional</content>
<content>criterion and/or repeat testing in 2-6</content>
<content>hours is suggested to rule out myocardial</content>
<content>damage.</content>
<content>>= 1.50 ng/ml Indicative of Myocardial Injury.</content>
<content></content> ID Date Data Source [id number] 09/01/2020 01:34:00 PM EST MEDENT ([facility]) Name Value Range Interpretation Code Description Data Criss rce(s) Supporting Document(s) White Blood Count 15.1 4.0-10.0 MEDENT ([facility]) Hemoglobin 12.9 MED[facility] ([facility]) Red Blood Count 4.70 4.00-5.40 MEDENT ([facility]) Platelets 301 150-450 MEDENT ([facility]) Hematocrit 40.5 MEDENT ([facility]) ID Date Data Source [id number] 09/01/2020 01:34:00 PM EST MEDENT ([facility]) Name Value Range Interpretation Code Description Data Criss rce(s) Supporting Document(s) Thyroid Stimulating Hormone 1.310 ME DENT ([facility]) Troponin Laboratory test result MEDENT ([facility]) Lipoprotein lipase [Enzymatic activity/volume] in Serum or Plasma 66 MEDENT ([facility]) Free T4 1.26 MEDENT ([facility]) ID Date Data Source [id number] 09/01/2020 01:34:00 PM EST MEDENT ([facility]) Name Value Range Interpretation Code Description Data Criss rce(s) Supporting Document(s) CPK-MB Laboratory test result MEDENT ([facility]) Creatine kinase [Enzymatic activity/volume] in Serum or Plasma 106 MEDENT ([facility]) ID Date Data Source [id number] 09/01/2020 01:34:00 PM EST MEDENT ([facility]) Name Value Range Interpretation Code Description Data Criss rce(s) Supporting Document(s) Albumin [Mass/volume] in Serum or Plasma 3.4 MEDENT ([facility]) Alanine aminotransferase [Enzymatic activity/volume] in Serum or Pl asma 49 MEDENT ([facility]) Carbon dioxide, total [Moles/volume] in Serum or Plasma 26 MEDENT ([facility]) Calcium [Mass/volume] in Serum or Plasma 9.1 MEDENT ([facility]) Potassium [Moles/volume] in Serum or Plasma 4.1 MEDENT ([facility]) Alkaline phosphatase [Enzymatic activity/volume] in Serum or Plasma 8 9 MEDENT ([facility]) Chloride [Moles/volume] in Serum or Plasma 104 MEDENT ([facility]) Protein [Mass/volume] in Serum or Plasma 7.2 MEDENT ([facility]) Sodium 135 MEDENT ([facility]) Urea nitrogen [Mass/volume] in Serum or Plasma 12 MEDENT ([facility]) Aspartate aminotransferase [Enzymatic activity/volume] in Serum or Plasma 14 MEDENT ([facility]) Glucose 105 70-105 MEDENT ([facility]) Creatinine For GFR 0.71 MEDENT ([facility]) ID Date Data Source [id number] 08/26/2020 09:16:00 AM EST MEDENT ([facility] Name Value Range Interpretation Code Description Data Criss rce(s) Supporting Document(s) Calcidiol [Mass/volume] in Serum or Plasma 16.4 ng/mL 30.0- 100.0 Below low normal MEDENT ([facility] ) Vitamin D deficiency has been defined by the Jay of Medicine and an Endocrine Society practice guideline as a level of serum 25-OH vitamin D less than 20 ng/mL (1,2). The Endocrine Society went on to further define vitamin D insufficiency as a level between 21 and 29 ng/mL (2). 1. IOM (Jay of Medicine). 2010. Di etary reference intakes for calcium and D. [place]: The National AcademHiChina Press. 2. Nate MF, [place], Felix ambriz INGRAM, et al. Evaluation, treatment, and prevention of vitamin D deficiency: an Endocrine Society clinical practice guideline. JCEM. 2010; 96(7):1911-30. Erythrocyte sedimentation rate by Westergren method 21 mm/hr 0-32 MEDENT ([facility] Magnesium [Mass/volume] in Serum or Plasma 2.0 mg/dL 1.6-2.3 MED[facility] ([facility] ID Date Data Source [id number] 08/26/2020 09:16:00 AM EST MEDENT ([facility] Name Value Range Interpretation Code Description Data Criss rce(s) Supporting Document(s) Glucose [Mass/volume] in Serum or Plasma 90 mg/dL 65-99 MED[facility] ([facility] BUN 9 mg/dL 6-24 MEDENT ([facility] Creatinine [Mass/volume] in Serum or Plasma 0.53 mg/dL 0.57 -1.00 Below low normal MEDENT ([facility] ) Urea nitrogen/Creatinine [Mass Ratio] in Serum or Plasma 17 9 -23 MED[facility] ([facility] eGFR If Africn Am 130 mL/min/1.73 ME DENT ([facility] eGFR If NonAfricn Am 113 mL/min/1.73 MEDENT ([facility] Potassium [Moles/volume] in Serum or Plasma 4.4 mmol/L 3.5-5.2 MEDENT ([facility] Sodium [Moles/volume] in Serum or Plasma 138 mmol/L 134-144 MEDENT ([facility] Chloride [Moles/volume] in Serum or Plasma 104 mmol/L 96-106 MEDENT ([facility] Carbon dioxide, total [Moles/volume] in Serum or Plasma 20 mmol/L 20 -29 MEDENT ([facility] Calcium [Mass/volume] in Serum or Plasma 9.2 mg/dL 8.7-10.2 MED[facility] ([facility] Protein [Mass/volume] in Serum or Plasma 6.6 g/dL 6.0-8.5 MED[facility] ([facility] Albumin/Globulin [Mass Ratio] in Serum or Plasma 1.5 1.2-2.2 MED[facility] ([facility] Globulin [Mass/volume] in Serum by calculation 2.6 g/dL 1.5-4.5 MED[facility] ([facility] Albumin [Mass/volume] in Serum or Plasma 4.0 g/dL 3.8-4.8 MEDENT ([facility] Bilirubin.total [Mass/volume] in Serum or Plasma 0.3 mg/dL 0.0-1.2 MED[facility] ([facility] Alkaline phosphatase [Enzymatic activity/volume] in Serum or Plasma 70 IU/L 39-117 [facility] Aspartate aminotransferase [Enzymatic activity/volume] in Serum or Plasma 60 IU/L 0-40 Above high normal MEDENT ([facility] Alanine aminotransferase [Enzymatic activity/volume] in Seru m or Plasma 26 IU/L 0-32 [facility] ([facility] ID Date Data Source [id number] 08/26/2020 09:16:00 AM EST MEDENT ([facility]amil y [...] Auto mated count 86 fL 79-97 MED[facility] ([facility] Erythrocyte mean corpuscular hemoglobin concentration [Mass/volume] by Automated count 31.6 g/dL 31.5-35.7 MED[facility] ([facility] Erythrocyte mean corpuscular hemoglobin [Entitic mass] by Automated count 27.3 pg 26.6-33.0 MEDENT ([facility] Neutrophils 49 % MEDENT ([facility] Erythrocyte distribution width [Ratio] by Automated count 15.1 % 11.7-15.4 MED[facility] ([facility] Platelets [#/volume] in Blood by Automated count 321 x10E3/uL 150-450 MED[facility] ([facility] Monocytes/100 leukocytes in Blood by Automated count 8 % [facility] ([facility] Lymphs 39 % [facility] Eosinophils/100 leukocytes in Blood by [...] x10E3/uL 0.7-3.1 Above high no rmal MEDENT ([facility] Monocytes [#/volume] in Blood 0.7 x10E3/uL 0.1-0.9 MED[facility] ([facility] Immature granulocytes/100 leukocytes in Blood by Automated count 0 % MED[facility] ([facility] Eosinophils [#/volume] in Blood by Automated count 0.3 x10E3/uL 0.0-0 .4 MEDENT ([facility] Basophils [#/volume] in Blood by Automated count 0.1 x10E3/uL 0.0-0.2 MEDENT ([facility] Nucleated erythrocytes/100 leukocytes [Ratio] in Blood by Automated count Laboratory test result MEDENT ([facility] Immature granulocytes [#/volume] in Blood by Automated count 0.0 x10E3/uL 0.0-0.1 MEDENT ([facility] Morphology [Interpretation] in Blood Narrative Laboratory test result MEDENT ([facility] Procedure Social History Code Duration Value Status Description Data Source(s ) Smoking 07/14/2021 12:00:00 AM EDT Current Smoker completed Curre nt Smoker eCW1 ([facility]) Smoking 01/01/2021 12:00:00 AM EDT Current Smoker completed Curre nt Smoker eCW1 ([facility]) Smoking 01/01/2021 12:00:00 AM EDT Current Smoker completed Curre nt Smoker eCW1 ([facility]) Smoking 01/01/2021 12:00:00 AM EDT Current Smoker completed Curre nt Smoker eCW1 ([facility]) Smoking 12/29/2020 12:00:00 AM EDT Current Smoker completed Curre nt Smoker eCW1 ([facility]) Smoking 12/14/2020 12:00:00 AM EST Current Smoker completed Curre nt Smoker eCW1 ([facility]) Smoking 12/14/2020 12:00:00 AM EST Current Smoker completed Curre nt Smoker eCW1 ([facility]) Smoking 12/14/2020 12:00:00 AM EST Current Smoker completed Curre nt Smoker eCW1 ([facility]) Vital Signs ID Date Data Source UNK Name Value Range Interpretation Code Description Data Source(s) Body surface area Derived from formula 1.81 m2 1.81 m2 MEDENT ([facility]) Systolic blood pressure 108 mm[Hg] 108 mm[Hg] M EDENT ([facility]) Diastolic blood pressure 60 mm[Hg] 60 mm[Hg] MEDENT ([facility]) Body height 65 [in_i] 65 [in_i] MEDENT ([facility]) 5'5" Body weight 162.00 [lb_av] 162.00 [lb_av] MEDEN T ([facility]) Body mass index (BMI) [Ratio] 27.0 kg/m2 27.0 k g/m2 [facility] ([facility]) [place] body weight 125 [lb_av] 125 [lb_av] MEDEN T ([facility] [facility]) Body weight 73.483 kg 73.483 kg [facility] ([facility]) Systolic blood pressure 88 mm[Hg] 88 mm[Hg] M EDENT ([facility] Diastolic blood pressure 58 mm[Hg] 58 mm[Hg] MEDENT ([facility] Body temperature 97.7 [degF] 97.7 [degF] MEDENT ([facility] Heart rate 70 /min 70 /min MEDENT ([facility] Respiratory rate 16 /min 16 /min MEDENT ( [facility] Body height 64.75 [in_i] 64.75 [in_i] MEDENT ([facility] 5'4.75" Body weight 163.00 [lb_av] 163.00 [lb_av] MEDEN T ([facility] [place] body weight 120 [lb_av] 120 [lb_av] MEDEN T ([facility] Body mass index (BMI) [Ratio] 27.3 kg/m2 27.3 k g/m2 MEDENT ( [facility] Oxygen saturation in Arterial blood by Pulse oximetry 98 % 98 % MEDENT ( [facility] Body weight 164 [lb_av] 164 [lb_av] eCW1 ([facility]) Body weight 74.39 kg 74.39 kg eCW1 ([facility]) Body height 64 [in_i] 64 [in_i] eCW1 ([facility]) Body mass index (BMI) [Ratio] 28.15 kg/m2 28.15 kg/m2 eCW1 ([facility]) Systolic blood pressure 100 mm[Hg] 100 mm[Hg] e CW1 ([facility]) Diastolic blood pressure 60 mm[Hg] 60 mm[Hg] eCW1 ([facility]) Respiratory rate 16 /min 16 /min MEDENT ( [facility] Body height 64.75 [in_i] 64.75 [in_i] MEDENT ([facility] 5'4.75" Body weight 160.00 [lb_av] 160.00 [lb_av] MEDEN T ([facility] [place] body weight 120 [lb_av] 120 [lb_av] MEDEN T ([facility] Body temperature 97.2 [degF] 97.2 [degF] MEDENT ([facility] Heart rate 60 /min 60 /min MEDENT ([facility] Body mass index (BMI) [Ratio] 26.8 kg/m2 26.8 k g/m2 MEDENT ([facility] Oxygen saturation in Arterial blood by Pulse oximetry 94 % 94 % SHAMIR ( [facility] Systolic blood pressure 92 mm[Hg] 92 mm[Hg] M EDENT ([facility] Diastolic blood pressure 60 mm[Hg] 60 mm[Hg] MEDENT ([facility] Diastolic blood pressure 60 mm[Hg] 60 mm[Hg] MEDENT ([facility] Systolic blood pressure 102 mm[Hg] 102 mm[Hg] M EDENT ([facility] Body temperature 97.4 [degF] 97.4 [degF] MEDENT ([facility] Heart rate 70 /min 70 /min MEDENT ([facility] Respiratory rate 18 /min 18 /min MEDENT ( [facility] Body height 64.75 [in_i] 64.75 [in_i] MEDENT ([facility] 5'4.75" Body weight 160.00 [lb_av] 160.00 [lb_av] MEDEN T ([facility] [place] body weight 120 [lb_av] 120 [lb_av] MEDEN T ([facility] Body mass index (BMI) [Ratio] 26.8 kg/m2 26.8 k g/m2 MEDENT ([facility] Oxygen saturation in Arterial blood by Pulse oximetry 98 % 98 % MEDENT ([facility] Body height 64.75 [in_i] 64.75 [in_i] MEDENT ([facility] 5'4.75" Body weight 160.00 [lb_av] 160.00 [lb_av] MEDEN T ([facility] [place] body weight 120 [lb_av] 120 [lb_av] MEDEN T ([facility] Diastolic blood pressure 88 mm[Hg] 88 mm[Hg] MEDENT ([facility] Body temperature 97.3 [degF] 97.3 [degF] MEDENT ([facility] Body mass index (BMI) [Ratio] 26.8 kg/m2 26.8 k g/m2 MEDENT ([facility] Oxygen saturation in Arterial blood by Pulse oximetry 97 % 97 % SHAMIR ([facility] Systolic blood pressure 138 mm[Hg] 138 mm[Hg] M EDENT ([facility] Heart rate 60 /min 60 /min MEDENT ([facility] Respiratory rate 18 /min 18 /min MEDENT ( [facility] Systolic blood pressure 96 mm[Hg] 96 mm[Hg] M EDENT ([facility]) Diastolic blood pressure 61 mm[Hg] 61 mm[Hg] MEDENT ([facility]) Body height 65 [in_i] 65 [in_i] MEDENT ([facility]) 5'5" [place] body weight 125 [lb_av] 125 [lb_av] MEDEN T ([facility]) Body weight 159.00 [lb_av] 159.00 [lb_av] MEDEN T ([facility]) Body mass index (BMI) [Ratio] 26.5 kg/m2 26.5 k g/m2 [facility] ([facility]) Body weight 72.122 kg 72.122 kg [facility] ([facility]) Body surface area Derived from formula 1.79 m2 1.79 m2 [facility] ([facility]) Body height 65 [in_i] 65 [in_i] MEDENT ([facility]) 5'5" Body weight 159.00 [lb_av] 159.00 [lb_av] MEDEN T ([facility]) Body mass index (BMI) [Ratio] 26.5 kg/m2 26.5 k g/m2 [facility] ([facility]) [place] body weight 125 [lb_av] 125 [lb_av] MEDEN T ([facility]) Body weight 72.122 kg 72.122 kg [facility] ([facility]) Body surface area Derived from formula 1.79 m2 1.79 m2 [facility] ([facility]) Body weight 70.762 kg 70.762 kg [facility] ([facility]) Body surface area Derived from formula 1.78 m2 1.78 m2 [facility] ([facility]) Body height 65 [in_i] 65 [in_i] [facility] ([facility]) 5'5" Body weight 156.00 [lb_av] 156.00 [lb_av] MEDEN T ([facility]) Body mass index (BMI) [Ratio] 26.0 kg/m2 26.0 k g/m2 [facility] ([facility]) [place] body weight 125 [lb_av] 125 [lb_av] MEDEN T ([facility]) Systolic blood pressure 108 mm[Hg] 108 mm[Hg] M EDENT ([facility]) Diastolic blood pressure 65 mm[Hg] 65 mm[Hg] MEDENT ([facility]) Body height 65 [in_i] 65 [in_i] MEDENT ([facility]) 5'5" Body weight 156.00 [lb_av] 156.00 [lb_av] MEDEN T ([facility]) Body mass index (BMI) [Ratio] 26.0 kg/m2 26.0 k g/m2 [facility] ([facility]) [place] body weight 125 [lb_av] 125 [lb_av] MEDEN T ([facility]) Body weight 70.762 kg 70.762 kg [facility] ([facility]) Body surface area Derived from formula 1.78 m2 1.78 m2 [facility] ([facility]) Body height 64.75 [in_i] 64.75 [in_i] MEDENT ([facility] 5'4.75" Body temperature 97.8 [degF] 97.8 [degF] MEDENT ([facility] Heart rate 64 /min 64 /min MEDENT ([facility] [place] body weight 120 [lb_av] 120 [lb_av] MEDEN T ([facility] Systolic blood pressure 116 mm[Hg] 116 mm[Hg] M EDENT ([facility] Diastolic blood pressure 78 mm[Hg] 78 mm[Hg] MEDENT ([facility] Respiratory rate 18 /min 18 /min MEDENT ( [facility] Body weight 162.00 [lb_av] [...] Body height 64.75 [in_i] 64.75 [in_i] MEDENT ([facility] 5'4.75" [place] body weight 120 [lb_av] 120 [lb_av] MEDEN T ([facility] Systolic blood pressure 118 mm[Hg] 118 mm[Hg] M EDENT ([facility] Diastolic blood pressure 70 mm[Hg] 70 mm[Hg] MEDENT ([facility] Body temperature 97.2 [degF] 97.2 [degF] MEDENT ([facility] Heart rate 76 /min 76 /min MEDENT ([facility] Respiratory rate 14 /min 14 /min MEDENT ( [facility] Body height 64.75 [in_i] 64.75 [in_i] MEDENT ([facility] 5'4.75" Body weight 158.00 [lb_av] 158.00 [lb_av] MEDEN T ([facility] [place] body weight 120 [lb_av] 120 [lb_av] SANDOVAL T ([facility] Body mass index (BMI) [Ratio] 26.5 kg/m2 26.5 k g/m2 MEDFABI[facility]N ([facility] Oxygen saturation in Arterial blood by Pulse oximetry 96 % 96 % [facility] ([facility] Body weight 164 [lb_av] 164 [lb_av] eCW1 ([facility]) Body height 64 [in_i] 64 [in_i] eCW1 ([facility]) Body mass index (BMI) [Ratio] 28.15 kg/m2 28.15 kg/m2 eCW1 ([facility]) Heart rate 88 /min 88 /min eCW1 ([facility]) Respiratory rate 18 /min 18 /min eCW1 ([facility]) Body temperature 98.4 [degF] 98.4 [degF] eCW1 ( [facility]) Systolic blood pressure 96 mm[Hg] 96 mm[Hg] e CW1 ([facility]) Diastolic blood pressure 54 mm[Hg] 54 mm[Hg] eCW1 ([facility]) Body weight 161 [lb_av] 161 [lb_av] eCW1 ([facility]) Body height 64 [in_i] 64 [in_i] eCW1 ([facility]) Body mass index (BMI) [Ratio] 27.63 kg/m2 27.63 kg/m2 eCW1 ([facility]) Heart rate 96 /min 96 /min eCW1 ([facility]) Respiratory rate 20 /min 20 /min eCW1 ([facility]) Body temperature 98.9 [degF] 98.9 [degF] eCW1 ( [facility]) Systolic blood pressure 92 mm[Hg] 92 mm[Hg] e CW1 ([facility]) Diastolic blood pressure 58 mm[Hg] 58 mm[Hg] eCW1 ([facility]) Body weight 150 [lb_av] 150 [lb_av] eCW1 ([facility]) Body height 64 [in_i] 64 [in_i] W1 ([facility]) Body mass index (BMI) [Ratio] 25.74 kg/m2 25.74 kg/m2 eCW1 ([facility]) Oxygen saturation in Arterial blood by Pulse oximetry 94 % 94 % MEDENT ([facility] Systolic blood pressure 116 mm[Hg] 116 mm[Hg] M EDENT ([facility] Diastolic blood pressure 72 mm[Hg] 72 mm[Hg] MEDENT ([facility] Body temperature 96.9 [degF] 96.9 [degF] MEDENT ([facility] Heart rate 50 /min 50 /min MEDENT ([facility] Respiratory rate 18 /min 18 /min MEDENT ( [facility] Body height 64.75 [in_i] 64.75 [in_i] MEDENT ([facility] 5'4.75" Body weight 165.00 [lb_av] 165.00 [lb_av] MEDEN T ([facility] [place] body weight 120 [lb_av] 120 [lb_av] MEDEN T ([facility] Body mass index (BMI) [Ratio] 27.7 kg/m2 27.7 k g/m2 MEDENT ([facility] Body weight 161.00 [lb_av] 161.00 [lb_av] MEDEN T ([facility]) Body height 66 [in_i] 66 [in_i] MEDENT ([facility]) 5'6" Body mass index (BMI) [Ratio] 26.0 kg/m2 26.0 k g/m2 MEDENT ([facility]) Heart rate 65 /min 65 /min MEDENT ([facility]) Systolic blood pressure--sitting 103 mm[Hg] 103 mm[Hg] MEDENT ([facility]) Omron, adult cuff/Ra Diastolic blood pressure--sitting 62 mm[Hg] 62 mm[Hg] MEDENT ([facility]) [place], adult cuff/Ra Body weight 165.00 [lb_av] 165.00 [lb_av] MEDEN T ([facility] Systolic blood pressure 110 mm[Hg] 110 mm[Hg] M EDENT ([facility] Diastolic blood pressure 80 mm[Hg] 80 mm[Hg] MEDENT ([facility] Body temperature 97.9 [degF] 97.9 [degF] MEDENT ([facility] Heart rate 70 /min 70 /min MEDENT ([facility] Respiratory rate 14 /min 14 /min MEDENT ( [facility] Body height 64.75 [in_i] 64.75 [in_i] MEDENT ([facility] 5'4.75" [place] body weight 120 [lb_av] 120 [lb_av] MEDEN T ([facility] Body mass index (BMI) [Ratio] 27.7 kg/m2 27.7 k g/m2 MEDENT ([facility] Oxygen saturation in Arterial blood by Pulse oximetry 95 % 95 % MEDENT ([facility] Systolic blood pressure 112 mm[Hg] 112 mm[Hg] M EDENT ([facility] Diastolic blood pressure 74 mm[Hg] 74 mm[Hg] MEDENT ([facility] Body temperature 98.7 [degF] 98.7 [degF] MEDENT ([facility] Heart rate 76 /min 76 /min MEDENT ([facility] Respiratory rate 16 /min 16 /min MEDENT ( [facility] Body height 64.75 [in_i] 64.75 [in_i] MEDENT ([facility] 5'4.75" Body weight 168.00 [lb_av] 168.00 [lb_av] MEDEN T ([facility] [place] body weight 120 [lb_av] 120 [lb_av] MEDEN T ([facility] Body mass index (BMI) [Ratio] 28.2 kg/m2 28.2 k g/m2 SHAMIR ([facility] Oxygen saturation in Arterial blood by Pulse oximetry 97 % 97 % SHAMIR ([facility] Patient Treatment Plan of Care Planned Activity Planned Date Details Description Data Source (s) 24 HR Oxybutynin chloride 10 MG Extended Release Oral Tablet 07/14/2021 12:00:00 AM EDT eCW1 ([facility]) tiotropium 0.018 MG/ACTUAT Inhalant Powder [Spiriva] 12:00:00 AM EDT eCW1 ([facility] to [facility]) tiotropium 0.018 MG/ACTUAT Inhalant Powder [Spiriva] 12:00:00 AM EDT eCW1 (Pending sale to [facility]) tiotropium 0.018 MG/ACTUAT Inhalant Powder [Spiriva] 12:00:00 AM EDT eCW1 ([facility]ending [facility] to [facility]) Augmentin 875-125 MG 12/29/2020 12:00:00 AM EDT eCW1 ([facility]) benzonatate 200 MG Oral Capsule 12/29/2020 12:00:00 AM EDT eCW1 ([facility])
[2021-09-08 18:02] VITALS: BP 103/58
== END 2021-09-08 18:06 | disposition home or self-care (01) ==
LOC: M ED 13:42
DX: R06.02 Shortness of breath (principal); Z86.16 Personal history of COVID-19; J44.9 Chronic obstructive pulmonary disease, unspecified; F17.200 Nicotine dependence, unspecified, uncomplicated; Z79.899 Other long term (current) drug therapy; Z91.89 Other specified personal risk factors, not elsewhere classified; Z88.8 Allergy status to other drugs, medicaments and biological substances; Z91.040 Latex allergy status; Z88.2 Allergy status to sulfonamides; Z88.5 Allergy status to narcotic agent

== ENCOUNTER → 2021-09-08 | Outpatient (REF) | payer OTHER | LOC: M LAB REF 09:33 | PROVIDERS: ATTEND Internal Medicine Gastroenterology | DX: R10.84 Generalized abdominal pain (principal); R63.4 Abnormal weight loss; R19.5 Other fecal abnormalities; R19.7 Diarrhea, unspecified ==

== ENCOUNTER → 2021-11-02 | Outpatient (CLI) | payer OTHER ==
[~2021-11-02] MED LIST changes: +BUDE3CAP
== END ==
LOC: M LAB 14:17
PROVIDERS: ATTEND Internal Medicine Gastroenterology
DX: R10.9 Unspecified abdominal pain (principal); K22.70 Barrett's esophagus without dysplasia; R19.7 Diarrhea, unspecified; K90.0 Celiac disease

== ENCOUNTER → 2021-11-12 | Outpatient (CLI) | payer OTHER | LOC: M WHC 07:56 | PROVIDERS: ATTEND Internal Medicine | DX: D48.61 Neoplasm of uncertain behavior of right breast (principal) | CPT/HCPCS: 76642; 77065; G0279 ==

== ENCOUNTER → 2021-12-16 | Outpatient (CLI) | payer OTHER | LOC: M LAB 16:31 | PROVIDERS: ATTEND Internal Medicine | DX: D44.12 Neoplasm of uncertain behavior of left adrenal gland (principal) ==

== ENCOUNTER → 2022-01-04 | Outpatient (CLI) | payer OTHER ==
[2022-01-04 14:34] LABS: TOTAL 25(OH) VITAMIN D 66.2 NG/ML (30.0-100.0)
== END ==
LOC: M LAB 13:29
PROVIDERS: ATTEND Internal Medicine Gastroenterology
DX: K90.0 Celiac disease (principal)

== ENCOUNTER → 2022-03-22 | Outpatient (CLI) | payer OTHER ==
[2022-03-22 10:44] LABS: HEMATOCRIT 35.9 % (36.0-47.0); HEMOGLOBIN 11.7 g/dl (12.0-15.5); MEAN CORPUSCULAR HEMOGLOBIN 27.7 pg (27.0-33.0); MEAN CORPUSCULAR HGB CONC 32.6 g/dl (32.0-36.5); MEAN CORPUSCULAR VOLUME 85.1 fl (80.0-96.0); PLATELET COUNT, AUTOMATED 322 10^3/uL (150-450); RED BLOOD COUNT 4.22 10^6/uL (4.00-5.40); WHITE BLOOD COUNT 10.6 10^3/uL (4.0-10.0)
[2022-03-22 10:55] LABS: INR 1.04
[2022-03-22 11:14] LABS: ALBUMIN 3.5 GM/DL (3.2-5.2); ALT/SGPT 17 U/L (12-78); BILIRUBIN,TOTAL 0.3 MG/DL (0.2-1.0); BLOOD UREA NITROGEN 8 MG/DL (7-18); CALCIUM LEVEL 8.4 MG/DL (8.5-10.1); CARBON DIOXIDE LEVEL 28 MEQ/L (21-32); CHLORIDE LEVEL 110 MEQ/L (98-107); CREATININE FOR GFR 0.62 MG/DL (0.55-1.30); GLOMERULAR FILTRATION RATE > 60.0 (>58); GLUCOSE, FASTING 58 MG/DL (70-100); POTASSIUM SERUM 3.9 MEQ/L (3.5-5.1); SODIUM LEVEL 139 MEQ/L (136-145); TOTAL PROTEIN 6.9 GM/DL (6.4-8.2)
== END ==
LOC: M LAB 09:52
PROVIDERS: ATTEND Internal Medicine Gastroenterology
DX: K22.70 Barrett's esophagus without dysplasia (principal)

== ENCOUNTER → 2022-03-29 | Outpatient (REF) | payer OTHER | LOC: M LAB REF 11:22 | PROVIDERS: ATTEND Internal Medicine Gastroenterology | DX: K22.70 Barrett's esophagus without dysplasia (principal); K90.0 Celiac disease; K21.9 Gastro-esophageal reflux disease without esophagitis; R63.4 Abnormal weight loss; I78.1 Nevus, non-neoplastic; R19.7 Diarrhea, unspecified ==

== ENCOUNTER → 2022-04-04 | Outpatient (CLI) | payer OTHER | LOC: M RAD 06:33 | PROVIDERS: ATTEND Internal Medicine Gastroenterology | DX: I78.1 Nevus, non-neoplastic (principal) ==

== ENCOUNTER 2022-05-08 10:33 | Emergency (ER) | payer OTHER ==
[~2022-05-08] VITALS: Ht 165.1 cm; Wt 61.4 kg
[2022-05-08] MEDS ORDERED: PRED20TA PO (11:20)
[2022-05-08] MEDS ORDERED: NS 1,000 ML IV ONE (11:20)
[2022-05-08] MEDS ORDERED: FAMOTIDINE 20MG/2ML VIAL IVP ONE (11:20)
[2022-05-08] MEDS ORDERED: methylPREDNISolone 125MG 2ML VIAL IV ONE (11:20)
[2022-05-08] MEDS ORDERED: EPIP0.3I2 IM (11:20)
[2022-05-08 14:15] VITALS: BP 97/58
== END 2022-05-08 15:19 | disposition home or self-care (01) ==
LOC: M ED 10:33
DX: L29.9 Pruritus, unspecified (principal); R06.02 Shortness of breath; T63.441A Toxic effect of venom of bees, accidental (unintentional), initial encounter; J44.9 Chronic obstructive pulmonary disease, unspecified; F17.200 Nicotine dependence, unspecified, uncomplicated; Z88.2 Allergy status to sulfonamides; Z88.6 Allergy status to analgesic agent; Z88.8 Allergy status to other drugs, medicaments and biological substances; Z91.048 Other nonmedicinal substance allergy status; Z91.040 Latex allergy status; Z79.899 Other long term (current) drug therapy
CPT/HCPCS: 93041; 94760; 96361; 96374; 96375; 99285; J2930

== ENCOUNTER → 2022-05-26 | Outpatient (CLI) | payer OTHER ==
[~2022-05-26] MED LIST changes: +EPIP0.3I2 IM; +PRED20TA PO
== END ==
LOC: M RAD 07:04
PROVIDERS: ATTEND Internal Medicine
DX: Z12.2 Encounter for screening for malignant neoplasm of respiratory organs (principal); F17.210 Nicotine dependence, cigarettes, uncomplicated

== ENCOUNTER 2022-06-06 23:34 | Emergency (ER) | payer OTHER ==
[~2022-06-06] VITALS: Ht 165.1 cm; Wt 61.8 kg
[2022-06-06 23:35] VITALS: BP 130/70
== END 2022-06-07 01:45 | disposition left against medical advice (07) ==
LOC: M ED 23:34
DX: Z53.9 Procedure and treatment not carried out, unspecified reason (principal)

== ENCOUNTER → 2022-06-13 | Outpatient (CLI) | payer OTHER | LOC: M WHC 07:23 | PROVIDERS: ATTEND Internal Medicine | DX: Z12.31 Encounter for screening mammogram for malignant neoplasm of breast (principal); D48.61 Neoplasm of uncertain behavior of right breast ==

== ENCOUNTER → 2022-08-08 | Outpatient (CLI) | payer OTHER ==
[~2022-08-08] MED LIST changes: +PROHANCE 279.3MG/ML 15ML VIAL As Ordered ONE
== END ==
LOC: M RAD 08:15
PROVIDERS: ATTEND Internal Medicine Gastroenterology
DX: D18.03 Hemangioma of intra-abdominal structures (principal)
CPT/HCPCS: 74183; A9576

== ENCOUNTER 2022-10-29 12:30 | Emergency (ER) | payer OTHER ==
[~2022-10-29] VITALS: Ht 167.6 cm; Wt 65.0 kg
[~2022-10-29 12:30] MED LIST changes: -PROHANCE 279.3MG/ML 15ML VIAL As Ordered ONE
[2022-10-29 13:10] LABS: BASO # 0.1 10^3/uL (0.0-0.2); BASO % 1.5 % (0.0-1.0); EOS # 0.4 10^3/uL (0.0-0.5); EOS % 4.3 % (0.0-3.0); HEMATOCRIT 34.9 % (36.0-47.0); LYMPH # 3.4 10^3/uL (1.5-5.0); LYMPH % 39.7 % (24.0-44.0); MEAN CORPUSCULAR HEMOGLOBIN 26.3 pg (27.0-33.0); MEAN CORPUSCULAR HGB CONC 31.5 g/dl (32.0-36.5); MEAN CORPUSCULAR VOLUME 83.3 fl (80.0-96.0); MONO # 0.6 10^3/uL (0.0-0.8); MONO % 7.4 % (2.0-8.0); PLATELET COUNT, AUTOMATED 405 10^3/uL (150-450); RED BLOOD COUNT 4.19 10^6/uL (4.00-5.40); WHITE BLOOD COUNT 8.5 10^3/uL (4.0-10.0)
[2022-10-29 13:33] LABS: LIPASE 23 U/L (12-53)
[2022-10-29 13:35] LABS: BILIRUBIN,DIRECT < 0.1 MG/DL (<0.4)
[2022-10-29 13:36] LABS: ALBUMIN 3.6 G/DL (3.2-5.2); ALKALINE PHOSPHATASE 71 U/L (46-116); ALT/SGPT 16 U/L (7.0-40); AST/SGOT 22 U/L (<34); BILIRUBIN,TOTAL 0.2 MG/DL (0.3-1.2); BLOOD UREA NITROGEN 10 MG/DL (9-23); CALCIUM LEVEL 8.6 MG/DL (8.5-10.1); CARBON DIOXIDE LEVEL 23 MMOL/L (20-31); CHLORIDE LEVEL 108 MMOL/L (98-107); CREATININE FOR GFR 0.55 MG/DL (0.55-1.30); GLOMERULAR FILTRATION RATE > 60.0 (>51); GLUCOSE, FASTING 90 MG/DL (60-100); POTASSIUM SERUM 4.3 MMOL/L (3.5-5.1); SODIUM LEVEL 141 MMOL/L (136-145); TOTAL PROTEIN 6.6 G/DL (5.7-8.2)
[2022-10-29] MEDS ORDERED: CEFD300C41 PO (15:35)
[2022-10-29] MEDS ORDERED: CEFDINIR 300 MG CAP (OMNICEF) PO ONE (15:45)
[2022-10-29] MEDS ORDERED: PHENAZOPYRIDINE 100 MG TAB PO ONE (16:10)
[2022-10-29] MEDS ORDERED: KETOROLAC 30 MG/ML 1ML VIAL IV ONE (16:10)
[2022-10-29] MEDS ORDERED: LIDOCAINE 5% (LIDODERM) PATCH TD ONE (16:10)
[2022-10-29 16:48] LABS: GC DNA AMPLIFICATION NEGATIVE (NEGATIVE)
[2022-10-29 16:49] VITALS: BP 101/56
== END 2022-10-29 16:45 | disposition home or self-care (01) ==
LOC: M ED 12:30
DX: N39.0 Urinary tract infection, site not specified (principal); F17.210 Nicotine dependence, cigarettes, uncomplicated; Z79.899 Other long term (current) drug therapy; Z88.2 Allergy status to sulfonamides; Z91.040 Latex allergy status; Z91.09 Other allergy status, other than to drugs and biological substances

== ENCOUNTER 2022-11-05 05:11 | Emergency (ER) | payer OTHER ==
[~2022-11-05] VITALS: Ht 167.6 cm; Wt 64.6 kg
[~2022-11-05 05:11] MED LIST changes: +CEFD300C41 PO
[2022-11-05 07:46] VITALS: BP 98/67
== END 2022-11-05 07:47 | disposition home or self-care (01) ==
LOC: M ED 05:11
DX: L30.9 Dermatitis, unspecified (principal); J44.9 Chronic obstructive pulmonary disease, unspecified; K31.84 Gastroparesis; Z88.5 Allergy status to narcotic agent; Z88.2 Allergy status to sulfonamides; Z88.8 Allergy status to other drugs, medicaments and biological substances; Z91.040 Latex allergy status

== ENCOUNTER → 2023-06-02 | Outpatient (CLI) | payer OTHER ==
[~2023-06-02] MED LIST changes: +DICY-61; -DICY10CA13
== END ==
LOC: M RAD 09:59
PROVIDERS: ATTEND Internal Medicine
DX: Z87.891 Personal history of nicotine dependence (principal)

== ENCOUNTER → 2023-06-26 | Outpatient (CLI) | payer OTHER | LOC: M WHC 08:08 | PROVIDERS: ATTEND Internal Medicine | DX: Z12.31 Encounter for screening mammogram for malignant neoplasm of breast (principal) ==

== ENCOUNTER 2023-10-07 01:34 | Emergency (ER) | payer OTHER ==
[~2023-10-07] VITALS: Ht 165.1 cm; Wt 70.5 kg
[~2023-10-07 01:34] MED LIST changes: +CEFD1CAP9 PO; -CEFD300C41 PO; -OXYB5TAB10 PO; +OXYB5TAB11 PO
[2023-10-07] MEDS ORDERED: FERR325T3 (01:42)
[2023-10-07] MEDS ORDERED: FLON1SPR NARES (01:45)
[2023-10-07] MEDS ORDERED: KETOROLAC 60MG 2ML VIAL IM ONE (06:25)
[2023-10-07 06:48] VITALS: BP 114/70; TEMP 98.1; O2SAT 99
== END 2023-10-07 07:05 | disposition home or self-care (01) ==
LOC: M ED 01:34
DX: G56.30 Lesion of radial nerve, unspecified upper limb (principal); J44.9 Chronic obstructive pulmonary disease, unspecified; Z86.16 Personal history of COVID-19; F17.200 Nicotine dependence, unspecified, uncomplicated; Z79.899 Other long term (current) drug therapy; Z88.2 Allergy status to sulfonamides; Z91.89 Other specified personal risk factors, not elsewhere classified; Z88.8 Allergy status to other drugs, medicaments and biological substances; Z88.5 Allergy status to narcotic agent; Z91.040 Latex allergy status
CPT/HCPCS: 73030; 96372; 99283; J1885

== ENCOUNTER 2023-12-07 11:41 | Day surgery (SDC) | payer OTHER ==
[~2023-12-07] VITALS: Ht 167.6 cm; Wt 69.1 kg
[~2023-12-07 11:41] MED LIST changes: +FERR325T3 PO; +FLON1SPR NARES; -MIRA1POW3 PO; +MIRA33506 PO; -OXYB5TAB11 PO; +OXYB5TAB14 PO
[2023-12-07] MEDS: LR 1,000 ML IV SCH (12:29)
[2023-12-07] MEDS ORDERED: MIDAZOLAM INJ 2MG/2ML VIAL As Ordered ONE (13:46)
[2023-12-07] MEDS ORDERED: propofoL 200 MG/20 ML VIAL As Ordered ONE (13:47)
[2023-12-07] MEDS ORDERED: LIDOCAINE 2% 100MG/5ML SDV (FOR ANES.) As Ordered ONE (13:50)
[2023-12-07] MEDS ORDERED: CIPRODEX OTIC SUSP 7.5ML As Ordered ONE (13:54)
[2023-12-07] MEDS: OFLOXACIN 0.3 % (OCUFLOX) OPTH SOL 5ML As Ordered ONE (14:03)
[2023-12-07] MEDS ORDERED: ONDANSETRON 4MG 2ML VIAL IV PRN (14:15)
[2023-12-07] MEDS ORDERED: fentaNYL 100 MCG/2 ML INJECTION IV PRN (14:15)
[2023-12-07 14:54] VITALS: BP 115/76; TEMP 97.7; O2SAT 95
== END 2023-12-07 15:30 | disposition home or self-care (01) ==
LOC: M SDC 11:41
PROVIDERS: ATTEND Otolaryngology
DX: H69.93 Unspecified Eustachian tube disorder, bilateral (principal); Z88.8 Allergy status to other drugs, medicaments and biological substances; Z91.040 Latex allergy status; Z88.5 Allergy status to narcotic agent; Z88.2 Allergy status to sulfonamides; Z91.048 Other nonmedicinal substance allergy status; F17.210 Nicotine dependence, cigarettes, uncomplicated; Z79.899 Other long term (current) drug therapy
CPT/HCPCS: 69436; J2250

== ENCOUNTER → 2023-12-20 | Outpatient (CLI) | payer OTHER ==
[~2023-12-20] MED LIST changes: +E-Z-PAQUE 96% w/w SUSP 176GM BTL As Ordered ONE
== END ==
LOC: M RAD 07:41
PROVIDERS: ATTEND Internal Medicine Gastroenterology
DX: D50.9 Iron deficiency anemia, unspecified (principal); K90.0 Celiac disease; R93.3 Abnormal findings on diagnostic imaging of other parts of digestive tract

== ENCOUNTER → 2024-07-01 | Outpatient (CLI) | payer OTHER ==
[~2024-07-01] MED LIST changes: -E-Z-PAQUE 96% w/w SUSP 176GM BTL As Ordered ONE
== END ==
LOC: M RAD 16:11
PROVIDERS: ATTEND Nurse Practitioner Family
DX: Z87.891 Personal history of nicotine dependence (principal)

== ENCOUNTER → 2024-09-17 | Outpatient (CLI) | payer OTHER ==
[~2024-09-17] MED LIST changes: -LACT10SO3 PO; +LACT10SO94 PO
== END ==
LOC: M WHC 06:49
PROVIDERS: ATTEND Internal Medicine
DX: Z12.31 Encounter for screening mammogram for malignant neoplasm of breast (principal)

== ENCOUNTER 2024-11-22 21:44 | Emergency (ER) | payer OTHER ==
[~2024-11-22] VITALS: Ht 167.6 cm; Wt 61.7 kg
[2024-11-23] MEDS: DERMABOND TOPICAL SKIN ADHESIVE TOP ONE (03:35)
[2024-11-23 03:54] VITALS: BP 101/63; TEMP 96.2; O2SAT 100
== END 2024-11-23 03:59 | disposition home or self-care (01) ==
LOC: M ED 21:44
DX: M25.462 Effusion, left knee (principal); S81.812A Laceration without foreign body, left lower leg, initial encounter; Y92.9 Unspecified place or not applicable; Y93.9 Activity, unspecified; Y99.9 Unspecified external cause status; W00.0XXA Fall on same level due to ice and snow, initial encounter; K21.9 Gastro-esophageal reflux disease without esophagitis; F17.210 Nicotine dependence, cigarettes, uncomplicated; F10.10 Alcohol abuse, uncomplicated; Z88.2 Allergy status to sulfonamides; Z88.5 Allergy status to narcotic agent; Z88.8 Allergy status to other drugs, medicaments and biological substances; Z91.040 Latex allergy status; Z79.899 Other long term (current) drug therapy

== ENCOUNTER → 2025-04-22 | Outpatient (CLI) | payer OTHER ==
[2025-04-22 17:12] LABS: PLATELET COUNT, AUTOMATED 302 10^3/uL (150-450)
[2025-04-22 17:33] LABS: ALT/SGPT 23 U/L (7.0-40); AST/SGOT 22 U/L (<34); IRON (FE) 84 UG/DL (50-170); PERCENT SATURATION 25.5 % (13.2-45.0)
[2025-04-22 17:37] LABS: TOTAL 25(OH) VITAMIN D 94.7 NG/ML (20.0-100.0); VITAMIN B12 LEVEL 618 PG/ML (211-911)
[2025-04-30 19:28] LABS: IMMUNOGLOBULIN A CELIAC 274 mg/dL (47-310); t-TRANSGLUTAMINASE(tTG) IgA 8.8 U/mL (<15.0); t-TRANSGLUTAMINASE(tTG) IgG < 1.0 U/mL (<15.0)
== END ==
LOC: M LAB 16:33
DX: K22.70 Barrett's esophagus without dysplasia (principal)

== ENCOUNTER → 2025-04-25 | Outpatient (REF) | payer OTHER ==
[2025-05-02 00:57] LABS: PANCREATIC ELASTASE STOOL 73 mcg/g (>200)
== END ==
LOC: M LAB REF 19:51
DX: K22.70 Barrett's esophagus without dysplasia (principal); K90.0 Celiac disease; K21.9 Gastro-esophageal reflux disease without esophagitis; D50.9 Iron deficiency anemia, unspecified; E56.9 Vitamin deficiency, unspecified; R19.5 Other fecal abnormalities

== ENCOUNTER 2025-07-14 22:12 | Emergency (ER) | payer OTHER ==
[~2025-07-14] VITALS: Ht 167.6 cm; Wt 68.1 kg
[~2025-07-14 22:12] MED LIST changes: -IBUP-1022 PO; +IBUP600T42 PO
[2025-07-14 23:15] LABS: BASO # 0.1 10^3/uL (0.0-0.2); BASO % 0.8 % (0.0-1.0); EOS # 0.6 10^3/uL (0.0-0.5); EOS % 3.8 % (0.0-3.0); LYMPH # 4.2 10^3/uL (1.5-5.0); LYMPH % 27.1 % (24.0-44.0); MONO # 1.2 10^3/uL (0.0-0.8); MONO % 7.7 % (2.0-8.0); NEUTROPHILS # 9.4 10^3/uL (1.5-8.5); NEUTROPHILS % 60.3 % (36.0-66.0); PLATELET COUNT, AUTOMATED 275 10^3/uL (150-450)
[2025-07-14 23:28] LABS: APPEARANCE, URINE CLOUDY (CLEAR); BACTERIA, URINE AUTO 1+ (NEGATIVE); BILIRUBIN, URINE AUTO NEGATIVE (NEGATIVE); BLOOD, URINE BLOOD NEGATIVE (NEGATIVE); GLUCOSE, URINE (UA) AUTO NEGATIVE (NEGATIVE); KETONE, URINE AUTO NEGATIVE (NEGATIVE); LEUKOCYTE ESTERASE, URINE AUTO 2+ (NEGATIVE); MUCUS, URINE SMALL (NEGATIVE); NITRITE, URINE AUTO NEGATIVE (NEGATIVE); PROTEIN, URINE AUTO NEGATIVE (NEGATIVE); RBC, URINE AUTO 2 /HPF (0-3); SPECIFIC GRAVITY URINE AUTO 1.020 (1.002-1.035); SQUAMOUS EPITHELIAL CELL UR AU 14 /HPF (0-6); UROBILINOGEN, URINE AUTO 0.2 mg/dL (0.0-2.0); WBC, URINE AUTO 103 /HPF (0-3)
[2025-07-14 23:36] LABS: ALT/SGPT 18 U/L (7.0-40); AST/SGOT 22 U/L (<34); CALCIUM LEVEL 8.9 MG/DL (8.5-10.1); CARBON DIOXIDE LEVEL 22 MMOL/L (20-31); CHLORIDE LEVEL 107 MMOL/L (98-107); CREATININE FOR GFR 0.63 MG/DL (0.55-1.30); GLOMERULAR FILTRATION RATE > 90.0 (>51); POTASSIUM SERUM 4.6 MMOL/L (3.5-5.1); SODIUM LEVEL 138 MMOL/L (136-145)
[2025-07-15 01:07] VITALS: BP 105/58; TEMP 98; O2SAT 99
[2025-07-15] MEDS ORDERED: METAL LOCK LOOP XX ONE (09:49)
== END 2025-07-15 03:44 | disposition left against medical advice (07) ==
LOC: M ED 22:12
DX: Z53.21 Procedure and treatment not carried out due to patient leaving prior to being seen by health care provider (principal)

== ENCOUNTER → 2025-07-24 | Outpatient (CLI) | payer OTHER | LOC: M RAD 07:45 | PROVIDERS: ATTEND Internal Medicine Pulmonary Disease | DX: Z12.2 Encounter for screening for malignant neoplasm of respiratory organs (principal); Z87.891 Personal history of nicotine dependence; J43.9 Emphysema, unspecified; I25.10 Atherosclerotic heart disease of native coronary artery without angina pectoris; K44.9 Diaphragmatic hernia without obstruction or gangrene; I70.0 Atherosclerosis of aorta; N63.10 Unspecified lump in the right breast, unspecified quadrant ==